=== PATIENT | female | born 1955 | race Caucasian/White ===

== ENCOUNTER 2017-08-13 13:37 | Emergency (ER) | payer OTHER, SELFPAY | END 2017-08-13 15:44 | disposition home or self-care (01) | PROVIDERS: Emergency Provider Nurse Practitioner Family; Family Provider Emergency Medicine; Visit Provider Nurse Practitioner Family | DX: J06.9 Acute upper respiratory infection, unspecified (principal); I10 Essential (primary) hypertension; E03.9 Hypothyroidism, unspecified; F41.9 Anxiety disorder, unspecified; Z88.0 Allergy status to penicillin; Z88.1 Allergy status to other antibiotic agents; Z88.2 Allergy status to sulfonamides | CPT/HCPCS: 87804; 99201 ==

== ENCOUNTER → 2018-02-10 10:05 | Outpatient (CLI) | payer OTHER, SELFPAY ==
--- NOTE | 2018-02-10 11:00 | XR_ITS ---
XR foot RT 2V HISTORY: ITS.REASON: foot pain ORDERING PHYSICIAN: Ariadna Edward PATIENT AGE: 62 years COMPARISON: None FINDINGS: No fracture or dislocation. No lytic or blastic change. There is normal mineralization.. There is a small calcaneal spur and there is an enthesophyte of the calcaneus at the Achilles insertion. 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 Please correlate with clinical findings. IMPRESSION: 1. Degenerative changes with calcaneal spur, calcaneal enthesophyte, along with a Reyna deformity . 2. No acute finding
[2018-02-10 11:07] LABS: Basophils # 0.1 K/mm3 (0-0.2); Basophils % 0.9 % (0.1-2.0); Eosinophils # 0.4 K/mm3 (0.0-0.4); Eosinophils % 5.2 % (0.1-12.0); Hematocrit 44.9 % (37.0-47.0); Hemoglobin 14.2 g/dL (12.2-16.2); Lymphocytes # 1.3 K/mm3 (0.7-4.5); Mean Corpuscular HGB Conc 31.6 g/dL (31.8-35.4); Mean Corpuscular Hemoglobin 27.1 pg (27.0-31.2); Mean Corpuscular Volume 85.9 fl (81-99); Mean Platelet Volume 8.3 fl (7.4-10.4); Monocytes # 0.4 K/mm3 (0.1-1.0); Monocytes % 4.4 % (1.7-9.3); Neutrophils # 6.3 K/mm3 (1.8-7.8); Neutrophils % 74.5 % (37.0-80.0); Platelet Count 202 K/mm3 (142-424); Red Blood Count 5.22 M/mm3 (4.20-5.40); Red Cell Distribution Width 13.6 % (11.5-17.5); White Blood Count 8.4 K/mm3 (4.8-10.8)
[2018-02-10 11:36] LABS: Alanine Aminotransferase 28 U/L (12-78); Albumin Level 3.8 gm/dL (3.4-5.0); Albumin/Globulin Ratio 1.1 (1.1-1.8); Alkaline Phosphatase 63 U/L (46-116); Anion Gap 11.8 mEq/L (5-15); Aspartate Amino Transferase 21 U/L (15-37); Bilirubin,Total 0.6 mg/dL (0.2-1.0); Blood Urea Nitrogen 11 mg/dL (7-18); Calcium 8.6 mg/dL (8.5-10.1); Carbon Dioxide 29 mmol/L (21.0-32.0); Chloride 105 mmol/L (98-107); Cholesterol 203 mg/dL (140-200); Creatinine,Serum 0.83 mg/dL (0.55-1.02); Estimated Glomerular Filt Rate 70 ml/min (>60); GFR (African American) 84 ML/MIN (>60); Globulin 3.6 gm/dl (1.3-3.2); Glucose 111 mg/dL (74-106); HDL Cholesterol 51 mg/dL (29-89); LDL Cholesterol 128 mg/dL (0-130); Potassium 3.8 mmoL/L (3.5-5.1); Sodium 142 mmol/L (136-145); T4 (Thyroxine) 8.1 ug/dl (4.7-13.3); Thyroid Stimulating Hormone 5.66 uIU/ml (0.358-3.740); Total Protein,Serum 7.4 gm/dL (6.4-8.2); Triglycerides 121 mg/dL (30-200); VLDL Cholesterol 24 mg/dL (0-40)
[2018-02-12 08:07] LABS: Vitamin D 25 Hydroxy 27.9 ng/mL (30.0-100.0)
[2018-02-13 15:37] LABS: H. pylori Breath Test Negative (Negative)
== END ==
PROVIDERS: Visit Provider Nurse Practitioner Family
DX: E03.9 Hypothyroidism, unspecified (principal); E78.5 Hyperlipidemia, unspecified; I10 Essential (primary) hypertension; R10.9 Unspecified abdominal pain; M79.601 Pain in right arm
CPT/HCPCS: 36415; 73620; 80053; 80061; 82652; 83013; 84436; 84443; 85025

== ENCOUNTER → 2018-05-22 10:14 | Outpatient (CLI) | payer OTHER, SELFPAY ==
--- NOTE | 2018-05-22 10:15 | MM_ITS ---
MM Dig screening mamm BI w/CAD ORDERING PHYSICIAN : Ariadna Edward PATIENT AGE: 62 years GENDER: Female COMPARISON: February INDICATION: ITS.REASON: screening. No hormones. No new complaints. Noncontributory family history TECHNIQUE: Standard CC and MLO images were obtained. R2 CAD reviewed. Additional axillary cc view both breast included FINDINGS: Lower density breast bilaterally with no dominant mass nor suspicious calcifications either breast. No suspicious new findings. Bilateral follow-up in one year adequate . IMPRESSION: ========= Stable bilateral mammogram . No significant new findings either breast Follow-up in one year BI-RADS Category: 1 Negative RECOMMENDED FOLLOW-UP: 1YR 1 YEAR FOLLOW-UP (A letter has been sent to the patient regarding results of the study.)
== END ==
PROVIDERS: Family Provider Emergency Medicine; PCP Nurse Practitioner Family; Visit Provider Nurse Practitioner Family
DX: Z12.31 Encounter for screening mammogram for malignant neoplasm of breast (principal)
CPT/HCPCS: 77067

== ENCOUNTER → 2019-01-29 11:26 | Outpatient (CLI) | payer OTHER, SELFPAY ==
--- NOTE | 2019-01-29 11:30 | XR_ITS ---
XR foot LT min 3V HISTORY: ITS.REASON: pain ORDERING PHYSICIAN: Rosio Titus APRN PATIENT AGE: 63 years COMPARISON: None FINDINGS: No fracture or dislocation. No lytic or blastic change or significant osteoarthritis. Small calcaneal spur is noted in there is an easily identified and his feelings insertion nonspecific. IMPRESSION: No acute finding
== END ==
PROVIDERS: PCP Emergency Medicine; Visit Provider Nurse Practitioner Family
DX: M25.473 Effusion, unspecified ankle (principal); M79.672 Pain in left foot
CPT/HCPCS: 73630

== ENCOUNTER → 2019-02-17 14:59 | Outpatient (CLI) | payer OTHER, SELFPAY | PROVIDERS: Visit Provider Nurse Practitioner Family | DX: R31.9 Hematuria, unspecified (principal) | CPT/HCPCS: 87086 ==

== ENCOUNTER → 2020-05-25 17:35 | Outpatient (CLI) | payer OTHER, SELFPAY | PROVIDERS: Visit Provider Nurse Practitioner Family | DX: R35.0 Frequency of micturition (principal) | CPT/HCPCS: 87086 ==

== ENCOUNTER → 2020-08-25 11:08 | Outpatient (CLI) | payer OTHER, SELFPAY ==
[2020-08-25 12:13] LABS: Basophils # 0.1 K/mm3 (0-0.2); Basophils % 0.9 % (0.1-2.0); Eosinophils # 0.3 K/mm3 (0.0-0.4); Eosinophils % 3.2 % (0.1-12.0); Hematocrit 47.5 % (37.0-47.0); Hemoglobin 15.7 g/dL (12.2-16.2); Lymphocytes # 1.8 K/mm3 (0.7-4.5); Lymphocytes % 18.3 % (10-50); Mean Corpuscular HGB Conc 33.1 g/dL (31.8-35.4); Mean Corpuscular Hemoglobin 27.8 pg (27.0-31.2); Mean Corpuscular Volume 84.2 fl (81-99); Mean Platelet Volume 8.4 fl (7.4-10.4); Monocytes # 0.5 K/mm3 (0.1-1.0); Monocytes % 4.9 % (1.7-9.3); Neutrophils # 7.1 K/mm3 (1.8-7.8); Neutrophils % 72.8 % (37.0-80.0); Platelet Count 258 K/mm3 (142-424); Red Blood Count 5.64 M/mm3 (4.20-5.40); Red Cell Distribution Width 14.4 % (11.5-17.5); White Blood Count 9.8 K/mm3 (4.8-10.8)
[2020-08-25 12:28] LABS: Alanine Aminotransferase 17 U/L (12-78); Albumin Level 4.6 g/dl (3.5-5.0); Albumin/Globulin Ratio 1.2 (1.1-1.8); Alkaline Phosphatase 82 U/L (38-126); Anion Gap 13.4 mEq/L (5-15); Aspartate Amino Transferase 26 U/L (14-36); Bilirubin,Total 1.2 mg/dl (0.2-1.3); Blood Urea Nitrogen 14 mg/dl (7-17); Calcium 10.2 mg/dl (8.4-10.2); Carbon Dioxide 28 mmol/L (22.0-30.0); Chloride 103 mmol/L (98-107); Chol/HDL Ratio 4.3 (1-3.5); Cholesterol 248 mg/dl (140-200); Estimated Glomerular Filt Rate 72 ml/min (>60); GFR (African American) 87 ML/MIN (>60); Globulin 3.7 g/dL (1.3-3.2); Glucose 117 mg/dl (74-100); HDL Cholesterol 58 mg/dl (40-60); Potassium 4.4 mmoL/L (3.5-5.1); Sodium 140 mmol/L (136-145); Total Protein,Serum 8.3 g/dl (6.3-8.2); Triglycerides 131 mg/dl (30-150); VLDL Cholesterol 26 mg/dL (0-40)
[2020-08-25 12:39] LABS: Direct LDL Cholesterol 153.28 mg/dL (100-129)
[2020-08-25 12:46] LABS: 25-OH Vitamin D, Total 24.8 ng/mL (30-100)
[2020-08-25 12:59] LABS: Thyroid Stimulating Hormone 3.95 uIU/mL (0.465-4.68)
== END ==
PROVIDERS: Visit Provider Physician Assistant
DX: E03.9 Hypothyroidism, unspecified (principal); E78.5 Hyperlipidemia, unspecified; E55.9 Vitamin D deficiency, unspecified; I10 Essential (primary) hypertension
CPT/HCPCS: 36415; 80053; 80061; 82306; 84439; 84443; 85025

== ENCOUNTER 2020-11-30 18:20 | Emergency (ER) | payer MEDICARE, OTHER, SELFPAY ==
[2020-11-30] VITALS (7 sets, daily range): BP systolic 157–189; BP diastolic 60–97; PULSE 62–81; RESP 14–20; TEMP 36.6; O2SAT 96–99; BMI 33.6
--- NOTE | 2020-11-30 18:43 | ECG_ITS ---
APPROVED REPORT Exam: Resting ECG HR:81 bpm ECG Measurements Heart Rate 81 AXES VA 158 P 59 QRSd 82 QRS 38 QT 410 T 59 QTc 476 Conclusion Sinus rhythm with premature atrial complexes Otherwise normal ECG Electronically signed by : Refugio Rosas, 12/03/2020 07:32:47
--- NOTE | 2020-11-30 18:51 | XR_ITS ---
PROCEDURE: XR CHEST PORTABLE CLINICAL HISTORY: soa Shortness of air COMPARISON: CR CXR CHEST(2 VIEWS-NOT PORTABLE) from 03/04/2017 FINDINGS: The cardiomediastinal silhouette and pulmonary vascularity are within normal limits. The lungs are clear without infiltrates, suspicious nodules, or pleural effusions. No acute bony abnormalities. IMPRESSION: No acute findings. Dictated by: Joey Hardy MD 11/30/2020 21:31 Joey Hardy MD in [place] 11/30/2020 21:31
--- NOTE | 2020-11-30 19:06 | HMH.EDGENADL ---
ED Disposition Clinical Impression: Palpitations Disposition: Still a Patient Condition on Discharge: Good Referrals: Tomasz Potts MD [Primary Care Provider] - - Critical Care Critical Care Time: No Attestation: On 11/30/20, the high probability of a clinically significant, sudden or life threatening deterioration of the following system(s) required my full and direct attention, intervention and personal management. The time I documented below is in addition to time spent performing reported procedures but includes the following listed in this critical care notation. Medical Decision Making - Medical Records Medical records reviewed: Yes: I reviewed the patient's medical records. - Patrick Inquiry Pt receiving controlled substance: No Vital Signs: 11/30/20 18:21 Temperature 98 F Temperature Source Oral Pulse Rate [Radial] 81 Respiratory Rate 16 Blood Pressure [Left Arm] 170/97 H Blood Pressure [Right Arm] 189/77 H Blood Pressure Mean [Left Arm] 121 Blood Pressure Mean [Right Arm] 114 Blood Pressure Position [Left Arm] Sitting Blood Pressure Position [Right Arm] Sitting 02 Sat by Pulse Oximetry 98 Oxygen Delivery Method Room Air Orders (Tests/Meds): ORDERS Category Date Time Status XR chest portable Stat Exams 11/30/20 18:51 Taken Basic Metabolic Panel Stat Lab 11/30/20 18:51 Ordered Complete Blood Count Auto Diff Stat Lab 11/30/20 18:51 Ordered Thyroid Stimulating Hormone Stat Lab 11/30/20 18:51 Ordered Troponin I Q3H Lab 11/30/20 22:00 Ordered Troponin I Q3H Lab 12/01/20 01:00 Ordered Troponin I Stat Lab 11/30/20 18:51 Ordered Medical Decision Narrative: 65-year-old female presents with palpitations and anxiety. She is very concerned about her blood pressure. Her blood pressure is elevated however no evidence of hypertensive emergency on exam. Laboratory evaluation has been initiated. Atypical for myocardial infarction and EKG showed no ischemic changes. TSH and electrolytes have been ordered as well. Plan for Dr. Queen to follow-up on laboratory and radiological evaluation and determine final disposition General Adult HPI - General Chief complaint: Recheck/Abnormal Lab/Rx Stated complaint: just don't feel goog, BP up Time Seen by Provider: 11/30/20 18:25 Mode of Arrival: Ambulatory Limitations: No Limitations Description of Symptoms (Recalled from ER Triage Doc. by RN): TO ED PER [facility] CAR WITH C/O HIGH BLOOD PRESSURE TODAY. ALSO C/O NECK AND IRENE SHOULDER PAIN. PT C/O ANXIETY - History of Present Illness HPI narrative: 65-year-old female with history of hypertension presents with anxiety and palpitations and hypertension. She says that she was speaking to her dentist today and felt an episode of anxiety come on and she felt her heart racing. She then checked her blood pressure and it was elevated. She is on lisinopril and amlodipine for high blood pressure. She has no chest pain at this time or shortness of air headache nausea vomiting numbness weakness or tingling in arms or legs. She feels like her heart is beating harder than normal however she does not think the speed is faster. Onset (ago): hour(s) (4) Radiation: non-radiation Severity: mild Consistency: intermittent - Related Data Home Medications Medication Instructions Recorded Confirmed diclofenac sodium 1 % topical gel TOPICAL 08/07/19 08/24/20 Previous Rx's Medication Instructions Recorded aspirin 81 mg tablet,delayed 81 mg PO DAILY #90 tab 02/17/19 release fluticasone propionate 50 See Rx Instructions .ROUTE 07/31/20 mcg/actuation nasal .COMPLEX #10 milliliter spray,suspension nebivolol 10 mg tablet 10 mg PO DAILY #90 tab 08/24/20 atorvastatin 10 mg tablet 10 mg PO HS #30 tab 08/28/20 ergocalciferol (vitamin D2) 1,250 1,250 mcg PO WEEKLY #5 cap 08/28/20 mcg (50,000 unit) capsule cetirizine 10 mg tablet See Rx Instructions .ROUTE 10/31/20 .COMPLEX #90 tab lisinopril 20 mg t
[2020-11-30 19:58] LABS: Basophils # 0.1 K/mm3 (0-0.2); Basophils % 0.7 % (0.1-2.0); Eosinophils # 0.4 K/mm3 (0.0-0.4); Eosinophils % 3.2 % (0.1-12.0); Hematocrit 42.9 % (37.0-47.0); Hemoglobin 14.1 g/dL (12.2-16.2); Lymphocytes # 1.4 K/mm3 (0.7-4.5); Lymphocytes % 12.1 % (10-50); Mean Corpuscular HGB Conc 32.8 g/dL (31.8-35.4); Mean Corpuscular Hemoglobin 27.6 pg (27.0-31.2); Mean Platelet Volume 7.9 fl (7.4-10.4); Monocytes # 0.4 K/mm3 (0.1-1.0); Monocytes % 3.3 % (1.7-9.3); Neutrophils # 9.5 K/mm3 (1.8-7.8); Neutrophils % 80.7 % (37.0-80.0); Platelet Count 233 K/mm3 (142-424); Red Cell Distribution Width 14.3 % (11.5-17.5); White Blood Count 11.8 K/mm3 (4.8-10.8)
[2020-11-30 19:58] LABS: Appearance,Urine CLEAR (Clear); Bilirubin,Urine Negative (Negative); Blood, Urine TRACE-I (Negative); Color,Urine YELLOW (Yellow); Glucose,Urine (UA) Negative (Negative); Ketones,Urine Negative (Negative); Leukocyte Esterase,Urine Negative (Negative); Microscopic, Urine URINE MICROSCOPIC (MICROSCOPIC); Nitrate,Urine Negative (Negative); Protein,Urine Negative (Negative); Specific Gravity, Urine <= 1.005 (1.005-1.030); Urobilinogen,Urine 0.2 EU/dl (0.2)
[2020-11-30 20:07] LABS: Chloride 102 mmol/L (98-107); Sodium 140 mmol/L (136-145)
[2020-11-30 20:08] LABS: Potassium 3.7 mmoL/L (3.5-5.1)
[2020-11-30 20:11] LABS: Anion Gap 11.7 mEq/L (5-15); Blood Urea Nitrogen 10 mg/dl (7-17); Calcium 9.2 mg/dl (8.4-10.2); Carbon Dioxide 30 mmol/L (22.0-30.0); Creatinine Clearance Estimated 71 mL/min (50-200); Estimated Glomerular Filt Rate 84 ml/min (>60); GFR (African American) 102 ML/MIN (>60); Glucose 125 mg/dl (74-100)
[2020-11-30 20:17] LABS: D-Dimer 0.65 ug/mL (0.0-0.5)
[2020-11-30 20:29] LABS: Troponin I < 0.01 ng/ml (0.00-0.034)
[2020-11-30 20:42] LABS: Thyroid Stimulating Hormone 2.59 uIU/mL (0.465-4.68)
[2020-11-30 22:02] LABS: Troponin I < 0.01 ng/ml (0.00-0.034)
== END 2020-11-30 22:25 | disposition home or self-care (01) ==
PROVIDERS: Emergency Provider Emergency Medicine; PCP Emergency Medicine
DX: R00.2 Palpitations (principal); I10 Essential (primary) hypertension; E78.5 Hyperlipidemia, unspecified; E03.9 Hypothyroidism, unspecified; F41.9 Anxiety disorder, unspecified; K21.9 Gastro-esophageal reflux disease without esophagitis; Z88.0 Allergy status to penicillin; Z88.1 Allergy status to other antibiotic agents; Z88.2 Allergy status to sulfonamides; Z79.899 Other long term (current) drug therapy
CPT/HCPCS: 71045; 80048; 81001; 84443; 84484; 85025; 85378; 93005; 99283

== ENCOUNTER 2020-12-03 10:17 | Emergency (ER) | payer MEDICARE, OTHER, SELFPAY ==
[2020-12-03 10:18] VITALS: BP 194/83; PULSE 87; RESP 20; TEMP 37.1; O2SAT 97; BMI 34.0
--- NOTE | 2020-12-03 10:28 | HMH.EDGENADL ---
ED Disposition Clinical Impression: Postmenopausal atrophic vaginitis Disposition: Home, Self-Care Condition on Discharge: Good Instructions: DI for Atrophic Vaginitis Additional Instructions: You have been evaluated for hematuria and vaginal dryness. Diagnosed with atrophic vaginitis. Please use topical lubricants like K-Y jelly. You may use estrogen cream if [id number] medications do not help. One option is Premarin. Follow-up with a SENIOR PROGRAM ANALYST as soon as available for complete examination, Pap smear, etc. return to the emergency department for any new or worsening symptoms Prescriptions: Estrogens, Conjugated [Premarin Cream 0.625mg/g 30g Applicator] 30 gm VG DAILYP PRN 5 Days #30 g PRN Reason: Vaginal Irritation Transmission Status: Pending to [id number] Referrals: Tomasz Potts MD [Primary Care Provider] - Time of Disposition: 11:20 - Critical Care Critical Care Time: No Attestation: On 12/03/20, the high probability of a clinically significant, sudden or life threatening deterioration of the following system(s) required my full and direct attention, intervention and personal management. The time I documented below is in addition to time spent performing reported procedures but includes the following listed in this critical care notation. Medical Decision Making - Medical Records Medical records reviewed: Yes: I reviewed the patient's medical records. - Patrick Inquiry Pt receiving controlled substance: No Vital Signs: 12/03/20 10:18 Temperature 98.7 F Temperature Source Oral Pulse Rate [Left Radial] 87 Respiratory Rate 20 Blood Pressure [Right Arm] 194/83 H Blood Pressure Mean [Right Arm] 120 Blood Pressure Source [Right Arm] Automatic Cuff Blood Pressure Position [Right Arm] Sitting 02 Sat by Pulse Oximetry 97 Oxygen Delivery Method Room Air - Lab Data Lab Results 12/03/20 10:42: Urine Color Yellow, Urine Appearance Clear, Urine pH 6.0, Ur Specific [place] 1.025, Urine Protein Negative, Urine Glucose (UA) Negative, Urine Ketones Negative, Urine Blood 3+, Urine Nitrate Negative, Urine Bilirubin Negative, Urine Urobilinogen 1.0, Ur Leukocyte Esterase Negative, Urine RBC 10-20, Urine WBC None, Ur Squamous Epith Cells 10-20, Urine Bacteria None 12/03/20 10:51: WBC 10.1, RBC 5.13, Hgb 14.3, Hct 41.8, MCV 81.4, MCH 27.9, MCHC 34.2, RDW 14.3, Plt Count 242, MPV 8.3, Neut % (Auto) 71.5, Lymph % (Auto) 16.3, [place] % (Auto) 4.2, Eos % (Auto) 7.1, Baso % (Auto) 0.9, Neut # (Auto) 7.2, Lymph # (Auto) 1.7, [place] # (Auto) 0.4, Eos # (Auto) 0.7 H, Baso # (Auto) 0.1 12/03/20 10:51: Sodium 140, Potassium 3.7, Chloride 104, Carbon Dioxide 27, Anion Gap 12.7, BUN 12, Creatinine 0.80, Estimated Creat Clear 72, Estimated GFR 72, Est GFR ( Amer) 87, Glucose 128 H, Calcium 9.8, Total Bilirubin 0.9, AST 23, ALT 18, Alkaline Phosphatase 76, Total Protein 8.4 H, Albumin 4.8, Globulin 3.6 H, Albumin/Globulin Ratio 1.3 Result diagrams: 12/03/20 10:51 12/03/20 10:51 Medical Decision Narrative: In summary this is a 65-year-old female presenting to the emergency department with vaginal itching, dysuria, bleeding. Patient clinically stable on arrival. Vital signs within normal limits with the exception of hypertension. Differential diagnoses include urinary tract infection, cystitis, vaginal atrophy, hypoestrogenism, nephrolithiasis. Will obtain CBC, CMP, urinalysis. Urinalysis shows 10-20 red blood cells. No signs of infection. No protein in the urine. Physical exam is most consistent with postmenopausal vaginal atrophy. Erythema is within the labia minora, not in other parts. No satellite lesions. No ulcers. No rash. Patient counseled to use a vaginal lubricant. If this does not work, may try estrogen cream like Premarin. Given prescription. Instructed to follow-up with her SENIOR PROGRAM ANALYST for more complete examination and symptom monitoring. She is agreeable with plan for discharge. General Adult HPI
[2020-12-03 10:51] VITALS: BP 176/66; PULSE 87; O2SAT 97
[2020-12-03 10:51] LABS: Appearance,Urine CLEAR (Clear); Bilirubin,Urine Negative (Negative); Blood, Urine 3+ (Negative); Color,Urine YELLOW (Yellow); Glucose,Urine (UA) Negative (Negative); Ketones,Urine Negative (Negative); Leukocyte Esterase,Urine Negative (Negative); Microscopic, Urine URINE MICROSCOPIC (MICROSCOPIC); Nitrate,Urine Negative (Negative); Protein,Urine Negative (Negative); Specific Gravity, Urine 1.025 (1.005-1.030)
[2020-12-03 10:59] LABS: Basophils # 0.1 K/mm3 (0-0.2); Basophils % 0.9 % (0.1-2.0); Eosinophils # 0.7 K/mm3 (0.0-0.4); Eosinophils % 7.1 % (0.1-12.0); Hematocrit 41.8 % (37.0-47.0); Hemoglobin 14.3 g/dL (12.2-16.2); Lymphocytes # 1.7 K/mm3 (0.7-4.5); Lymphocytes % 16.3 % (10-50); Mean Corpuscular HGB Conc 34.2 g/dL (31.8-35.4); Mean Corpuscular Hemoglobin 27.9 pg (27.0-31.2); Mean Corpuscular Volume 81.4 fl (81-99); Mean Platelet Volume 8.3 fl (7.4-10.4); Monocytes # 0.4 K/mm3 (0.1-1.0); Monocytes % 4.2 % (1.7-9.3); Neutrophils # 7.2 K/mm3 (1.8-7.8); Neutrophils % 71.5 % (37.0-80.0); Platelet Count 242 K/mm3 (142-424); Red Blood Count 5.13 M/mm3 (4.20-5.40); Red Cell Distribution Width 14.3 % (11.5-17.5); White Blood Count 10.1 K/mm3 (4.8-10.8)
[2020-12-03 11:01] VITALS: BP 167/67; PULSE 80; O2SAT 97
[2020-12-03 11:06] LABS: Alanine Aminotransferase 18 U/L (12-78); Albumin Level 4.8 g/dl (3.5-5.0); Albumin/Globulin Ratio 1.3 (1.1-1.8); Alkaline Phosphatase 76 U/L (38-126); Anion Gap 12.7 mEq/L (5-15); Aspartate Amino Transferase 23 U/L (14-36); Bilirubin,Total 0.9 mg/dl (0.2-1.3); Blood Urea Nitrogen 12 mg/dl (7-17); Calcium 9.8 mg/dl (8.4-10.2); Carbon Dioxide 27 mmol/L (22.0-30.0); Chloride 104 mmol/L (98-107); Creatinine Clearance Estimated 72 mL/min (50-200); Estimated Glomerular Filt Rate 72 ml/min (>60); GFR (African American) 87 ML/MIN (>60); Globulin 3.6 g/dL (1.3-3.2); Glucose 128 mg/dl (74-100); Potassium 3.7 mmoL/L (3.5-5.1); Sodium 140 mmol/L (136-145); Total Protein,Serum 8.4 g/dl (6.3-8.2)
[2020-12-03 11:40] VITALS: BP 167/67; PULSE 80; RESP 18; TEMP 37.1; O2SAT 97
== END 2020-12-03 11:45 | disposition home or self-care (01) ==
PROVIDERS: Emergency Provider Emergency Medicine; PCP Emergency Medicine
DX: N95.2 Postmenopausal atrophic vaginitis (principal); E03.9 Hypothyroidism, unspecified; I10 Essential (primary) hypertension; K21.9 Gastro-esophageal reflux disease without esophagitis; E78.5 Hyperlipidemia, unspecified; Z79.899 Other long term (current) drug therapy; Z88.2 Allergy status to sulfonamides; Z88.8 Allergy status to other drugs, medicaments and biological substances
CPT/HCPCS: 80053; 81001; 85025; 99282

== ENCOUNTER 2021-03-07 12:01 | Emergency (ER) | payer MEDICARE, OTHER, SELFPAY ==
[2021-03-07 12:10] VITALS: BP 181/74; PULSE 90; RESP 18; TEMP 36.8; O2SAT 96; BMI 35.5
--- NOTE | 2021-03-07 12:35 | HMH.EDUTC ---
[facility] [place] Disposition Clinical Impression: Carpal tunnel syndrome Qualifiers: Laterality: bilateral Qualified Code(s): G56.03 - Carpal tunnel syndrome, bilateral upper limbs Contact dermatitis Qualifiers: Contact dermatitis type: unspecified Contact dermatitis trigger: unspecified trigger Qualified Code(s): L25.9 - Unspecified contact dermatitis, unspecified cause Disposition: Home, Self-Care Condition on Discharge: Good Instructions: DI for Carpal Tunnel Syndrome Additional Instructions: Keep the affected area clean and dry. Follow up with your regular doctor. Don't start the oral steroids (prednisone) until tomorrow since you had the shot here today. Take the oral medications as directed and apply the topical medication as directed. Apply warm wet compresses to the affected area three or four times per day. GO TO THE ER FOR ANY WORSENING SYMPTOMS Prescriptions: predniSONE [Deltasone 10mg tablet] 10 mg PO DAILY 9 Days #21 tab Transmission Status: Received by [id number] Triamcinolone Acetonide 1 applicatio TP TIDP PRN 7 Days #1 tube PRN Reason: Itching Transmission Status: Received by [id number] Referrals: Tomasz Potts MD [Primary Care Provider] - Time of Disposition: 12:53 Medical Decision Making - Medical Records Medical records reviewed: No: I reviewed the patient's medical records. - Patrick Inquiry Pt receiving controlled substance: No Vital Signs: 03/07/21 12:10 03/07/21 13:20 Temperature 98.2 F 98 F Temperature Source Oral Pulse Rate 82 Pulse Rate [Left] 90 Respiratory Rate 18 16 Blood Pressure 174/76 H Blood Pressure [Right Arm] 181/74 H Blood Pressure Mean [Right Arm] 109 02 Sat by Pulse Oximetry 96 - Lab Data Lab Results 03/07/21 12:52: Urine Color Yellow, Urine Appearance Clear, Urine pH 6.5, Ur Specific [place] 1.025, Urine Protein Negative, Urine Glucose (UA) Negative, Urine Ketones Negative, Urine Blood Trace, Urine Nitrate Negative, Urine Bilirubin Negative, Urine Urobilinogen 0.2, Ur Leukocyte Esterase Negative 03/07/21 13:11: POC Glucose 116 H Orders (Tests/Meds): ED MEDICATIONS Discontinued Medications Generic Name Dose Route Start Last Admin Trade Name Freq PRN Reason Stop Dose Admin Methylprednisolone Sodium Succinate 125 mg 03/07/21 12:54 03/07/21 12:58 Methylprednisolone Sod Succ 125mg Vial IM 03/07/21 12:55 125 mg ONCE ONE Administration Medical Decision Narrative: Her skin symptoms of her upper back sound like shingles, but there are no vesicles and only a small area of erythema at the site. [facility] [place] HPI - General Stated complaint: back pain, hands tingling Time Seen by Provider: 03/07/21 12:35 Mode of Arrival: Ambulatory Source of Information: Patient Limitations: No Limitations Description of Symptoms (Recalled from Triage Doc. by RN): pt c/o upper R sided back and neck pain that stings and maldonado. she states her hands are also tingling. HEENT Symptoms (Recalled from RN notes): No Resp Symptoms (Recalled from RN notes): No Skin Symptoms (Recalled from RN notes): No MS Symptoms (Recalled from RN notes): Yes (R sided upper back and neck pain. tingling hands.) Functional Status (Recalled from RN notes): na - History of Present Illness Provider Complaint: She states that for the past 2 days she has had an area of tenderness, burning and itching on her upper middle back. She denies any fever/chills or other symptoms related to this. She also has been having burning with urination. She states that this started about a week ago. She also has been waking up at night for the past several weeks with bilateral hand numbness and tingling. She states that her symptoms get better pretty quickly once she starts moving her hands, but it bothers her when this happens. She states that she was told she had carpal tunnel syndrome in her right hand many years ago. - Related Data Home Medications Medicatio
[2021-03-07 12:52] LABS: Apearance,Urine Clear (Clear); Color,Urine Yellow (Yellow); PH,Urine 6.5 (5.0-8.5); Protein,Urine Negative (Negative); Specific Gravity, Urine 1.025 (1.005-1.030)
[2021-03-07 12:54] LABS: Bilirubin,Urine Negative (Negative); Blood, Urine Trace (Negative); Glucose,Urine (UA) Negative (Negative); Ketones,Urine Negative (Negative); UTC Leukocyte Esterase,Urine Negative (Negative); UTC Nitrate,Urine Negative (Negative); Urobilinogen,Urine 0.2 EU/dl (0.2)
[2021-03-07 13:20] VITALS: BP 174/76; PULSE 82; RESP 16; TEMP 36.6
[2021-03-07 13:20] LABS: POC Glucose,Bedside 116 (70-110)
== END 2021-03-07 13:22 | disposition home or self-care (01) ==
PROVIDERS: Emergency Provider Nurse Practitioner Family; PCP Emergency Medicine
DX: G56.03 Carpal tunnel syndrome, bilateral upper limbs (principal); L25.9 Unspecified contact dermatitis, unspecified cause; K21.9 Gastro-esophageal reflux disease without esophagitis; E78.5 Hyperlipidemia, unspecified; I10 Essential (primary) hypertension; E03.9 Hypothyroidism, unspecified; Z79.899 Other long term (current) drug therapy
CPT/HCPCS: G0463; 81003; 82962; 96372; 99202

== ENCOUNTER → 2021-10-19 08:58 | Outpatient (CLI) | payer MEDICARE, OTHER, SELFPAY ==
[2021-10-19 09:39] LABS: Basophils # 0.1 K/mm3 (0-0.2); Basophils % 1.1 % (0.1-2.0); Eosinophils # 0.6 K/mm3 (0.0-0.4); Eosinophils % 6.1 % (0.1-12.0); Hematocrit 38.9 % (37.0-47.0); Hemoglobin 12.6 g/dL (12.2-16.2); Lymphocytes # 1.8 K/mm3 (0.7-4.5); Lymphocytes % 17.8 % (10-50); Mean Corpuscular HGB Conc 32.3 g/dL (31.8-35.4); Mean Corpuscular Volume 86.5 fl (81-99); Mean Platelet Volume 8.6 fl (7.4-10.4); Monocytes # 0.4 K/mm3 (0.1-1.0); Monocytes % 4.2 % (1.7-9.3); Neutrophils # 7.3 K/mm3 (1.8-7.8); Neutrophils % 70.8 % (37.0-80.0); Platelet Count 282 K/mm3 (142-424); Red Cell Distribution Width 14.5 % (11.5-17.5); White Blood Count 10.3 K/mm3 (4.8-10.8)
[2021-10-19 09:59] LABS: Chloride 99 mmol/L (98-107)
[2021-10-19 10:02] LABS: Alanine Aminotransferase 20 U/L (12-78); Alkaline Phosphatase 73 U/L (38-126); Aspartate Amino Transferase 20 U/L (14-36); Bilirubin,Total 0.7 mg/dl (0.2-1.3); Blood Urea Nitrogen 13 mg/dl (7-17); Carbon Dioxide 30 mmol/L (22.0-30.0); Cholesterol 165 mg/dl (140-200); Estimated Glomerular Filt Rate 72 ml/min (>60); GFR (African American) 87 ML/MIN (>60); Triglycerides 100 mg/dl (30-150); VLDL Cholesterol 20 mg/dL (0-40)
[2021-10-19 10:14] LABS: Direct LDL Cholesterol 94.99 mg/dL (100-129)
[2021-10-19 10:34] LABS: Thyroid Stimulating Hormone 4.08 uIU/mL (0.465-4.68)
[2021-10-19 10:56] LABS: Albumin Level 3.7 g/dl (3.5-5.0); Albumin/Globulin Ratio 1.3 (1.1-1.8); Anion Gap 15.3 mEq/L (5-15); Calcium 8.7 mg/dl (8.4-10.2); Chol/HDL Ratio 3.8 (1-3.5); Globulin 2.8 g/dL (1.3-3.2); Glucose 108 mg/dl (74-100); HDL Cholesterol 43 mg/dl (40-60); Potassium 4.3 mmoL/L (3.5-5.1); Sodium 140 mmol/L (136-145); Total Protein,Serum 6.5 g/dl (6.3-8.2)
== END ==
PROVIDERS: Visit Provider Nurse Practitioner Family
DX: B96.89 Other specified bacterial agents as the cause of diseases classified elsewhere (principal); N76.0 Acute vaginitis; I10 Essential (primary) hypertension; R00.2 Palpitations
CPT/HCPCS: 36415; 80053; 80061; 84436; 84443; 85025

== ENCOUNTER 2021-11-18 22:10 | Emergency (ER) | payer MEDICARE, OTHER, SELFPAY ==
[2021-11-18 22:11] VITALS: BP 160/102; PULSE 118; RESP 16; TEMP 37.8; O2SAT 96; BMI 34.9
--- NOTE | 2021-11-18 22:52 | CT_ITS ---
PROCEDURE INFORMATION: Exam: CT Abdomen And Pelvis With Contrast Exam date and time: 11/19/2021 12:26 AM Age: 66 years old Clinical indication: Abdominal pain; Generalized; Prior surgery; Surgery date: 6+ months; Surgery type: Gb TECHNIQUE: Imaging protocol: Computed tomography of the abdomen and pelvis with contrast. Radiation optimization: All CT scans at this facility use at least one of these dose optimization techniques: automated exposure control; mA and/or kV adjustment per patient size (includes targeted exams where dose is matched to clinical indication); or iterative reconstruction. Contrast material: ISOVUE; Contrast volume: 75 ml; Contrast route: IV; COMPARISON: CR ABDACU ABD ACUTE(MUL VIEWS) 06/12/2017 2:40 PM FINDINGS: Tubes, catheters and devices: None noted. Lungs: Lung bases appear clear. Heart: No significant coronary calcifications. No cardiomegaly. No significant pericardial effusion. Liver: Normal. No mass. Gallbladder and bile ducts: Cholecystectomy. No ductal dilation. Pancreas: Normal. No ductal dilation. Spleen: Normal. No splenomegaly. Adrenal glands: Normal. No mass. Kidneys and ureters: Simple left renal cyst. No hydronephrosis. Stomach and bowel: Unremarkable. No obstruction. No mucosal thickening. Appendix: No evidence of appendicitis. Intraperitoneal space: Unremarkable. No free air. No significant fluid collection. Retroperitoneal space: No significant retroperitoneal inflammatory changes are noted. Vasculature: Unremarkable. No abdominal aortic aneurysm. Lymph nodes: Unremarkable. No enlarged lymph nodes. Urinary bladder: Unremarkable as visualized. Reproductive: Unremarkable as visualized. Bones/joints: Unremarkable. No acute fracture. Soft tissues: Unremarkable. IMPRESSION: No acute findings. COMMENTS: Consistent with the [employer]'s Incidental Findings Committee white paper ([address] [employer]iol 2018): Any incidental renal lesion less than 1 cm or classified as too small to characterize, or any incidental cystic renal lesion characterized as simple-appearing, is likely benign. No follow-up imaging is recommended for these lesions per consensus recommendations based on imaging criteria.
--- NOTE | 2021-11-18 23:33 | HMH.EDNVD ---
ED Disposition Clinical Impression: Abdominal pain Qualifiers: Abdominal location: epigastric Qualified Code(s): R10.13 - Epigastric pain Disposition: Home, Self-Care Condition on Discharge: Good Instructions: DI for Acute Abdominal Pain Additional Instructions: see pcp for follow up Referrals: Tomasz Potts MD [Primary Care Provider] - - Critical Care Critical Care Time: No Attestation: On 11/18/21, the high probability of a clinically significant, sudden or life threatening deterioration of the following system(s) required my full and direct attention, intervention and personal management. The time I documented below is in addition to time spent performing reported procedures but includes the following listed in this critical care notation. Medical Decision Making - Medical Records Medical records reviewed: Yes: I reviewed the patient's medical records. - Patrick Inquiry Pt receiving controlled substance: No Vital Signs: 11/18/21 22:11 Temperature 100.0 F H Temperature Source Oral Pulse Rate [Right Radial] 118 H Respiratory Rate 16 Blood Pressure [Right Arm] 160/102 H Blood Pressure Mean [Right Arm] 121 Blood Pressure Source [Right Arm] Automatic Cuff Blood Pressure Position [Right Arm] Sitting 02 Sat by Pulse Oximetry 96 Oxygen Delivery Method Room Air - Lab Data Lab results reviewed: Yes: I reviewed the patient's lab results. Lab Results 11/18/21 23:30: WBC 13.0 H, RBC 5.02, Hgb 14.2, Hct 43.1, MCV 85.8, MCH 28.2, MCHC 32.9, RDW 14.8, Plt Count 251, MPV 9.1, Neut % (Auto) 94.0 H, Lymph % (Auto) 3.1 L, [place] % (Auto) 1.4 L, Eos % (Auto) 1.0, Baso % (Auto) 0.5, Neut # (Auto) 12.2 H, Lymph # (Auto) 0.4 L, [place] # (Auto) 0.2, Eos # (Auto) 0.1, Baso # (Auto) 0.1, Total Counted 100, Neutrophils % (Manual) 88 H, Band Neutrophils % 5.0, Lymphocytes % (Manual) 7 L, Platelet Estimate Normal, RBC Morphology Normal, ESR 28 11/18/21 23:30: Sodium 137, Potassium 3.9, Chloride 104, Carbon Dioxide 27, Anion Gap 9.9, BUN 18 H, Creatinine 0.70, Estimated Creat Clear 73, Estimated GFR 84, Est GFR ( Amer) 101, Glucose 163 H, Calcium 8.5, Total Bilirubin 1.1, AST 31, ALT 29, Alkaline Phosphatase 67, C-Reactive Protein 31.6 H, Total Protein 7.6, Albumin 4.2, Globulin 3.4 H, Albumin/Globulin Ratio 1.2, Procalcitonin 0.105, TSH 1.14, Thyroxine (T4) 8.6 11/18/21 23:30: Troponin I < 0.01, Amylase 50, Lipase 60 11/19/21 00:30: Urine Color Yellow, Urine Appearance Clear, Urine pH 5.0, Ur Specific [place] >= 1.030, Urine Protein Negative, Urine Glucose (UA) Negative, Urine Ketones Negative, Urine Blood Negative, Urine Nitrate Negative, Urine Bilirubin Negative, Urine Urobilinogen 0.2, Ur Leukocyte Esterase Negative, Urine WBC Occasional, Ur Squamous Epith Cells 10-20 Result diagrams: 11/18/21 23:30 11/18/21 23:30 Orders (Tests/Meds): ED MEDICATIONS Generic Name Dose Route Start Last Admin Trade Name Freq PRN Reason Stop Dose Admin Sodium Chloride 8 ml 11/18/21 22:52 Sodium Chloride 0.9% 10ml Vial IV 12/18/21 22:51 NEEDED PRN dilute pepcid Discontinued Medications Generic Name Dose Route Start Last Admin Trade Name Freq PRN Reason Stop Dose Admin Famotidine 20 mg 11/18/21 22:52 11/18/21 23:35 Famotidine 20mg/2ml Vial IV 11/18/21 22:53 20 mg ONCE ONE Administration Sodium Chloride 1,000 mls @ 999 mls/hr 11/18/21 23:00 11/18/21 23:36 Sod Chlor 0.9% 1000ml Bag IV 11/19/21 00:00 999 mls/hr .Q1H1M FOZIA Administration Iopamidol 75 ml 11/19/21 00:38 11/19/21 00:39 Iopamidol-370 (76%);100ml Bottle IV 11/19/21 00:39 75 ml ONCE ONE Administration Metoclopramide HCl 10 mg 11/18/21 22:52 11/18/21 23:36 Metoclopramide Hcl 10mg/2ml Vial IVP 11/18/21 22:53 10 mg ONCE ONE Administration Ondansetron HCl 4 mg 11/18/21 22:52 11/18/21 23:36 Ondansetron 4mg/2ml Vial IV 11/18/21 22:53 4 mg ONCE ONE Administration Sodium Chloride 10 ml 11/19/21 00:38
--- NOTE | 2021-11-18 23:35 | ECG_ITS ---
APPROVED REPORT Exam: Resting ECG HR:87 bpm ECG Measurements Heart Rate 87 AXES IN 154 P 48 QRSd 79 QRS 5 QT 356 T 38 QTc 401 Conclusion SINUS RHYTHM LOW QRS VOLTAGE IN PRECORDIAL LEADS [QRS DEFLECTION < 1.0 mV IN CHEST LEADS] MODERATE ST DEPRESSION [0.05+ mV ST DEPRESSION] ABNORMAL ECG UNCONFIRMED REPORT Electronically signed by : Refugio Rosas MD 11/19/2021 08:13:30
[2021-11-18 23:45] LABS: Basophils # 0.1 K/mm3 (0-0.2); Basophils % 0.5 % (0.1-2.0); Eosinophils # 0.1 K/mm3 (0.0-0.4); Hematocrit 43.1 % (37.0-47.0); Hemoglobin 14.2 g/dL (12.2-16.2); Lymphocytes # 0.4 K/mm3 (0.7-4.5); Lymphocytes % 3.1 % (10-50); Mean Corpuscular HGB Conc 32.9 g/dL (31.8-35.4); Mean Corpuscular Hemoglobin 28.2 pg (27.0-31.2); Mean Corpuscular Volume 85.8 fl (81-99); Mean Platelet Volume 9.1 fl (7.4-10.4); Monocytes # 0.2 K/mm3 (0.1-1.0); Monocytes % 1.4 % (1.7-9.3); Neutrophils # 12.2 K/mm3 (1.8-7.8); Platelet Count 251 K/mm3 (142-424); Red Blood Count 5.02 M/mm3 (4.20-5.40); Red Cell Distribution Width 14.8 % (11.5-17.5)
[2021-11-18 23:46] LABS: MANUAL DIFFERENTIAL MANUAL DIFFERENTIAL (MANUAL DIFF)
[2021-11-18 23:53] LABS: Lymphocytes % 7 % (10-50); Neutrophils % 88 % (42-76); Platelet Estimate Normal; RBC Morphology Normal; Total Cells Counted 100
[2021-11-18 23:54] LABS: Amylase 50 U/L (30-110); Lipase 60 U/L (23-300)
[2021-11-18 23:55] LABS: Alanine Aminotransferase 29 U/L (12-78); Albumin Level 4.2 g/dl (3.5-5.0); Albumin/Globulin Ratio 1.2 (1.1-1.8); Alkaline Phosphatase 67 U/L (38-126); Anion Gap 9.9 mEq/L (5-15); Aspartate Amino Transferase 31 U/L (14-36); Bilirubin,Total 1.1 mg/dl (0.2-1.3); Blood Urea Nitrogen 18 mg/dl (7-17); Calcium 8.5 mg/dl (8.4-10.2); Carbon Dioxide 27 mmol/L (22.0-30.0); Chloride 104 mmol/L (98-107); Creatinine Clearance Estimated 73 mL/min (50-200); Estimated Glomerular Filt Rate 84 ml/min (>60); GFR (African American) 101 ML/MIN (>60); Globulin 3.4 g/dL (1.3-3.2); Glucose 163 mg/dl (74-100); Potassium 3.9 mmoL/L (3.5-5.1); Sodium 137 mmol/L (136-145); Total Protein,Serum 7.6 g/dl (6.3-8.2)
[2021-11-19] VITALS: BP 149/77; PULSE 84; O2SAT 96
[2021-11-19] LABS: C-Reactive Protein 31.6 mg/L (0-4)
[2021-11-19 00:12] LABS: Troponin I < 0.01 ng/ml (0.00-0.034)
[2021-11-19 00:14] LABS: Erythrocyte Sedimentation Rate 28 mm/hr (0-30)
[2021-11-19 00:15] LABS: Procalcitonin 0.105 ng/mL (0.0-2.0); T4 (Thyroxine) 8.6 ug/dl (5.53-11.0)
--- NOTE | 2021-11-19 00:26 | PC.NURSE ---
pt to ct
[2021-11-19 00:28] LABS: Thyroid Stimulating Hormone 1.14 uIU/mL (0.465-4.68)
[2021-11-19 00:52] LABS: Microscopic, Urine URINE MICROSCOPIC (MICROSCOPIC)
[2021-11-19 00:57] LABS: Appearance,Urine CLEAR (Clear); Bilirubin,Urine Negative (Negative); Blood, Urine Negative (Negative); Color,Urine YELLOW (Yellow); Glucose,Urine (UA) Negative (Negative); Ketones,Urine Negative (Negative); Leukocyte Esterase,Urine Negative (Negative); Nitrate,Urine Negative (Negative); Protein,Urine Negative (Negative); Specific Gravity, Urine >= 1.030 (1.005-1.030); Urobilinogen,Urine 0.2 EU/dl (0.2)
[2021-11-19 01:00] VITALS: BP 153/69; PULSE 88; O2SAT 96
[2021-11-19 01:03] LABS: WBC,Urine Occasional #/hpf (0-3)
[2021-11-19 01:50] VITALS: BP 139/70; PULSE 85; RESP 18; TEMP 36.7; O2SAT 95
== END 2021-11-19 02:00 | disposition home or self-care (01) ==
PROVIDERS: Emergency Provider Emergency Medicine; PCP Emergency Medicine
DX: R10.13 Epigastric pain (principal); R11.0 Nausea; I10 Essential (primary) hypertension; E78.5 Hyperlipidemia, unspecified; K21.9 Gastro-esophageal reflux disease without esophagitis; E03.9 Hypothyroidism, unspecified; Z79.1 Long term (current) use of non-steroidal anti-inflammatories (NSAID); Z79.51 Long term (current) use of inhaled steroids; Z79.82 Long term (current) use of aspirin; Z79.899 Other long term (current) drug therapy; Z88.0 Allergy status to penicillin; Z88.1 Allergy status to other antibiotic agents; Z88.2 Allergy status to sulfonamides; Z88.3 Allergy status to other anti-infective agents; Z88.8 Allergy status to other drugs, medicaments and biological substances
CPT/HCPCS: 74177; 80053; 81001; 82150; 83690; 84145; 84436; 84443; 84484; 85007; 85025; 85651; 86140; 93005; 96361; 96365; 96374; 99285; J2405; Q9967

== ENCOUNTER 2022-02-27 12:36 | Emergency (ER) | payer MEDICARE, OTHER, SELFPAY ==
[2022-02-27 12:40] VITALS: BP 126/99; PULSE 86; RESP 18; TEMP 37; O2SAT 96; BMI 35.3
--- NOTE | 2022-02-27 13:01 | HMH.EDUTC ---
[facility] – [place] Disposition Clinical Impression: Blood pressure check Disposition: Home, Self-Care Condition on Discharge: Good Instructions: Treatments for High Blood Pressure: More Than Just Taking a Pill, High Blood Pressure (Hypertension) (Alternative Therapy), DI for Anxiety -- Adult Additional Instructions: Do not stop any of your medication without discussing it with your Family Doctor first Make sure to be drinking plenty of fluids to help with your dry mouth If you need to take something over the counter for your sinuses Coricdin HBP may help if you can take it and should not affect your blood pressure however discuss with pharmacy before taking any medications to avoid interactions Follow up with your Family Doctor if you continue to get elevated readings on you blood pressure at home and change the batteries in your machine and make sure to have it recalibrated or purchase new one Straight to ER if any life threatening symptoms Referrals: Tomasz Potts MD [Primary Care Provider] - As needed Time of Disposition: 16:48 Medical Decision Making - Patrick Inquiry Pt receiving controlled substance: No Patrick was queried for this patient: No Vital Signs: 02/27/22 12:40 02/27/22 13:21 Temperature 98.6 F 98.6 F Temperature Source Oral Pulse Rate 86 Pulse Rate [Right Brachial] 86 Respiratory Rate 18 18 Blood Pressure 126/99 H Blood Pressure [Right Arm] 126/99 H Blood Pressure Mean [Right Arm] 108 Blood Pressure Source [Right Arm] Automatic Cuff Blood Pressure Position [Right Arm] Sitting 02 Sat by Pulse Oximetry 96 Oxygen Delivery Method Room Air Medical Decision Narrative: Discussed with patient and recommended transfer to the ED if she was having symptoms associated with HTN patient states that she just wanted to get her blood pressure checked and see if it was still high here and get a COVID test due to her having sinus congestion States that she will take her HCTZ and call her PCP tomorrow for appointment or return to the ED if any life threatening symptoms [facility] [place] HPI - General Stated complaint: elevated bp Time Seen by Provider: 02/27/22 13:01 Mode of Arrival: Ambulatory Source of Information: Patient Limitations: No Limitations Description of Symptoms (Recalled from Triage Doc. by RN): PATIENT STATES SHE TOOK HER BLOOD PRESSURE AT HOME AND WAS CONCERNED BECAUSE IT WAS ELEVATED. SHE REPORTS INTERMITTEN TINGLING IN HER FINGERS SINCE LAST WEEK, WHICH SHE THINKS MAY BE A FLARE UP OF HER CARPAL TUNNEL. C/O A SMALL HEADACHE TODAY. DENIES CHEST PAIN. REPORTS A HISTORY OF HYPERTENSION AND ANXIETY. SHE ALSO STATES THAT SHE HAS BEEN HAVING SOME SINUS CONGESTION AND REPORTS RECENT STRESS HEENT Symptoms (Recalled from RN notes): Yes Resp Symptoms (Recalled from RN notes): No Skin Symptoms (Recalled from RN notes): No MS Symptoms (Recalled from RN notes): No Functional Status (Recalled from RN notes): WNL - History of Present Illness Provider Complaint: Patient states that she was worried and wanted to get her blood pressure checked here someone told her it could make your heartbeat irregular States that it has been up and down lately States that she is suppose to take HCTZ but her mouth has been dry and she was worried about taking it so she didnt take it for several days States she is also having sinus problems and just recently was on medication for sinuses and having body aches and little headache this morning State that also she has hx of carpal tunnel and pulled some weeds in her yard last week and had some tingling on and off but not having it today States that she is not sure if she may have been around someone with COVID or not but worried since she finished medication and still having sinus issues and wanted to have her blood pressure checked here to see if her machine was right Denies chest pain denies any pain at this time Reports anxiety and feeling nervous when she gets like this - Related Data Home Medications
[2022-02-27 13:21] VITALS: BP 126/99; PULSE 86; RESP 18; TEMP 37; O2SAT 96
== END 2022-02-27 13:24 | disposition home or self-care (01) ==
PROVIDERS: Emergency Provider Nurse Practitioner; PCP Emergency Medicine
DX: R03.0 Elevated blood-pressure reading, without diagnosis of hypertension (principal); Z20.822 Contact with and (suspected) exposure to COVID-19
CPT/HCPCS: 99212; C9803; G0463; U0003; U0005

== ENCOUNTER 2022-03-19 10:58 | Emergency (ER) | payer MEDICARE, OTHER, SELFPAY ==
[2022-03-19] VITALS (13 sets, daily range): BP systolic 142–189; BP diastolic 49–101; PULSE 30–89; RESP 16–20; TEMP 36.6–36.9; O2SAT 95–99; BMI 32.5
--- NOTE | 2022-03-19 07:32 | ECG_ITS ---
APPROVED REPORT Exam: Resting ECG HR:75 bpm ECG Measurements Heart Rate 75 AXES MN 160 P 63 QRSd 85 QRS 23 QT 397 T 57 QTc 426 Conclusion SINUS RHYTHM WITH OCCASIONAL VENTRICULAR PREMATURE COMPLEXES BORDERLINE ECG UNCONFIRMED REPORT Electronically signed by : Refugio Rosas MD 03/20/2022 21:04:10
--- NOTE | 2022-03-19 11:05 | PC.NURSE ---
1105 IV STARTED AND LABS COLLECTED, SENT TO LAB. PT TOLERATED WELL
--- NOTE | 2022-03-19 11:11 | XR_ITS ---
FINAL REPORT CLINICAL HISTORY: htn COMPARISON: 11/30/2020 FINDINGS: The heart size is normal. The mediastinum is normal. There is no focal infiltrate or edema. There are no pleural effusions. There is no pneumothorax. There is no osseous abnormality. IMPRESSION: No acute cardiopulmonary process Reviewed, Interpreted and Dictated by Adrian Duncan III, MD Transcribed by Chase Harvey Authenticated and [facility]
--- NOTE | 2022-03-19 11:12 | HMH.EDGENADL ---
ED Disposition Clinical Impression: Essential hypertension, Premature ventricular contractions Disposition: Home, Self-Care Condition on Discharge: Good Instructions: DI for High Blood Pressure, Premature Ventricular Beats Additional Instructions: Increased dose of lisinopril to 40 mg daily. Start taking bisoprolol 5 mg a day. Continue other medications. Follow-up with cardiology service, Dr. Sharpe, in the office, call for appointment. Prescriptions: Bisoprolol Fumarate [Bisoprolol 5mg Tablet] 5 mg PO DAILY #30 tab Transmission Status: Pending to [id number] lisinopriL [Lisinopril] 40 mg PO DAILY #30 tab Transmission Status: Pending to [id number] Referrals: Tomasz Potts MD [Primary Care Provider] - - Critical Care Critical Care Time: No Attestation: On 03/19/22, the high probability of a clinically significant, sudden or life threatening deterioration of the following system(s) required my full and direct attention, intervention and personal management. The time I documented below is in addition to time spent performing reported procedures but includes the following listed in this critical care notation. Medical Decision Making - Patrick Inquiry Pt receiving controlled substance: No Vital Signs: 03/19/22 10:59 03/19/22 11:14 03/19/22 11:34 Temperature 98.4 F Temperature Source Oral Pulse Rate 74 74 Pulse Rate [Radial] 89 Respiratory Rate 16 18 Blood Pressure 189/91 H 162/64 H Blood Pressure [Right Radial Artery] 188/90 H Blood Pressure Mean 111 96 Blood Pressure Mean [Right Radial Artery] 122 Blood Pressure Position [Right Radial Artery] Sitting 02 Sat by Pulse Oximetry 98 99 98 Oxygen Delivery Method Room Air 03/19/22 12:05 03/19/22 12:14 03/19/22 12:15 Temperature Temperature Source Pulse Rate 36 L 80 77 Pulse Rate [Radial] Respiratory Rate 18 18 16 Blood Pressure 174/65 H 185/76 H 185/76 H Blood Pressure [Right Radial Artery] Blood Pressure Mean 101 112 Blood Pressure Mean [Right Radial Artery] Blood Pressure Position [Right Radial Artery] 02 Sat by Pulse Oximetry 98 98 98 Oxygen Delivery Method Room Air 03/19/22 12:40 03/19/22 13:36 03/19/22 14:04 Temperature Temperature Source Pulse Rate 78 72 79 Pulse Rate [Radial] Respiratory Rate 16 16 17 Blood Pressure 164/101 H 172/68 H 153/62 H Blood Pressure [Right Radial Artery] Blood Pressure Mean 122 121 92 Blood Pressure Mean [Right Radial Artery] Blood Pressure Position [Right Radial Artery] 02 Sat by Pulse Oximetry 99 96 98 Oxygen Delivery Method 03/19/22 14:34 03/19/22 15:05 Temperature Temperature Source Pulse Rate 32 L 31 L Pulse Rate [Radial] Respiratory Rate 19 17 Blood Pressure 170/54 H 142/49 H Blood Pressure [Right Radial Artery] Blood Pressure Mean 92 80 Blood Pressure Mean [Right Radial Artery] Blood Pressure Position [Right Radial Artery] 02 Sat by Pulse Oximetry 95 95 Oxygen Delivery Method - Lab Data Lab Results 03/19/22 11:05: WBC 9.8, RBC 4.88, Hgb 13.6, Hct 42.0, MCV 86.0, MCH 27.8, MCHC 32.3, RDW 15.1, Plt Count 278, MPV 8.6, Neut % (Auto) 64.6, Lymph % (Auto) 21.2, [place] % (Auto) 5.0, Eos % (Auto) 6.9, Baso % (Auto) 2.3 H, Neut # (Auto) 6.3, Lymph # (Auto) 2.1, [place] # (Auto) 0.5, Eos # (Auto) 0.7 H, Baso # (Auto) 0.2 03/19/22 11:05: Sodium 139, Potassium 3.9, Chloride 103, Carbon Dioxide 31 H, Anion Gap 8.9, BUN 16, Creatinine 0.90, Estimated Creat Clear 75, Estimated GFR 63, Est GFR ( Amer) 76, Glucose 140 H, Calcium 9.4, Total Bilirubin 0.6, AST 27, ALT 21, Alkaline Phosphatase 86, Troponin I < 0.01, Total Protein 7.9, Albumin 4.2, Globulin 3.7 H, Albumin/Globulin Ratio 1.1 03/19/22 11:05: Free T4 1.05 03/19/22 11:05: TSH 2.94 03/19/22 11:05: Magnesium 1.8 03/19/22 14:20: Troponin I < 0.01 Result diagrams: 03/19/22 11:05 03/19/22 11:05 Orders (Tests/Meds): ED MEDICATIONS Generi
--- NOTE | 2022-03-19 11:14 | PC.NURSE ---
ED MD AT BEDSIDE FOR EVALUATION
[2022-03-19 11:20] LABS: Basophils # 0.2 K/mm3 (0-0.2); Basophils % 2.3 % (0.1-2.0); Eosinophils # 0.7 K/mm3 (0.0-0.4); Eosinophils % 6.9 % (0.1-12.0); Hemoglobin 13.6 g/dL (12.2-16.2); Lymphocytes # 2.1 K/mm3 (0.7-4.5); Lymphocytes % 21.2 % (10-50); Mean Corpuscular HGB Conc 32.3 g/dL (31.8-35.4); Mean Corpuscular Hemoglobin 27.8 pg (27.0-31.2); Mean Platelet Volume 8.6 fl (7.4-10.4); Monocytes # 0.5 K/mm3 (0.1-1.0); Neutrophils # 6.3 K/mm3 (1.8-7.8); Neutrophils % 64.6 % (37.0-80.0); Platelet Count 278 K/mm3 (142-424); Red Blood Count 4.88 M/mm3 (4.20-5.40); Red Cell Distribution Width 15.1 % (11.5-17.5); White Blood Count 9.8 K/mm3 (4.8-10.8)
[2022-03-19 11:22] LABS: Chloride 103 mmol/L (98-107); Potassium 3.9 mmoL/L (3.5-5.1); Sodium 139 mmol/L (136-145)
[2022-03-19 11:25] LABS: Alanine Aminotransferase 21 U/L (12-78); Albumin Level 4.2 g/dl (3.5-5.0); Albumin/Globulin Ratio 1.1 (1.1-1.8); Alkaline Phosphatase 86 U/L (38-126); Anion Gap 8.9 mEq/L (5-15); Aspartate Amino Transferase 27 U/L (14-36); Bilirubin,Total 0.6 mg/dl (0.2-1.3); Blood Urea Nitrogen 16 mg/dl (7-17); Calcium 9.4 mg/dl (8.4-10.2); Carbon Dioxide 31 mmol/L (22.0-30.0); Creatinine Clearance Estimated 75 mL/min (50-200); Estimated Glomerular Filt Rate 63 ml/min (>60); GFR (African American) 76 ML/MIN (>60); Globulin 3.7 g/dL (1.3-3.2); Glucose 140 mg/dl (74-100); Total Protein,Serum 7.9 g/dl (6.3-8.2)
--- NOTE | 2022-03-19 11:25 | PC.NURSE ---
RADIOLOGY AT BEDSIDE FOR CXR
[2022-03-19 11:38] LABS: Troponin I < 0.01 ng/ml (0.00-0.034)
--- NOTE | 2022-03-19 12:10 | PC.NURSE ---
DR SANTIAGO IN WITH PT
--- NOTE | 2022-03-19 12:18 | ECG_ITS ---
APPROVED REPORT Exam: Resting ECG HR:79 bpm ECG Measurements Heart Rate 79 AXES NE 145 P 48 QRSd 85 QRS 30 QT 415 T 60 QTc 449 Conclusion SINUS RHYTHM WITH FREQUENT VENTRICULAR PREMATURE COMPLEXES IN A BIGEMINAL PATTERN ABNORMAL RHYTHM ECG UNCONFIRMED REPORT Electronically signed by : Refugio Rosas MD 03/20/2022 21:03:56
--- NOTE | 2022-03-19 12:30 | PC.NURSE ---
family at bedside updated on plan of care
--- NOTE | 2022-03-19 12:37 | PC.NURSE ---
attempted to call cardiology x 3 no answer. left message to please return call
--- NOTE | 2022-03-19 12:46 | PC.NURSE ---
attempted to call cardiology, no answer
[2022-03-19 13:04] LABS: Free T4 (Free Thyroxine) 1.05 ng/dl (0.78-2.19)
--- NOTE | 2022-03-19 13:11 | PC.NURSE ---
dr sanchez speaking with cardiology
[2022-03-19 13:24] LABS: Magnesium 1.8 mg/dl (1.6-2.3)
--- NOTE | 2022-03-19 13:30 | PC.NURSE ---
kenny zuleta cardiology at bedside performing assessment
[2022-03-19 13:33] LABS: Thyroid Stimulating Hormone 2.94 uIU/mL (0.465-4.68)
--- NOTE | 2022-03-19 14:07 | PC.NURSE ---
pt unhooked from leads and pt ambulated to the bathroom
--- NOTE | 2022-03-19 14:14 | CA_ITS ---
APPROVED REPORT EXAM: Comprehensive 2D, Doppler, and color-flow Echocardiogram Electric Installer: Mary Gale RVT Ht: 5 ft 4 in Wt: 190lbs BSA: 1.91 BP: 185/76 mmHg Indications: HTN,CP,HLD,GERD 2D Dimensions LVOT 1.74 cm (M/F) 1.5-2.5 LA Volume 40.30 mL LA Volume Index 21.09 mL/m2 (M/F) 16-34 M-Mode Dimensions RVDd 1.53 cm (0.9-2.6) LA Diam 3.81 cm (1.9-4.0) LVDd 3.22 cm (3.5-5.7) Ao Diam 2.59 cm (2.0-3.7) LVDs 2.01 cm (3.5-5.7) IVSd 1.61 cm (0.6-1.1) PWd 0.84 cm (0.6-1.1) EF (Teich) 69.00% FS 37.60% EDV (Teich) 41.60 mL TAPSE 2.83 (<1.7) ESV (Teich) 12.90 mL LV Diastology E Decel Time 230.00 (160-240 msec) E/A Ratio 3.8 MED E' 12.00 (< 7 cm/sec) E'/MED E' Ratio 8.92 (>14) LAT E' 14.60 (<10 cm/sec) E/LAT E' Ratio 7.33 (>14) Aortic Valve AO Peak GR. 14.30 mmHg Mitral Valve MV E Max Chris. 107.00 (40-130 cm/s) MV A Velocity 28.00 (40-130 cm/s) E/A Ratio 3.81 MV Decel. Time 230.00 (160-240 ms) MV PHT 67.00 ms Pulmonary Valve PV Peak Velocity 97.00 (50-150 cm/s) Tricuspid Valve TR P. Velocity 329.00 cm/s RAP Estimate 10.00 mmHg RVSP 53.30 mmHg Left Ventricle Left atrium is mildly enlarged, left ventricle is normal size mild concentric left ventricular hypertrophy, estimated ejection fraction 55% with no regional wall motion abnormality, diastolic parameters are inconclusive. Right Ventricle Right atrium and right ventricle are normal size and contractility. Aortic Valve Aortic valve is minimally thickened and fibrosed there is no aortic stenosis or aortic insufficiency. Mitral Valve Mitral valve grossly normal, there is trace mitral regurgitation. Tricuspid Valve Tricuspid valve grossly normal, there is trace tricuspid regurgitation, tricuspid regurgitation jet velocity is inadequate for calculation of the right ventricular systolic pressure. Pulmonic Valve Pulmonic valve is poorly visualized. Great Vessels Aortic root is normal size. Inferior vena cava normal size normal inspiratory collapse. Pericardium No significant pericardial effusion noted. Conclusion 1. Mildly enlarged left atrium, normal left ventricular size mild concentric left ventricular hypertrophy, estimated ejection fraction 55% with no regional wall motion abnormality, diastolic parameters are inconclusive. 2. Trace mitral and tricuspid regurgitation. 3. No significant pericardial effusion. 4. Inferior vena cava normal size normal inspiratory collapse. Electronically signed by : Omkar Holman MD 03/19/2022 19:33:31
--- NOTE | 2022-03-19 14:14 | CA_ITS ---
FINAL REPORT TECHNIQUE: Color Doppler, duplex Doppler and alfredo scale sonography of the bilateral neck arterial vasculature was performed. Velocities were measured in the carotid arteries. Stenosis evaluation based on the validated velocity criteria. CLINICAL HISTORY: HTN,NUMBNESS IRENE HANDS,CP FINDINGS: The peak systolic velocity of the right common carotid artery is 87 cm/s. The peak systolic velocity of the right internal carotid artery is 114 cm/s and end diastolic velocity 37 cm/s. The ICA/CCA ratio is 1.65. A mild amount of plaque is present. The right external carotid artery is patent. The right vertebral artery is patent with antegrade flow. The peak systolic velocity of the left common carotid artery is 90 cm/s. The peak systolic velocity of the left internal carotid artery is 128 cm/s and end diastolic velocity 55 cm/s. The ICA/CCA ratio is 1.67. A mild amount of plaque is present. The left external carotid artery is patent.The left vertebral artery is patent with antegrade flow. IMPRESSION: Less than 50% bilateral carotid stenosis. Bilateral patent vertebral arteries with antegrade flow. Reviewed, Interpreted and Dictated by Adrian Duncan III, MD Transcribed by Ladonna Young Authenticated and [facility]
--- NOTE | 2022-03-19 14:15 | PC.NURSE ---
pt hooked back up to monitor
--- NOTE | 2022-03-19 14:20 | PC.NURSE ---
LAB HERE FOR 2ND TROP
--- NOTE | 2022-03-19 14:27 | HMH.CNCARD ---
History of Present Illness Consult date: 03/19/22 Requesting physician: Johnny Queen Chief complaint: high BP History of present illness: This is a 66-year-old white female who presented to the emergency department this morning for an elevated blood pressure at home. She states this morning before taking her blood pressure medications her blood pressure was 153/115. She then called her sister and told her about her blood pressure and she told her she needed to come to the emergency department. The patient took her blood pressure medicines which consist of lisinopril and hydrochlorothiazide and she came on to the emergency department. The patient states that she felt fine at that time and had no symptoms. While driving over to the emergency department she began to experience a headache and tension in her back. She states that she thinks she just got nervous and when she got to the emergency department though symptoms resolved. She denies any chest pain or pressure. She states that sometimes she feels a quivering sensation in the xiphoid area of her chest but this has been going on for several years. She attributed to GERD and she currently takes omeprazole for this which she states does not really help, she had better relief when she was taking Pepcid. She denies any shortness of breath or edema. She denies any fever, chills, nausea, vomiting, diarrhea, PND or orthopnea. The patient does report that her brother approximately a year ago from a heart attack. She states that she has a lot of anxiety and would like to speak to someone about this. The patient also complains of bilateral arm numbness that has been going on for quite some time. She is concerned that she has carotid disease. [facility] History I have reviewed the patient's past medical history: Yes Medical History: Reports:: Anxiety, Gastroesophageal Reflux Disease(GERD), Hyperlipidemia, Hypertension *Have you ever received a pneumonia vaccine?: No *Have you received a flu vaccine this season?: Yes Other Medical History: Reports: Hypothyroidism Other Surgeries: Yes: Cholecystectomy, Other Amputation: No Fractures: No - *Social History Smoking Status: Never smoker Alcohol Intake: never Alcohol Intake Frequency:: other Substance Use Type: denies use *Occupational Status:: other *Travel in the last 8 weeks: None Family Hx:: Non-contributory Meds Home Medications Medication Instructions Recorded Confirmed Type Aspirin [Low Dose Aspirin EC] 81 mg PO DAILY 03/19/22 03/19/22 History Atorvastatin Calcium [Lipitor 10mg 10 mg PO HS 03/19/22 03/19/22 History Tab] Ergocalciferol (Vitamin D2) 1,250 mcg PO WEEKLY 03/19/22 03/19/22 History [Drisdol] Levothyroxine Sodium [Synthroid 50 mcg PO DAILY 03/19/22 03/19/22 History 50mcg (0.05mg) tab] hydroCHLOROthiazide 12.5 mg PO DAILY 03/19/22 03/19/22 History [Hydrochlorothiazide 12.5mg Tab] lisinopriL [Lisinopril] 20 mg PO DAILY 03/19/22 03/19/22 History Allergies Allergy/AdvReac Type Severity Reaction Status Date / Time atropine [From URISED] Allergy Unknown Verified 10/05/21 14:13 ciprofloxacin [From Cipro] Allergy Unknown Verified 10/05/21 14:13 gentamicin [Gentamicin] Allergy Unknown Verified 10/05/21 14:13 methenamine [From URISED] Allergy Unknown Verified 10/05/21 14:13 neomycin Allergy Unknown Verified 10/05/21 14:13 nitrofurantoin Allergy Unknown Verified 10/05/21 14:13 [From Macrobid] Penicillins Allergy Unknown Verified 10/05/21 14:13 polymyxin B Allergy Unknown Verified 10/05/21 14:13 salicylates [From Urised] Allergy Unknown Verified 10/05/21 14:13 sulfamethoxazole Allergy Unknown Verified 10/05/21 14:13 [From Septra] trimethoprim [From Septra] Allergy Unknown Verified 10/05/21 14:13 Exam Vital signs and Labs for Last 24 Hours: Temp Pulse Resp BP Pulse Ox 98.4 F 79 17 153/62 H 98 03/19/22 10:59 03/19/22 14:04 03/19/22 14:04 03/19/22 14:04 03/19/22 14:04
--- NOTE | 2022-03-19 14:31 | PC.NURSE ---
ECHO LAB HERE FOR ECHO
[2022-03-19 15:00] LABS: Troponin I < 0.01 ng/ml (0.00-0.034)
--- NOTE | 2022-03-19 15:17 | PC.NURSE ---
spoke with cardiology to set appt. pt to follow up 03/28/22 at 9am
--- NOTE | 2022-03-19 15:24 | PC.NURSE ---
pt unhooked and up to the bathroom
--- NOTE | 2022-03-19 15:34 | PC.NURSE ---
pt hooked back up to monitor, at bs
== END 2022-03-19 17:05 | disposition home or self-care (01) ==
PROVIDERS: Emergency Provider Emergency Medicine; PCP Emergency Medicine
DX: I10 Essential (primary) hypertension (principal); I47.0 Re-entry ventricular arrhythmia; I49.3 Ventricular premature depolarization; K21.9 Gastro-esophageal reflux disease without esophagitis; E78.5 Hyperlipidemia, unspecified; E03.9 Hypothyroidism, unspecified; H53.8 Other visual disturbances; G44.209 Tension-type headache, unspecified, not intractable; Z79.82 Long term (current) use of aspirin; Z79.899 Other long term (current) drug therapy; Z88.0 Allergy status to penicillin; Z88.1 Allergy status to other antibiotic agents; Z88.8 Allergy status to other drugs, medicaments and biological substances
CPT/HCPCS: 71045; 80053; 83735; 84439; 84443; 84484; 85025; 93005; 93306; 93880; 96374; 96375; 99285

== ENCOUNTER → 2022-03-26 06:35 | Outpatient (CLI) | payer MEDICARE, OTHER, SELFPAY ==
--- NOTE | 2022-03-26 06:36 | CA_ITS ---
APPROVED REPORT Exam: Pharmacologic Technologist: Genoveva Singh, Ht: 5 ft 1 in Wt: 193 lbs BSA: 1.86 m2 HR: 72 bpm BP: 180/69 mmHg Rhythm: NSR, PVCs Medical History Medical History: HTN, Hyperlipidemia Medications: Lisinopril,,,,, Levothyroxine,,,,, Aspirin,,,,, HCTZ,,,,, Vit D3,,,,, AtorvaASTATIN,,,,, Bisprolol Fumarate,,,,, Cardiac Risk Factors: HTN, Hyperlipidemia Stress Test Details Test: LEXISCAN HR Resting HR: 81 bpm Max Heart Rate (APMHR): 154.096149 bpm Max HR Achieved: 109 bpm Target HR (85% APMHR): 130.126312 bpm % of APMHR: 70.78 Recovery HR: 86 bpm BP Resting BP: 180/69 mmHg Max BP: 180/69 mmHg Recovery BP: 168.0/63.0 mmHg ECG Resting ECG: NSR, PVCs Clinical Exercise duration: 04:00 min Highest Stage Achieved: Stress ECG Conclusion During lexiscan pt experinced mild SOA, mild stomach discomfort, head discomfort. No CP noted. Frequent isolated, unifocal PVCs, occasional vent couplet. No signficant ST changes. Unremarkable lexiscan stress. Myoview images reported separately. Electronically signed by : Omkar Holman MD 03/27/2022 06:26:16
--- NOTE | 2022-03-26 06:36 | NM_ITS ---
APPROVED REPORT Exam: Nuclear Stress Test Indication: Abnormal EKG, HTN, High cholesterol, Family history Patient Location: Outpatient Stress Tech: Genoveva ROMO Tech:Urmila Buck, ARRT, RT (R)(N) Ht: 5 ft 1 in Wt: 193 lbs Bra Size: 38B HR: 81 bpm BP: 180/69 mmHg BSA: 1.86 m2 TID: 1.34 BMI: 36.4 History: Abnormal EKG, HTN, High cholesterol, Family history Procedure: Patient received a 0.4 mg of intravenous Lexiscan, resting heart rate 81 bpm, resting blood pressure 180/69 mmHg, with Lexiscan maximum heart rate achived was 109 bpm which is Less than 85 % of the maximum predicted heart rate and blood pressure was 180/69 mmHg. With Lexiscan, patient denied any complaint of chest pain. Electrocardiogram Resting electrocardiogram shows sinus rhythm, with Lexiscan less than 1.[address] segment depression noted from the baseline EKG. The EKG portion of the Lexiscan is nondiagnostic. Cardiac Stress and Resting SPECT Images: Cardiac Stress and Resting SPECT images were obtained using technetium 99m Myoview 31.2 mCi stress and 10.08 mCi at rest. Gated SPECT for analysis of segmental wall motion and calculation of the ejection fraction also done. Prone images were also obtained. Cardiac stress and resting SPECT images show uniform myocardial activity without segmental perfusion abnormality, computer derived ejection fraction is over 65% with no regional wall motion abnormality. Right ventricle is normal size and contractility. However there is transient ischemic dilatation of the left ventricle seen, raising the concerns for presence of balanced ischemia. Other causes for transient ischemic dilatation include elevated left ventricular end-diastolic pressure, diabetes and microvascular disease. Conclusion: 1. The EKG portion of the Lexiscan is nondiagnostic. 2. No scintigraphic evidence of reversible ischemia seen, computer derived ejection fraction is over 65% with no regional wall motion abnormality, right ventricle is normal size and contractility, there is transient ischemic dilatation of the left ventricle seen, raising the concern for presence of balanced ischemia, other causes for transient ischemic dilatation include elevated left ventricular end-diastolic pressure, diabetes and microvascular disease. Clinical correlation is recommended. 3. Abnormal Lexiscan Myoview study. Electronically signed by : Omkar Holman MD 03/27/2022 06:29:54
--- NOTE | 2022-03-26 09:01 | HMH.ITSHM ---
Current Home Medications as stated by this patient Malgorzata Anderson or rental representative. []LISINOPRIL HCTZ VITAMIN D3 LEVOTHYROXINE ATORVASTATIN ASA
== END ==
PROVIDERS: PCP Emergency Medicine; Visit Provider Nurse Practitioner
DX: R00.2 Palpitations; R00.1 Bradycardia, unspecified; I10 Essential (primary) hypertension; E78.2 Mixed hyperlipidemia; R94.31 Abnormal electrocardiogram [ECG] [EKG]
CPT/HCPCS: 78452; 93017; A9502; J2785

== ENCOUNTER → 2022-04-06 08:46 | Outpatient (CLI) | payer MEDICARE, OTHER, SELFPAY ==
[2022-04-06 09:29] LABS: Basophils # 0.1 K/mm3 (0-0.2); Basophils % 1.1 % (0.1-2.0); Eosinophils # 0.7 K/mm3 (0.0-0.4); Eosinophils % 8.3 % (0.1-12.0); Hematocrit 40.6 % (37.0-47.0); Hemoglobin 12.9 g/dL (12.2-16.2); Lymphocytes # 1.7 K/mm3 (0.7-4.5); Lymphocytes % 19.9 % (10-50); Mean Corpuscular HGB Conc 31.7 g/dL (31.8-35.4); Mean Corpuscular Hemoglobin 28.3 pg (27.0-31.2); Mean Corpuscular Volume 89.3 fl (81-99); Monocytes # 0.4 K/mm3 (0.1-1.0); Neutrophils # 5.5 K/mm3 (1.8-7.8); Neutrophils % 65.7 % (37.0-80.0); Platelet Count 253 K/mm3 (142-424); Red Blood Count 4.54 M/mm3 (4.20-5.40); White Blood Count 8.4 K/mm3 (4.8-10.8)
[2022-04-06 09:41] LABS: Chloride 105 mmol/L (98-107)
[2022-04-06 09:42] LABS: Potassium 4.2 mmoL/L (3.5-5.1); Sodium 141 mmol/L (136-145)
[2022-04-06 09:45] LABS: Anion Gap 9.2 mEq/L (5-15); Blood Urea Nitrogen 19 mg/dl (7-17); Calcium 8.4 mg/dl (8.4-10.2); Carbon Dioxide 31 mmol/L (22.0-30.0); Estimated Glomerular Filt Rate 63 ml/min (>60); GFR (African American) 76 ML/MIN (>60); Glucose 104 mg/dl (74-100)
[2022-04-06 10:02] LABS: Triiodothryronine (T3) Uptake 30 % (23.5-40.5)
[2022-04-06 10:03] LABS: Free Thyroxine Index 2.3 ug/dL (5.93-13.13); T4 (Thyroxine) 7.7 ug/dl (5.53-11.0)
[2022-04-06 10:17] LABS: Thyroid Stimulating Hormone 4.25 uIU/mL (0.465-4.68)
== END ==
PROVIDERS: PCP Emergency Medicine; Visit Provider Nurse Practitioner
DX: I10 Essential (primary) hypertension (principal); I20.8 Other forms of angina pectoris; R00.2 Palpitations; R94.30 Abnormal result of cardiovascular function study, unspecified; Z01.812 Encounter for preprocedural laboratory examination; Z20.822 Contact with and (suspected) exposure to COVID-19
CPT/HCPCS: 36415; 80048; 84436; 84443; 84479; 85025; C9803; U0003; U0005

== ENCOUNTER 2022-04-08 07:49 | Day surgery (SDC) | payer MEDICARE, OTHER, SELFPAY ==
[2022-04-08] VITALS (11 sets, daily range): BP systolic 82–164; BP diastolic 46–91; PULSE 50–79; RESP 16–18; O2SAT 90–98; BMI 36.4
--- NOTE | 2022-04-08 | IR_ITS ---
APPROVED REPORT Patient Location: Outpatient PROCEDURES Left heart catheterization Left ventriculogram Selective coronary angiogram INDICATION High risk abnormal Myoview, Angina pectoris Informed consent was obtained prior to the procedure. COMPLICATIONS NONE Estimated Blood Loss: LESS THAN 10 ML TECHNIQUE One percent lidocaine used to anesthetize the right anterior aspect of the wrist. The right radial artery was accessed via the Seldinger technique. A 6 Estonian sheath was placed in the right radial artery. 2.5 mg of verapamil, 800 mcg of nitroglycerin, 1mg Lidocaine and 5000 U Heparin were given through the arterial sheath. The papa catheter was also used to perform left heart catheterization, left ventriculogram and selective coronary angiogram. At the end of the procedure the sheath was removed good hemostasis was achieved using Traclet band, patient was transferred to the postop holding area in stable condition. ANGIOGRAPHIC RESULTS The left main artery Normal The left anterior descending artery Normal The circumflex artery Normal The right coronary artery Dominant normal The NELSON ventriculogram reveals Normal 65% The left ventricular end-diastolic pressure 25 to 30 mmHg IMPRESSION Normal coronary arteries Normal ejection fraction Moderate to severely elevated LVEDP consistent with diastolic dysfunction PLAN 1. Treatment of diastolic dysfunction. 2. Will discontinue hydrochlorothiazide and start on loop diuretic with spironolactone 3. Sleep study Electronically signed by : Rod Sharpe MD 04/08/2022 10:48:34
== END 2022-04-08 13:06 | disposition home or self-care (01) ==
LOC: CATHLAB 07:50
PROVIDERS: PCP Emergency Medicine; Visit Provider Internal Medicine
DX: I49.8 Other specified cardiac arrhythmias (principal); I49.3 Ventricular premature depolarization; E78.5 Hyperlipidemia, unspecified; I10 Essential (primary) hypertension; R94.31 Abnormal electrocardiogram [ECG] [EKG]; E03.9 Hypothyroidism, unspecified; R06.02 Shortness of breath; I25.118 Atherosclerotic heart disease of native coronary artery with other forms of angina pectoris
CPT/HCPCS: 93458; 99152; C1725; C1769; J1644; Q9967

== ENCOUNTER → 2022-04-23 09:37 | Outpatient (CLI) | payer MEDICARE, OTHER, SELFPAY ==
[2022-04-23 10:32] LABS: Hemoglobin A1C 5.8 % (4.0-6.0)
[2022-04-23 10:57] LABS: Anion Gap 13.1 mEq/L (5-15); Blood Urea Nitrogen 27 mg/dl (7-17); Calcium 9.5 mg/dl (8.4-10.2); Carbon Dioxide 31 mmol/L (22.0-30.0); Chloride 101 mmol/L (98-107); Estimated Glomerular Filt Rate 50 ml/min (>60); GFR (African American) 60 ML/MIN (>60); Glucose 120 mg/dl (74-100); Potassium 5.1 mmoL/L (3.5-5.1); Sodium 140 mmol/L (136-145)
== END ==
PROVIDERS: Nurse Practitioner Family; PCP Emergency Medicine; Visit Provider Nurse Practitioner Family
DX: I10 Essential (primary) hypertension (principal); R07.9 Chest pain, unspecified; R73.9 Hyperglycemia, unspecified
CPT/HCPCS: 36415; 80048; 83036

== ENCOUNTER → 2022-05-03 09:43 | Outpatient (CLI) | payer MEDICARE, OTHER, SELFPAY ==
--- NOTE | 2022-05-03 09:44 | MM_ITS ---
PROCEDURE INFORMATION: Exam: MG Bilateral Screening 3D Mammography Exam date and time: 05/03/2022 10:02 AM Age: 66 years old Clinical indication: Screening examination. No family history of breast cancer. TECHNIQUE: Imaging protocol: Bilateral Screening tomosynthesis and 2D mammography including computer-aided detection (CAD) when performed.Limited positioning related to mobility impairment. COMPARISON: 1. MG SCBI MM Dig screening mamm BI w/CAD 05/22/2018 10:27 AM 2. MG DMSB DIG MAMM-SCREEN IRENE 03/17/2015 4:08 PM 3. MG DMSB DIG MAMM-SCREEN IRENE 04/23/2013 8:39 AM 4. MG DMSB DIGITAL MAMM-SCREEN BILATERAL 04/21/2012 8:48 AM FINDINGS: MAMMOGRAPHY: Breast composition: There are scattered areas of fibroglandular density. Mass: Oval 0.3 cm mass in the right inner lower breast, anterior 3rd, about 5 o'clock 2-3 cm from the nipple, otherwise similar scattered nodules. Architectural distortion: None. Calcifications: No suspicious calcifications. Asymmetric density: None. Skin thickening: None. Axillary adenopathy: None. IMPRESSION: Patient to be recalled for right diagnostic mammogram with spot compression in the CC and MLO and right breast ultrasound for further evaluation of right breast mass. ASSESSMENT: BI-RADS Category 0: Incomplete- Need Additional Imaging Evaluation and/or Prior Mammograms for Comparison
== END ==
PROVIDERS: PCP Emergency Medicine; Visit Provider Physician Assistant
DX: Z12.31 Encounter for screening mammogram for malignant neoplasm of breast (principal)
CPT/HCPCS: 77063; 77067

== ENCOUNTER → 2022-05-13 13:25 | Outpatient (CLI) | payer MEDICARE, OTHER, SELFPAY ==
--- NOTE | 2022-05-13 13:25 | US_ITS ---
PROCEDURE INFORMATION: Exam: US Right Breast, Complete MG Right Diagnostic Breast Tomosynthesis Exam date and time: 05/13/2022 2:17 PM Age: 66 years old Clinical indication: Recall on the basis of screening mammogram 05/03/2022 for further evaluation of 0.3 cm mass in the right inner lower breast. TECHNIQUE: Imaging protocol: Complete ultrasound of all four quadrants of the Right breast and the retroareolar regions, including ultrasound of the axilla when performed. Right Diagnostic tomosynthesis and 2D mammography including computer-aided detection (CAD) when performed. Unilateral or bilateral exam. COMPARISON: MG MM DIG MAMM DX UNILAT RT CAD 05/13/2022 1:55 PM FINDINGS: MAMMOGRAPHY: Spot compression views demonstrate persistent 0.3 cm oval mass in the right inner breast anterior 3rd. ULTRASOUND: Right sonography, all 4 quadrants, retroareolar and axilla demonstrate, at 5 o'clock 1 cm from the nipple, 0.3 cm simple cyst, which appears to correspond to the mammographic finding. No other findings demonstrated. Sonographically unremarkable right axillary lymph node. IMPRESSION: Screening detected mass in the right breast represents a benign cyst. Annual screening mammography is recommended unless otherwise clinically indicated. ASSESSMENT: BI-RADS Category 2: Benign
== END ==
PROVIDERS: PCP Emergency Medicine; Visit Provider Physician Assistant
DX: R92.8 Other abnormal and inconclusive findings on diagnostic imaging of breast (principal); G47.33 Obstructive sleep apnea (adult) (pediatric); R06.83 Snoring; R40.0 Somnolence; I10 Essential (primary) hypertension
CPT/HCPCS: 76641; 77061; 77065; G0279; G0399

== ENCOUNTER → 2022-05-28 10:23 | Outpatient (CLI) | payer MEDICARE, OTHER, SELFPAY ==
[2022-05-28 11:01] LABS: Anion Gap 12.2 mEq/L (5-15); Blood Urea Nitrogen 17 mg/dl (7-17); Calcium 8.7 mg/dl (8.4-10.2); Carbon Dioxide 30 mmol/L (22.0-30.0); Chloride 103 mmol/L (98-107); Estimated Glomerular Filt Rate 63 ml/min (>60); GFR (African American) 76 ML/MIN (>60); Glucose 115 mg/dl (74-100); Potassium 4.2 mmoL/L (3.5-5.1); Sodium 141 mmol/L (136-145)
== END ==
PROVIDERS: PCP Emergency Medicine; Visit Provider Physician Assistant
DX: E78.2 Mixed hyperlipidemia (principal); I10 Essential (primary) hypertension
CPT/HCPCS: 36415; 80048

== ENCOUNTER → 2022-06-13 07:41 | Outpatient (CLI) | payer MEDICARE, OTHER, SELFPAY ==
--- NOTE | 2022-06-13 07:43 | CA_ITS ---
FINAL REPORT TECHNIQUE: Grayscale, color Doppler and duplex Doppler ultrasound of the kidneys, aorta and renal arteries was performed. Multiple velocities were measured. CLINICAL HISTORY: HTN/family hx of renal cell cancer FINDINGS: Aorta velocity: 155 cm/sec Right kidney: 10 cm cm. No evidence of hydronephrosis or mass. Right intrarenal RI: 0.70 Right renal artery velocity: 228 cm/sec. Right RAR (Renal artery-Aortic Ratio): 1.5 Left Kidney: 10.7 cm. No evidence of hydronephrosis or mass. Left intrarenal RI: 0.77 Left renal artery velocity: 154 cm/sec. Left RAR (Renal Artery-Aortic Ratio): 0.99 IMPRESSION: No evidence of significant left renal artery stenosis. Less than 60% right renal artery stenosis. CT angiogram or postcontrast MR angiogram would be more sensitive for evaluation of possible renal artery stenosis. Reviewed, Interpreted and Dictated by Adrian Duncan III, MD Transcribed by Ladonna Young Authenticated and [facility]
--- NOTE | 2022-06-13 08:38 | US_ITS ---
FINAL REPORT TECHNIQUE: Ultrasound images of the kidneys were obtained. CLINICAL HISTORY: I51.89 - Other ill-defined heart diseases FINDINGS: US RETROPERITONEAL The right kidney measures 9.3 cm in length. It is normal in echogenicity. There is no hydronephrosis. The left kidney measures 9.7 cm in length. It is normal in echogenicity. There is no hydronephrosis. There is a 1.7 cm cyst. The spleen is unremarkable and measures 9.3 cm in length. IMPRESSION: 1.7 cm left renal cyst. Otherwise unremarkable exam. Reviewed, Interpreted and Dictated by Adrian Duncan III, MD Transcribed by Ladonna Young Authenticated and [facility]
== END ==
PROVIDERS: PCP Emergency Medicine; Visit Provider Physician Assistant
DX: E78.2 Mixed hyperlipidemia (principal); I10 Essential (primary) hypertension; I51.89 Other ill-defined heart diseases
CPT/HCPCS: 76770; 93976

== ENCOUNTER 2022-07-22 16:51 | Emergency (ER) | payer MEDICARE, OTHER, SELFPAY ==
[2022-07-22 17:50] VITALS: BP 146/89; PULSE 82; RESP 18; TEMP 36.9; O2SAT 98; BMI 32.9
--- NOTE | 2022-07-22 18:24 | EXP.UTC ---
Discharge Plan Disposition Patient Disposition: Home, Self-Care Condition: Good Prescriptions Prescriptions: No Action loratadine [Allergy Relief (loratadine)] 10 mg tablet 10 mg PO DAILY mecobalamin (vitamin B12) 1,000 mcg tablet,chewable 1,000 mcg PO DAILY cholecalciferol (vitamin D3) 10 mcg (400 unit) capsule 10 mcg PO DAILY fluticasone propionate [Allergy Relief (fluticasone)] 50 mcg/actuation spray,suspension 2 spray intranasal DAILY Qty: 16 3RF Rx Instructions: administer into each nostril atorvastatin 10 mg tablet 10 mg PO HS Qty: 90 1RF Rx Instructions: TAKE 1 TABLET BY MOUTH ONCE DAILY AT BEDTIME furosemide [Lasix] 20 mg tablet 20 mg PO DAILY Qty: 30 3RF spironolactone [Aldactone] 25 mg tablet 25 mg PO DAILY Qty: 30 3RF levothyroxine 50 mcg tablet See Rx Instructions .ROUTE .COMPLEX Qty: 30 0RF Dose Instruction: TAKE 1 TABLET BY MOUTH ONCE DAILY FOR THYROID Rx Instructions: TAKE 1 TABLET BY MOUTH ONCE DAILY FOR THYROID lisinopril 40 mg tablet See Rx Instructions .ROUTE .COMPLEX Qty: 90 0RF Dose Instruction: Take 1 tablet by mouth once daily Rx Instructions: Take 1 tablet by mouth once daily aspirin 81 MG tablet,delayed release (DR/EC) 81 mg PO DAILY pantoprazole 40 MG tablet,delayed release (DR/EC) 40 mg PO DAILY Referrals Follow up/Referrals: Tomasz Potts MD [Primary Care Provider] - See instructions Activity Restrictions/Add. Instructions Additional Instructions/Restrictions: You can use over the counter eye lubricating drops for dry eyes *Monitor Temp, Over the counter Motrin or Tylenol as directed/as needed Tylenol every 4 hours and Motrin every 6 hours (as long as your family doctor has told you that you can take it) for fever or pain. and straight to ER if unable to lower temp less than 101.0 after medication given *Warm salt water gargles may help to soothe the throat *Throat Lozenges? *Warm fluids like tea with honey may help to soothe the throat? *Sleep elevated *Humidifier/Vaporizer Follow up IMMEDIATELY for new or worsening symptoms or no Noticeable improvement over the next 48-72 hours. 911 for difficulty breathing or swallowing Clinical Impressions Clinical Impression: Sinusitis Instructions Patient Instructions: DI for Sinusitis, Sinusitis Discharge ED Provider: Penelope Salmeron [facility] General Stated complaint: dry eyes, sinus pressure Mode of Arrival: Ambulatory Source of Information: Patient Limitations: No Limitations Time Seen by Provider: 07/22/22 18:24 Description of Symptoms (Recalled from Triage Doc. by RN): PATIENT C/O DRY EYES, NASAL CONGESTION AND SINUS PRESSURE X 4 DAYS HEENT Symptoms (Recalled from RN notes): Yes Resp Symptoms (Recalled from RN notes): No Skin Symptoms (Recalled from RN notes): No MS Symptoms (Recalled from RN notes): No Functional Status (Recalled from RN notes): WNL History of Present Illness Provider Complaint: Patient states that she has been having sinus pain and pressure, states that she has pressure behind her eyes, drainage in the back of her throat States that feels like it does when she has a sinus infection Related Data Home Medications Medication Instructions Recorded Confirmed aspirin 81 mg tablet,delayed 81 mg PO DAILY Heart disease 03/19/22 05/28/22 release pantoprazole 40 mg tablet,delayed 40 mg PO DAILY . 04/08/22 05/28/22 release cholecalciferol (vitamin D3) 10 10 mcg PO DAILY 04/23/22 05/28/22 mcg (400 unit) capsule loratadine 10 mg tablet (Allergy 10 mg PO DAILY 04/23/22 05/28/22 Relief (loratadine)) mecobalamin (vitamin B12) 1,000 1,000 mcg PO DAILY 04/23/22 05/28/22 mcg chewable tablet Previous Rx's Medication Instructions Recorded furosemide 20 mg tablet (Lasix) 20 mg PO DAILY #30 tabs 04/16/22 spironolactone 25 mg tablet 25 mg PO DAILY #30 tabs 04/16/22 (Aldactone)
[2022-07-22 19:13] VITALS: BP 146/89; PULSE 82; RESP 18; TEMP 36.9; O2SAT 98
== END 2022-07-22 19:14 | disposition home or self-care (01) ==
PROVIDERS: Emergency Provider Nurse Practitioner; PCP Emergency Medicine
DX: J32.9 Chronic sinusitis, unspecified (principal)
CPT/HCPCS: 99212; G0463

== ENCOUNTER 2022-07-26 18:28 | Emergency (ER) | payer MEDICARE, OTHER, SELFPAY ==
[2022-07-26 18:29] VITALS: BP 183/92; PULSE 82; RESP 18; TEMP 36.7; O2SAT 98; BMI 34.7
--- NOTE | 2022-07-26 18:39 | PC.NURSE ---
SUGAR BARTLETT at for patient eval
--- NOTE | 2022-07-26 18:44 | HMH.EDGENADL ---
Discharge Plan Disposition Patient Disposition: Home, Self-Care Condition: Good Prescriptions Prescriptions: No Action loratadine [Allergy Relief (loratadine)] 10 mg tablet 10 mg PO DAILY mecobalamin (vitamin B12) 1,000 mcg tablet,chewable 1,000 mcg PO DAILY cholecalciferol (vitamin D3) 10 mcg (400 unit) capsule 10 mcg PO DAILY fluticasone propionate [Allergy Relief (fluticasone)] 50 mcg/actuation spray,suspension 2 spray intranasal DAILY Qty: 16 3RF Rx Instructions: administer into each nostril atorvastatin 10 mg tablet 10 mg PO HS Qty: 90 1RF Rx Instructions: TAKE 1 TABLET BY MOUTH ONCE DAILY AT BEDTIME furosemide [Lasix] 20 mg tablet 20 mg PO DAILY Qty: 30 3RF spironolactone [Aldactone] 25 mg tablet 25 mg PO DAILY Qty: 30 3RF levothyroxine 50 mcg tablet See Rx Instructions .ROUTE .COMPLEX Qty: 30 0RF Dose Instruction: TAKE 1 TABLET BY MOUTH ONCE DAILY FOR THYROID Rx Instructions: TAKE 1 TABLET BY MOUTH ONCE DAILY FOR THYROID lisinopril 40 mg tablet See Rx Instructions .ROUTE .COMPLEX Qty: 90 0RF Dose Instruction: Take 1 tablet by mouth once daily Rx Instructions: Take 1 tablet by mouth once daily aspirin 81 MG tablet,delayed release (DR/EC) 81 mg PO DAILY pantoprazole 40 MG tablet,delayed release (DR/EC) 40 mg PO DAILY azithromycin [Zithromax Z-Damien] 250 mg tablet See Rx Instructions .ROUTE .COMPLEX 5 Days Qty: 6 0RF Rx Instructions: For 250 mg dose pack: take 500 mg today (day 1), then 250 mg for 4 days (days 2-5) Referrals Follow up/Referrals: Tomasz Potts MD [Primary Care Provider] - See instructions Activity Restrictions/Add. Instructions Additional Instructions/Restrictions: At this time it was felt you are safe to be discharged home from the emergency department. Please schedule an appointment with your family doctor next week for evaluation of medication adjustment of your hypertension. If new or worsening symptoms please not hesitate to return for continued evaluation. Clinical Impressions Clinical Impression: HTN (hypertension) Discharge ED Provider: Mamadou Renteria General Adult HPI General Stated complaint: HIGH Bp Time Seen by Provider: 07/26/22 18:44 History of Present Illness HPI narrative: Patient is a 66-year-old female with past medical history of hypertension, GERD, cardiac abnormality on Lasix, spironolactone, lisinopril who presents emergency department for evaluation of high blood pressure. Patient took it at [facility] where it was reportedly systolic of 200. She then presents here for continued evaluation. Patient has no other acute associated symptomatology. Patient recently was diagnosed with upper sinus infection and was given a Z-Damien earlier this week. No other acute complaints at this time. Related Data Home Medications Medication Instructions Recorded Confirmed aspirin 81 mg tablet,delayed 81 mg PO DAILY Heart disease 03/19/22 05/28/22 release pantoprazole 40 mg tablet,delayed 40 mg PO DAILY . 04/08/22 05/28/22 release cholecalciferol (vitamin D3) 10 10 mcg PO DAILY 04/23/22 05/28/22 mcg (400 unit) capsule loratadine 10 mg tablet (Allergy 10 mg PO DAILY 04/23/22 05/28/22 Relief (loratadine)) mecobalamin (vitamin B12) 1,000 1,000 mcg PO DAILY 04/23/22 05/28/22 mcg chewable tablet Previous Rx's Medication Instructions Recorded furosemide 20 mg tablet (Lasix) 20 mg PO DAILY #30 tabs 04/16/22 spironolactone 25 mg tablet 25 mg PO DAILY #30 tabs 04/16/22 (Aldactone) atorvastatin 10 mg tablet 10 mg PO HS Cholesterol #90 tabs 04/23/22 fluticasone propionate 50 2 spray intranasal DAILY #16 grams 04/23/22 mcg/actuation nasal spray,suspension (Allergy Relief (fluticasone)) levothyroxine 50 mcg tablet See Rx Instructions .Route 07/04/22 .COMPLEX #30 tabs lisinopril 40 mg tablet See Rx Instructions .Route 07/04/22 .COMPLEX #90
[2022-07-26 19:18] VITALS: BP 164/97; PULSE 80; RESP 18; TEMP 36.7; O2SAT 98
== END 2022-07-26 19:19 | disposition home or self-care (01) ==
LOC: ER 18:54
PROVIDERS: Emergency Provider Emergency Medicine; PCP Emergency Medicine
DX: I10 Essential (primary) hypertension (principal); Z79.82 Long term (current) use of aspirin; Z79.899 Other long term (current) drug therapy; K21.9 Gastro-esophageal reflux disease without esophagitis; I51.89 Other ill-defined heart diseases; E78.5 Hyperlipidemia, unspecified; E03.9 Hypothyroidism, unspecified; I49.3 Ventricular premature depolarization; Z88.0 Allergy status to penicillin; Z88.2 Allergy status to sulfonamides; Z88.8 Allergy status to other drugs, medicaments and biological substances; Z80.51 Family history of malignant neoplasm of kidney
CPT/HCPCS: 99282

== ENCOUNTER 2022-09-24 17:28 | Emergency (ER) | payer MEDICARE, OTHER, SELFPAY ==
--- NOTE | 2022-09-24 17:26 | ECG_ITS ---
APPROVED REPORT Exam: Resting ECG HR:97 bpm ECG Measurements Heart Rate 97 AXES DE 187 P 59 QRSd 89 QRS 37 QT 342 T 61 QTc 396 Conclusion SINUS RHYTHM WITH FREQUENT VENTRICULAR PREMATURE COMPLEXES ABNORMAL RHYTHM ECG UNCONFIRMED REPORT Electronically signed by : Refugio Rosas MD 09/25/2022 21:28:46
[2022-09-24 17:28] VITALS: BP 178/93; PULSE 93; RESP 16; TEMP 36.8; O2SAT 99; BMI 34.7
--- NOTE | 2022-09-24 17:42 | XR_ITS ---
PROCEDURE INFORMATION: Exam: XR Chest Exam date and time: 09/24/2022 6:18 PM Age: 66 years old Clinical indication: Sternal or substernal pain; Additional info: Chest pain TECHNIQUE: Imaging protocol: Radiologic exam of the chest. Views: 1 view. COMPARISON: CR XR CHEST PORTABLE 03/19/2022 11:36 AM FINDINGS: Lungs: Calcified granulomas left perihilar region. Regions of parenchymal scarring right lung base. Pleural spaces: Unremarkable. No pleural effusion. No pneumothorax. Heart/Mediastinum: Unremarkable. No cardiomegaly. Bones/joints: Unremarkable. IMPRESSION: No evidence of acute cardiopulmonary disease.
[2022-09-24 18:01] VITALS: BP 171/75; PULSE 78; RESP 16; O2SAT 100
[2022-09-24 18:09] LABS: Chloride 103 mmol/L (98-107); Potassium 4.2 mmoL/L (3.5-5.1); Sodium 140 mmol/L (136-145)
[2022-09-24 18:12] LABS: Anion Gap 15.2 mEq/L (5-15); Blood Urea Nitrogen 29 mg/dl (7-17); Calcium 9.1 mg/dl (8.4-10.2); Carbon Dioxide 26 mmol/L (22.0-30.0); Creatinine Clearance Estimated 75 mL/min (50-200); Estimated Glomerular Filt Rate 55 ml/min (>60); GFR (African American) 67 ML/MIN (>60); Glucose 157 mg/dl (74-100)
[2022-09-24 18:21] LABS: Basophils # 0.2 K/mm3 (0-0.2); Basophils % 0.9 % (0.1-2.0); Eosinophils # 0.1 K/mm3 (0.0-0.4); Eosinophils % 0.6 % (0.1-12.0); Lymphocytes # 2.1 K/mm3 (0.7-4.5); Lymphocytes % 12.4 % (10-50); Mean Corpuscular HGB Conc 33.2 g/dL (31.8-35.4); Mean Corpuscular Hemoglobin 27.3 pg (27.0-31.2); Mean Corpuscular Volume 82.3 fl (81-99); Mean Platelet Volume 8.5 fl (7.4-10.4); Monocytes # 0.4 K/mm3 (0.1-1.0); Neutrophils # 14.4 K/mm3 (1.8-7.8); Neutrophils % 84.1 % (37.0-80.0); Platelet Count 320 K/mm3 (142-424); Red Blood Count 5.47 M/mm3 (4.20-5.40); Red Cell Distribution Width 15.1 % (11.5-17.5); White Blood Count 17.1 K/mm3 (4.8-10.8)
[2022-09-24 18:23] LABS: MANUAL DIFFERENTIAL MANUAL DIFFERENTIAL (MANUAL DIFF)
[2022-09-24 18:31] VITALS: BP 165/75; PULSE 68; RESP 18; O2SAT 100
[2022-09-24 18:51] LABS: Troponin I < 0.01 ng/ml (0.00-0.034)
[2022-09-24 18:58] LABS: Lymphocytes % 16 % (10-50); Monocytes % 4 % (2-9); Neutrophils % 80 % (42-76); Total Cells Counted 100
[2022-09-24 18:59] LABS: Ovalocytes 1+; Platelet Estimate Normal
[2022-09-24 20:01] VITALS: BP 181/65; PULSE 75; RESP 15; O2SAT 98
--- NOTE | 2022-09-24 20:25 | CT_ITS ---
PROCEDURE INFORMATION: Exam: CT Abdomen And Pelvis With Contrast Exam date and time: 09/24/2022 8:44 PM Age: 66 years old Clinical indication: Nausea; Abdominal pain; Additional info: Abd pain TECHNIQUE: Imaging protocol: Computed tomography of the abdomen and pelvis with contrast. Radiation optimization: All CT scans at this facility use at least one of these dose optimization techniques: automated exposure control; mA and/or kV adjustment per patient size (includes targeted exams where dose is matched to clinical indication); or iterative reconstruction. Contrast material: ISOVUE; Contrast volume: 75 ml; Contrast route: IV; Other protocol: This patient has received [address] and 0 known cardiac nuclear medicine studies in the 12 months prior to the current study. COMPARISON: CT ABDOMEN PELVIS W CON 11/19/2021 12:26 AM FINDINGS: Pleural spaces: Incomplete visualization of pleural based nodule measuring approximately 2 cm at the right lung base. Findings are new. A mass cannot be entirely excluded. Liver: Hepatic steatosis. Low lying right lobe of the liver. Findings most compatible Raz's lobe. Findings unchanged. Gallbladder and bile ducts: Cholecystectomy. Pancreas: Normal. No ductal dilation. Spleen: Evidence of prior splenic granulomatous disease. Adrenal glands: Normal. No mass. Kidneys and ureters: 12 mm cyst lower pole left kidney again demonstrated. Stomach and bowel: Apparent wall thickening in the descending colon may be secondary to incomplete filling versus mild colitis. Clinically correlate. Appendix: No evidence of appendicitis. Intraperitoneal space: Unremarkable. No free air. No significant fluid collection. Vasculature: Unremarkable. No abdominal aortic aneurysm. Lymph nodes: Unremarkable. No enlarged lymph nodes. Urinary bladder: Unremarkable as visualized. Reproductive: Unremarkable as visualized. Bones/joints: Unremarkable. No acute fracture. Soft tissues: Unremarkable. IMPRESSION: 1. Apparent wall thickening in the descending colon may be secondary to incomplete filling versus mild colitis. Clinically correlate. 2. Incomplete visualization of 2 cm pleural based nodule right lung base. Recommend follow-up with computerized tomography of the thorax with contrast to exclude malignancy.
[2022-09-24 20:42] LABS: Amylase 84 U/L (30-110)
--- NOTE | 2022-09-24 20:42 | HMH.EDCP ---
Discharge Plan Disposition Patient Disposition: Home, Self-Care Prescriptions Prescriptions: No Action loratadine [Allergy Relief (loratadine)] 10 mg tablet 10 mg PO DAILY mecobalamin (vitamin B12) 1,000 mcg tablet,chewable 1,000 mcg PO DAILY cholecalciferol (vitamin D3) 10 mcg (400 unit) capsule 10 mcg PO DAILY fluticasone propionate [Allergy Relief (fluticasone)] 50 mcg/actuation spray,suspension 2 spray intranasal DAILY Qty: 16 3RF Rx Instructions: administer into each nostril atorvastatin 10 mg tablet 10 mg PO HS Qty: 90 1RF Rx Instructions: TAKE 1 TABLET BY MOUTH ONCE DAILY AT BEDTIME furosemide [Lasix] 20 mg tablet 20 mg PO DAILY Qty: 30 3RF spironolactone [Aldactone] 25 mg tablet 25 mg PO DAILY Qty: 30 3RF lisinopril 40 mg tablet See Rx Instructions .ROUTE .COMPLEX Qty: 90 0RF Dose Instruction: Take 1 tablet by mouth once daily Rx Instructions: Take 1 tablet by mouth once daily levothyroxine 50 mcg tablet See Rx Instructions .ROUTE .COMPLEX Qty: 30 0RF Dose Instruction: TAKE 1 TABLET BY MOUTH ONCE DAILY FOR THYROID Rx Instructions: TAKE 1 TABLET BY MOUTH ONCE DAILY FOR THYROID aspirin 81 MG tablet,delayed release (DR/EC) 81 mg PO DAILY pantoprazole 40 MG tablet,delayed release (DR/EC) 40 mg PO DAILY azithromycin [Zithromax Z-Damien] 250 mg tablet See Rx Instructions .ROUTE .COMPLEX 5 Days Qty: 6 0RF Rx Instructions: For 250 mg dose pack: take 500 mg today (day 1), then 250 mg for 4 days (days 2-5) Referrals Follow up/Referrals: Tomasz Potts MD [Primary Care Provider] - See instructions Clinical Impressions Clinical Impression: Atypical chest pain, Pleural mass, Dysfunction of sphincter of Oddi Instructions Patient Instructions: DI for Atypical Chest Pain Discharge ED Provider: Delroy (ED)Tomasz Chest Pain HPI General Chief Complaint: Chest Pain Stated Complaint: chest pain Time Seen by Provider: 09/24/22 20:00 Mode of Arrival: Ambulatory Source of Information: Patient, Relative and Medical Record Limitations: No Limitations Description of Symptoms (Recalled from ER Triage Doc. by RN): c/o epigastric area pain ongoing for 2 days. pt states that earlier today she got lightheaded associated with the epigastric pain. History of Present Illness HPI narrative: upper abd pain - lower chest pain progressive over the last 2 days - MD complaint: chest pain Onset (ago): day(s) Duration: intermittent Severity: moderate Quality: sharp Risk Factors for CAD: Family Hx of CAD Treatments prior to or on arrival for Cardiac Chest Pain: none GILSON Score for Non-Stemi Age of Patient: 60-69 years old Heart Rate: 70-89 bpm Systolic Blood Pressure: 140-159 mmHg Serum Creatinine: 0.80-1.19 mg/dl CHF [place] Class: I-No CHF Other Risk Factors: None Non-Stemi Risk Score: 98 Risk Stratification: 1-108 = Low Risk Related Data Home Medications Medication Instructions Recorded Confirmed aspirin 81 mg tablet,delayed 81 mg PO DAILY Heart disease 03/19/22 05/28/22 release pantoprazole 40 mg tablet,delayed 40 mg PO DAILY . 04/08/22 05/28/22 release cholecalciferol (vitamin D3) 10 10 mcg PO DAILY 04/23/22 05/28/22 mcg (400 unit) capsule loratadine 10 mg tablet (Allergy 10 mg PO DAILY 04/23/22 05/28/22 Relief (loratadine)) mecobalamin (vitamin B12) 1,000 1,000 mcg PO DAILY 04/23/22 05/28/22 mcg chewable tablet Previous Rx's Medication Instructions Recorded furosemide 20 mg tablet (Lasix) 20 mg PO DAILY #30 tabs 04/16/22 spironolactone 25 mg tablet 25 mg PO DAILY #30 tabs 04/16/22 (Aldactone) atorvastatin 10 mg tablet 10 mg PO HS Cholesterol #90 tabs 04/23/22 fluticasone propionate 50 2 spray intranasal DAILY #16 grams 04/23/22 mcg/actuation nasal spray,suspension (Allergy Relief (fluticasone)) lisinopril 40 mg tablet See Rx Instructions .Route 07/04/22 .COMPLEX #90 tabs
[2022-09-24 20:59] LABS: Troponin I < 0.01 ng/ml (0.00-0.034)
[2022-09-24 21:00] LABS: Microscopic, Urine URINE MICROSCOPIC (MICROSCOPIC)
[2022-09-24 21:01] VITALS: BP 143/62; PULSE 77; RESP 18; O2SAT 97
[2022-09-24 21:02] LABS: Acetone, Serum (Rapid) None Detected (None Detect)
[2022-09-24 21:03] LABS: Lactic Acid 1.1 mmol/L (0.7-2.1)
[2022-09-24 21:03] LABS: Appearance,Urine CLEAR (Clear); Bilirubin,Urine Negative (Negative); Blood, Urine TRACE-I (Negative); Color,Urine YELLOW (Yellow); Glucose,Urine (UA) Negative (Negative); Ketones,Urine Negative (Negative); Leukocyte Esterase,Urine Negative (Negative); Nitrate,Urine Negative (Negative); Protein,Urine Negative (Negative); Specific Gravity, Urine <= 1.005 (1.005-1.030); Urobilinogen,Urine 0.2 EU/dl (0.2)
[2022-09-24 21:08] LABS: Alanine Aminotransferase 19 U/L (12-78); Albumin Level 4.3 g/dl (3.5-5.0); Alkaline Phosphatase 74 U/L (38-126); Aspartate Amino Transferase 25 U/L (14-36); Bilirubin,Direct 0.2 mg/dl (0.0-0.4); Bilirubin,Indirect 0.5 mg/dL (0.0-0.9); Bilirubin,Total 0.7 mg/dl (0.2-1.3); Bilirubin,Unconjugated 0.5 mg/dL (0.0-1.1); Total Protein,Serum 7.6 g/dl (6.3-8.2)
[2022-09-24 21:12] LABS: Lipase 203 U/L (23-300)
[2022-09-24 21:39] LABS: Bacteria,Urine 1+ /lpf
--- NOTE | 2022-09-24 21:42 | CT_ITS ---
PROCEDURE INFORMATION: Exam: CT Chest With Contrast; Diagnostic Exam date and time: 09/24/2022 10:29 PM Age: 66 years old Clinical indication: Abnormal findings; Other: Abnormal cxr per er staff; Additional info: Abd cxr TECHNIQUE: Imaging protocol: Diagnostic computed tomography of the chest with contrast. Radiation optimization: All CT scans at this facility use at least one of these dose optimization techniques: automated exposure control; mA and/or kV adjustment per patient size (includes targeted exams where dose is matched to clinical indication); or iterative reconstruction. Contrast material: ISOVUE; Contrast volume: 75 ml; Contrast route: IV; Other protocol: This patient has received 2 known [address]s and 0 known cardiac nuclear medicine studies in the 12 months prior to the current study. COMPARISON: 1. CR XR CHEST PORTABLE 09/24/2022 6:[address] ABDOMEN AND PELVIS WITH CONTRAST 11/19/2021 FINDINGS: Lungs: Bilobed pleural-based right lower lobe nodule measuring 16 x 30 mm on image 51 series 3. This is increased significantly in size since the CT exam from November 19, 2021. Calcified left lower lobe granuloma image 37. Pleural spaces: Unremarkable. No pneumothorax. No pleural effusion. Heart: Unremarkable. No cardiomegaly. No pericardial effusion. Lymph nodes: Calcified left hilar and mediastinal lymph nodes are noted. There are no pathologically enlarged nodes. Vasculature: Unremarkable. No aortic aneurysm. Bones/joints: Unremarkable. No acute fracture. Soft tissues: Unremarkable. IMPRESSION: 1. 16 x 30 mm pleural-based nodule right lower lobe increased in size since November 19, 2021. Further evaluation with PET-CT and/or biopsy is recommended. 2. Other findings consistent with prior granulomatous exposure.
[2022-09-24 22:00] VITALS: BP 159/62; PULSE 63; O2SAT 98
--- NOTE | 2022-09-24 22:26 | PC.NURSE ---
pt out of room to CT @ this time.
--- NOTE | 2022-09-24 22:36 | PC.NURSE ---
patient back to room at this time
[2022-09-25 00:05] VITALS: BP 160/65; PULSE 64; RESP 18; TEMP 36.6; O2SAT 99
[2022-09-25 00:14] LABS: Troponin I < 0.01 ng/ml (0.00-0.034)
== END 2022-09-25 00:09 | disposition home or self-care (01) ==
PROVIDERS: Emergency Medicine; Emergency Provider Emergency Medicine; PCP Emergency Medicine
DX: R07.89 Other chest pain (principal); J94.9 Pleural condition, unspecified; K83.8 Other specified diseases of biliary tract; Z85.3 Personal history of malignant neoplasm of breast; I50.9 Heart failure, unspecified; E78.5 Hyperlipidemia, unspecified; I11.0 Hypertensive heart disease with heart failure; E03.9 Hypothyroidism, unspecified; I49.3 Ventricular premature depolarization; Z82.49 Family history of ischemic heart disease and other diseases of the circulatory system; Z90.49 Acquired absence of other specified parts of digestive tract; Z80.9 Family history of malignant neoplasm, unspecified; Z86.79 Personal history of other diseases of the circulatory system
CPT/HCPCS: 71045; 71260; 74177; 80048; 80076; 81001; 82009; 82150; 83605; 83690; 84484; 85007; 85025; 93005; 96361; 96374; 96375; 99285; Q9967

== ENCOUNTER → 2022-11-15 10:12 | Outpatient (CLI) | payer MEDICARE, OTHER, SELFPAY ==
--- NOTE | 2022-11-15 10:16 | XR_ITS ---
FINAL REPORT CLINICAL HISTORY: Pt had Rt lung bx Friday, c/o wheezing w weakness x 1 day. Nonsmoker COMPARISON: 09/24/2022 FINDINGS: PA and lateral views of the chest were obtained. The cardiac and mediastinal silhouettes are within normal limits. There is granulomatous disease. The lungs are otherwise clear. There is no pleural effusion or pneumothorax. No acute osseous abnormality is identified. IMPRESSION: No radiographic evidence of acute cardiac or pulmonary disease. Reviewed, Interpreted and Dictated by Naida Lynn MD Transcribed by Meliza Meyer Authenticated and [facility]
== END ==
PROVIDERS: PCP Emergency Medicine; Visit Provider Internal Medicine Pulmonary Disease
DX: R06.00 Dyspnea, unspecified (principal)
CPT/HCPCS: 71046

== ENCOUNTER → 2022-11-15 11:00 | Outpatient (CLI) | payer MEDICARE, OTHER, SELFPAY ==
[2022-11-15 13:33] LABS: MANUAL DIFFERENTIAL MANUAL DIFFERENTIAL (MANUAL DIFF); Microscopic, Urine URINE MICROSCOPIC (MICROSCOPIC)
[2022-11-15 15:30] LABS: Basophils # 0.1 K/mm3 (0-0.2); Basophils % 0.4 % (0.1-2.0); Eosinophils % 0.2 % (0.1-12.0); Hematocrit 41.8 % (37.0-47.0); Lymphocytes # 1.6 K/mm3 (0.7-4.5); Lymphocytes % 10.6 % (10-50); Mean Corpuscular Hemoglobin 26.9 pg (27.0-31.2); Mean Corpuscular Volume 86.8 fl (81-99); Mean Platelet Volume 8.7 fl (7.4-10.4); Monocytes # 0.5 K/mm3 (0.1-1.0); Monocytes % 3.5 % (1.7-9.3); Neutrophils # 12.7 K/mm3 (1.8-7.8); Neutrophils % 85.3 % (37.0-80.0); Platelet Count 258 K/mm3 (142-424); Red Blood Count 4.81 M/mm3 (4.20-5.40); Red Cell Distribution Width 15.2 % (11.5-17.5); White Blood Count 14.9 K/mm3 (4.8-10.8)
[2022-11-15 15:46] LABS: Appearance,Urine CLEAR (Clear); Bilirubin,Urine Negative (Negative); Blood, Urine TRACE-L (Negative); Color,Urine YELLOW (Yellow); Glucose,Urine (UA) Negative (Negative); Ketones,Urine Negative (Negative); Leukocyte Esterase,Urine Negative (Negative); Nitrate,Urine Negative (Negative); PH,Urine 6.5 (5.0-8.5); Protein,Urine Negative (Negative); Specific Gravity, Urine 1.015 (1.005-1.030)
[2022-11-15 16:02] LABS: Alanine Aminotransferase 15 U/L (12-78); Albumin Level 4.1 g/dl (3.5-5.0); Albumin/Globulin Ratio 1.4 (1.1-1.8); Alkaline Phosphatase 64 U/L (38-126); Anion Gap 9.8 mEq/L (5-15); Aspartate Amino Transferase 20 U/L (14-36); Bilirubin,Total 0.6 mg/dl (0.2-1.3); Blood Urea Nitrogen 26 mg/dl (7-17); Calcium 8.9 mg/dl (8.4-10.2); Carbon Dioxide 33 mmol/L (22.0-30.0); Chloride 102 mmol/L (98-107); Creatine Kinase 76 U/L (30-135); Estimated Glomerular Filt Rate 62 ml/min (>60); GFR (African American) 76 ML/MIN (>60); Globulin 2.9 g/dL (1.3-3.2); Glucose 75 mg/dl (74-100); Potassium 4.8 mmoL/L (3.5-5.1); Sodium 140 mmol/L (136-145)
[2022-11-15 16:08] LABS: RBC,Urine Occasional #/hpf (0-3)
[2022-11-15 17:18] LABS: Lymphocytes % 11 % (10-50); Monocytes % 3 % (2-9); Neutrophils % 86 % (42-76); Platelet Estimate Normal; RBC Morphology Normal; Total Cells Counted 100
== END ==
PROVIDERS: PCP Family Medicine; Visit Provider Family Medicine
DX: R33.9 Retention of urine, unspecified (principal); R06.2 Wheezing; M79.606 Pain in leg, unspecified
CPT/HCPCS: 36415; 80053; 81001; 82550; 85007; 85014; 85018; 85048; 85049; 87086

== ENCOUNTER 2022-11-15 12:10 | Emergency (ER) | payer MEDICARE, OTHER, SELFPAY ==
--- NOTE | 2022-11-15 12:21 | HMH.EDGENADL ---
Discharge Plan Prescriptions Prescriptions: No Action loratadine [Allergy Relief (loratadine)] 10 mg tablet 10 mg PO DAILY mecobalamin (vitamin B12) 1,000 mcg tablet,chewable 1,000 mcg PO DAILY cholecalciferol (vitamin D3) 10 mcg (400 unit) capsule 10 mcg PO DAILY fluticasone propionate [Allergy Relief (fluticasone)] 50 mcg/actuation spray,suspension 2 spray intranasal DAILY Qty: 16 3RF Rx Instructions: administer into each nostril atorvastatin 10 mg tablet 10 mg PO HS Qty: 90 1RF Rx Instructions: TAKE 1 TABLET BY MOUTH ONCE DAILY AT BEDTIME furosemide [Lasix] 20 mg tablet 20 mg PO Q OTHER DAY spironolactone [Aldactone] 25 mg tablet 25 mg PO Q OTHER DAY dicyclomine 10 mg capsule 10 mg PO Q8H Qty: 20 0RF levothyroxine 50 mcg tablet See Rx Instructions .ROUTE .COMPLEX Qty: 30 0RF Dose Instruction: TAKE 1 TABLET BY MOUTH ONCE DAILY FOR THYROID Rx Instructions: TAKE 1 TABLET BY MOUTH ONCE DAILY FOR THYROID lisinopril 40 mg tablet See Rx Instructions .ROUTE .COMPLEX Qty: 90 0RF Dose Instruction: Take 1 tablet by mouth once daily Rx Instructions: Take 1 tablet by mouth once daily aspirin 81 MG tablet,delayed release (DR/EC) 81 mg PO DAILY pantoprazole 40 MG tablet,delayed release (DR/EC) 40 mg PO DAILY Referrals Follow up/Referrals: Tomasz Potts MD [Primary Care Provider] - See instructions Discharge ED Provider: Tami Anderson General Adult HPI General Stated complaint: leg pain, lung pain Time Seen by Provider: 11/15/22 12:21 Related Data Home Medications Medication Instructions Recorded Confirmed aspirin 81 mg tablet,delayed 81 mg PO DAILY Heart disease 03/19/22 11/05/22 release pantoprazole 40 mg tablet,delayed 40 mg PO DAILY . 04/08/22 11/05/22 release cholecalciferol (vitamin D3) 10 10 mcg PO DAILY 04/23/22 11/05/22 mcg (400 unit) capsule loratadine 10 mg tablet (Allergy 10 mg PO DAILY 04/23/22 11/05/22 Relief (loratadine)) mecobalamin (vitamin B12) 1,000 1,000 mcg PO DAILY 04/23/22 11/05/22 mcg chewable tablet furosemide 20 mg tablet (Lasix) 20 mg PO Q OTHER DAY 11/05/22 11/05/22 spironolactone 25 mg tablet 25 mg PO Q OTHER DAY 11/05/22 11/05/22 (Aldactone) Previous Rx's Medication Instructions Recorded atorvastatin 10 mg tablet 10 mg PO HS Cholesterol #90 tabs 04/23/22 fluticasone propionate 50 2 spray intranasal DAILY #16 grams 04/23/22 mcg/actuation nasal spray,suspension (Allergy Relief (fluticasone)) dicyclomine 10 mg capsule 10 mg PO Q8H #20 caps 09/27/22 levothyroxine 50 mcg tablet See Rx Instructions .Route 10/02/22 .COMPLEX #30 tabs lisinopril 40 mg tablet See Rx Instructions .Route 10/15/22 .COMPLEX #90 tabs Allergies Allergy/AdvReac Type Severity Reaction Status Date / Time atropine [From URISED] Allergy Unknown Verified 11/05/22 13:50 ciprofloxacin [From Cipro] Allergy Unknown Verified 11/05/22 13:50 gentamicin [Gentamicin] Allergy Unknown Verified 11/05/22 13:50 methenamine [From URISED] Allergy Unknown Verified 11/05/22 13:50 neomycin Allergy Unknown Verified 11/05/22 13:50 nitrofurantoin Allergy Unknown Verified 11/05/22 13:50 [From Macrobid] Penicillins Allergy Unknown Verified 11/05/22 13:50 polymyxin B Allergy Unknown Verified 11/05/22 13:50 salicylates [From Urised] Allergy Unknown Verified 11/05/22 13:50 sulfamethoxazole Allergy Unknown Verified 11/05/22 13:50 [From Septra] trimethoprim [From Septra] Allergy Unknown Verified 11/05/22 13:50 latex AdvReac Rash Verified 11/05/22 13:50 PFSH PFSH Disclaimer: The information contained in this section may have been updated after the patient was seen, as this information can be updated by other users. Medical History (Updated 11/15/22 @ 09:28 by Fannie Garcia MD) Acute dyspnea Allergic rhinitis Breast cancer screening by mammogram Diastolic dysfunction H
--- NOTE | 2022-11-15 12:27 | PC.NURSE ---
pt was contacted by dr. hernández's office staff while in being registered in to the ER. Pt was given chest xray results that she had done as an outpt this morning. States she does not want to be seen as an ER pt. pt LWBS by ER
[2022-11-15 12:30] VITALS: BP 0/0; PULSE 0; RESP 0; TEMP -17.7; TEMP 0; O2SAT 0
== END 2022-11-15 12:30 | disposition left against medical advice (07) ==
LOC: ER 12:15
PROVIDERS: Emergency Provider Student in an Organized Health Care Education/Training Program; PCP Emergency Medicine
DX: R07.81 Pleurodynia (principal)
CPT/HCPCS: 36415; 71046; 80053; 81001; 82550; 85007; 85014; 85018; 85048; 85049; 87086; 99284

== ENCOUNTER → 2022-12-05 10:55 | Outpatient (CLI) | payer MEDICARE, OTHER, SELFPAY ==
--- NOTE | 2022-12-05 11:01 | CA_ITS ---
FINAL REPORT TECHNIQUE: Color Doppler, duplex Doppler and compression sonography of the left lower extremity deep venous systems was performed. CLINICAL HISTORY: left leg pain. Patient states she was working in her garden 1 week ago and noticed her left leg hurt afterwards. It got worse 12/02/22. She states she recently had a lung biopsy with results being benign. HTN, hyperlipidemia. 81 mg ASA. FINDINGS: There is no evidence of deep venous thrombosis from the level of the groin to the calf. The veins are patent and compressible. IMPRESSION: No evidence of deep venous thrombosis left lower extremity. Reviewed, Interpreted and Dictated by Adrian Duncan III, MD Transcribed by Ladonna Young Authenticated and [facility]
--- NOTE | 2022-12-05 11:30 | XR_ITS ---
FINAL REPORT CLINICAL HISTORY: left knee/leg pain FINDINGS: Three views of the left knee reveal no evidence of fracture or dislocation. The bony alignment is normal. The joint spaces are preserved. There is no evidence of joint effusion. No localized soft tissue abnormality is seen. IMPRESSION: No acute abnormality identified. Reviewed, Interpreted and Dictated by Adrian Duncan III, MD Transcribed by Ladonna Young Authenticated and [facility]
== END ==
PROVIDERS: PCP Family Medicine; Visit Provider Family Medicine
DX: M79.605 Pain in left leg (principal)
CPT/HCPCS: 73562; 93971

== ENCOUNTER → 2023-01-06 14:02 | Outpatient (CLI) | payer MEDICARE, OTHER, SELFPAY | DX: R00.0 Tachycardia, unspecified (principal) ==

== ENCOUNTER 2023-01-06 15:41 | Emergency (ER) | payer MEDICARE, OTHER, SELFPAY ==
[2023-01-06 15:42] VITALS: BP 210/93; PULSE 60; RESP 19; TEMP 36.7; O2SAT 98; BMI 35.6
--- NOTE | 2023-01-06 15:47 | ECG_ITS ---
APPROVED REPORT Exam: Resting ECG HR:58 bpm ECG Measurements Heart Rate 58 AXES WV 165 P 54 QRSd 88 QRS 18 QT 411 T 73 QTc 407 Conclusion SINUS BRADYCARDIA WITH FREQUENT VENTRICULAR PREMATURE COMPLEXES IN A BIGEMINAL PATTERN ABNORMAL RHYTHM ECG UNCONFIRMED REPORT Electronically signed by : Refugio Rosas MD 01/07/2023 21:21:57
--- NOTE | 2023-01-06 15:59 | XR_ITS ---
FINAL REPORT CLINICAL HISTORY: soa COMPARISON: 11/15/2022 FINDINGS: The heart size is normal. The mediastinum is within normal limits. There is no acute cardiopulmonary process. There is no pleural effusion. There is no pneumothorax. The bony thorax is intact. IMPRESSION: No acute cardiopulmonary process. Reviewed, Interpreted and Dictated by Adrian Duncan III, MD Transcribed by Chase Harvey Authenticated and [facility]
[2023-01-06 16:01] VITALS: BP 201/69; O2SAT 97
[2023-01-06 16:08] LABS: Basophils # 0.1 K/mm3 (0-0.2); Basophils % 0.6 % (0.1-2.0); Eosinophils # 0.4 K/mm3 (0.0-0.4); Eosinophils % 2.8 % (0.1-12.0); Hematocrit 41.6 % (37.0-47.0); Hemoglobin 13.8 g/dL (12.2-16.2); Lymphocytes # 1.7 K/mm3 (0.7-4.5); Mean Corpuscular HGB Conc 33.1 g/dL (31.8-35.4); Mean Corpuscular Hemoglobin 28.6 pg (27.0-31.2); Mean Corpuscular Volume 86.4 fl (81-99); Mean Platelet Volume 8.2 fl (7.4-10.4); Monocytes # 0.5 K/mm3 (0.1-1.0); Monocytes % 3.9 % (1.7-9.3); Neutrophils # 11.2 K/mm3 (1.8-7.8); Neutrophils % 80.8 % (37.0-80.0); Platelet Count 231 K/mm3 (142-424); Red Blood Count 4.82 M/mm3 (4.20-5.40); White Blood Count 13.9 K/mm3 (4.8-10.8)
[2023-01-06 16:15] LABS: Alanine Aminotransferase 24 U/L (12-78); Albumin Level 4.3 g/dl (3.5-5.0); Albumin/Globulin Ratio 1.2 (1.1-1.8); Alkaline Phosphatase 72 U/L (38-126); Anion Gap 18.6 mEq/L (5-15); Aspartate Amino Transferase 28 U/L (14-36); Blood Urea Nitrogen 31 mg/dl (7-17); Calcium 9.1 mg/dl (8.4-10.2); Carbon Dioxide 30 mmol/L (22.0-30.0); Chloride 95 mmol/L (98-107); Estimated Glomerular Filt Rate 50 ml/min (>60); GFR (African American) 60 ML/MIN (>60); Globulin 3.5 g/dL (1.3-3.2); Glucose 118 mg/dl (74-100); Potassium 4.6 mmoL/L (3.5-5.1); Sodium 139 mmol/L (136-145); Total Protein,Serum 7.8 g/dl (6.3-8.2)
--- NOTE | 2023-01-06 16:16 | HMH.EDGENADL ---
Discharge Plan Disposition Patient Disposition: Home, Self-Care Chief Complaint: Recheck/Abnormal Lab/Rx Prescriptions Prescriptions: No Action mecobalamin (vitamin B12) 1,000 mcg tablet,chewable 1,000 mcg PO DAILY cholecalciferol (vitamin D3) 10 mcg (400 unit) capsule 10 mcg PO DAILY fluticasone propionate [Allergy Relief (fluticasone)] 50 mcg/actuation spray,suspension 2 spray intranasal DAILY Qty: 16 3RF Rx Instructions: administer into each nostril atorvastatin 10 mg tablet 10 mg PO HS Qty: 90 1RF Rx Instructions: TAKE 1 TABLET BY MOUTH ONCE DAILY AT BEDTIME carvedilol [Coreg] 6.25 mg tablet 6.25 mg PO BID Qty: 60 3RF Rx Instructions: must administer with a meal/food multivitamin [Daily Multi-Vitamin] Tablet 1 tab PO DAILY furosemide [Lasix] 20 mg tablet 20 mg PO DAILY spironolactone [Aldactone] 25 mg tablet 25 mg PO DAILY lisinopril 40 mg tablet See Rx Instructions .ROUTE .COMPLEX Qty: 90 0RF Dose Instruction: Take 1 tablet by mouth once daily Rx Instructions: Take 1 tablet by mouth once daily pantoprazole 40 mg tablet,delayed release (DR/EC) 40 mg PO DAILY Qty: 90 3RF tizanidine 4 mg tablet 4 mg PO Q6H PRN (Reason: muscle spasticity) Qty: 45 0RF levothyroxine 50 mcg tablet See Rx Instructions .ROUTE .COMPLEX Qty: 30 0RF Dose Instruction: TAKE 1 TABLET BY MOUTH ONCE DAILY FOR THYROID Rx Instructions: TAKE 1 TABLET BY MOUTH ONCE DAILY FOR THYROID aspirin 81 MG tablet,delayed release (DR/EC) 81 mg PO DAILY Referrals Follow up/Referrals: Bethany Leon APRN [Primary Care Provider] - See instructions Activity Restrictions/Add. Instructions Additional Instructions/Restrictions: Follow-up with Dr. Sharpe tomorrow at 11 AM. Return to the emergency department for any worsening chest pain shortness of air or difficulty breathing or any other concerns Clinical Impressions Clinical Impression: Bradycardia Discharge ED Provider: Abundio Schumacher General Adult HPI General Chief complaint: Recheck/Abnormal Lab/Rx Stated complaint: elevated hr Time Seen by Provider: 01/06/23 15:45 History of Present Illness HPI narrative: 67-year-old female with history of diastolic heart failure presents with bradycardia. She was at Dr Dacosta's this morning and had a bradycardia there as well and was sent in. She has been having no weakness or lightheadedness no chest pain or shortness of air. Her heart rate did drop to 37 in the emergency department. No fever chills dysuria hematuria. No abdominal pain or nausea or vomiting Related Data Home Medications Medication Instructions Recorded Confirmed aspirin 81 mg tablet,delayed 81 mg PO DAILY Heart disease 03/19/22 01/06/23 release cholecalciferol (vitamin D3) 10 10 mcg PO DAILY 04/23/22 01/06/23 mcg (400 unit) capsule mecobalamin (vitamin B12) 1,000 1,000 mcg PO DAILY 04/23/22 01/06/23 mcg chewable tablet furosemide 20 mg tablet (Lasix) 20 mg PO DAILY 12/02/22 01/06/23 spironolactone 25 mg tablet 25 mg PO DAILY 12/02/22 01/06/23 (Aldactone) multivitamin (Daily Multi-Vitamin 1 tab PO DAILY 12/05/22 01/06/23 tablet) Previous Rx's Medication Instructions Recorded atorvastatin 10 mg tablet 10 mg PO HS Cholesterol #90 tabs 04/23/22 fluticasone propionate 50 2 spray intranasal DAILY #16 grams 04/23/22 mcg/actuation nasal spray,suspension (Allergy Relief (fluticasone)) lisinopril 40 mg tablet See Rx Instructions .Route 10/15/22 .COMPLEX #90 tabs pantoprazole 40 mg tablet,delayed 40 mg PO DAILY . #90 tabs 11/22/22 release carvedilol 6.25 mg tablet (Coreg) 6.25 mg PO BID #60 tabs 12/02/22 tizanidine 4 mg tablet 4 mg PO Q6H PRN muscle spasticity 12/06/22 #45 tabs levothyroxine 50 mcg tablet See Rx Instructions .Route 01/02/23 .COMPLEX #30 tabs Allergies Allergy/AdvReac Type Severity Reaction Status Date / Time atropine [
[2023-01-06 16:17] VITALS: BP 210/93; RESP 19
[2023-01-06 16:28] LABS: Troponin I < 0.01 ng/ml (0.00-0.034)
--- NOTE | 2023-01-06 16:34 | PC.NURSE ---
pt ambulated to bathroom, no complaints at this time, boyfriend at bedside
--- NOTE | 2023-01-06 16:38 | PC.NURSE ---
paging dr donis to speak with haroldo stewart about pt
[2023-01-06 16:43] VITALS: BP 183/69; PULSE 55; RESP 17; O2SAT 99
[2023-01-06 16:46] LABS: Thyroid Stimulating Hormone 1.68 uIU/mL (0.465-4.68)
--- NOTE | 2023-01-06 17:13 | PC.NURSE ---
rounded on pt, no needs at this time
[2023-01-06 17:15] LABS: Free T4 (Free Thyroxine) 1.44 ng/dl (0.78-2.19)
[2023-01-06 17:29] LABS: Thyroid Stimulating Hormone 1.76 uIU/mL (0.465-4.68)
[2023-01-06 17:45] VITALS: BP 193/74; PULSE 61; RESP 18; TEMP 36.7; O2SAT 98
== END 2023-01-06 17:46 | disposition home or self-care (01) ==
PROVIDERS: Emergency Provider Emergency Medicine; PCP Nurse Practitioner Family
DX: R00.1 Bradycardia, unspecified (principal); I49.3 Ventricular premature depolarization; I11.0 Hypertensive heart disease with heart failure; I50.30 Unspecified diastolic (congestive) heart failure
CPT/HCPCS: 71045; 80053; 83735; 84439; 84443; 84484; 85025; 93005; 96374; 99285; J1610

== ENCOUNTER → 2023-01-16 09:37 | Outpatient (CLI) | payer MEDICARE, OTHER, SELFPAY ==
[2023-01-16 11:16] LABS: Anion Gap 15.4 mEq/L (5-15); Blood Urea Nitrogen 21 mg/dl (7-17); Calcium 9.2 mg/dl (8.4-10.2); Carbon Dioxide 29 mmol/L (22.0-30.0); Chloride 100 mmol/L (98-107); Estimated Glomerular Filt Rate 62 ml/min (>60); GFR (African American) 76 ML/MIN (>60); Glucose 101 mg/dl (74-100); Potassium 4.4 mmoL/L (3.5-5.1); Sodium 140 mmol/L (136-145)
== END ==
PROVIDERS: PCP Nurse Practitioner Family; Visit Provider Physician Assistant
DX: I10 Essential (primary) hypertension (principal); Z51.81 Encounter for therapeutic drug level monitoring; Z79.899 Other long term (current) drug therapy
CPT/HCPCS: 36415; 80048; 83735

== ENCOUNTER → 2023-02-01 09:30 | Outpatient (CLI) | payer MEDICARE, OTHER, SELFPAY | PROVIDERS: PCP Nurse Practitioner Family; Visit Provider Nurse Practitioner Family | DX: R35.0 Frequency of micturition (principal); B96.5 Pseudomonas (aeruginosa) (mallei) (pseudomallei) as the cause of diseases classified elsewhere; B96.89 Other specified bacterial agents as the cause of diseases classified elsewhere; B96.1 Klebsiella pneumoniae [K. pneumoniae] as the cause of diseases classified elsewhere | CPT/HCPCS: 87086; 87088; 87186 ==

== ENCOUNTER → 2023-03-21 10:49 | Outpatient (CLI) | payer MEDICARE, OTHER, SELFPAY ==
--- NOTE | 2023-03-21 10:49 | CT_ITS ---
FINAL REPORT TECHNIQUE: Axial images were obtained from the lung apex to the mid abdomen by computed tomography. Coronal reformatted images were obtained. This study was performed with techniques to keep radiation doses as low as reasonably achievable, (ALARA). Individualized dose reduction techniques using automated exposure control or adjustment of mA and/or kV according to the patient''s size were employed. CLINICAL HISTORY: 3-month follow-up LUNG NODULE COMPARISON: 09/25/2022 FINDINGS: Mass adjacent to the left major fissure. There is a small nodule in the right major fissure that may represent an intrafissural node. There has been partial interval improvement of the right nodular mass located along the right hemidiaphragm. It previously measured 32 x 16 mm in size and on today's exam measures 30 x 8 mm in size. This is favored to represent scarring. No new abnormalities are otherwise noted. There is no axillary adenopathy. There is no hilar or mediastinal adenopathy. Heart size is normal. There is no pericardial or pleural effusion. Limited images of the upper abdomen are unremarkable. The patient is status post cholecystectomy. No suspicious infiltrate or nodule is identified. IMPRESSION: Partial interval improvement of the right nodular mass along the right hemidiaphragm, now measures 30 x 8 mm in size. This is favored to represent scarring. Small nodular density in the region of the right major fissure may represent an intrafissural node. Reviewed, Interpreted and Dictated by Adrian Duncan III, MD Transcribed by Maribeth Fischer Authenticated and [facility]
== END ==
PROVIDERS: PCP Nurse Practitioner Family; Visit Provider Internal Medicine Pulmonary Disease
DX: R91.8 Other nonspecific abnormal finding of lung field (principal)
CPT/HCPCS: 71250

== ENCOUNTER → 2023-03-26 10:05 | Outpatient (CLI) | payer MEDICARE, OTHER, SELFPAY ==
[2023-03-26 13:03] LABS: Alanine Aminotransferase 18 U/L (12-78); Albumin Level 4.1 g/dl (3.5-5.0); Alkaline Phosphatase 63 U/L (38-126); Anion Gap 10.9 mEq/L (5-15); Aspartate Amino Transferase 23 U/L (14-36); Bilirubin,Indirect 0.9 mg/dL (0.0-0.9); Bilirubin,Total 0.9 mg/dl (0.2-1.3); Blood Urea Nitrogen 21 mg/dl (7-17); Calcium 9.2 mg/dl (8.4-10.2); Carbon Dioxide 30 mmol/L (22.0-30.0); Chloride 103 mmol/L (98-107); Chol/HDL Ratio 4.6 (1-3.5); Cholesterol 210 mg/dl (140-200); Estimated Glomerular Filt Rate 55 ml/min (>60); GFR (African American) 67 ML/MIN (>60); Glucose 97 mg/dl (74-100); HDL Cholesterol 46 mg/dl (40-60); Potassium 4.9 mmoL/L (3.5-5.1); Sodium 139 mmol/L (136-145); Total Protein,Serum 7.1 g/dl (6.3-8.2); Triglycerides 141 mg/dl (30-150); VLDL Cholesterol 28 mg/dL (0-40)
[2023-03-26 13:19] LABS: Direct LDL Cholesterol 119.89 mg/dL (100-129)
== END ==
PROVIDERS: PCP Nurse Practitioner Family; Visit Provider Internal Medicine
DX: E78.5 Hyperlipidemia, unspecified (principal); R60.9 Edema, unspecified; I11.9 Hypertensive heart disease without heart failure; E11.9 Type 2 diabetes mellitus without complications
CPT/HCPCS: 36415; 80048; 80061; 80076

== ENCOUNTER → 2023-04-17 12:00 | Outpatient (CLI) | payer MEDICARE, OTHER, SELFPAY | PROVIDERS: PCP Nurse Practitioner Family; Visit Provider Nurse Practitioner Family | DX: R33.9 Retention of urine, unspecified (principal); B95.2 Enterococcus as the cause of diseases classified elsewhere; B96.1 Klebsiella pneumoniae [K. pneumoniae] as the cause of diseases classified elsewhere | CPT/HCPCS: 87086; 87088; 87186 ==

== ENCOUNTER → 2023-05-26 14:36 | Outpatient (CLI) | payer MEDICARE, OTHER, SELFPAY ==
--- NOTE | 2023-05-26 14:40 | XR_ITS ---
FINAL REPORT CLINICAL HISTORY: pain, upper extremity numbness/tingling FINDINGS: CERVICAL SPINE SERIES Three views demonstrate no acute fracture. There are mild and moderate degenerative changes. A disc osteophyte complex is seen at C5-6. The vertebral body demonstrates normal height.. There is no malalignment. IMPRESSION: No acute process. Reviewed, Interpreted and Dictated by Adrian Duncan III, MD Transcribed by Madeleine Martini Authenticated and [facility]
[2023-05-26 16:06] LABS: Basophils % 0.4 % (0.1-2.0); Eosinophils # 0.2 K/mm3 (0.0-0.4); Eosinophils % 2.9 % (0.1-12.0); Hematocrit 40.7 % (37.0-47.0); Hemoglobin 12.9 g/dL (12.2-16.2); Lymphocytes # 1.2 K/mm3 (0.7-4.5); Lymphocytes % 13.9 % (10-50); Mean Corpuscular HGB Conc 31.6 g/dL (31.8-35.4); Mean Corpuscular Hemoglobin 26.8 pg (27.0-31.2); Mean Corpuscular Volume 84.9 fl (81-99); Monocytes # 0.3 K/mm3 (0.1-1.0); Neutrophils # 6.6 K/mm3 (1.8-7.8); Neutrophils % 78.9 % (37.0-80.0); Platelet Count 233 K/mm3 (142-424); Red Cell Distribution Width 14.3 % (11.5-17.5); White Blood Count 8.3 K/mm3 (4.8-10.8)
[2023-05-26 16:36] LABS: Alanine Aminotransferase 23 U/L (12-78); Albumin/Globulin Ratio 1.3 (1.1-1.8); Alkaline Phosphatase 56 U/L (38-126); Anion Gap 11.2 mEq/L (5-15); Aspartate Amino Transferase 28 U/L (14-36); Bilirubin,Total 0.8 mg/dl (0.2-1.3); Blood Urea Nitrogen 13 mg/dl (7-17); Calcium 9.3 mg/dl (8.4-10.2); Carbon Dioxide 30 mmol/L (22.0-30.0); Chloride 105 mmol/L (98-107); Estimated Glomerular Filt Rate 83 ml/min (>60); GFR (African American) 101 ML/MIN (>60); Globulin 3.2 g/dL (1.3-3.2); Glucose 127 mg/dl (74-100); Potassium 4.2 mmoL/L (3.5-5.1); Sodium 142 mmol/L (136-145); Total Protein,Serum 7.2 g/dl (6.3-8.2)
[2023-05-26 17:09] LABS: Thyroid Stimulating Hormone 2.09 uIU/mL (0.465-4.68)
[2023-05-26 17:34] LABS: Vitamin B12 > 1000 pg/mL (239-931)
[2023-05-26 18:52] LABS: Ferritin 41.2 ng/ml (11.1-264)
[2023-05-28 13:20] LABS: Triiodothyronine (T3) Free 3.1 pg/mL (2.0-4.4)
== END ==
PROVIDERS: PCP Nurse Practitioner Family; Visit Provider Nurse Practitioner Family
DX: M54.2 Cervicalgia (principal); R20.0 Anesthesia of skin; R20.2 Paresthesia of skin; I10 Essential (primary) hypertension; L29.9 Pruritus, unspecified; E03.9 Hypothyroidism, unspecified; R00.1 Bradycardia, unspecified
CPT/HCPCS: 72040; 80053; 82607; 82728; 84443; 84481; 85025

== ENCOUNTER → 2023-06-02 16:49 | Outpatient (CLI) | payer MEDICARE, OTHER, SELFPAY ==
[2023-06-02 16:50] LABS: Hemoglobin A1C 5.8 % (4.0-6.0)
[2023-06-02 17:53] LABS: Ferritin 48.9 ng/ml (11.1-264)
== END ==
PROVIDERS: PCP Nurse Practitioner Family; Visit Provider Nurse Practitioner Family
DX: R00.1 Bradycardia, unspecified (principal); R73.9 Hyperglycemia, unspecified
CPT/HCPCS: 82728; 83036

== ENCOUNTER → 2023-07-22 11:03 | Outpatient (CLI) | payer MEDICARE, OTHER, SELFPAY ==
[2023-07-22 12:07] LABS: Anion Gap 10.8 mEq/L (5-15); Basophils % 0.4 % (0.1-2.0); Blood Urea Nitrogen 14 mg/dl (7-17); Calcium 8.7 mg/dl (8.4-10.2); Carbon Dioxide 27 mmol/L (22.0-30.0); Chloride 104 mmol/L (98-107); Eosinophils # 0.2 K/mm3 (0.0-0.4); Eosinophils % 2.5 % (0.1-12.0); Estimated Glomerular Filt Rate 62 ml/min (>60); GFR (African American) 76 ML/MIN (>60); Glucose 118 mg/dl (74-100); Hematocrit 40.5 % (37.0-47.0); Hemoglobin 13.5 g/dL (12.2-16.2); Lymphocytes # 1.2 K/mm3 (0.7-4.5); Lymphocytes % 14.1 % (10-50); Mean Corpuscular HGB Conc 33.4 g/dL (31.8-35.4); Mean Corpuscular Hemoglobin 27.9 pg (27.0-31.2); Mean Corpuscular Volume 83.6 fl (81-99); Mean Platelet Volume 8.8 fl (7.4-10.4); Monocytes # 0.4 K/mm3 (0.1-1.0); Monocytes % 4.5 % (1.7-9.3); Neutrophils # 6.7 K/mm3 (1.8-7.8); Neutrophils % 78.6 % (37.0-80.0); Platelet Count 217 K/mm3 (142-424); Potassium 3.8 mmoL/L (3.5-5.1); Red Blood Count 4.85 M/mm3 (4.20-5.40); Red Cell Distribution Width 15.3 % (11.5-17.5); Sodium 138 mmol/L (136-145); White Blood Count 8.6 K/mm3 (4.8-10.8)
[2023-07-22 12:24] LABS: Free T4 (Free Thyroxine) 1.46 ng/dl (0.78-2.19)
[2023-07-22 12:39] LABS: Thyroid Stimulating Hormone 3.19 uIU/mL (0.465-4.68)
== END ==
PROVIDERS: PCP Nurse Practitioner Family; Visit Provider Internal Medicine
DX: R06.00 Dyspnea, unspecified (principal); I10 Essential (primary) hypertension; K21.9 Gastro-esophageal reflux disease without esophagitis; E78.5 Hyperlipidemia, unspecified; E03.9 Hypothyroidism, unspecified
CPT/HCPCS: 36415; 80048; 84439; 84443; 85025

== ENCOUNTER 2023-08-22 08:26 | Outpatient (CLI) | payer MEDICARE, MEDICAID, SELFPAY ==
[2023-08-22 18:29] LABS: Adenovirus,PCR Not Detected (NotDetected); Coronavirus 19, PCR Not Detected (NotDetected); Coronavirus 229E Not Detected (NotDetected); Coronavirus NL63 Not Detected (NotDetected); Coronavirus OC43 Not Detected (NotDetected); Coronovirus HKU1,PCR Not Detected (NotDetected); Human Metapneumovirus Not Detected (NotDetected); Influenza A, PCR Not Detected (NotDetected); Influenza AH1, 2009 Not Detected (NotDetected); Influenza AH1, PCR Not Detected (NotDetected); Influenza AH3,PCR Not Detected (NotDetected); Influenza B, PCR Not Detected (NotDetected); Parainfluenza 1, PCR Not Detected (NotDetected); Parainfluenza 2, PCR Not Detected (NotDetected); Parainfluenza 3, PCR Not Detected (NotDetected); Parainfluenza 4, PCR Not Detected (NotDetected); Respiratory Syncytial Virus Not Detected (NotDetected); Rhinovirus/Enterovirus Not Detected (NotDetected)
== END 2023-08-22 23:59 ==
LOC: LAB.DROPOF 08-23 08:28
PROVIDERS: PCP Nurse Practitioner Family; Visit Provider Student in an Organized Health Care Education/Training Program
DX: R05.9 Cough, unspecified (principal); R09.89 Other specified symptoms and signs involving the circulatory and respiratory systems; H92.03 Otalgia, bilateral
CPT/HCPCS: 87632; 87635

== ENCOUNTER 2023-08-25 14:15 | Outpatient (CLI) | payer MEDICARE, MEDICAID, SELFPAY ==
--- NOTE | 2023-08-25 14:15 | MM_ITS ---
PROCEDURE INFORMATION: Exam: MG Bilateral Screening 3D Mammography Exam date and time: 08/25/2023 2:06 PM Age: 67 years old Clinical indication: Screening. No family history of breast cancer. TECHNIQUE: Imaging protocol: Bilateral Screening tomosynthesis and 2D mammography including computer-aided detection (CAD) when performed. COMPARISON: 1. MG MM DIG MAMM DX UNILAT RT CAD 05/13/2022 1:55 PM 2. MG MM DIG SCREENING MAMM BI W/CAD 05/03/2022 10:02 AM 3. MG SCBI MM Dig screening mamm BI w/CAD 05/22/2018 10:27 AM 4. MG DMSB DIG MAMM-SCREEN IRENE 03/17/2015 4:08 PM FINDINGS: MAMMOGRAPHY: Breast composition: There are scattered areas of fibroglandular density. Mass: No suspicious mass. Architectural distortion: None. Calcifications: No suspicious calcifications. Asymmetric density: None. Skin thickening: None. Axillary adenopathy: None. IMPRESSION: No mammographic evidence of malignancy. Annual screening is recommended unless otherwise clinically indicated. ASSESSMENT: BI-RADS Category 1: Negative
== END 2023-08-25 23:59 ==
LOC: RAD 14:15
PROVIDERS: PCP Nurse Practitioner Family; Visit Provider Nurse Practitioner Family
DX: Z12.31 Encounter for screening mammogram for malignant neoplasm of breast (principal)
CPT/HCPCS: 77063; 77067

== ENCOUNTER 2023-10-27 17:04 | Outpatient (CLI) | payer MEDICARE, MEDICAID, SELFPAY | END 2023-10-27 23:59 | LOC: LAB.DROPOF 17:05 | PROVIDERS: PCP Nurse Practitioner Family; Visit Provider Nurse Practitioner Family | DX: R30.0 Dysuria (principal); B96.89 Other specified bacterial agents as the cause of diseases classified elsewhere | CPT/HCPCS: 87086 ==

== ENCOUNTER 2023-10-29 08:58 | Day surgery (SDC) | payer MEDICARE, MEDICAID, SELFPAY ==
[2023-10-28 13:38] VITALS: BMI 37.8
[2023-10-29 09:25] VITALS: BP 149/65; PULSE 79; RESP 18; TEMP 36.8; O2SAT 97
--- NOTE | 2023-10-29 10:45 | P.PNANES_ITS ---
[facility] Disclaimer: The information contained in this section may have been updated after the patient was seen, as this information can be updated by other users. Medical History History of seizure Epigastric pain Nausea Blood glucose elevated Edema UTI (urinary tract infection) Viral illness Encounter for monitoring diuretic therapy Sore throat Sinusitis Elevated blood pressure reading in office with diagnosis of hypertension Wheezing Patient left before triage assessment Acute dyspnea Allergic rhinitis Lung nodule seen on imaging study Sinusitis Breast cancer screening by mammogram Diastolic dysfunction Sinus bradycardia PVCs (premature ventricular contractions) Ventricular bigeminy Essential hypertension Hyperlipemia Hypothyroid Surgical History S/P lymph node biopsy Hx of cholecystectomy Family History Unknown Cancer Other Diabetes Heart attack Hypertension Social History Smoking Status: Never smoker second hand exposure: No alcohol intake: never substance use type: denies use current occupational status: retired and other Travel in the last 8 weeks: None adopted: No caregiver/support person: No foster care: No household members: none housing: house lives independently: Yes marital status: number of children: 2 number of grandchildren: 5 education level: high school service: No current occupation: she is retired; 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 current occupational exposures/hazards: No Hx Recent Travel: No sexually active: No caffeine: Yes physical activity: none working smoke detector in home: Yes fire extinguisher in home: Yes carbon monox detector in home: No firearms in home: No do you feel safe at home: Yes victim of physical abuse: No victim of emotional abuse: No victim of sexual abuse: No would you like helpful sources: No [facility] Anesthesia Checklist Patient Identification Patient Identification: Arm Band and Verbal (Name & ) Structural Data Admitted From: Home Planned Operative Procedure/s: Colonoscopy Consent for Planned Operative Procedure(s) Verified: Yes NPO Status Verified Time NPO: 00:00 Additional verifications Anesthesia Reactions: No Airway Assessment Mallampati Score:: Class IV C-Spine Mobility Assessed: No TMJ Mobility Assessed: No Dentition: Good Dentition Neurological Assessment Level of Consciousness: Awake Hx Seizures: No Numbness or tingling in extremities: No Anesthesia Plan Anesthesia Risk discussed: Yes Anesthesia Plan: Verified ASA Class: III Anesthesia Type: MAC
[2023-10-29 11:04] VITALS: O2SAT 98
--- NOTE | 2023-10-29 11:26 | HMH.SCOPE ---
Procedure: Date: 10/29/23 Patient Date of :: 1955 Procedure Performed:: Colonoscopy Indications:: The patient is a 68-year-old who presents for first-time screening colonoscopy for colorectal cancer. Performing Provider:: Kade Carlos MD Referring Provider:: ANNE Parsons APRN (gastroenterology) Sedation:: See RN records Procedure:: After placing the patient in the left lateral decubitus position, the colonoscopy was gently inserted into the rectum and under direct visualization advanced to the cecum which was identified by transillumination in the right lower quadrant, identification of the ileocecal valve, appendiceal orifice, and cecal strap. Color, texture, mucosa, and anatomy of the colon were carefully examined with the scope. Findings:: The quality of the bowel preparation was good. There was a small sessile polyp (4 to 6 mm) of the descending colon. The polyp was removed by cold snare polypectomy. The polyp was retrieved. There was a diminutive polyp in the splenic flexure. The polyp was removed by cold forceps. The remaining colon appeared normal. On retroflexion view internal hemorrhoids were seen in the rectum. Impression: Polyp of splenic flexure and descending colon Recommendations:: Await pathology result Repeat colonoscopy in 5 years Complications:: None Estimated blood obtained (mL): 0 Colonoscopy Component Colonoscopy Component Was a colonoscopy performed during today's procedure?: Yes Recommended follow up colonoscopy of at least 10 years?: Yes
[2023-10-29 11:27] VITALS: BP 129/58; PULSE 58; RESP 16; TEMP 36.4; O2SAT 97
[2023-10-29 11:37] VITALS: BP 126/63; PULSE 60; RESP 16; O2SAT 100
[2023-10-29 11:47] VITALS: BP 124/68; PULSE 58; RESP 16; O2SAT 98
== END 2023-10-29 11:55 | disposition home or self-care (01) ==
PROVIDERS: PCP Nurse Practitioner Family; Visit Provider Internal Medicine
PROC: 0DJD8ZZ Inspection of Lower Intestinal Tract, Via Natural or Artificial Opening Endoscopic (ICD-10-PCS; CPT 45378; principal; 2023-10-29 10:00)
DX: Z12.11 Encounter for screening for malignant neoplasm of colon (principal); K64.8 Other hemorrhoids; D12.5 Benign neoplasm of sigmoid colon; D12.3 Benign neoplasm of transverse colon
CPT/HCPCS: 45380; 45385; 88305

== ENCOUNTER 2023-12-15 18:00 | Outpatient (CLI) | payer MEDICARE, MEDICAID, SELFPAY | END 2023-12-15 23:59 | disposition home or self-care (01) | LOC: LAB.DROPOF 12-16 07:44 | PROVIDERS: PCP Nurse Practitioner Family; Visit Provider Nurse Practitioner Family | DX: R30.0 Dysuria (principal); B96.89 Other specified bacterial agents as the cause of diseases classified elsewhere | CPT/HCPCS: 87086 ==

== ENCOUNTER 2023-12-22 14:55 | Outpatient (CLI) | payer MEDICARE, MEDICAID, SELFPAY ==
--- NOTE | 2023-12-22 14:55 | CT_ITS ---
FINAL REPORT TECHNIQUE: Axial CT images were performed from the lung apices through the upper abdomen. Coronal and sagittal reformats were submitted. This study was performed with techniques to keep radiation doses as low as reasonably achievable (ALARA). Individualized dose reduction techniques using automated exposure control or adjustment of mA and/or kV according to the patient's size were employed. CLINICAL HISTORY: 9-month follow-up December 2023/RLL nodule COMPARISON: 03/21/2023 FINDINGS: Mild vascular calcifications are present as well as a small hiatal hernia. There is no axillary adenopathy. There is no hilar or mediastinal mass or adenopathy. Heart size is normal. There is no pericardial or pleural effusion. The gallbladder has been surgically resected. Again noted is a linear soft tissue opacity along the right hemidiaphragm, which is visually stable, favor scar. This measures approximately 27 mm in greatest diameter. There is also a small nodule adjacent to the major fissure, that may represent an intrafissural node. IMPRESSION: Linear soft tissue opacity along the right hemidiaphragm is stable since the prior CT of March 2023. Reviewed, Interpreted and Dictated by Adrian Duncan III, MD Transcribed by Maribeth Fischer Authenticated and . [facility]
== END 2023-12-22 23:59 | disposition home or self-care (01) ==
LOC: RAD 14:55
PROVIDERS: PCP Nurse Practitioner Family; Visit Provider Internal Medicine Pulmonary Disease
DX: R91.8 Other nonspecific abnormal finding of lung field (principal)
CPT/HCPCS: 71250

== ENCOUNTER 2023-12-31 10:41 | Outpatient (CLI) | payer MEDICARE, MEDICAID, SELFPAY ==
--- NOTE | 2023-12-31 10:41 | FL_ITS ---
FINAL REPORT CLINICAL HISTORY: 211.69 dap 2.32 fluoro time trouble swallowing FINDINGS: MODIFIED BARIUM SWALLOW HISTORY: Dysphagia. FINDINGS: Fluoroscopy was provided for the speech pathologist to evaluate the swallowing mechanism. The patient was given several different consistencies of barium while the swallow was visualized fluoroscopically. The report of the speech pathologist should be consulted prior to making dietary decisions. IMPRESSION: Modified barium swallow under fluoroscopic guidance. Please see speech pathologist's report for further details and dietary recommendations. Fluoroscopy time was 2 minutes, 32 seconds Radiation exposure in Total DAP: 211.69 uGym2 A total of 14 cine runs were saved. Reviewed, Interpreted and Dictated by Bashir Cosme MD Transcribed by Serena Candelaria PA-C Authenticated and [facility]
[2023-12-31] MEDS: BARIUM SULFATE(LIQUID E-Z-PAQUE);355ML BOTTLE 355 ML PO (11:15)
--- NOTE | 2023-12-31 11:31 | HMH.SLMBS2 ---
Speech & Language Evaluation Speech/Language Mod Barium Swallow Start: 12/31/23 11:20 Freq: once Status: Complete Protocol: Document 12/31/23 11:20 [facility] (Rec: 12/31/23 11:31 [facility] Desktop) General Information General Current Food Consistancy Regular,Thin Liquids Dentition Good Dentition Oxygen Status Room Air Patient Orientation Person,Place,Time,Situation Ability to Follow Directions Excellent Communication Ability No Impairment MBS Recommendations Diet Dietary Recommendations Regular,Thin Liquids Treatment/Strategies Treatment Recommendation Compens. Strategy Educat. Strategy/Precaution Recommend Sitting Upright (90 deg), Double Swallow,Small Bites and Sips,Alternate Liquids/Solids Referrals/Other Recommended Referrals GI Consult Other Recommendations GI consult, pt reports oral regurgitation following meals, minimal retrograde flow of bolus observed during MBSS. Mod Barium Swallow Impressions Summary and Impressions Oral Phase Impression Minimal Impairment Oral Phase Summary Minimal to no impairment of the oral preparatory and oral transit phases of the swallow. Mastication and manipulation of the bolus appear to be WFL. Difficulty with pills observed, however, once provided with applesauce puree , she was able to clear barium tablet. Pharyngeal Phase Impression Mild Impairment Pharyngeal Phase Summary Minimal to mild impairment of the pharyngeal phase of the swallow. Premature spillage and A/P spills of thin liquid bolus observed during straw sips resulting in trace residuals in the vallecular space. Trace residuals of solid bolus on BOT that was cleared with a prompted double , effortful swallow. Trace residuals noted at pyriform sinus following retrograde flow of bolus trial of solids. Pt has c/o back pain when swallowing and inconsistent oral regurgitation following meals. PALLET REPAIRER provided education of reflux precautions, aspiration precautions, and compensatory strategies that can be completed. GI consult referred. At this time, no aspiration/penetration was observed and swallowing appears to be WFL. Regular/ thin diet recommended. Speech/Language MBS Assessment/Goals/Plan Assessment Date of Evaluation: 12/31/23 Evaluation Type Initial Certification Assessment/Problems dysphagia per MD order Does Patient Qualify for Service No Qualify/Failure Comment Based on results of MBSS, mastication/manipulation of bolus and swallowing appear to be WFL. No further skilled speech therapy services are warranted at this time. It is recommended that pt pursue GI consult referral. Recommendations PHYSICIAN CERTIFICATION: The specified therapy services are required, authorized, and reviewed every 30 days. Diet Recommendations Normal Liquid Type Recommendations Normal/Thin SL Swallow Guidelines Alt bite w/sip thru meal, Standard Aspiration Prec.,Eat at slow rate,Reflux precautions Dysphagia Swallow Precautions/Strategies Sitting Upright (90 deg), Double Swallow,Small Bites and Sips,Alternate Liquids/Solids Plan Pt/Guardian verbally ack understanding Yes of dx/prognosis/goals G -code Required No Education Instructions provided Discussed MBSS results, diet recommendations, aspiration/ reflux precautions, compensatory strategies, and GI consult referral with pt who expressed understanding. Pt/Caregiver able to recall information Able to recall/restate Reinforcement needed No Mod Barium Swallow Setup Exam Setup Radiologist Adrian Duncan Level of Consciousness Awake,Alert,Appropriate, Follows Commands Mod Barium Swallow-Lat View Textures Lateral View Food Presentation Thin Liquid via Cup,Thin Liquid via Straw,Pureed Food- Thin,Mech. Soft Food- Regular, Barium Tablet,Regular Food, Pudding Oral Phase Labial Closure No Impairment (WFL) Bolus Formation Pooling L/R No Impairment (WFL) Bolus Formation under Tongue No Impairment (WFL) Bolus Formation Scattered Loss No Impairment (WFL) Mastication Rotary Chew No Impairment (WFL) Mastication Munching No Impairment (WFL) Mastication Lateralization Minimal Impairment Lingual Movement Minimal Impairment Residue Clearing Minimal Impairment Pharyngeal Phase A/P Lingual Propulsion Spills Mild Impairment Swallow Response Delay No Impairment (WFL) Base of Tongue Mild Impairment Epiglottic Coverage Minimal Impairment Laryngeal Elevation Minimal Impairment Vallecular Retention Clearing Mild Impairment Pharyn. Wall Residue Clearing Minimal Impairment Piriform Sinus Retention Mild Impairment Aspiration? No Silent aspiration? No Mod Barium Swallow-AP View Performed Mod Barium Swallow A/P View Test Not Applicable/Performed PHYSICIAN CERTIFICATION: I certify the specified therapy services for Malgorzata Anderson are required, authorized, and reviewed every 30 days.
== END 2023-12-31 23:59 | disposition home or self-care (01) ==
LOC: RAD 10:41
PROVIDERS: PCP Nurse Practitioner Family; Visit Provider Nurse Practitioner Family
DX: R13.10 Dysphagia, unspecified (principal); R10.13 Epigastric pain
CPT/HCPCS: 70371; 92611

== ENCOUNTER 2024-01-13 09:50 | Day surgery (SDC) | payer MEDICARE, MEDICAID, SELFPAY ==
[2024-01-08 13:26] VITALS: BMI 37.8
[2024-01-13] VITALS (7 sets, daily range): BP systolic 111–170; BP diastolic 53–79; PULSE 60–78; RESP 18; TEMP 36.6; O2SAT 97–99
[2024-01-13] MEDS: TETRACAINE 0.5% OPTH SOL 15ML OP ×3 (12:20→12:30)
[2024-01-13] MEDS: PHENYLEPHRINE 2.5% OPHTH SOLN 2ML OP ×3 (12:20→12:30)
[2024-01-13] MEDS: CYCLOPENTOLATE 2% OPHTH SOLN 2ML BOTTLE OP ×3 (12:20→12:30)
[2024-01-13] MEDS: SODIUM CHLORIDE 0.9% 10ML FLUSH SYRINGE 10 ML IV ×2 (12:39→13:47)
[2024-01-13] MEDS: MIDAZOLAM 2MG/2ML VIAL 1 MG IV (13:31)
[2024-01-13] MEDS: LIDOCAINE 1% PF 2ML AMPULE 2 ML IJ (13:41)
[2024-01-13] MEDS: ERYTHROMYCIN BASE 3.5 GM OINT...G. OP (13:43)
[2024-01-13] MEDS: TIMOLOL 0.5% OPTH SOLN 5ML OP (13:47)
--- NOTE | 2024-01-27 13:26 | P.PCN_ITS ---
[facility] Procedure Note Date: 01/13/24 Time: 13:26 Procedure Note:: Preoperative Diagnosis: Cataract combined NS Cortical Complex [Left] Eye Postop diagnosis: same Operation: Microscopic phacoemulsification with intraocular lens implant [Left] Eye Specimen: None Blood Loss: None The patient was examined in the office with a complaint of poor vision in the [left] eye. The patient reports that this interferes with ADLs such as reading, watching TV and/or driving or the vision is like looking through a foggy haze and is very troubling. The patient was examined and found to have a visually significant cataract with best corrected vision of [20/400] by refraction and/or glare testing. Treatment options, risks and benefits were explained and the patient elected to have cataract surgery in an attempt to improve their vision. The patient had the eye anesthetized with topical tetracaine, the eye ways prepped and draped in the usual fashion for cataract surgery. A paracentesis and a temporal keratotomy were made. 0.2cc of 1% lidocaine PF was placed into the anterior chamber. And aqueous/viscoelastic exchange was done and a 360 degree capsulorexis was performed. Through hydrodissection and delineation with BSS on a cannula was done. The lens nucleus was phecoemulsified with CDE of [8.08 ]. Residual cortical material was removed using automated I&A The capsular bag was deepened with viscoelastica and a PCIOL was placed in the capsular bag with good centration and stability. Residual viscoelastic was removed using automated I&A. The keratotomy incision was hydrated with BSS on a cannula. The wound were checked and found to be water tight. IOP was checked digitally and adjusted as needed so as not to be too high. 1 drop of timolol 0.5%, ofloxacin, prednisolone acetate and ketorolac was instilled and eye shield taped over the eye. The patient was taken to recovery in good condition and will be seen postoperatively.
== END 2024-01-13 14:03 | disposition home or self-care (01) ==
PROVIDERS: PCP Nurse Practitioner Family; Visit Provider Ophthalmology
PROC: (CPT 66984; principal; 2024-01-13 14:00)
DX: H25.12 Age-related nuclear cataract, left eye (principal); H53.8 Other visual disturbances
CPT/HCPCS: 66984; V2632

== ENCOUNTER 2024-01-21 10:55 | Outpatient (CLI) | payer MEDICARE, MEDICAID, SELFPAY ==
[2024-01-21 11:32] LABS: Basophils # 0.1 K/mm3 (0-0.2); Basophils % 0.9 % (0.1-2.0); Eosinophils # 0.4 K/mm3 (0.0-0.4); Eosinophils % 3.9 % (0.1-12.0); Hematocrit 40.3 % (37.0-47.0); Hemoglobin 13.1 g/dL (12.2-16.2); Lymphocytes # 1.4 K/mm3 (0.7-4.5); Lymphocytes % 13.9 % (10-50); Mean Corpuscular HGB Conc 32.6 g/dL (31.8-35.4); Mean Corpuscular Hemoglobin 28.9 pg (27.0-31.2); Mean Corpuscular Volume 88.6 fl (81-99); Mean Platelet Volume 8.3 fl (7.4-10.4); Monocytes # 0.6 K/mm3 (0.1-1.0); Monocytes % 5.6 % (1.7-9.3); Neutrophils # 7.6 K/mm3 (1.8-7.8); Neutrophils % 75.8 % (37.0-80.0); Platelet Count 203 K/mm3 (142-424); Red Blood Count 4.55 M/mm3 (4.20-5.40); Red Cell Distribution Width 14.9 % (11.5-17.5)
[2024-01-21 12:15] LABS: Chloride 105 mmol/L (98-107); Potassium 4.3 mmoL/L (3.5-5.1); Sodium 140 mmol/L (136-145)
[2024-01-21 12:18] LABS: Alanine Aminotransferase 18 U/L (12-78); Alkaline Phosphatase 61 U/L (38-126); Anion Gap 12.3 mEq/L (5-15); Aspartate Amino Transferase 25 U/L (14-36); Bilirubin,Direct 0.1 mg/dl (0.0-0.4); Bilirubin,Indirect 0.8 mg/dL (0.0-0.9); Bilirubin,Total 0.9 mg/dl (0.2-1.3); Bilirubin,Unconjugated 0.8 mg/dL (0.0-1.1); Blood Urea Nitrogen 17 mg/dl (7-17); Calcium 9.3 mg/dl (8.4-10.2); Carbon Dioxide 27 mmol/L (22.0-30.0); Cholesterol 160 mg/dl (140-200); Estimated Glomerular Filt Rate 62 ml/min (>60); GFR (African American) 75 ML/MIN (>60); Glucose 103 mg/dl (74-100); Total Protein,Serum 7.1 g/dl (6.3-8.2); Triglycerides 115 mg/dl (30-150); VLDL Cholesterol 23 mg/dL (0-40)
[2024-01-21 12:19] LABS: Chol/HDL Ratio 2.8 (1-3.5); HDL Cholesterol 57 mg/dl (40-60)
[2024-01-21 12:32] LABS: Direct LDL Cholesterol 87.71 mg/dL (100-129)
[2024-01-21 12:36] LABS: Free T4 (Free Thyroxine) 1.37 ng/dl (0.78-2.19)
[2024-01-21 12:53] LABS: Thyroid Stimulating Hormone 2.19 uIU/mL (0.465-4.68)
== END 2024-01-21 23:59 | disposition home or self-care (01) ==
LOC: LAB 10:55
PROVIDERS: PCP Nurse Practitioner Family; Visit Provider Nurse Practitioner Family
DX: E03.9 Hypothyroidism, unspecified (principal); I10 Essential (primary) hypertension; E78.2 Mixed hyperlipidemia
CPT/HCPCS: 36415; 80048; 80061; 80076; 84439; 84443; 85025

== ENCOUNTER 2024-01-27 08:07 | Day surgery (SDC) | payer MEDICARE, MEDICAID, SELFPAY ==
[2024-01-23 13:52] VITALS: BMI 37.8
[2024-01-27] VITALS (7 sets, daily range): BP systolic 141–188; BP diastolic 67–86; PULSE 60–72; RESP 16–18; TEMP 36.4–36.6; O2SAT 92–99
[2024-01-27] MEDS: PHENYLEPHRINE 2.5% OPHTH SOLN 2ML OP ×3 (08:57→08:59)
[2024-01-27] MEDS: CYCLOPENTOLATE 2% OPHTH SOLN 2ML BOTTLE OP ×3 (08:57→08:59)
[2024-01-27] MEDS: TETRACAINE 0.5% OPTH SOL 15ML OP ×3 (08:58→08:59)
[2024-01-27] MEDS: SODIUM CHLORIDE 0.9% 10ML FLUSH SYRINGE 10 ML IV (10:04)
[2024-01-27] MEDS: MIDAZOLAM 2MG/2ML VIAL 1 MG IV (10:04)
[2024-01-27] MEDS: LIDOCAINE 1% PF 2ML AMPULE 2 ML IJ (10:14)
[2024-01-27] MEDS: TIMOLOL 0.5% OPTH SOLN 5ML OP (10:14)
[2024-01-27] MEDS: ERYTHROMYCIN BASE 3.5 GM OINT...G. OP (10:15)
--- NOTE | 2024-01-27 13:04 | P.PCN_ITS ---
[facility] Procedure Note Date: 01/27/24 Time: 13:04 Procedure Note:: Preoperative Diagnosis: Cataract combined NS Cortical Complex [Right] Eye Postop diagnosis: same Operation: Microscopic phacoemulsification with intraocular lens implant [Right Eye Specimen: None Blood Loss: None The patient was examined in the office with a complaint of poor vision in the [right] eye. The patient reports that this interferes with ADLs such as reading, watching TV and/or driving or the vision is like looking through a foggy haze and is very troubling. The patient was examined and found to have a visually significant cataract with best corrected vision of [20/400] by refraction and/or glare testing. Treatment options, risks and benefits were explained and the patient elected to have cataract surgery in an attempt to improve their vision. The patient had the eye anesthetized with topical tetracaine, the eye ways prepped and draped in the usual fashion for cataract surgery. A paracentesis and a temporal keratotomy were made. 0.2cc of 1% lidocaine PF was placed into the anterior chamber. And aqueous/viscoelastic exchange was done and a 360 degree capsulorexis was performed. Through hydrodissection and delineation with BSS on a cannula was done. The lens nucleus was phecoemulsified with CDE of [6.58]. Residual cortical material was removed using automated I&A The capsular bag was deepened with viscoelastica and a PCIOL was placed in the capsular bag with good centration and stability. Residual viscoelastic was removed using automated I&A. The keratotomy incision was hydrated with BSS on a cannula. The wound were checked and found to be water tight. IOP was checked digitally and adjusted as needed so as not to be too high. 1 drop of timolol 0.5%, ofloxacin, prednisolone acetate and ketorolac was instilled and eye shield taped over the eye. The patient was taken to recovery in good condition and will be seen postoperatively.
== END 2024-01-27 10:37 | disposition home or self-care (01) ==
PROVIDERS: PCP Nurse Practitioner Family; Visit Provider Ophthalmology
PROC: (CPT 66984; principal; 2024-01-27 10:00)
DX: H25.11 Age-related nuclear cataract, right eye (principal); H53.8 Other visual disturbances
CPT/HCPCS: 66984; J2250; V2632

== ENCOUNTER 2024-03-20 11:35 | Emergency (ER) | payer MEDICARE, MEDICAID, SELFPAY ==
[2024-03-20 12:40] VITALS: BP 210/93; PULSE 90; RESP 20; TEMP 36.1; O2SAT 99; BMI 37.5
--- NOTE | 2024-03-20 13:16 | EXP.UTC ---
Discharge Plan Disposition Patient Disposition: Home, Self-Care Condition: Good Prescriptions Prescriptions: New cefdinir 300 mg capsule 300 mg PO BID 7 Days Qty: 14 0RF No Action pravastatin 40 mg tablet 40 mg PO DAILY lisinopril 20 mg tablet 20 mg PO DAILY Patient Comments: TAKE 1 TABLET BY MOUTH ONCE DAILY spironolactone 25 mg tablet 25 mg PO DAILY Patient Comments: TAKE 1 TABLET BY MOUTH ONCE DAILY famotidine 20 mg tablet 20 mg PO DAILY clobetasol 0.05 % ointment 1 applic TOPICAL HS Patient Comments: APPLY OINTMENT TOPICALLY ONCE DAILY AT BEDTIME NIGHTLY Referrals Follow up/Referrals: Bethany Leon APRN [Primary Care Provider] - See instructions Activity Restrictions/Add. Instructions Additional Instructions/Restrictions: *Increase fluids. Water not Soda or Tea *Start antibiotic immediately and be sure to take as ordered for the FULL length of time although you should start to see improvement over the next 48 hours *Be SURE to follow up anytime for new or worsening symptoms with your family doctor. AND in 48 hours for urine culture results with your family doctor, if you do not have a doctor then you may call back to the [facility] for urine culture results and further treatment. We do recommend that you choose and establish care with a Primary Care Physician. ?AND follow up with them ?in 10-14 days to repeat UA to ensure infection is resolved and blood no longer present *Be sure to let your PCP know that we sent urine cultures from the [facility] so they can follow up to ensure that you area the on the correct antibiotic Call your doctor office and make appointment for 48 hours (2 days from today) ?to follow up and get the results of your urine culture and further treatment Clinical Impressions Clinical Impression: UTI symptoms Instructions Patient Instructions: Cefdinir Print Language Print Language: Finnish Discharge ED Provider: Penelope Salmeron [facility] HPI General Stated complaint: possible uti Mode of Arrival: Ambulatory Source of Information: Patient Limitations: No Limitations Time Seen by Provider: 03/20/24 13:16 Description of Symptoms (Recalled from Triage Doc. by RN): PATIENT C/O BURNING, FREQUENCY AND URGENCY WITH URINATION X 3 DAYS HEENT Symptoms (Recalled from RN notes): No Resp Symptoms (Recalled from RN notes): No Skin Symptoms (Recalled from RN notes): No MS Symptoms (Recalled from RN notes): No Functional Status (Recalled from RN notes): WNL History of Present Illness Provider Complaint: Patient states that for the last 3 days she has been having achy like feeling in her lower back, feeling or urgency and frequency and thinks she may have a UTI States today she wasnt feeling any better so she came in to get checked worried that it may get worse Related Data Home Medications ?Medication ?Instructions ?Recorded ?Confirmed clobetasol 0.05 % topical ointment 1 applic topical HS 03/20/24 03/20/24 famotidine 20 mg tablet 20 mg PO DAILY 03/20/24 03/20/24 lisinopril 20 mg tablet 20 mg PO DAILY 03/20/24 03/20/24 pravastatin 40 mg tablet 40 mg PO DAILY 03/20/24 03/20/24 spironolactone 25 mg tablet 25 mg PO DAILY 03/20/24 03/20/24 Previous Rx's ?Medication ?Instructions ?Recorded cefdinir 300 mg capsule 300 mg PO BID 7 days #14 caps 03/20/24 Allergies Allergy/AdvReac Type Severity Reaction Status Date / Time sacubitril [From Entresto] Allergy Intermediate Verified 03/03/24 09:25 amlodipine Allergy Mild Other Verified 03/03/24 09:25 carvedilol Allergy Mild Other Verified 03/03/24 09:25 atropine [From URISED] Allergy Unknown Verified 03/03/24 09:25 ciprofloxacin [From Cipro] Allergy Unknown Verified 03/03/24 09:25 gentamicin [Gentamicin] Allergy Unknown Verified 03/03/24 09:25 methenamine [From URISED] Allergy Unknown Verified 03/03/24 09:25 neomycin Allergy Unknown Verified 03/03/24 09:25 nitrofurantoin Allergy Unknown Verified 03/03/24 09:25 [From Macrobid] Penicillins Allergy Unknown Verified 03/03/24 09:25 polymyxin B Allergy Unknown Verified 03/03/24 09:25 salicylates [From Urised] Allergy Unknown Verified 03/03/24 09:25 sulfamethoxazole Allergy Unknown Verified 03/03/24 09:25 [From Septra] trimethoprim [From Septra] Allergy Unknown Verified 03/03/24 09:25 valsartan AdvReac Intermediate Verified 03/03/24 09:25 latex AdvReac Rash Verified 03/03/24 09:25 Worker's Comp Is this a Worker's Comp case?: No [facility] Disclaimer: The information contained in this section may have been updated after the patient was seen, as this information can be updated by other users. 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 Vulvar itching ASCUS with positive high risk HPV cervical Cataract Atrophic vaginitis Urinary tract infection Sleep apnea History of gastroesophageal reflux (GERD) History of cataract Heart murmur History of anemia History of seizure Urinary tract infection symptoms Facial neuropathy Epigastric pain Nausea Blood glucose elevated Yeast dermatitis Edema UTI (urinary tract infection) Vaginal yeast infection Viral illness Encounter for monitoring diuretic therapy Sore throat Sinusitis Elevated blood pressure reading in office with diagnosis of hypertension Wheezing Patient left before triage assessment Acute dyspnea Allergic rhinitis Lung nodule seen on imaging study Sinusitis Breast cancer screening by mammogram Diastolic dysfunction Sinus bradycardia PVCs (premature ventricular contractions) Ventricular bigeminy Essential hypertension Hyperlipemia Hypothyroid Surgical History History of colonoscopy S/P lymph node biopsy Hx of cholecystectomy Family History Unknown Cancer Other Diabetes Heart attack Hypertension Social History Smoking Status: Never smoker second hand exposure: No alcohol intake: never substance use type: denies use current occupational status: retired Travel in the last 8 weeks: None adopted: No caregiver/support person: No foster care: No household members: none housing: house lives independently: Yes marital status: number of children: 2 number of grandchildren: 5 education level: high school service: No current occupation: she is retired; 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 current occupational exposures/hazards: No Hx Recent Travel: No sexually active: No caffeine: Yes physical activity: none working smoke detector in home: Yes fire extinguisher in home: Yes carbon monox detector in home: No firearms in home: No do you feel safe at home: Yes victim of physical abuse: No victim of emotional abuse: No victim of sexual abuse: No would you like helpful sources: No ROS Obtained: Yes All systems reviewed & no additional complaints except as documented and Yes Systems reviewed as appropriate & no additional complaints except as documented Constitutional Constitutional: Reports system reviewed and no additional complaints, except as documented, Reports as per HPI, Denies body ache, Denies fever(s) and Denies headache(s) ENT Ears, Nose, Mouth, and Throat: Reports system reviewed and no additional complaints, except as documented, Reports as per HPI and Denies headache(s) Cardiovascular Cardiovascular: Reports system reviewed and no additional complaints, except as documented and Reports as per HPI Respiratory Respiratory: Reports system reviewed and no additional complaints, except as documented and Reports as per HPI Gastrointestinal Gastrointestingal: Reports system reviewed and no additional complaints, except as documented and as per HPI Genitourinary Female Genitourinary: Reports system reviewed and no additional complaints, except as documented, Reports as per HPI, Reports dysuria, Reports flank pain, Reports urinary frequency and Reports urinary urgency Musculoskeletal Musculoskeletal: Reports system reviewed and no additional complaints, except as documented and Reports as per HPI Integumentary/Breasts Skin/Breast: Reports system reviewed and no additional complaints, except as documented and Reports as per HPI Neurologic Neurologic: Denies headache(s) Physical Exam General General appearance: alert and in no apparent distress ENT ENT exam: Present mucous membranes moist Respiratory Respiratory exam: Present normal lung sounds bilaterally; Absent respiratory distress or wheezes Cardiovascular Cardiovascular exam: Present regular rate, normal rhythm and normal heart sounds Neurological Exam Neurological exam: Present alert, oriented X3 and normal gait Medical Decision Making Patrick Inquiry Pt receiving controlled substance: No Patrick was queried for this patient: No Vital Signs: 03/20/24 12:40 Temperature 97.0 F L Temperature Source Oral Pulse Rate [Left Brachial] 90 Respiratory Rate 20 Blood Pressure [Left Arm] 210/93 H Blood Pressure Mean [Left Arm] 132 Blood Pressure Source [Left Arm] Automatic Cuff Blood Pressure Position [Left Arm] Sitting 02 Sat by Pulse Oximetry 99 Oxygen Delivery Method Room Air Lab Data Lab results reviewed: Yes I reviewed the patient's lab results. Medical Decision Narrative: Patient states shira delaney is allergic to PCN but has taken Cephalexin/cephlosporins in the past without complications or reactions medications discussed with pharmacy, urine showed small leukocytes however patient reports discomfort, pressure and frequent urination will start on Cefdnir and perform urine culture Patient blood pressure elevated states that she didnt take her BP medications and she will take them when she gets home Discussed transfer to the ED and she declined and declined treatment of blood pressure
[2024-03-20 13:36] LABS: Apearance,Urine Clear (Clear); Bilirubin,Urine Negative (Negative); Blood, Urine Trace (Negative); Color,Urine Yellow (Yellow); Glucose,Urine (UA) Negative (Negative); Ketones,Urine Negative (Negative); PH,Urine 6.5 (5.0-8.5); Protein,Urine Negative (Negative); Specific Gravity, Urine 1.015 (1.005-1.030)
[2024-03-20 13:37] LABS: UTC Leukocyte Esterase,Urine Trace (Negative); UTC Nitrate,Urine Negative (Negative); Urobilinogen,Urine 1 EU/dl (0.2)
[2024-03-20 13:56] VITALS: BP 189/98; PULSE 90; RESP 20; TEMP 36.1; O2SAT 99
== END 2024-03-20 13:59 | disposition home or self-care (01) ==
PROVIDERS: Emergency Provider Nurse Practitioner; PCP Nurse Practitioner Family
DX: N39.0 Urinary tract infection, site not specified (principal); B96.89 Other specified bacterial agents as the cause of diseases classified elsewhere; M54.59 Other low back pain; R30.0 Dysuria; R35.0 Frequency of micturition
CPT/HCPCS: 81003; 87086; 99212; 99214; G0463

== ENCOUNTER 2024-03-24 08:15 | Outpatient (CLI) | payer MEDICARE, MEDICAID, SELFPAY ==
[2024-03-24 14:27] LABS: Microscopic, Urine URINE MICROSCOPIC (MICROSCOPIC)
[2024-03-24 14:44] LABS: Basophils # 0.1 K/mm3 (0-0.2); Basophils % 1.1 % (0.1-2.0); Eosinophils # 0.2 K/mm3 (0.0-0.4); Eosinophils % 2.4 % (0.1-12.0); Hematocrit 44.6 % (37.0-47.0); Hemoglobin 14.6 g/dL (12.2-16.2); Lymphocytes # 1.3 K/mm3 (0.7-4.5); Lymphocytes % 13.6 % (10-50); Mean Corpuscular HGB Conc 32.8 g/dL (31.8-35.4); Mean Corpuscular Volume 88.2 fl (81-99); Mean Platelet Volume 8.6 fl (7.4-10.4); Monocytes # 0.4 K/mm3 (0.1-1.0); Neutrophils # 7.6 K/mm3 (1.8-7.8); Neutrophils % 78.9 % (37.0-80.0); Platelet Count 240 K/mm3 (142-424); Red Blood Count 5.06 M/mm3 (4.20-5.40); Red Cell Distribution Width 14.5 % (11.5-17.5); White Blood Count 9.6 K/mm3 (4.8-10.8)
[2024-03-24 14:59] LABS: Appearance,Urine CLEAR (Clear); Bilirubin,Urine Negative (Negative); Blood, Urine TRACE-I (Negative); Color,Urine YELLOW (Yellow); Glucose,Urine (UA) Negative (Negative); Ketones,Urine Negative (Negative); Leukocyte Esterase,Urine Negative (Negative); Nitrate,Urine Negative (Negative); Protein,Urine Negative (Negative)
[2024-03-24 15:11] LABS: Bacteria,Urine Trace /lpf; RBC,Urine Occasional #/hpf (0-3); Squamous Epithelial Cell,Urine Occasional #/hpf (0-5)
[2024-03-24 15:24] LABS: Alanine Aminotransferase 18 U/L (12-78); Albumin Level 4.5 g/dl (3.5-5.0); Albumin/Globulin Ratio 1.3 (1.1-1.8); Alkaline Phosphatase 69 U/L (38-126); Aspartate Amino Transferase 30 U/L (14-36); Bilirubin,Total 0.9 mg/dl (0.2-1.3); Blood Urea Nitrogen 23 mg/dl (7-17); Carbon Dioxide 27 mmol/L (22.0-30.0); Chloride 104 mmol/L (98-107); Estimated Glomerular Filt Rate 62 ml/min (>60); GFR (African American) 75 ML/MIN (>60); Globulin 3.5 g/dL (1.3-3.2); Glucose 119 mg/dl (74-100); Magnesium 1.8 mg/dl (1.6-2.3); Sodium 139 mmol/L (136-145)
[2024-03-24 15:41] LABS: Troponin I < 0.01 ng/ml (0.00-0.034)
[2024-03-24 16:32] LABS: Thyroid Stimulating Hormone 2.57 uIU/mL (0.465-4.68)
[2024-03-24 16:36] LABS: Ferritin 102 ng/ml (11.1-264)
== END 2024-03-24 23:59 | disposition home or self-care (01) ==
LOC: LAB.DROPOF 03-26 08:16
PROVIDERS: PCP Nurse Practitioner Family; Visit Provider Nurse Practitioner Family
DX: E03.9 Hypothyroidism, unspecified (principal); R39.9 Unspecified symptoms and signs involving the genitourinary system; I10 Essential (primary) hypertension; D64.9 Anemia, unspecified
CPT/HCPCS: 80050; 80053; 81001; 82728; 83735; 84443; 84484; 85025

== ENCOUNTER 2024-03-29 16:01 | Outpatient (CLI) | payer MEDICARE, MEDICAID, SELFPAY | END 2024-03-29 23:59 | disposition home or self-care (01) | LOC: LAB.DROPOF 16:01 | PROVIDERS: PCP Nurse Practitioner Family; Visit Provider Nurse Practitioner Family | DX: R35.0 Frequency of micturition (principal); R39.9 Unspecified symptoms and signs involving the genitourinary system; B96.89 Other specified bacterial agents as the cause of diseases classified elsewhere | CPT/HCPCS: 87086; 87088; 87186 ==

== ENCOUNTER 2024-05-05 09:22 | Emergency (ER) | payer MEDICARE, MEDICAID, SELFPAY ==
[2024-05-05 09:23] VITALS: BP 188/86; PULSE 92; RESP 20; TEMP 36.7; O2SAT 98; BMI 36.9
[2024-05-05 09:30] VITALS: BP 189/86; PULSE 100; O2SAT 98
--- NOTE | 2024-05-05 09:31 | PC.NURSE ---
DR CANDELARIA AT BEDSIDE
--- NOTE | 2024-05-05 09:35 | XR_ITS ---
FINAL REPORT CLINICAL HISTORY: epigastric pain COMPARISON: 01/06/2023 FINDINGS: The heart size is normal. The mediastinum is normal. There is no focal infiltrate or edema. There are no pleural effusions. There is no pneumothorax. There is no osseous abnormality. IMPRESSION: No acute cardiopulmonary process Reviewed, Interpreted and Dictated by Bashir Cosme MD Transcribed by Kina Romero Authenticated and [facility]
--- NOTE | 2024-05-05 09:40 | ECG_ITS ---
APPROVED REPORT Exam: Resting ECG HR:77 bpm ECG Measurements Heart Rate 77 AXES WA 162 P 75 QRSd 83 QRS 45 QT 387 T 66 QTc 418 Conclusion SINUS RHYTHM LOW QRS VOLTAGE IN PRECORDIAL LEADS [QRS DEFLECTION < 1.0 mV IN CHEST LEADS] BORDERLINE ECG UNCONFIRMED REPORT Electronically signed by : JAMIN TORRE, 05/07/2024 06:40:01
[2024-05-05 09:42] VITALS: O2SAT 98
[2024-05-05 10:12] LABS: Basophils # 0.1 K/mm3 (0-0.2); Basophils % 0.7 % (0.1-2.0); Eosinophils # 0.5 K/mm3 (0.0-0.4); Eosinophils % 5.1 % (0.1-12.0); Hematocrit 43.9 % (37.0-47.0); Hemoglobin 13.9 g/dL (12.2-16.2); Lymphocytes # 1.6 K/mm3 (0.7-4.5); Lymphocytes % 17.3 % (10-50); Mean Corpuscular HGB Conc 31.6 g/dL (31.8-35.4); Mean Corpuscular Hemoglobin 28.6 pg (27.0-31.2); Mean Corpuscular Volume 90.4 fl (81-99); Mean Platelet Volume 8.5 fl (7.4-10.4); Monocytes # 0.4 K/mm3 (0.1-1.0); Monocytes % 4.8 % (1.7-9.3); Neutrophils # 6.5 K/mm3 (1.8-7.8); Platelet Count 231 K/mm3 (142-424); Red Blood Count 4.85 M/mm3 (4.20-5.40); Red Cell Distribution Width 14.5 % (11.5-17.5)
[2024-05-05 10:16] LABS: Albumin Level 4.2 g/dl (3.5-5.0); Chloride 105 mmol/L (98-107); Potassium 3.6 mmoL/L (3.5-5.1); Sodium 138 mmol/L (136-145)
--- NOTE | 2024-05-05 10:16 | HMH.EDGENADL ---
Discharge Plan Disposition Patient Disposition: Home, Self-Care Prescriptions Prescriptions: New esomeprazole magnesium 20 mg capsule,delayed release(DR/EC) 20 mg PO DAILY 56 Days Qty: 56 1RF No Action clonidine HCl 0.1 mg tablet 0.1 mg PO DAILY PRN (Reason: hypertensive emergency) Qty: 30 2RF furosemide 20 mg tablet 20 mg PO .COMPLEX Rx Instructions: 20 mg orally 3x weekly; cetirizine 10 mg tablet 10 mg PO DAILY aspirin [Adult Low Dose Aspirin] 81 mg tablet,delayed release (DR/EC) 81 mg PO DAILY fluticasone propionate 50 mcg/actuation spray,suspension 2 spray intranasal DAILY Rx Instructions: administer into each nostril lisinopril 40 mg tablet 40 mg PO DAILY Qty: 90 2RF pravastatin 40 mg tablet 40 mg PO DAILY spironolactone 25 mg tablet 25 mg PO DAILY Patient Comments: TAKE 1 TABLET BY MOUTH ONCE DAILY famotidine 20 mg tablet 20 mg PO DAILY Referrals Follow up/Referrals: Lianna Johnson APRN [Primary Care Provider] - See instructions Activity Restrictions/Add. Instructions Additional Instructions/Restrictions: Acid medication each night for 6 weeks. Follow-up with your family doctor and GI for further definitive management. Call your family doctor to establish care for this visit to the emergency department and schedule follow-up within 48 hours to ensure improvement. If you have any worsening of your condition or any other concerning signs or symptoms, return to the emergency department or your primary care doctor for further evaluation. Clinical Impressions Clinical Impression: Epigastric pain Print Language Print Language: Armenian Discharge ED Provider: Osbaldo Crow General Adult HPI General Chief complaint: Recheck/Abnormal Lab/Rx Stated complaint: nausea, high bp Time Seen by Provider: 05/05/24 09:35 Mode of Arrival: Family Vehicle Source of Information: Patient and Medical Record Limitations: No Limitations Description of Symptoms (Recalled from ER Triage Doc. by RN): Pt c/o increasing elevated SBP, nausea, and anxiety. States she had her Lisinopril increased last week to 40mg and also takes Spirolactone however it continues to increase. She is also worried about a continued UTI from 1 mn ago. She had a negative heart cath within [address] Sharpe's group. History of Present Illness HPI narrative: Please note that above description of symptoms, in this electronic medical record under categorization of recalled from ER triage doctor by RN are reflective of an initial nursing assessment, however, is not reflective of my full history and physical exam that was personally taken and clarified. Consequentially, this preceding description of symptoms, which may include the patient's categorized chief complaint in the EMR, do not reflect my personal clinical impression, and the ultimate description of history of present illness and patient stated complaints should be deferred to this section of the note. Unless stated otherwise or congruent with this section of the note, additional signs, symptoms, or incongruence should be interpreted as inaccurate with my clinical impression. Related Data Home Medications ?Medication ?Instructions ?Recorded ?Confirmed famotidine 20 mg tablet 20 mg PO DAILY 03/20/24 04/30/24 pravastatin 40 mg tablet 40 mg PO DAILY 03/20/24 04/30/24 spironolactone 25 mg tablet 25 mg PO DAILY 03/20/24 04/30/24 aspirin 81 mg tablet,delayed 81 mg PO DAILY 03/29/24 04/30/24 release (Adult Low Dose Aspirin) cetirizine 10 mg tablet 10 mg PO DAILY 03/29/24 04/30/24 fluticasone propionate 50 2 spray intranasal DAILY 03/29/24 04/30/24 mcg/actuation nasal spray,suspension furosemide 20 mg tablet 20 mg PO .COMPLEX 03/29/24 04/30/24 Previous Rx's ?Medication ?Instructions ?Recorded clonidine HCl 0.1 mg tablet 0.1 mg PO DAILY PRN hypertensive 03/24/24 emergency #30 tabs lisinopril 40 mg tablet 40 mg PO DAILY #90 tabs 04/30/24 esomeprazole magnesium 20 mg 20 mg PO DAILY 8 weeks #56 caps 05/05/24 capsule,delayed release Allergies Allergy/AdvReac Type Severity Reaction Status Date / Time sacubitril [From Entresto] Allergy Intermediate Verified 04/30/24 08:29 amlodipine Allergy Mild Other Verified 04/30/24 08:29 carvedilol Allergy Mild Other Verified 04/30/24 08:29 atropine [From URISED] Allergy Unknown Verified 04/30/24 08:29 ciprofloxacin [From Cipro] Allergy Unknown Verified 04/30/24 08:29 gentamicin [Gentamicin] Allergy Unknown Verified 04/30/24 08:29 methenamine [From URISED] Allergy Unknown Verified 04/30/24 08:29 neomycin Allergy Unknown Verified 04/30/24 08:29 nitrofurantoin Allergy Unknown Verified 04/30/24 08:29 [From Macrobid] Penicillins Allergy Unknown Verified 04/30/24 08:29 polymyxin B Allergy Unknown Verified 04/30/24 08:29 salicylates [From Urised] Allergy Unknown Verified 04/30/24 08:29 sulfamethoxazole Allergy Unknown Verified 04/30/24 08:29 [From Septra] trimethoprim [From Septra] Allergy Unknown Verified 04/30/24 08:29 valsartan AdvReac Intermediate Verified 04/30/24 08:29 latex AdvReac Rash Verified 04/30/24 08:29 PFSH PFS Disclaimer: The information contained in this section may have been updated after the patient was seen, as this information can be updated by other users. 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 Vulvar itching ASCUS with positive high risk HPV cervical Cataract Atrophic vaginitis Urinary tract infection Sleep apnea History of gastroesophageal reflux (GERD) History of cataract Heart murmur History of anemia History of seizure Urinary tract infection symptoms Facial neuropathy Left sided after dental work 10/2023 Epigastric pain Nausea Blood glucose elevated Yeast dermatitis Edema UTI (urinary tract infection) Vaginal yeast infection Viral illness Encounter for monitoring diuretic therapy Sore throat Sinusitis Elevated blood pressure reading in office with diagnosis of hypertension Wheezing Patient left before triage assessment Acute dyspnea Allergic rhinitis Lung nodule seen on imaging study Sinusitis Breast cancer screening by mammogram Diastolic dysfunction Established with Dr. Sharpe Sinus bradycardia PVCs (premature ventricular contractions) Ventricular bigeminy Essential hypertension Hyperlipemia Hypothyroid Surgical History History of colonoscopy 10/2023, polypectomy, repeat in 5 years S/P lymph node biopsy Hx of cholecystectomy Family History Unknown Cancer Other Diabetes Heart attack Hypertension Social History Smoking Status: Never smoker second hand exposure: No alcohol intake: never substance use type: denies use current occupational status: retired Travel in the last 8 weeks: None adopted: No caregiver/support person: No foster care: No household members: none housing: house lives independently: Yes marital status: number of children: 2 number of grandchildren: 5 education level: high school service: No current occupation: she is retired; 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 current occupational exposures/hazards: No Hx Recent Travel: No sexually active: No caffeine: Yes physical activity: none working smoke detector in home: Yes fire extinguisher in home: Yes carbon monox detector in home: No firearms in home: No do you feel safe at home: Yes victim of physical abuse: No victim of emotional abuse: No victim of sexual abuse: No would you like helpful sources: No ROS Obtained: Yes All systems reviewed & no additional complaints except as documented Physical Exam General General appearance: alert, anxious and other (Frequently blinking eyes and repetitive facial movements, likely tic disorder) Head Head exam: atraumatic and normocephalic Eye Eye exam: Present normal appearance, PERRL and EOMI Neck Neck exam: Present normal inspection, full ROM and trachea midline Respiratory Respiratory exam: Present normal lung sounds bilaterally; Absent respiratory distress, wheezes, stridor, accessory muscle use or prolonged expiratory phase Cardiovascular Cardiovascular exam: Present regular rate, normal rhythm and other (Pulses equal symmetric in upper and lower extremities) Abdominal Exam Abdominal exam: Present soft; Absent distention, tenderness or pulsatile mass Extremities Exam Extremities exam: Absent edema Neurological Exam Neurological exam: Present alert, oriented X3 and CN II-XII intact; Absent motor sensory deficit Skin Skin exam: Present warm and dry; Absent diaphoresis or erythema Medical Decision Making Medical Records Medical records reviewed: Yes I reviewed the patient's medical records. Screening: Per USPSTF and CDC recommendations, given the prevalence of disease in our region, it is our hospital?s policy to screen for HIV and viral Hepatitis for all patients aged 18 and over and those with ongoing risk factors. Patrick Inquiry Pt receiving controlled substance: No Patrick was queried for this patient: No Vital Signs: 05/05/24 09:23 05/05/24 09:30 05/05/24 09:42 Temperature 98.0 F Temperature Source Oral Pulse Rate 100 H Pulse Rate [Right] 92 H Respiratory Rate 20 Blood Pressure 189/86 H Blood Pressure [Right Arm] 188/86 H Blood Pressure Mean [Right Arm] 120 Blood Pressure Source [Right Arm] Automatic Cuff 02 Sat by Pulse Oximetry 98 98 98 Oxygen Delivery Method Room Air Room Air Lab Data Lab Results 05/05/24 09:56: WBC 9.0, RBC 4.85, Hgb 13.9, Hct 43.9, MCV 90.4, MCH 28.6, MCHC 31.6 L, RDW 14.5, Plt Count 231, MPV 8.5, Neut % (Auto) 72.0, Lymph % (Auto) 17.3, [place] % (Auto) 4.8, Eos % (Auto) 5.1, Baso % (Auto) 0.7, Neut # (Auto) 6.5, Lymph # (Auto) 1.6, [place] # (Auto) 0.4, Eos # (Auto) 0.5 H, Baso # (Auto) 0.1, Sodium 138, Potassium 3.6, Chloride 105, Carbon Dioxide 28, Anion Gap 8.6, BUN 13, Creatinine 0.90, Estimated Creat Clear 78, Estimated GFR 62, Est GFR ( Amer) 75, Glucose 130 H, Calcium 9.1, Total Bilirubin 1.1, AST 30, ALT 22, Alkaline Phosphatase 52, Troponin I < 0.01, Total Protein 7.6, Albumin 4.2, Globulin 3.4 H, Albumin/Globulin Ratio 1.2 05/05/24 09:56 05/05/24 09:56 Orders (Tests/Meds): ORDERS Category Date Time Status CXR --portable [XR chest portable] Stat Exams 05/05/24 09:35 Taken CBC w/Auto Diff [Complete Blood Count Auto Diff] Stat Lab 05/05/24 09:56 Completed CMP [Comprehensive Metabolic Panel] Stat Lab 05/05/24 09:56 Completed HIV (1&2) Antibody Rapid Stat Lab 05/05/24 09:48 Ordered Hep C Ab with Reflex to RNA Stat Lab 05/05/24 09:48 Ordered Trop I [Troponin I] Stat Lab 05/05/24 09:56 Completed Troponin I Q3H Lab 05/05/24 12:45 Ordered Troponin I Q3H Lab 05/05/24 15:45 Ordered UA [Urinalysis and Microscopic] Stat Lab 05/05/24 10:29 Ordered Medical Decision Narrative: 68-year-old female history of gastritis/GERD, cholecystectomy, hypertension, hyperlipidemia, hypothyroidism, anxiety presenting with epigastric pain. Patient states this has been going on for months. She states that she has been working with her family doctor in order to regulate blood pressure with lisinopril and spironolactone, has not been able to in the past couple of weeks. States that her blood pressure was in the 150s systolic this morning, continued having epigastric pain, unsure if they are related, so came to the emergency department. No other symptoms on full review of systems. History was obtained via conversation with patient. On arrival, patient hemodynamically stable, alert, oriented x4, appropriate, GCS 15, moving all extremities spontaneously, pupils equal and reactive to light. Full physical exam performed and significant for anxious. Woman who is in no acute distress. Right upper sternal border systolic ejection murmur. Pulses equal and symmetric in upper and lower extremities. No lower extremity edema. Neurologically intact grossly. Hypertensive, nontachycardic. Abdomen soft, nontender, nondistended. Differential includes anxiety, gastritis, ACS, PA, PUD, among others. Patient placed on continuous cardiac monitoring and continuous pulse ox with initial blood pressure 188/86, heart rate 92, saturation 98% on room air. Independent interpretation of EKG shows sinus rhythm 77 beats a minute no ST or T wave changes concerning for acute ischemia. MA 162, QRS 83, QTc 418. [place] normal.. Workup independently interpreted and significant for nonactionable CBC or chemistry. Troponin negative. On independent interpretation of imaging, no acute cardiopulmonary space disease on chest x-ray, no pneumothorax. See radiology read for full review of final results. Heart score 3. On reevaluation, patient still resting at baseline with intermittent epigastric burning. I feel this is most consistent with gastritis versus PUD. She already has follow-up with GI for further evaluation. I feel this is appropriate given low risk heart score. Because patient at baseline without signs or symptoms of clinical decompensation, deemed appropriate for discharge. Results were relayed to patient who voiced understanding and were agreeable to outpatient management and follow up. I discussed my clinical impression with patient and answered all questions. At this time, the evidence for any other entities in the differential is insufficient to warrant any further testing or ED observation. This was explained as well. Advisory was given that persistent or worsening symptoms require further evaluation. I confirmed the understanding of this discussion. Commodity Lead disclaimer Much of this encounter note is an electronic forest landscape ecology professor spoken language to printed text. Electronic forest landscape ecology professor of the spoken language may permit errors. Although I have reviewed the note, some errors may still exist. Critical Care Critical Care Time Critical Care Time: No
[2024-05-05 10:19] LABS: Alanine Aminotransferase 22 U/L (12-78); Albumin/Globulin Ratio 1.2 (1.1-1.8); Alkaline Phosphatase 52 U/L (38-126); Anion Gap 8.6 mEq/L (5-15); Aspartate Amino Transferase 30 U/L (14-36); Bilirubin,Total 1.1 mg/dl (0.2-1.3); Blood Urea Nitrogen 13 mg/dl (7-17); Calcium 9.1 mg/dl (8.4-10.2); Carbon Dioxide 28 mmol/L (22.0-30.0); Creatinine Clearance Estimated 78 mL/min (50-200); Estimated Glomerular Filt Rate 62 ml/min (>60); GFR (African American) 75 ML/MIN (>60); Globulin 3.4 g/dL (1.3-3.2); Glucose 130 mg/dl (74-100); Total Protein,Serum 7.6 g/dl (6.3-8.2)
[2024-05-05 10:32] LABS: Troponin I < 0.01 ng/ml (0.00-0.034)
[2024-05-05 10:45] LABS: Microscopic, Urine URINE MICROSCOPIC (MICROSCOPIC)
[2024-05-05 10:50] VITALS: BP 171/75; PULSE 65; RESP 18; TEMP 36.7; O2SAT 98
[2024-05-05 10:55] LABS: Appearance,Urine CLEAR (Clear); Blood, Urine TRACE-I (Negative); Color,Urine YELLOW (Yellow); Glucose,Urine (UA) Negative (Negative); Ketones,Urine Negative (Negative); Leukocyte Esterase,Urine Negative (Negative); Nitrate,Urine Negative (Negative); Protein,Urine Negative (Negative); Urobilinogen,Urine 0.2 EU/dl (0.2)
[2024-05-05 10:59] LABS: Bilirubin,Urine 1+ (Negative)
[2024-05-05 11:26] LABS: RBC,Urine Occasional #/hpf (0-3); Squamous Epithelial Cell,Urine Occasional #/hpf (0-5)
== END 2024-05-05 10:55 | disposition home or self-care (01) ==
PROVIDERS: Emergency Provider Emergency Medicine; PCP Nurse Practitioner Family
DX: R10.13 Epigastric pain (principal); R11.0 Nausea
CPT/HCPCS: 71045; 80053; 81001; 84484; 85025; 93005; 99284

== ENCOUNTER 2024-05-28 08:45 | Outpatient (CLI) | payer MEDICARE, MEDICAID, SELFPAY ==
[2024-05-28 16:51] LABS: Microscopic, Urine URINE MICROSCOPIC (MICROSCOPIC)
[2024-05-28 23:31] LABS: Appearance,Urine CLEAR (Clear); Bilirubin,Urine Negative (Negative); Blood, Urine Negative (Negative); Color,Urine YELLOW (Yellow); Glucose,Urine (UA) Negative (Negative); Ketones,Urine Negative (Negative); Leukocyte Esterase,Urine Negative (Negative); Nitrate,Urine Negative (Negative); Protein,Urine Negative (Negative); Specific Gravity, Urine 1.015 (1.005-1.030); Urobilinogen,Urine 0.2 EU/dl (0.2)
[2024-05-28 23:57] LABS: Bacteria,Urine Trace /lpf; Squamous Epithelial Cell,Urine Occasional #/hpf (0-5); WBC,Urine Occasional #/hpf (0-3)
== END 2024-05-28 23:59 | disposition home or self-care (01) ==
LOC: LAB.DROPOF 05-29 10:19
PROVIDERS: PCP Nurse Practitioner Family; Visit Provider Nurse Practitioner Family
DX: R30.0 Dysuria (principal); R14.0 Abdominal distension (gaseous); I10 Essential (primary) hypertension; R39.9 Unspecified symptoms and signs involving the genitourinary system
CPT/HCPCS: 81001; 87086; 87088; 87186

== ENCOUNTER 2024-05-31 09:53 | Outpatient (CLI) | payer MEDICARE, MEDICAID, SELFPAY ==
--- NOTE | 2024-05-31 09:56 | CT_ITS ---
FINAL REPORT TECHNIQUE: Postcontrast images of the abdomen were performed by computed tomography. Extensive 3-D reconstruction images were performed. A CTA was performed. This study was performed with techniques to keep radiation doses as low as reasonably achievable (ALARA). Individualized dose reduction techniques using automated exposure control or adjustment of mA and/or kV according to the patient' size were employed. CLINICAL HISTORY: renal artery stenosis COMPARISON: None FINDINGS: ABDOMEN: The lung bases are clear. Precontrast images demonstrate no evidence of nephrolithiasis. There is a benign-appearing 1.5 cm cyst in the lower pole of the left kidney. No adrenal masses are identified. There is moderate fatty infiltration of the liver. The gallbladder has been surgically excised. The spleen and pancreas are unremarkable. CTA: The abdominal aorta is proper caliber. The SMA and ЕЛЕНА are patent. There is mild vascular calcification of the origin of the celiac axis, which produces less than 50% luminal diameter stenosis. There is a single left renal artery which is widely patent. There are dual right renal arteries, also widely patent. IMPRESSION: Single left renal artery, with dual right renal arteries, widely patent without evidence of significant stenosis. Mild vascular calcification of the origin of the celiac axis, producing less than 50% luminal diameter stenosis. The SMA and ЕЛЕНА are patent. Moderate fatty infiltration of the liver. Reviewed, Interpreted and Dictated by Bashir Cosme MD Transcribed by Maribeth Fischer Authenticated and [facility]
[2024-05-31 10:39] LABS: Blood Urea Nitrogen 17 mg/dl (7-17); Estimated Glomerular Filt Rate 71 ml/min (>60); GFR (African American) 86 ML/MIN (>60)
[2024-05-31] MEDS: 0.9 % SODIUM CHLORIDE 50 ML VIAL IV (11:13)
[2024-05-31] MEDS: IOPAMIDOL-370 (76%);100ML BOTTLE 100 ML IV (11:13)
[2024-05-31] MEDS: SODIUM CHLORIDE 0.9% 10ML SYR (RAD ONLY) 10 ML IV (11:13)
== END 2024-05-31 23:59 | disposition home or self-care (01) ==
LOC: RAD 09:56
PROVIDERS: PCP Nurse Practitioner Family; Visit Provider Physician Assistant
DX: I70.1 Atherosclerosis of renal artery (principal); I10 Essential (primary) hypertension
CPT/HCPCS: 36415; 74175; 82565; 84520; Q9967

== ENCOUNTER 2024-06-18 16:42 | Outpatient (CLI) | payer MEDICARE, MEDICAID, SELFPAY ==
[2024-06-18 16:32] LABS: Microscopic, Urine URINE MICROSCOPIC (MICROSCOPIC)
[2024-06-18 16:56] LABS: Appearance,Urine CLEAR (Clear); Bilirubin,Urine Negative (Negative); Blood, Urine TRACE-I (Negative); Color,Urine YELLOW (Yellow); Glucose,Urine (UA) Negative (Negative); Ketones,Urine Negative (Negative); Leukocyte Esterase,Urine Negative (Negative); Nitrate,Urine Negative (Negative); Protein,Urine Negative (Negative); Specific Gravity, Urine 1.025 (1.005-1.030); Urobilinogen,Urine 0.2 EU/dl (0.2)
[2024-06-18 17:42] LABS: Mucus,Urine 2+ /lpf; RBC,Urine Occasional #/hpf (0-3)
== END 2024-06-18 23:59 | disposition home or self-care (01) ==
LOC: LAB.DROPOF 16:43
PROVIDERS: PCP Nurse Practitioner Family; Visit Provider Nurse Practitioner Family
DX: N39.0 Urinary tract infection, site not specified (principal); R30.0 Dysuria
CPT/HCPCS: 81001; 87086

== ENCOUNTER 2024-08-09 00:54 | Emergency (ER) | payer MEDICARE, MEDICAID, SELFPAY ==
[2024-08-09 00:55] VITALS: BP 204/80; PULSE 70; RESP 20; TEMP 36.6; O2SAT 97; BMI 37.8
--- NOTE | 2024-08-09 01:07 | CT_ITS ---
PROCEDURE INFORMATION: Exam: CT Abdomen And Pelvis With Contrast Exam date and time: 08/09/2024 1:56 AM Age: 68 years old Clinical indication: Abdominal pain; Additional info: Rlq, left low back pain TECHNIQUE: Imaging protocol: Computed tomography of the abdomen and pelvis with contrast. Radiation optimization: All CT scans at this facility use at least one of these dose optimization techniques: automated exposure control; mA and/or kV adjustment per patient size (includes targeted exams where dose is matched to clinical indication); or iterative reconstruction. Contrast material: ISOVUE; Contrast volume: 75 ml; Contrast route: IV; COMPARISON: CT ANGIO ABDOMEN 05/31/2024 11:01 AM FINDINGS: Liver: Normal. No mass. Gallbladder and biliary ducts: The gallbladder is absent. Pancreas: Normal. No ductal dilation. Spleen: Normal. No splenomegaly. Adrenal glands: Normal. No mass. Kidneys and ureters: There is a 2.3 cm simple appearing cortical cysts in the lower pole of the left kidney. Stomach and bowel: Unremarkable. No obstruction. No mucosal thickening. Appendix: The appendix is not visualized. Intraperitoneal space: There is trace free fluid in the pelvic cul-de-sac. Vasculature: Unremarkable. No abdominal aortic aneurysm. Lymph nodes: Unremarkable. No enlarged lymph nodes. Urinary bladder: Unremarkable as visualized. Reproductive: The uterus and ovaries are normal. Bones/joints: Unremarkable. No acute fracture. Soft tissues: Unremarkable. IMPRESSION: No acute intra-abdominal abnormality. COMMENTS: Consistent with the [employer]'s Incidental Findings Committee white paper ([address] [employer]iol 2018): Any incidental renal lesion less than 1 cm or classified as too small to characterize, or any incidental cystic renal lesion characterized as simple-appearing, is likely benign. No follow-up imaging is recommended for these lesions per consensus recommendations based on imaging criteria.
--- NOTE | 2024-08-09 01:07 | ED_ITS ---
Discharge Plan Disposition Patient Disposition: Home, Self-Care Condition: Good Prescriptions Prescriptions: New ondansetron HCl 4 mg tablet 4 mg PO Q8H PRN (Reason: nausea and vomiting) 5 Days Qty: 30 0RF No Action bisoprolol fumarate 5 mg tablet 5 mg PO DAILY Qty: 30 2RF cetirizine 10 mg tablet 10 mg PO DAILY aspirin [Adult Low Dose Aspirin] 81 mg tablet,delayed release (DR/EC) 81 mg PO DAILY fluticasone propionate 50 mcg/actuation spray,suspension 2 spray intranasal DAILY Rx Instructions: administer into each nostril furosemide 20 mg tablet 20 mg PO .3QW spironolactone 25 mg tablet 25 mg PO HS losartan 50 mg tablet 50 mg PO BID Qty: 60 2RF pravastatin 40 mg tablet 40 mg PO DAILY famotidine 20 mg tablet 20 mg PO DAILY magnesium 200 mg Tablet 400 mg PO HS Referrals Follow up/Referrals: Lianna Johnson APRN [Primary Care Provider] - See instructions Activity Restrictions/Add. Instructions Additional Instructions/Restrictions: Please follow-up with your primary care provider. Please return to the emergency department if you develop any new or worsening symptoms or become concerned for your health. Please take Zofran as needed for nausea and vomiting. Clinical Impressions Clinical Impression: Abdominal pain, Enlarged uterus Print Language Print Language: [place]arag[place] Discharge ED Provider: Klaus Burdick Adult HPI General Chief complaint: PAIN Stated complaint: back pain, nausea Time Seen by Provider: 08/09/24 00:56 History of Present Illness HPI narrative: 68-year-old female with history of bigeminy, obesity, presents with abdominal pain. Patient reports that she has been having cough and congestion for the last few days and feels like her stools are darker than normal. Denies any history of GI bleeding. She reports that she is having some lower back pain and lower abdominal pain been going on for the last couple of days. Denies any urinary burning, urgency, frequency. Denies any history of kidney stones. Denies any trauma. Denies any lower extremity pain or weakness. Related Data Home Medications ?Medication ?Instructions ?Recorded ?Confirmed famotidine 20 mg tablet 20 mg PO DAILY 03/20/24 08/09/24 pravastatin 40 mg tablet 40 mg PO DAILY 03/20/24 08/09/24 aspirin 81 mg tablet,delayed 81 mg PO DAILY 03/29/24 08/09/24 release (Adult Low Dose Aspirin) cetirizine 10 mg tablet 10 mg PO DAILY 03/29/24 08/09/24 fluticasone propionate 50 2 spray intranasal DAILY 03/29/24 08/09/24 mcg/actuation nasal spray,suspension furosemide 20 mg tablet 20 mg PO .3QW 05/12/24 08/09/24 spironolactone 25 mg tablet 25 mg PO HS 05/12/24 08/09/24 magnesium 200 mg tablet 400 mg PO HS 08/09/24 08/09/24 Previous Rx's ?Medication ?Instructions ?Recorded losartan 50 mg tablet 50 mg PO BID #60 tabs 05/12/24 bisoprolol fumarate 5 mg tablet 5 mg PO DAILY #30 tabs 07/22/24 ondansetron HCl 4 mg tablet 4 mg PO Q8H PRN nausea and 08/09/24 vomiting 5 days #30 tabs Allergies Allergy/AdvReac Type Severity Reaction Status Date / Time sacubitril (From Entresto) Allergy Intermediate Unknown Verified 08/09/24 15:33 allergy reaction amlodipine Allergy Mild Other Verified 08/09/24 15:33 carvedilol Allergy Mild Other Verified 08/09/24 15:33 atropine (From URISED) Allergy Unknown Unknown Verified 08/09/24 15:33 allergy reaction ciprofloxacin (From Cipro) Allergy Unknown Unknown Verified 08/09/24 15:33 allergy reaction gentamicin (Gentamicin) Allergy Unknown Unknown Verified 08/09/24 15:33 allergy reaction methenamine (From URISED) Allergy Unknown Unknown Verified 08/09/24 15:33 allergy reaction neomycin Allergy Unknown Unknown Verified 08/09/24 15:33 allergy reaction nitrofurantoin (From Allergy Unknown Unknown Verified 08/09/24 15:33 Macrobid) allergy reaction Penicillins Allergy Unknown Unknown Verified 08/09/24 15:33 allergy reaction polymyxin B Allergy Unknown Unknown Verified 08/09/24 15:33 allergy reaction salicylates (From Urised) Allergy Unknown Unknown Verified 08/09/24 15:33 allergy reaction sulfamethoxazole (From Allergy Unknown Unknown Verified 08/09/24 15:33 Septra) allergy reaction trimethoprim (From Septra) Allergy Unknown Unknown Verified 08/09/24 15:33 allergy reaction valsartan AdvReac Intermediate Unknown Verified 08/09/24 15:33 allergy reaction latex AdvReac Rash Verified 08/09/24 15:33 [facility] Disclaimer: The information contained in this section may have been updated after the patient was seen, as this information can be updated by other users. 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 Vulvar itching ASCUS with positive high risk HPV cervical Cataract Atrophic vaginitis Urinary tract infection Sleep apnea History of gastroesophageal reflux (GERD) History of cataract Heart murmur History of anemia History of seizure Urinary tract infection symptoms Facial neuropathy Epigastric pain Nausea Blood glucose elevated Yeast dermatitis Edema UTI (urinary tract infection) Vaginal yeast infection Viral illness Encounter for monitoring diuretic therapy Sore throat Sinusitis Elevated blood pressure reading in office with diagnosis of hypertension Wheezing Patient left before triage assessment Acute dyspnea Allergic rhinitis Lung nodule seen on imaging study Sinusitis Breast cancer screening by mammogram Diastolic dysfunction Sinus bradycardia PVCs (premature ventricular contractions) Ventricular bigeminy Essential hypertension Hyperlipemia Hypothyroid Surgical History History of colonoscopy S/P lymph node biopsy Hx of cholecystectomy Family History Unknown Cancer Other Diabetes Heart attack Hypertension Social History (Updated 08/09/24 @ 21:33 by Aubrie Patel RN) Smoking Status: Never smoker second hand exposure: No alcohol intake: never substance use type: denies use current occupational status: retired Travel in the last 8 weeks: None adopted: No caregiver/support person: No foster care: No household members: none housing: house lives independently: Yes marital status: number of children: 2 number of grandchildren: 5 education level: high school service: No current occupation: she is retired; 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 current occupational exposures/hazards: No Hx Recent Travel: No sexually active: No caffeine: Yes physical activity: none working smoke detector in home: Yes fire extinguisher in home: Yes carbon monox detector in home: No firearms in home: No do you feel safe at home: Yes victim of physical abuse: No victim of emotional abuse: No victim of sexual abuse: No would you like helpful sources: No Have you lived/traveled outside [place] in past 30 days?: No Contact w/someone who lives/traveled outside [place] past 30 days?: No Exposure to someone with infectious disease in past 14 days?: No Do you have a fever (greater than 100.4 F or 38 C)?: No Have you tested positive for COVID-19: No Exposed to someone with COVID-19 in past 14 days?: No Do you have a sore throat?: No Do you have a cough?: No Do you have any weakness?: No Are you experiencing any nausea/vomitting?: No Do you have any diarrhea?: No Are you experiencing any unusual bleeding?: No Do you have any muscle aches/pain?: No Do you have any abdominal pain?: No Are you experiencing loss of taste or smell?: No Other Medical History Have you received the Flu Vaccine for this season: No Have you received the Pneumonia Vaccine: Yes ROS Obtained: Yes All systems reviewed & no additional complaints except as documented Physical Exam General General appearance: alert and in no apparent distress Head Head exam: atraumatic and normocephalic Eye Eye exam: Present normal appearance, PERRL and EOMI ENT ENT exam: Present normal oropharynx and normal external ear exam Neck Neck exam: Present normal inspection and full ROM Chest Chest inspection: Present normal inspection and symmetric chest wall rise; Absent tenderness Respiratory Respiratory exam: Present normal lung sounds bilaterally; Absent respiratory distress Cardiovascular Cardiovascular exam: Present regular rate and normal rhythm Abdominal Exam Abdominal exam: Present soft; Absent distention, tenderness or guarding Extremities Exam Extremities exam: Present normal inspection; Absent edema or joint swelling Back Exam Back exam: Present normal inspection; Absent tenderness Neurological Exam Neurological exam: Present alert and oriented X3; Absent motor sensory deficit Psychiatric Psychiatric exam: Present normal affect and normal mood Skin Skin exam: Present warm, dry and normal color Lymphatic Lymphatic Findings: no adenopathy Medical Decision Making Medical Records Medical records reviewed: Yes I reviewed the patient's medical records. Screening: Per USPSTF and CDC recommendations, given the prevalence of disease in our region, it is our hospital?s policy to screen for HIV and viral Hepatitis for all patients aged 18 and over and those with ongoing risk factors. Patrick Inquiry Pt receiving controlled substance: No Patrick was queried for this patient: No Vital Signs: 08/09/24 00:55 08/09/24 01:10 08/09/24 01:31 Temperature 97.8 F Temperature Source Oral Pulse Rate 65 57 L Pulse Rate [Right Brachial] 70 Respiratory Rate 20 13 18 Blood Pressure 226/91 H 199/76 H Blood Pressure [Right Arm] 204/80 H Blood Pressure Mean [Right Arm] 121 Blood Pressure Source Blood Pressure Source [Right Arm] Automatic Cuff Blood Pressure Position Blood Pressure Position [Right Arm] Supine 02 Sat by Pulse Oximetry 97 98 99 Oxygen Delivery Method Room Air 08/09/24 02:33 08/09/24 03:01 08/09/24 05:28 Temperature 97.9 F Temperature Source Oral Pulse Rate 60 69 74 Pulse Rate [Right Brachial] Respiratory Rate 18 14 14 Blood Pressure 177/66 H 184/108 H 128/72 Blood Pressure [Right Arm] Blood Pressure Mean [Right Arm] Blood Pressure Source Automatic Cuff Blood Pressure Source [Right Arm] Blood Pressure Position Supine Blood Pressure Position [Right Arm] 02 Sat by Pulse Oximetry 96 94 L Oxygen Delivery Method Room Air Lab Data Lab results reviewed: Yes I reviewed the patient's lab results. Lab Results 08/09/24 01:01: WBC 11.5 H, RBC 4.12 L, Hgb 11.6 L, Hct 36.4 L, MCV 88.3, MCH 28.2, MCHC 31.9, RDW 14.6, Plt Count 168, MPV 12.2 H, Neut % (Auto) 67.5, Lymph % (Auto) 22.1, [place] % (Auto) 7.7, Eos % (Auto) 1.7, Baso % (Auto) 0.6, Neut # (Auto) 7.8, Lymph # (Auto) 2.5, [place] # (Auto) 0.9, Eos # (Auto) 0.2, Baso # (Auto) 0.1, Sodium 139, Potassium 4.2, Chloride 109 H, Carbon Dioxide 25, Anion Gap 9.2, BUN 19 H, Creatinine 1.10 H, Estimated Creat Clear 70, Estimated GFR 49 L, Est GFR ( Amer) 60, Glucose 134 H, Calcium 8.9, Total Bilirubin 0.7, A ST 141 H, ALT 158 H, Alkaline Phosphatase 72, Total Protein 6.8, Albumin 3.8, Globulin 3.0, Albumin/Globulin Ratio 1.3, Lipase 117 08/09/24 01:09: HIV Ag/Ab Combo Qual Negative 08/09/24 01:53: Urine Color Dark yellow, Urine Appearance Cloudy, Urine pH 5.0, Ur Specific [place] 1.025, Urine Protein 3+ A, Urine Glucose (UA) 1+, Urine Ketones Trace, Urine Blood Trace-i, Urine Nitrate Positive A, Urine Bilirubin 1+ A, Urine Urobilinogen >=8.0, Ur Leukocyte Esterase Trace, Urine RBC Occasional, Urine WBC 3-5, Ur Squamous Epith Cells 5-10, Urine Bacteria 1+, Urine Mucus Trace 08/09/24 01:01 08/09/24 01:01 Orders (Tests/Meds): ED MEDICATIONS Discontinued Medications Generic Name Dose Route Start Last Admin Trade Name Freq PRN Reason Stop Dose Admin Acetaminophen 1,000 mg 08/09/24 01:07 08/09/24 01:15 Acetaminophen 500mg Tab PO 08/09/24 01:08 1,000 mg ONCE ONE Administration Iopamidol 75 ml 08/09/24 02:02 08/09/24 02:03 Iopamidol-370 (76%);100ml Bottle IV 08/09/24 02:03 75 ml ONCE ONE Administration Ondansetron HCl 4 mg 08/09/24 01:07 08/09/24 01:15 Ondansetron 4mg/2ml Vial IV 08/09/24 01:08 4 mg ONCE ONE Administration Sodium Chloride 10 ml 08/09/24 02:02 08/09/24 02:03 Sodium Chloride 0.9% 10ml Syr (Rad Only) IV 09/08/24 02:01 10 ml NEEDED PRN Administration Maintain IV Site ORDERS Category Date Time Status CT abdomen pelvis w con Stat Cat Scan 08/09/24 01:07 Completed CBC w/Auto Diff [Complete Blood Count Auto Diff] Stat Lab 08/09/24 01:01 Completed CMP [Comprehensive Metabolic Panel] Stat Lab 08/09/24 01:01 Completed HIV Combo Stat Lab 08/09/24 01:09 Completed Lipase Stat Lab 08/09/24 01:01 Completed UA [Urinalysis and Microscopic] Stat Lab 08/09/24 01:53 Completed Urine Culture Stat Micro 08/09/24 01:53 Received ECG Data Tracing #1: I reviewed this ECG and interpreted as documented below: Sinus bradycardia with bigeminy no obvious ischemic changes. EKG appears consistent with prior EKGs ECG initial impression date: 08/09/24 ECG initial impression time: 01:21 Medical Decision Narrative: 68-year-old female with history as documented above presents with a few days of viral symptoms as well as low back pain and abdominal pain which did her presentation tonight.. History was obtained via interactive discussion with patient, chart review. On arrival, patient is [afebrile, hemodynamically stable, satting appropriately, alert, oriented x4, GCS 15], moving all extremities spontaneously. Full physical exam performed and significant for benign abdominal exam, no CVA tenderness, mild bilateral paraspinal low back tenderness. No midline tenderness. Normal neurologic exam. Differential includes but is not limited to musculoskeletal pain, disc herniation, constipation, appendicitis, diverticulitis, renal lithiasis UTI pyelonephritis. Patient was given Tylenol and Zofran for symptomatic management and correction of underlying abnormalities. Workup initiated including CBC CMP lipase urinalysis CT abdomen pelvis IV contrast. On re-evaluation, patient [remains afebrile, HD stable.] Patient reports significant symptomatic improvement. Laboratory workup independently interpreted by me and significant for creatinine mildly elevated from prior, no significant electrolyte derangement, minimal leukocytosis. No Imaging independently interpreted by me and significant for no evidence of diverticulitis, obstruction, ureteral stone etc. The patient's uterus does look mildly enlarged to me and there is a suggestion of pelvic free fluid, though read negative by radiology. See radiology read for full review of final results. The underlying etiology of patient's presentation remains unclear, though patient reports that she feels back to normal. No evidence of spinal pathology, no evidence of intra-abdominal pathology. Patient was discharged in stable condition with prescription for Zofran. Return precautions given. I called the rads to have a repeat assessment of the CT scan, specifically focusing on the uterus which to me looks abnormal. They did eventually over read it and they agree that the uterus is thickened with some fluid in it. This may be consistent with more severe underlying pathology such as endometrial cancer, fibromas, etc. This information was communicated to patient and she was encouraged to follow-up for an ultrasound. Procedures Risk/Benefits of Procedure(s) Were Explained: Yes Critical Care Critical Care Time Critical Care Time: No
[2024-08-09 01:10] VITALS: BP 226/91; PULSE 65; RESP 13; O2SAT 98
[2024-08-09 01:15] LABS: Hematocrit 36.4 % (37.0-47.0); Hemoglobin 11.6 g/dL (12.2-16.2); Red Blood Count 4.12 M/mm3 (4.20-5.40); White Blood Count 11.5 K/mm3 (4.8-10.8)
[2024-08-09] MEDS: ACETAMINOPHEN 500MG TAB 1000 MG PO (01:15)
[2024-08-09] MEDS: ONDANSETRON 4MG/2ML VIAL 4 MG IV (01:15)
[2024-08-09 01:16] LABS: Basophils % 0.6 % (0.1-2.0); Eosinophils % 1.7 % (0.1-12.0); Lymphocytes # 2.5 K/mm3 (0.7-4.5); Lymphocytes % 22.1 % (10-50); Mean Corpuscular HGB Conc 31.9 g/dL (31.8-35.4); Mean Corpuscular Hemoglobin 28.2 pg (27.0-31.2); Mean Corpuscular Volume 88.3 fl (81-99); Mean Platelet Volume 12.2 fl (7.4-10.4); Monocytes % 7.7 % (1.7-9.3); Neutrophils # 7.8 K/mm3 (1.8-7.8); Neutrophils % 67.5 % (37.0-80.0); Platelet Count 168 K/mm3 (142-424); Red Cell Distribution Width 14.6 % (11.5-17.5)
[2024-08-09 01:17] LABS: Basophils # 0.1 K/mm3 (0-0.2); Eosinophils # 0.2 K/mm3 (0.0-0.4); Monocytes # 0.9 K/mm3 (0.1-1.0)
--- NOTE | 2024-08-09 01:21 | ECG_ITS ---
APPROVED REPORT Exam: Resting ECG HR:61 bpm ECG Measurements Heart Rate 61 AXES LA 168 P 70 QRSd 87 QRS 60 QT 452 T 82 QTc 456 Conclusion SINUS RHYTHM WITH FREQUENT VENTRICULAR PREMATURE COMPLEXES IN A BIGEMINAL PATTERN ABNORMAL RHYTHM ECG UNCONFIRMED REPORT Electronically signed by : JAMIN TORRE, 08/10/2024 07:06:51
[2024-08-09 01:31] VITALS: BP 199/76; PULSE 57; RESP 18; O2SAT 99
[2024-08-09 01:38] LABS: Alanine Aminotransferase 158 U/L (12-78); Albumin Level 3.8 g/dl (3.5-5.0); Albumin/Globulin Ratio 1.3 (1.1-1.8); Alkaline Phosphatase 72 U/L (38-126); Aspartate Amino Transferase 141 U/L (14-36); Bilirubin,Total 0.7 mg/dl (0.2-1.3); Blood Urea Nitrogen 19 mg/dl (7-17); Calcium 8.9 mg/dl (8.4-10.2); Carbon Dioxide 25 mmol/L (22.0-30.0); Chloride 109 mmol/L (98-107); Creatinine Clearance Estimated 70 mL/min (50-200); Estimated Glomerular Filt Rate 49 ml/min (>60); GFR (African American) 60 ML/MIN (>60); Glucose 134 mg/dl (74-100); Sodium 139 mmol/L (136-145); Total Protein,Serum 6.8 g/dl (6.3-8.2)
[2024-08-09 01:39] LABS: Lipase 117 U/L (23-300)
[2024-08-09 01:50] LABS: Anion Gap 9.2 mEq/L (5-15); Potassium 4.2 mmoL/L (3.5-5.1)
[2024-08-09 01:57] LABS: Microscopic, Urine URINE MICROSCOPIC (MICROSCOPIC)
[2024-08-09 01:58] LABS: Blood, Urine TRACE-I (Negative); Glucose,Urine (UA) 1+ (Negative); Ketones,Urine TRACE (Negative); Leukocyte Esterase,Urine TRACE (Negative); Nitrate,Urine POSITIVE (Negative); Protein,Urine 3+ (Negative); Specific Gravity, Urine 1.025 (1.005-1.030); Urobilinogen,Urine >=8.0 EU/dl (0.2)
[2024-08-09 02:02] LABS: Appearance,Urine Cloudy (Clear); Bilirubin,Urine 1+ (Negative); Color,Urine Dark Yellow (Yellow)
[2024-08-09] MEDS: IOPAMIDOL-370 (76%);100ML BOTTLE 75 ML IV (02:03)
[2024-08-09] MEDS: SODIUM CHLORIDE 0.9% 10ML SYR (RAD ONLY) 10 ML IV (02:03)
[2024-08-09 02:24] LABS: Bacteria,Urine 1+ /lpf; Mucus,Urine Trace /lpf; RBC,Urine Occasional #/hpf (0-3)
[2024-08-09 02:33] VITALS: BP 177/66; PULSE 60; RESP 18; O2SAT 96
[2024-08-09 03:01] VITALS: BP 184/108; PULSE 69; RESP 14; O2SAT 94
[2024-08-09 05:28] VITALS: BP 128/72; PULSE 74; RESP 14; TEMP 36.6; O2SAT 98
--- NOTE | 2024-08-09 05:30 | PC.NURSE ---
IV removed. IV catheter intact. Bleeding controlled.
[2024-08-09 12:36] LABS: HIV Combo NEGATIVE (Negative)
== END 2024-08-09 05:30 | disposition home or self-care (01) ==
PROVIDERS: Emergency Provider Emergency Medicine; PCP Nurse Practitioner Family
DX: N85.2 Hypertrophy of uterus (principal); R10.30 Lower abdominal pain, unspecified; R05.9 Cough, unspecified; R09.81 Nasal congestion; M54.50 Low back pain, unspecified; R11.0 Nausea
CPT/HCPCS: 74177; 80053; 81001; 83690; 85025; 87086; 87389; 93005; 96374; 99285; J2405; Q9967

== ENCOUNTER 2024-08-09 15:18 | Observation (INO) | payer MEDICARE, MEDICAID, SELFPAY ==
[2024-08-09] VITALS (8 sets, daily range): BP systolic 149–191; BP diastolic 63–110; PULSE 30–58; RESP 15–22; TEMP 36.6–36.7; O2SAT 96–100; BMI 37.8; BMI 39.2
--- NOTE | 2024-08-09 15:33 | ECG_ITS ---
APPROVED REPORT Exam: Resting ECG HR:62 bpm ECG Measurements Heart Rate 62 AXES QRSd 94 QRS 52 QT 449 T 77 QTc 453 Conclusion Junctional bradycardia with very frequent PVCs in bigeminal pattern. Difficult to discern P waves to determine underlying rhythm. No significant changes noted from last night EKG aside from the absence of discernible P waves. No acute STEMI. Electronically signed by : MAYTE JUSTICE, 08/10/2024 00:39:42
--- NOTE | 2024-08-09 15:50 | XR_ITS ---
PROCEDURE INFORMATION: Exam: XR Chest Exam date and time: 08/09/2024 4:07 PM Age: 68 years old Clinical indication: Dyspnea; Additional info: SOA TECHNIQUE: Imaging protocol: Radiologic exam of the chest. Views: 2 views. COMPARISON: CR XR CHEST PORTABLE 05/05/2024 9:49 AM FINDINGS: Lungs: No focal consolidation. Calcified granuloma peripheral left mid lung. Mild interstitial and vascular prominence. Pleural spaces: No pneumothorax . Small right pleural effusion. Heart/Mediastinum: Heart is enlarged. Mediastinal contours unremarkable.. Bones/joints: No acute osseous or soft tissue abnormality. Other findings: Mild leftward rotation IMPRESSION: 1. Mild interstitial pulmonary edema. Possible CHF. 2. Cardiomegaly. 3. Small right pleural effusion.
--- NOTE | 2024-08-09 15:56 | ED_ITS ---
Discharge Plan Disposition Patient Disposition: Admitted Condition: Good Chief Complaint: Weakness Clinical Impressions Clinical Impression: Junctional bradycardia, Shortness of breath, Elevated brain natriuretic peptide (BNP) level, Transaminitis, Pulmonary edema, Pleural effusion, Calcific supraspinatus tendinitis, Fluid in endometrial cavity Discharge ED Provider: Brittany Don General Adult HPI General Chief complaint: Weakness Stated complaint: ct scan showed fluid Time Seen by Provider: 08/09/24 15:33 Mode of Arrival: Ambulatory Source of Information: Patient Limitations: No Limitations Description of Symptoms (Recalled from ER Triage Doc. by RN): Pt. presents to ED with complaints of weakness, lower abdominal pain, tingling in her extremities, and shortness of breath x3 days. She was seen in the ED last night and was d/c'd but is still feeling unwell. She was recently prescribed a beta pro but her heart rate has been low, in the 30-40's, so she was told to stop taking the medication. Her last dose was 08/07, around 1999. History of Present Illness HPI narrative: This patient is a 68-year-old female with a history of hypertension, hyperlipidemia, hypothyroidism, PRO on BiPAP, and history of frequent PVCs for which she was on bisoprolol presenting to the emergency department for evaluation with concern for shortness of breath. Patient was evaluated here last night for abdominal pain and had reassuring workup, for which she was discharged home. Radiologist did addend the read and note that she had endometrial fluid for which they recommended follow-up with pelvic ultrasound. Patient states that since going home, she no longer has abdominal pain. She does, however, feel short of breath. She notes that she just feels bad overall with shortness of breath and general weakness. She also notes some cough. She states that her abdominal pain she was having yesterday is gone. It is mostly in her lower abdomen. She denies any chest pain. Last night, she was advised to stop taking her bisoprolol for dysrhythmia and bradycardia noted on EKG. She last took it 08/07/2024 at night. No other concerns noted at this time. Related Data Home Medications ?Medication ?Instructions ?Recorded ?Confirmed famotidine 20 mg tablet 20 mg PO DAILY 03/20/24 07/22/24 pravastatin 40 mg tablet 40 mg PO DAILY 03/20/24 07/22/24 aspirin 81 mg tablet,delayed 81 mg PO DAILY 03/29/24 07/22/24 release (Adult Low Dose Aspirin) cetirizine 10 mg tablet 10 mg PO DAILY 03/29/24 07/22/24 fluticasone propionate 50 2 spray intranasal DAILY 03/29/24 07/22/24 mcg/actuation nasal spray,suspension furosemide 20 mg tablet 20 mg PO .3QW 05/12/24 07/22/24 spironolactone 25 mg tablet 25 mg PO HS 05/12/24 07/22/24 Previous Rx's ?Medication ?Instructions ?Recorded clonidine HCl 0.1 mg tablet 0.1 mg PO DAILY PRN hypertensive 03/24/24 emergency #30 tabs losartan 50 mg tablet 50 mg PO BID #60 tabs 05/12/24 bisoprolol fumarate 5 mg tablet 5 mg PO DAILY #30 tabs 07/22/24 ondansetron HCl 4 mg tablet 4 mg PO Q8H PRN nausea and 08/09/24 vomiting 5 days #30 tabs Allergies Allergy/AdvReac Type Severity Reaction Status Date / Time sacubitril (From Entresto) Allergy Intermediate Unknown Verified 08/09/24 15:33 allergy reaction amlodipine Allergy Mild Other Verified 08/09/24 15:33 carvedilol Allergy Mild Other Verified 08/09/24 15:33 atropine (From URISED) Allergy Unknown Unknown Verified 08/09/24 15:33 allergy reaction ciprofloxacin (From Cipro) Allergy Unknown Unknown Verified 08/09/24 15:33 allergy reaction gentamicin (Gentamicin) Allergy Unknown Unknown Verified 08/09/24 15:33 allergy reaction methenamine (From URISED) Allergy Unknown Unknown Verified 08/09/24 15:33 allergy reaction neomycin Allergy Unknown Unknown Verified 08/09/24 15:33 allergy reaction nitrofurantoin (From Allergy Unknown Unknown Verified 08/09/24 15:33 Macrobid) allergy reaction Penicillins Allergy Unknown Unknown Verified 08/09/24 15:33 allergy reaction polymyxin B Allergy Unknown Unknown Verified 08/09/24 15:33 allergy reaction salicylates (From Urised) Allergy Unknown Unknown Verified 08/09/24 15:33 allergy reaction sulfamethoxazole (From Allergy Unknown Unknown Verified 08/09/24 15:33 Septra) allergy reaction trimethoprim (From Septra) Allergy Unknown Unknown Verified 08/09/24 15:33 allergy reaction valsartan AdvReac Intermediate Unknown Verified 08/09/24 15:33 allergy reaction latex AdvReac Rash Verified 08/09/24 15:33 PFSH PFS Disclaimer: The information contained in this section may have been updated after the patient was seen, as this information can be updated by other users. 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 Vulvar itching ASCUS with positive high risk HPV cervical Cataract Atrophic vaginitis Urinary tract infection Sleep apnea History of gastroesophageal reflux (GERD) History of cataract Heart murmur History of anemia History of seizure Urinary tract infection symptoms Facial neuropathy Epigastric pain Nausea Blood glucose elevated Yeast dermatitis Edema UTI (urinary tract infection) Vaginal yeast infection Viral illness Encounter for monitoring diuretic therapy Sore throat Sinusitis Elevated blood pressure reading in office with diagnosis of hypertension Wheezing Patient left before triage assessment Acute dyspnea Allergic rhinitis Lung nodule seen on imaging study Sinusitis Breast cancer screening by mammogram Diastolic dysfunction Sinus bradycardia PVCs (premature ventricular contractions) Ventricular bigeminy Essential hypertension Hyperlipemia Hypothyroid Surgical History History of colonoscopy S/P lymph node biopsy Hx of cholecystectomy Family History Unknown Cancer Other Diabetes Heart attack Hypertension Social History Smoking Status: Never smoker second hand exposure: No alcohol intake: never substance use type: denies use current occupational status: retired Travel in the last 8 weeks: None adopted: No caregiver/support person: No foster care: No household members: none housing: house lives independently: Yes marital status: number of children: 2 number of grandchildren: 5 education level: high school service: No current occupation: she is retired; 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 [employer] ([place] when it was open current occupational exposures/hazards: No Hx Recent Travel: No sexually active: No caffeine: Yes physical activity: none working smoke detector in home: Yes fire extinguisher in home: Yes carbon monox detector in home: No firearms in home: No do you feel safe at home: Yes victim of physical abuse: No victim of emotional abuse: No victim of sexual abuse: No would you like helpful sources: No Have you lived/traveled outside [place] in past 30 days?: No Contact w/someone who lives/traveled outside [place] past 30 days?: No Exposure to someone with infectious disease in past 14 days?: No Do you have a fever (greater than 100.4 F or 38 C)?: No Have you tested positive for COVID-19: No Exposed to someone with COVID-19 in past 14 days?: No Do you have a sore throat?: No Do you have a cough?: No Do you have any weakness?: No Do you have any diarrhea?: No Are you experiencing any unusual bleeding?: No Do you have any muscle aches/pain?: No Do you have any abdominal pain?: No Are you experiencing loss of taste or smell?: No Other Medical History Have you received the Flu Vaccine for this season: No Have you received the Pneumonia Vaccine: Yes ROS Obtained: Yes All systems reviewed & no additional complaints except as documented Physical Exam General General appearance: alert and in no apparent distress Head Head exam: atraumatic and normocephalic Eye Eye exam: Present normal appearance, PERRL and EOMI ENT ENT exam: Present normal exam, normal oropharynx, mucous membranes moist and normal external ear exam Neck Neck exam: Present normal inspection, full ROM and trachea midline; Absent tenderness Chest Chest inspection: Present normal inspection and symmetric chest wall rise; Absent tenderness Respiratory Respiratory exam: Present normal lung sounds bilaterally; Absent respiratory distress, wheezes, stridor or accessory muscle use Cardiovascular Cardiovascular exam: Present bradycardia and irregular rhythm Abdominal Exam Abdominal exam: Present soft; Absent distention, tenderness or guarding Extremities Exam Extremities exam: Present normal inspection, full ROM and normal capillary refill; Absent tenderness or edema Back Exam Back exam: Present normal inspection and full ROM; Absent tenderness Neurological Exam Neurological exam: Present alert, oriented X3, CN II-XII intact and normal gait; Absent motor sensory deficit Psychiatric Psychiatric exam: Present normal affect and normal mood Skin Skin exam: Present warm and dry Medical Decision Making Medical Records Medical records reviewed: Yes I reviewed the patient's medical records. Screening: Per USPSTF and CDC recommendations, given the prevalence of disease in our region, it is our hospital?s policy to screen for HIV and viral Hepatitis for all patients aged 18 and over and those with ongoing risk factors. Patrick Inquiry Pt receiving controlled substance: No Vital Signs: 08/09/24 15:34 08/09/24 16:05 08/09/24 17:19 Temperature 98.0 F Temperature Source Oral Pulse Rate 48 L 45 L Pulse Rate [Right Brachial] 58 L Respiratory Rate 16 18 16 Blood Pressure 149/65 H 179/73 H Blood Pressure Mean 78 85 Blood Pressure Source [Right Arm] Automatic Cuff Blood Pressure Position [Right Arm] Sitting 02 Sat by Pulse Oximetry 99 96 99 Oxygen Delivery Method Room Air 08/09/24 17:31 08/09/24 18:01 08/09/24 18:31 Temperature Temperature Source Pulse Rate 57 L 56 L Pulse Rate [Right Brachial] Respiratory Rate 18 22 20 Blood Pressure 156/67 H 149/63 H 164/100 H Blood Pressure Mean 105 Blood Pressure Source [Right Arm] Blood Pressure Position [Right Arm] 02 Sat by Pulse Oximetry 100 Oxygen Delivery Method Room Air Lab Data Lab results reviewed: Yes I reviewed the patient's lab results. Lab Results 08/09/24 16:00: WBC 10.4, RBC 4.07 L, Hgb 11.3 L, Hct 36.3 L, MCV 89.2, MCH 27.8, MCHC 31.1 L, RDW 14.5, Plt Count 180, MPV 11.5 H, Neut % (Auto) 75.3, Lymph % (Auto) 14.8, Allen % (Auto) 7.2, Eos % (Auto) 1.5, Baso % (Auto) 0.7, N eut # (Auto) 7.9 H, Lymph # (Auto) 1.5, Allen # (Auto) 0.8, Eos # (Auto) 0.2, Baso # (Auto) 0.1, D-Dimer 1.34 H, Sodium 140, Potassium 4.2, Chloride 110 H, Carbon Dioxide 26, Anion Gap 8.2, BUN 20 H, Creatinine 1.10 H, Estimated Creat Clear 70, Estimated GFR 49 L, Est GFR ( Amer) 60, Glucose 157 H, Calcium 8.9, Phosphorus 3.6, Magnesium 2.2, Total Bilirubin 0.7, AST 146 H, ALT 172 H, Alkaline Phosphatase 75, Troponin I < 0.01, NT-Pro-B Natriuret Pep 7980 H, Total Protein 6.8, Albumin 3.8, Globulin 3.0, Albumin/Globulin Ratio 1.3, TSH 3.69, Thyroxine (T4) 10.7 08/09/24 16:18: Urine Color Yellow, Urine Appearance Clear, Urine pH 6.0, Ur Specific [place] 1.025, Urine Protein 1+ A, Urine Glucose (UA) Negative, Urine Ketones Negative, Urine Blood Trace-i, Urine Nitrate Positive A, Urine Bilirubin Negative, Urine Urobilinogen 1.0, Ur Leukocyte Esterase Negative, Urine RBC 10- 20, Urine WBC 3-5, Ur Squamous Epith Cells 10-20, Urine Bacteria 1+, Urine Mucus 1+ 08/09/24 16:19: SARS-CoV-2 (PCR) Not detected, Influenza A Untype (PCR) Not detected, Influenza Type B (PCR) Not detected 08/09/24 16:00 08/09/24 16:00 Orders (Tests/Meds): ED MEDICATIONS Generic Name Dose Route Start Last Admin Trade Name Freq PRN Reason Stop Dose Admin Sodium Chloride 10 ml 08/09/24 17:01 08/09/24 17:05 Sodium Chloride 0.9% 10ml Syr (Rad Only) IV 09/08/24 17:00 10 ml NEEDED PRN Administration Maintain IV Site Discontinued Medications Generic Name Dose Route Start Last Admin Trade Name Freq PRN Reason Stop Dose Admin Iopamidol 70 ml 08/09/24 17:01 08/09/24 17:05 Iopamidol-370 (76%);100ml Bottle IV 08/09/24 17:02 70 ml ONCE ONE Administration Sodium Chloride 50 ml 08/09/24 17:01 08/09/24 17:04 0.9 % Sodium Chloride 50 Ml Vial IV 08/09/24 17:02 50 ml ONCE ONE Administration ORDERS Category Date Time Status CT angio chest PE protocol Stat Cat Scan 08/09/24 16:46 Completed Consult to Physician [CONS] Routine Cons 08/09/24 18:00 Ordered CXR 2 view (NOT portable) [XR chest 2V] Stat Exams 08/09/24 15:50 Completed BNP [NT Pro Brain Natriuretic Pep.] Stat Lab 08/09/24 16:00 Completed CBC w/Auto Diff [Complete Blood Count Auto Diff] Stat Lab 08/09/24 16:00 Completed CMP [Comprehensive Metabolic Panel] Stat Lab 08/09/24 16:00 Completed D-Dimer Stat Lab 08/09/24 16:00 Completed MAG [Magnesium] Stat Lab 08/09/24 16:00 Completed PHOS [Phosphorous] Stat Lab 08/09/24 16:00 Completed Rapid PCR Covid and Flu A/B Stat Lab 08/09/24 16:19 Completed T4 (Thyroxine) Stat Lab 08/09/24 16:00 Completed TSH [Thyroid Stimulating Hormone] Stat Lab 08/09/24 16:00 Completed Trop I [Troponin I] Stat Lab 08/09/24 16:00 Completed Troponin I Q3H Lab 08/09/24 19:00 Ordered Troponin I Q3H Lab 08/09/24 22:00 Ordered UA [Urinalysis and Microscopic] Stat Lab 08/09/24 16:18 Completed ECG Data Tracing #1: I reviewed this ECG and interpreted as documented below: Junctional bradycardia with frequent PVCs. No acute STEMI. ECG initial impression date: 08/09/24 ECG initial impression time: 15:34 Medical Decision Narrative: In summary, this patient is a 68-year-old female presenting to the Emergency Department for evaluation of shortness of breath. Differential diagnoses considered include but are not limited to ACS, dysrhythmia, PE, pneumonia, viral syndrome, hypothyroidism, pleural effusion. Ruling out the most morbid conditions drove assessment. It should be noted patient's history includes hypertension, hyperlipidemia, PRO, hypothyroidism which or may not be at goal therapy. This complicates all aspects of care by increasing patient's risk for morbidity. I reviewed patient's past medical records and noted recent cardiology evaluation, at which point patient was started on bisoprolol for hypertension and frequent PVCs. I also noted evaluation here last night with reassuring workup with the exception of an CT scan addendum that showed endometrial fluid and recommend follow-up pelvic ultrasound. I did notify the patient of this and recommended that she follow-up with gynecology since this is not normal in postmenopausal patients.. On exam, the patient is lying comfortably in bed. She has bradycardia with a regular rhythm noted on cardiac telemetry, but she is normotensive and not hypoxic. She is in no respiratory distress. Workup included CBC, CMP, troponin, D-dimer, TSH, T4, magnesium, viral swab, chest x-ray, EKG. EKG was obtained and is concerning for a junctional bradycardia with frequent PVCs. No acute STEMI. I noted that this is similar to her EKG from last night, however last night the P waves were discernible and it looks more like sinus rhythm with bigeminy. Today, difficult to discern where the patient's P waves are on EKG. I did call and have an interactive discussion with cardiology regarding this who recommended admission for monitoring and cardiac evaluation.. Labs demonstrate elevated D-dimer, so CT PE protocol was ordered. Patient does have transaminitis, which was present on last night evaluation as well. I independently reviewed CT scan from last night and noted that the patient had normal-appearing liver on CT scan. She is status post cholecystectomy. 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 Urinalysis last night and today concerning for positive nitrates, though grossly contaminated with squamous cells, today worse than yesterday. I did send a urine culture, patient does not have UTI symptoms at this time. I independently interpreted chest x-ray prior to the radiologist read and noted cardiomegaly with concerns for pulmonary edema. Please see their read for final interpretation. Patient did have elevated D-dimer, so I added on a CT PE protocol. She has no PE but she does have some pulmonary edema and bilateral pleural effusions. She has calcifications of her supraspinatus incidentally found. Ultimately at this time, I feel patient is stable for admission for further cardiac evaluation in the setting of CHF and junctional bradycardia. I had an interactive discussion with the hospitalist who admitted the patient. Patient was admitted in stable condition. Critical Care Critical Care Time Critical Care Time: No
[2024-08-09 16:12] LABS: White Blood Count 10.4 K/mm3 (4.8-10.8)
[2024-08-09 16:13] LABS: Basophils # 0.1 K/mm3 (0-0.2); Basophils % 0.7 % (0.1-2.0); Eosinophils # 0.2 K/mm3 (0.0-0.4); Eosinophils % 1.5 % (0.1-12.0); Hematocrit 36.3 % (37.0-47.0); Hemoglobin 11.3 g/dL (12.2-16.2); Lymphocytes # 1.5 K/mm3 (0.7-4.5); Lymphocytes % 14.8 % (10-50); Mean Corpuscular HGB Conc 31.1 g/dL (31.8-35.4); Mean Corpuscular Hemoglobin 27.8 pg (27.0-31.2); Mean Corpuscular Volume 89.2 fl (81-99); Mean Platelet Volume 11.5 fl (7.4-10.4); Monocytes # 0.8 K/mm3 (0.1-1.0); Monocytes % 7.2 % (1.7-9.3); Neutrophils # 7.9 K/mm3 (1.8-7.8); Neutrophils % 75.3 % (37.0-80.0); Platelet Count 180 K/mm3 (142-424); Red Blood Count 4.07 M/mm3 (4.20-5.40); Red Cell Distribution Width 14.5 % (11.5-17.5)
[2024-08-09 16:21] LABS: Alanine Aminotransferase 172 U/L (12-78); Albumin Level 3.8 g/dl (3.5-5.0); Albumin/Globulin Ratio 1.3 (1.1-1.8); Alkaline Phosphatase 75 U/L (38-126); Aspartate Amino Transferase 146 U/L (14-36); Bilirubin,Total 0.7 mg/dl (0.2-1.3); Blood Urea Nitrogen 20 mg/dl (7-17); Calcium 8.9 mg/dl (8.4-10.2); Carbon Dioxide 26 mmol/L (22.0-30.0); Chloride 110 mmol/L (98-107); Creatinine Clearance Estimated 70 mL/min (50-200); Estimated Glomerular Filt Rate 49 ml/min (>60); GFR (African American) 60 ML/MIN (>60); Glucose 157 mg/dl (74-100); Magnesium 2.2 mg/dl (1.6-2.3); Phosphorous 3.6 mg/dl (2.5-4.5); Sodium 140 mmol/L (136-145); Total Protein,Serum 6.8 g/dl (6.3-8.2)
[2024-08-09 16:22] LABS: Anion Gap 8.2 mEq/L (5-15); Potassium 4.2 mmoL/L (3.5-5.1)
[2024-08-09 16:25] LABS: D-Dimer 1.34 ug/mL (0.0-0.5)
[2024-08-09 16:28] LABS: Microscopic, Urine URINE MICROSCOPIC (MICROSCOPIC)
[2024-08-09 16:28] LABS: Coronavirus 19, PCR Not Detected (NotDetected); Influenza A, PCR Not Detected (NotDetected); Influenza B, PCR Not Detected (NotDetected)
[2024-08-09 16:31] LABS: NT Pro Brain Natriuretic Pep. 7980 pg/mL (0-125)
[2024-08-09 16:32] LABS: Appearance,Urine CLEAR (Clear); Blood, Urine TRACE-I (Negative); Color,Urine YELLOW (Yellow); Glucose,Urine (UA) Negative (Negative); Ketones,Urine Negative (Negative); Leukocyte Esterase,Urine Negative (Negative); Nitrate,Urine POSITIVE (Negative); Protein,Urine 1+ (Negative); Specific Gravity, Urine 1.025 (1.005-1.030)
[2024-08-09 16:38] LABS: T4 (Thyroxine) 10.7 ug/dl (5.53-11.0)
[2024-08-09 16:41] LABS: Bilirubin,Urine Negative (Negative)
[2024-08-09 16:43] LABS: Bacteria,Urine 1+ /lpf
[2024-08-09 16:44] LABS: Mucus,Urine 1+ /lpf
[2024-08-09 16:46] LABS: Troponin I < 0.01 ng/ml (0.00-0.034)
--- NOTE | 2024-08-09 16:46 | CT_ITS ---
PROCEDURE INFORMATION: Exam: CTA Chest With Contrast Exam date and time: 08/09/2024 5:01 PM Age: 68 years old Clinical indication: Dyspnea and other: Elevated d-dimer; Additional info: SOA, elevated dimer TECHNIQUE: Imaging protocol: Computed tomographic angiography of the chest with contrast. Exam focused on the arteries. 3D rendering (Not supervised by radiologist): MIP and/or 3D reconstructed images were created by the technologist. Radiation optimization: All CT scans at this facility use at least one of these dose optimization techniques: automated exposure control; mA and/or kV adjustment per patient size (includes targeted exams where dose is matched to clinical indication); or iterative reconstruction. Contrast material: ISOVUE; Contrast volume: 70 ml; Contrast route: INTRAVENOUS (IV); COMPARISON: CT CHEST WO CON 12/22/2023 3:05 PM FINDINGS: Pulmonary arteries: No PE. No evidence of cardiac strain. Aorta: Unremarkable. No aortic aneurysm. No aortic dissection. Lungs: Calcified granuloma left mid lung. No distinct lung nodules or infiltrates. Minimal diffuse interlobular septal thickening. Pleural spaces: No pneumothorax. Trace bilateral pleural effusions. Heart: Heart size upper limits of normal. No pericardial fluid. Lymph nodes: Small calcified subcarinal lymph node from prior granulomatous infection. No mediastinal or hilar adenopathy. Intraperitoneal space: Upper abdomen unremarkable. Prior cholecystectomy. Bones/joints: Unremarkable. No acute fracture. Soft tissues: Partially seen prominent calcification measuring approximately 11 x 20 mm at the left supraspinatus footplate attachment. IMPRESSION: 1. No PE. No evidence of cardiac strain. 2. Suspect mild pulmonary edema. 3. Trace bilateral pleural effusions. 4. Partially seen prominent calcification measuring approximately 11 x 20 mm at the left supraspinatus footplate attachment. Can be seen with calcific tendinopathy. Nonemergent further evaluation can be performed according to clinical discretion.
[2024-08-09 16:52] LABS: Thyroid Stimulating Hormone 3.69 uIU/mL (0.465-4.68)
[2024-08-09] MEDS: 0.9 % SODIUM CHLORIDE 50 ML VIAL IV (17:04)
[2024-08-09] MEDS: SODIUM CHLORIDE 0.9% 10ML SYR (RAD ONLY) 10 ML IV (17:05)
[2024-08-09] MEDS: IOPAMIDOL-370 (76%);100ML BOTTLE 70 ML IV (17:05)
--- NOTE | 2024-08-09 20:11 | EXP.HP ---
History of Present Illness *Admission Date: 08/09/24 *Reason for visit:: Weakness, lower abdominal pain, cough *History of present illness: Ms. Anderson is a 68-year-old female with a past medical history of Hypertension, Hypothyroidism, Hyperlipidemia, HFpEF (Diastolic) who presents to [facility] due to complaints of shortness of air, abdominal pain, tingling in extremities that has been ongoing for the last 3 days. She was previously in the ER on 08/[address] of the abdomen and pelvis that showed no acute findings. She was diagnosed with viral syndrome to home. She reports that she went home and her symptoms continued especially weakness and shortness of air and she presented back to the ER today, 08/09/24. In the ER today, the patient underwent an EKG that showed junctinal rhythm with bradycardia and frequent pvc's. Troponin was <0.01. BNP was elevated at 7980. TSH and Free T4 were within normal limits. CBC was unremarkable. CMP showed a Transaminitis with AST and ALT 146 and 172. In the ER, the patient received: Lasix 40 mg iv. The patient is admitted with initial impression: Symptomatic Bradycardia. [facility] Disclaimer: The information contained in this section may have been updated after the patient was seen, as this information can be updated by other users. 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 Vulvar itching ASCUS with positive high risk HPV cervical Cataract Atrophic vaginitis Urinary tract infection Sleep apnea History of gastroesophageal reflux (GERD) History of cataract Heart murmur History of anemia History of seizure Urinary tract infection symptoms Facial neuropathy Epigastric pain Nausea Blood glucose elevated Yeast dermatitis Edema UTI (urinary tract infection) Vaginal yeast infection Viral illness Encounter for monitoring diuretic therapy Sore throat Sinusitis Elevated blood pressure reading in office with diagnosis of hypertension Wheezing Patient left before triage assessment Acute dyspnea Allergic rhinitis Lung nodule seen on imaging study Sinusitis Breast cancer screening by mammogram Diastolic dysfunction Sinus bradycardia PVCs (premature ventricular contractions) Ventricular bigeminy Essential hypertension Hyperlipemia Hypothyroid Surgical History History of colonoscopy S/P lymph node biopsy Hx of cholecystectomy Family History Unknown Cancer Other Diabetes Heart attack Hypertension Social History (Updated 08/09/24 @ 21:33 by Aubrie Patel RN) Smoking Status: Never smoker second hand exposure: No alcohol intake: never substance use type: denies use current occupational status: retired Travel in the last 8 weeks: None adopted: No caregiver/support person: No foster care: No household members: none housing: house lives independently: Yes marital status: number of children: 2 number of grandchildren: 5 education level: high school service: No current occupation: she is retired; 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 current occupational exposures/hazards: No Hx Recent Travel: No sexually active: No caffeine: Yes physical activity: none working smoke detector in home: Yes fire extinguisher in home: Yes carbon monox detector in home: No firearms in home: No do you feel safe at home: Yes victim of physical abuse: No victim of emotional abuse: No victim of sexual abuse: No would you like helpful sources: No Have you lived/traveled outside [place] in past 30 days?: No Contact w/someone who lives/traveled outside [place] past 30 days?: No Exposure to someone with infectious disease in past 14 days?: No Do you have a fever (greater than 100.4 F or 38 C)?: No Have you tested positive for COVID-19: No Exposed to someone with COVID-19 in past 14 days?: No Do you have a sore throat?: No Do you have a cough?: No Do you have any weakness?: No Are you experiencing any nausea/vomitting?: No Do you have any diarrhea?: No Are you experiencing any unusual bleeding?: No Do you have any muscle aches/pain?: No Do you have any abdominal pain?: No Are you experiencing loss of taste or smell?: No Other Medical History Have you received the Flu Vaccine for this season: No Have you received the Pneumonia Vaccine: Yes Review of Systems Review of Systems Review of systems:: pertinent systems reviewed and negative unless documented below Constitutional Constitutional: Reports body ache(s), Reports fatigue, Reports poor appetite and Reports lethargy Eyes Eyes: Reports system reviewed and no additional complaints, except as documented ENT Ears, Nose, Mouth, and Throat: Reports system reviewed and no additional complaints, except as documented *Cardiovascular Cardiovascular: Reports dyspnea and Reports lightheadedness *Respiratory Respiratory: Reports cough and Reports dyspnea *Gastrointestinal Gastrointestinal: Reports abdominal pain *Genitourinary Genitourinary: Reports system reviewed and no additional complaints, except as documented *Musculoskeletal Musculoskeletal: Reports system reviewed and no additional complaints, except as documented Integumentary/Breasts Skin/Breast: Reports system reviewed and no additional complaints, except as documented *Neurologic Neurologic: Reports system reviewed and no additional complaints, except as documented Psychiatric Psychiatric: Reports system reviewed and no additional complaints, except as documented Endocrine Endocrine: Reports system reviewed and no additional complaints, except as documented and Reports fatigue Hematologic/Lymphatic Hematologic/Lymphatic: Reports system reviewed and no additional complaints, except as documented Allergic/Immunologic Allergic/Immunologic: Reports system reviewed and no additional complaints, except as documented Meds Home Medications and Allergies Home Medications ?Medication ?Instructions ?Recorded ?Confirmed ?Type famotidine 20 mg tablet 20 mg PO BID 03/20/24 08/10/24 History pravastatin 40 mg tablet 40 mg PO HS 03/20/24 08/10/24 History aspirin 81 mg tablet,delayed 81 mg PO DAILY 03/29/24 08/09/24 History release (Adult Low Dose Aspirin) cetirizine 10 mg tablet 10 mg PO DAILY 03/29/24 08/09/24 History fluticasone propionate 50 2 spray intranasal DAILY 03/29/24 08/09/24 History mcg/actuation nasal spray,suspension losartan 50 mg tablet 50 mg PO BID #60 tabs 05/12/24 08/09/24 Rx spironolactone 25 mg tablet 25 mg PO HS 05/12/24 08/09/24 History magnesium 200 mg tablet 400 mg PO HS 08/09/24 08/09/24 History ondansetron HCl 4 mg tablet 4 mg PO Q8H PRN nausea and 08/09/24 08/09/24 Rx vomiting 5 days #30 tabs esomeprazole magnesium 20 mg 20 mg PO DAILY 08/10/24 08/10/24 History capsule,delayed release furosemide 20 mg tablet 40 mg (2 x 20 mg) PO DAILY 30 days 08/10/24 Rx #60 tabs levothyroxine 50 mcg tablet 50 mcg PO DAILY 08/10/24 08/10/24 History lisinopril 40 mg tablet 40 mg PO DAILY 08/10/24 08/10/24 History New Prescriptions to Start Prescriptions: furosemide Hernandez,Arnulfo Allergies Allergy/AdvReac Type Severity Reaction Status Date / Time sacubitril (From Entresto) Allergy Intermediate Unknown Verified 08/09/24 15:33 allergy reaction amlodipine Allergy Mild Other Verified 08/09/24 15:33 carvedilol Allergy Mild Other Verified 08/09/24 15:33 atropine (From URISED) Allergy Unknown Unknown Verified 08/09/24 15:33 allergy reaction ciprofloxacin (From Cipro) Allergy Unknown Unknown Verified 08/09/24 15:33 allergy reaction gentamicin (Gentamicin) Allergy Unknown Unknown Verified 08/09/24 15:33 allergy reaction methenamine (From URISED) Allergy Unknown Unknown Verified 08/09/24 15:33 allergy reaction neomycin Allergy Unknown Unknown Verified 08/09/24 15:33 allergy reaction nitrofurantoin (From Allergy Unknown Unknown Verified 08/09/24 15:33 Macrobid) allergy reaction Penicillins Allergy Unknown Unknown Verified 08/09/24 15:33 allergy reaction polymyxin B Allergy Unknown Unknown Verified 08/09/24 15:33 allergy reaction salicylates (From Urised) Allergy Unknown Unknown Verified 08/09/24 15:33 allergy reaction sulfamethoxazole (From Allergy Unknown Unknown Verified 08/09/24 15:33 Septra) allergy reaction trimethoprim (From Septra) Allergy Unknown Unknown Verified 08/09/24 15:33 allergy reaction valsartan AdvReac Intermediate Unknown Verified 08/09/24 15:33 allergy reaction latex AdvReac Rash Verified 08/09/24 15:33 Exam Data for Last 24 hours Vital signs and Labs for Last 24 Hours: Temp Pulse Resp BP Pulse Ox O2 Del Method 98.0 F 54 L 18 186/110 H 97 Room Air 08/09/24 15:34 08/09/24 20:02 08/09/24 20:02 08/09/24 20:02 08/09/24 20:02 08/09/24 20:02 Laboratory Results - last 24 hr 08/09/24 16:00: WBC 10.4, RBC 4.07 L, Hgb 11.3 L, Hct 36.3 L, MCV 89.2, MCH 27.8, MCHC 31.1 L, RDW 14.5, Plt Count 180, MPV 11.5 H, Neut % (Auto) 75.3, Lymph % (Auto) 14.8, Lincoln % (Auto) 7.2, Eos % (Auto) 1.5, Baso % (Auto) 0.7, Neut # (Auto) 7.9 H, Lymph # (Auto) 1.5, Lincoln # (Auto) 0.8, Eos # (Auto) 0.2, Baso # (Auto) 0.1, D-Dimer 1.34 H, Sodium 140, Potassium 4.2, Chloride 110 H, Carbon Dioxide 26, Anion Gap 8.2, BUN 20 H, Creatinine 1.10 H, Estimated Creat Clear 70, Estimated GFR 49 L, Est GFR ( Amer) 60, Glucose 157 H, Calcium 8.9, Phosphorus 3.6, Magnesium 2.2, Total Bilirubin 0.7, AST 146 H, ALT 172 H, Alkaline Phosphatase 75, Troponin I < 0.01, NT-Pro-B Natriuret Pep 7980 H, Total Protein 6.8, Albumin 3.8, Globulin 3.0, Albumin/Globulin Ratio 1.3, TSH 3.69, Thyroxine (T4) 10.7 08/09/24 16:18: Urine Color Yellow, Urine Appearance Clear, Urine pH 6.0, Ur Specific [place] 1.025, Urine Protein 1+ A, Urine Glucose (UA) Negative, Urine Ketones Negative, Urine Blood Trace-i, Urine Nitrate Positive A, Urine Bilirubin Negative, Urine Urobilinogen 1.0, Ur Leukocyte Esterase Negative, Urine RBC 10-20, Urine WBC 3-5, Ur Squamous Epith Cells 10-20, Urine Bacteria 1+, Urine Mucus 1+ 08/09/24 16:19: SARS-CoV-2 (PCR) Not detected, Influenza A Untype (PCR) Not detected, Influenza Type B (PCR) Not detected I & O for Last 24 hours: Intake & Output 08/06/24 08/07/24 08/08/24 08/09/24 23:59 23:59 23:59 23:59 Weight 94.347 kg Constitutional Constitutional: no acute distress *Routine HEENT Exam Head: Present normocephalic Eye: Present PERRL ENT: Present mucous membranes moist *Routine Neck Exam Neck: Present supple and full ROM *Routine Respiratory Exam Respiratory: Present crackles *Routine Cardiovascular Exam Cardiovascular: Present Normal S1, Normal S2 and bradycardia *Routine Abdominal Exam Abdominal: Present soft and normoactive bowel sounds *Routine Rectal Exam Rectal:: deferred *Routine Genitalia Exam Genitalia:: deferred Assessment and Plan *Assessment and plan (1) Symptomatic bradycardia: Status: Acute Category: Medical Code(s): R00.1 - Bradycardia, unspecified (2) Dyspnea: Status: Acute Category: Medical Code(s): R06.00 - Dyspnea, unspecified (3) Hypertension: Status: Acute Category: Medical Code(s): I10 - Essential (primary) hypertension (4) (HFpEF) heart failure with preserved ejection fraction: Status: Acute Category: Medical Code(s): I50.30 - Unspecified diastolic (congestive) heart failure (5) Transaminitis: Status: Acute Category: Medical Code(s): R74.01 - Elevation of levels of liver transaminase levels Plan 68-year-old female with a past medical history of Hypertension, Hypothyroidism, Hyperlipidemia, HFpEF (Diastolic) who presents to [facility] due to complaints of shortness of air, abdominal pain, tingling in extremities that has been ongoing for the last 3 days - Symptomatic Bradycardia Presents with generalized complaints for 3 days of lower abdominal pain, tingling in extremities and shortness of air, cough EKG showed a Junctional Rhythm, bradycardia with PVC's TSH, Free T4 in normal range ER Physician spoke with Campground Attendant who recommended continued monitoring Holding Beta Fariha Monitor on telemetry overnight - Dyspnea Presents with complaints of shortness of air worsening over the last 3 days Trending Troponin, monitoring on telemetry with Above Associated with Mild Pulmonary Edema on CTA, BNP elevated at 7980 Ordered Echo for evaluation of EF and any changes in left ventricular wall Cardiology consulted, appreciate consult - Hypertension Currently elevated Reports multiple allergies and cannot take Beta Fariha Gave Lasix with Elevated BNP and Pulmonary edema - HFpEF Presents with elevated BNP, mild pulmonary edema, dyspnea Check Echo Treat as indicated - Transaminitis Presents with complaints of abdominal pain CT of the abdomen and pelvis without acute findings Check Hepaitis Panel Check Echo, questional congestion DVT ppx: SCD's Rounded on patient after nurse practitioner. Personally examined and interviewed patient. Agree with exam findings and care plan as documented.
[2024-08-09 20:47] LABS: Troponin I 0.03 ng/ml (0.00-0.034)
[2024-08-09] MEDS: FUROSEMIDE 40MG/4ML VIAL 40 MG IV (21:38)
[2024-08-09 23:59] LABS: Troponin I 0.02 ng/ml (0.00-0.034)
[2024-08-10] VITALS: BP 126/77; PULSE 30; PULSE 97; RESP 17; TEMP 36.8; O2SAT 94
[2024-08-10 04:00] VITALS: BP 115/52; PULSE 84; RESP 18; TEMP 36.6; O2SAT 98; BMI 39.2
[2024-08-10 06:00] VITALS: PULSE 30
--- NOTE | 2024-08-10 06:10 | CA_ITS ---
APPROVED REPORT EXAM: Comprehensive 2D, Doppler, and color-flow Echocardiogram Felt Coverer: Destiny Ceballos RT(R) Ht: 5 ft 1 in Wt: 200lbs BSA: 1.89 BP: 162/88 mmHg Indications: CHF, bradycardia, dyspnea, HTN, hyperlipidemia, GERD, 55% EF 03/2022, DD 2D Dimensions LVEF (Arana's) 70.50 % F: 54 - 74 LV Volume 89.10 mL F: 46 - 106 LV Volume Index 47.1 mL/m2 F: 29 - 61 LA Volume 44.30 mL LA Volume Index 23.44 mL/m2 (M/F) 16-34 EF AP4 67.00 % EF AP2 70.2 % EF BP 70.5 % GL Strain -18.9 % M-Mode Dimensions RVDd 2.81 cm (0.9-2.6) LA Diam 3.62 cm (1.9-4.0) LVDd 4.45 cm (3.5-5.7) LVDs 3.12 cm (3.5-5.7) IVSd 0.91 cm (0.6-1.1) PWd 0.76 cm (0.6-1.1) EF (Teich) 57.30% FS 29.90% EDV (Teich) 90.10 mL ESV (Teich) 38.50 mL LV Diastology E Decel Time 163 (160-240 msec) E/A Ratio 2.2 Mitral Valve MV E Max Chris. 98.0 (40-130 cm/s) MV A Velocity 44.0 (40-130 cm/s) E/A Ratio 2.26 MV PHT 48.0 ms Tricuspid Valve TR P. Velocity 295.00 cm/s RAP Estimate 10.00 mmHg RVSP 44.80 mmHg Left Ventricle The left ventricle is normal size. The left ventricular systolic function is normal. The left ventricular ejection fraction is within the normal range. There is increased LV wall thickness. There is normal LV segmental wall motion. Transmitral Doppler flow pattern suggests impaired LV relaxation. LVEF is 55%. Right Ventricle Right ventricle is mildly dilated. The right ventricular systolic function is normal. Atria Left atrium is moderately dilated. Right atrium is moderately dilated. There is no Doppler evidence of interatrial shunt. Aortic Valve The aortic valve is mildly thickened. There is no aortic valvular stenosis. Trace aortic regurgitation. Mitral Valve The mitral valve is normal in structure. No evidence of mitral valve stenosis. Mild mitral regurgitation. Tricuspid Valve Tricuspid valve is grossly normal in structure and function. Moderate tricuspid regurgitation. RVSP is 30-35 mmHg. Pulmonic Valve The pulmonary valve is normal in structure. Trace pulmonic regurgitation. Great Vessels The aortic root is normal in size. IVC is normal in size and collapses >50% with inspiration. Pericardium There is no pericardial effusion. Other Information Study Quality: Fair Conclusion Normal biventricular systolic function. Mild RV dilation. Biatrial dilation. Moderate TR. Mild MR. RVSP is 30-35 mmHg. Electronically signed by : Claire Nevarez MD 08/11/2024 10:48:05
[2024-08-10 07:11] LABS: Albumin Level 3.5 g/dl (3.5-5.0); Chloride 107 mmol/L (98-107)
[2024-08-10 07:12] LABS: Potassium 4.1 mmoL/L (3.5-5.1); Sodium 138 mmol/L (136-145)
[2024-08-10 07:14] LABS: Alanine Aminotransferase 177 U/L (12-78); Albumin/Globulin Ratio 1.3 (1.1-1.8); Alkaline Phosphatase 74 U/L (38-126); Anion Gap 6.1 mEq/L (5-15); Aspartate Amino Transferase 128 U/L (14-36); Bilirubin,Total 0.7 mg/dl (0.2-1.3); Blood Urea Nitrogen 21 mg/dl (7-17); Carbon Dioxide 29 mmol/L (22.0-30.0); Creatinine Clearance Estimated 67 mL/min (50-200); Estimated Glomerular Filt Rate 45 ml/min (>60); GFR (African American) 54 ML/MIN (>60); Globulin 2.7 g/dL (1.3-3.2); Total Protein,Serum 6.2 g/dl (6.3-8.2)
[2024-08-10 07:15] LABS: Calcium 8.7 mg/dl (8.4-10.2); Glucose 107 mg/dl (74-100)
[2024-08-10 07:28] LABS: Troponin I 0.01 ng/ml (0.00-0.034)
[2024-08-10 07:45] LABS: Hemoglobin 10.6 g/dL (12.2-16.2); Lymphocytes % 14.5 % (10-50); Mean Corpuscular HGB Conc 32.1 g/dL (31.8-35.4); Mean Corpuscular Hemoglobin 28.3 pg (27.0-31.2); Mean Corpuscular Volume 88.2 fl (81-99); Mean Platelet Volume 10.8 fl (7.4-10.4); Monocytes % 7.7 % (1.7-9.3); Neutrophils % 75.1 % (37.0-80.0); Platelet Count 176 K/mm3 (142-424); Red Blood Count 3.74 M/mm3 (4.20-5.40); Red Cell Distribution Width 14.6 % (11.5-17.5); White Blood Count 10.8 K/mm3 (4.8-10.8)
[2024-08-10 07:46] LABS: Basophils # 0.1 K/mm3 (0-0.2); Basophils % 0.6 % (0.1-2.0); Eosinophils # 0.2 K/mm3 (0.0-0.4); Eosinophils % 1.7 % (0.1-12.0); Lymphocytes # 1.6 K/mm3 (0.7-4.5); Monocytes # 0.8 K/mm3 (0.1-1.0); Neutrophils # 8.1 K/mm3 (1.8-7.8)
[2024-08-10 08:00] VITALS: BP 141/52; PULSE 50; PULSE 89; RESP 19; TEMP 37.1; O2SAT 97
--- NOTE | 2024-08-10 08:58 | HMH.PHAINT1 ---
Pharmacy Intervention Comments: Home medication list verified using LIST FROM OUTPATIENT PHARMACY AND PT INTERVIEW
--- NOTE | 2024-08-10 08:59 | ECG_ITS ---
APPROVED REPORT Exam: Resting ECG HR:57 bpm ECG Measurements Heart Rate 57 AXES WY 168 P 69 QRSd 94 QRS 28 QT 472 T 74 QTc 465 Conclusion SINUS BRADYCARDIA WITH FREQUENT VENTRICULAR PREMATURE COMPLEXES IN A BIGEMINAL PATTERN ABNORMAL RHYTHM ECG UNCONFIRMED REPORT Electronically signed by : Refugio Rosas MD 08/11/2024 07:48:02
[2024-08-10] MEDS: FLUTICASONE PROP 50MCG NASAL SPRAY 16GM 2 SPRAY NS (09:13)
[2024-08-10] MEDS: FAMOTIDINE 20MG TABLET 20 MG PO (09:13)
[2024-08-10] MEDS: ASPIRIN EC 81MG TABLET 81 MG PO (09:13)
[2024-08-10] MEDS: BUMETANIDE 1MG/4ML VIAL 1 MG IV (09:13)
[2024-08-10 11:55] VITALS: BP 150/78; PULSE 84; RESP 20; TEMP 36.7; O2SAT 95
[2024-08-10 12:00] VITALS: PULSE 60
--- NOTE | 2024-08-10 13:36 | EXP.DC.SUM ---
General Admission date:: 08/09/24 Discharge date: 08/10/24 HPI HPI HPI: Ms. Anderson is a 68-year-old female with a past medical history of Hypertension, Hypothyroidism, Hyperlipidemia, HFpEF (Diastolic) who presents to [facility] due to complaints of shortness of air, abdominal pain, tingling in extremities that has been ongoing for the last 3 days. She was previously in the ER on 08/[address] of the abdomen and pelvis that showed no acute findings. She was diagnosed with viral syndrome to home. She reports that she went home and her symptoms continued especially weakness and shortness of air and she presented back to the ER today, 08/09/24. In the ER today, the patient underwent an EKG that showed junctinal rhythm with bradycardia and frequent pvc's. Troponin was <0.01. BNP was elevated at 7980. TSH and Free T4 were within normal limits. CBC was unremarkable. CMP showed a Transaminitis with AST and ALT 146 and 172. In the ER, the patient received: Lasix 40 mg iv. The patient is admitted with initial impression: Symptomatic Bradycardia. Hospital Course Hospital Course Hospital Course: 68-year-old female with a past medical history of Hypertension, Hypothyroidism, Hyperlipidemia, HFpEF (Diastolic) who presents to [facility] due to complaints of shortness of air, abdominal pain, tingling in extremities that has been ongoing for the last 3 days. Patient found to be bradycardic. Appears to be having PVCs with every beat causing what appears to be a junctional rhythm and bradycardia. Discussed case with cardiology, recommend evaluation by steam table worker. Patient remains clinically stable. Will hold beta-pro. Close follow-up with Dr. Bennett at [place]. Stable to discharge home. Problems addressed as follows - Symptomatic Bradycardia -PVCs Presents with generalized complaints for 3 days of lower abdominal pain, tingling in extremities and shortness of air, cough. Patient's bisoprolol was held on admission. EKG shows junctional rhythm with bradycardia and PVCs. Cardiology was consulted, evaluated the patient and EKGs. Recommend holding beta-pro at this time and referral to electrophysiology for further evaluation. May necessitate ablation. As patient is hemodynamically stable, recommend discharge home with close follow-up as an outpatient with both cardiology and electrophysiology. Thyroid studies in a normal range. Monitored on telemetry without significant event during admission. - Dyspnea -Hypertension Presents with complaints of shortness of air worsening over the last 3 days. Troponin negative. BNP elevated at 7900. Increased patient's diuretic regimen. Diuresing well during admission. Stable on room air. Follow-up with cardiology for further management. Echo obtained, formal read still pending at discharge. Preliminary read shows no decrease in EF. Continue home regimen for hypertension with the exception of bisoprolol which was held and increased dose of Lasix for elevated BNP. - HFpEF Presents with elevated BNP, mild pulmonary edema, dyspnea. Echo obtained. Diuresis x 1 during admission. Negative almost a liter during admission. Further management as an outpatient with cardiology. - Transaminitis Presents with complaints of abdominal pain, CT of the abdomen and pelvis without acute findings. Hepatitis panel obtained, pending at discharge. Improving Total time spent on discharge 36 minutes in counseling, documentation, chart review, and direct care with patient. Exam Data for Last 24 hours Vital signs and Labs for Last 24 Hours: Temp Pulse Resp BP Pulse Ox O2 Del Method O2 Flow Rate 98.1 F 84 20 150/78 H 95 Room Air 2 08/10/24 11:55 08/10/24 11:55 08/10/24 11:55 08/10/24 11:55 08/10/24 11:55 08/10/24 11:55 08/10/24 00:00 Laboratory Results - last 24 hr 08/09/24 16:00: WBC 10.4, RBC 4.07 L, Hgb 11.3 L, Hct 36.3 L, MCV 89.2, MCH 27.8, MCHC 31.1 L, RDW 14.5, Plt Count 180, MPV 11.5 H, Neut % (Auto) 75.3, Lymph % (Auto) 14.8, [place] % (Auto) 7.2, Eos % (Auto) 1.5, Baso % (Auto) 0.7, Neut # (Auto) 7.9 H, Lymph # (Auto) 1.5, [place] # (Auto) 0.8, Eos # (Auto) 0.2, Baso # (Auto) 0.1, D-Dimer 1.34 H, Sodium 140, Potassium 4.2, Chloride 110 H, Carbon Dioxide 26, Anion Gap 8.2, BUN 20 H, Creatinine 1.10 H, Estimated Creat Clear 70, Estimated GFR 49 L, Est GFR ( Amer) 60, Glucose 157 H, Calcium 8.9, Phosphorus 3.6, Magnesium 2.2, Total Bilirubin 0.7, AST 146 H, ALT 172 H, Alkaline Phosphatase 75, Troponin I < 0.01, NT-Pro-B Natriuret Pep 7980 H, Total Protein 6.8, Albumin 3.8, Globulin 3.0, Albumin/Globulin Ratio 1.3, TSH 3.69, Thyroxine (T4) 10.7 08/09/24 16:18: Urine Color Yellow, Urine Appearance Clear, Urine pH 6.0, Ur Specific [place] 1.025, Urine Protein 1+ A, Urine Glucose (UA) Negative, Urine Ketones Negative, Urine Blood Trace-i, Urine Nitrate Positive A, Urine Bilirubin Negative, Urine Urobilinogen 1.0, Ur Leukocyte Esterase Negative, Urine RBC 10-20, Urine WBC 3-5, Ur Squamous Epith Cells 10-20, Urine Bacteria 1+, Urine Mucus 1+ 08/09/24 16:19: SARS-CoV-2 (PCR) Not detected, Influenza A Untype (PCR) Not detected, Influenza Type B (PCR) Not detected 08/09/24 20:18: Troponin I 0.03 08/09/24 23:21: Troponin I 0.02 08/10/24 06:35: WBC 10.8, RBC 3.74 L, Hgb 10.6 L, Hct 33.0 L, MCV 88.2, MCH 28.3, MCHC 32.1, RDW 14.6, Plt Count 176, MPV 10.8 H, Neut % (Auto) 75.1, Lymph % (Auto) 14.5, [place] % (Auto) 7.7, Eos % (Auto) 1.7, Baso % (Auto) 0.6, Neut # (Auto) 8.1 H, Lymph # (Auto) 1.6, [place] # (Auto) 0.8, Eos # (Auto) 0.2, Baso # (Auto) 0.1, Sodium 138, Potassium 4.1, Chloride 107, Carbon Dioxide 29, Anion Gap 6.1, BUN 21 H, Creatinine 1.20 H, Estimated Creat Clear 67, Estimated GFR 45 L, Est GFR ( Amer) 54 L, Glucose 107 H D, Calcium 8.7, Total Bilirubin 0.7, AST 128 H, ALT 177 H, Alkaline Phosphatase 74, Total Protein 6.2 L, Albumin 3.5, Globulin 2.7, Albumin/Globulin Ratio 1.3 08/10/24 06:50: Troponin I 0.01 I & O for Last 24 hours: Intake & Output 08/07/24 08/08/24 08/09/24 08/10/24 23:59 23:59 23:59 23:59 Output Total 70 / 701 Balance - - / -70 Weight 94.347 kg 94.347 kg Constitutional Constitutional: no acute distress, obese, chronically ill appearing and cooperative *Routine HEENT Exam Head: Present normocephalic Eye: Present EOMI and PERRL ENT: Present mucous membranes moist *Routine Neck Exam Neck: Present supple; Absent lymphadenopathy *Routine Respiratory Exam Respiratory: Present CTA bilaterally; Absent rhonchi, wheezes or crackles *Routine Cardiovascular Exam Cardiovascular: Present bradycardia Comments: Regularly irregular rhythm *Routine Abdominal Exam Abdominal: Present soft and normoactive bowel sounds; Absent tenderness *Routine Rectal Exam Patient deferred: visual exam *Routine Exam Patient deferred: external exam *Routine Extremities Exam Extremities: Absent cyanosis, clubbing or edema *Routine Skin Exam Skin: Present warm; Absent rash *Routine Neurological Exam Neurological: Present alert, oriented X3 and moving all extremities; Absent altered mental status Results Data Completed and Pending Labs on day of discharge: Labs from last 24 hours 08/10/24 08/10/24 08/09/24 06:50 06:35 23:21 WBC 10.8 RBC 3.74 L Hgb 10.6 L Hct 33.0 L MCV 88.2 MCH 28.3 MCHC 32.1 RDW 14.6 Plt Count 176 MPV 10.8 H Neut % (Auto) 75.1 Lymph % (Auto) 14.5 [place] % (Auto) 7.7 Eos % (Auto) 1.7 Baso % (Auto) 0.6 Neut # (Auto) 8.1 H Lymph # (Auto) 1.6 [place] # (Auto) 0.8 Eos # (Auto) 0.2 Baso # (Auto) 0.1 D-Dimer Sodium 138 Potassium 4.1 Chloride 107 Carbon Dioxide 29 Anion Gap 6.1 BUN 21 H Creatinine 1.20 H Estimated Creat Clear 67 Estimated GFR 45 L Est GFR ( Amer) 54 L Glucose 107 H D Calcium 8.7 Phosphorus Magnesium Total Bilirubin 0.7 AST 128 H ALT 177 H Alkaline Phosphatase 74 Troponin I 0.01 0.02 NT-Pro-B Natriuret Pep Total Protein 6.2 L Albumin 3.5 Globulin 2.7 Albumin/Globulin Ratio 1.3 TSH Thyroxine (T4) Urine Color Urine Appearance Urine pH Ur Specific [place] Urine Protein Urine Glucose (UA) Urine Ketones Urine Blood Urine Nitrate Urine Bilirubin Urine Urobilinogen Ur Leukocyte Esterase Urine RBC Urine WBC Ur Squamous Epith Cells Urine Bacteria Urine Mucus SARS-CoV-2 (PCR) Influenza A Untype (PCR) Influenza Type B (PCR) 08/09/24 08/09/24 08/09/24 20:18 16:19 16:18 WBC RBC Hgb Hct MCV MCH MCHC RDW Plt Count MPV Neut % (Auto) Lymph % (Auto) [place] % (Auto) Eos % (Auto) Baso % (Auto) Neut # (Auto) Lymph # (Auto) [place] # (Auto) Eos # (Auto) Baso # (Auto) D-Dimer Sodium Potassium Chloride Carbon Dioxide Anion Gap BUN Creatinine Estimated Creat Clear Estimated GFR Est GFR ( Amer) Glucose Calcium Phosphorus Magnesium Total Bilirubin AST ALT Alkaline Phosphatase Troponin I 0.03 NT-Pro-B Natriuret Pep Total Protein Albumin Globulin Albumin/Globulin Ratio TSH Thyroxine (T4) Urine Color Yellow Urine Appearance Clear Urine pH 6.0 Ur Specific [place] 1.025 Urine Protein 1+ A Urine Glucose (UA) Negative Urine Ketones Negative Urine Blood Trace-i Urine Nitrate Positive A Urine Bilirubin Negative Urine Urobilinogen 1.0 Ur Leukocyte Esterase Negative Urine RBC 10-20 Urine WBC 3-5 Ur Squamous Epith Cells 10-20 Urine Bacteria 1+ Urine Mucus 1+ SARS-CoV-2 (PCR) Not detected Influenza A Untype (PCR) Not detected Influenza Type B (PCR) Not detected 08/09/24 16:00 WBC 10.4 RBC 4.07 L Hgb 11.3 L Hct 36.3 L MCV 89.2 MCH 27.8 MCHC 31.1 L RDW 14.5 Plt Count 180 MPV 11.5 H Neut % (Auto) 75.3 Lymph % (Auto) 14.8 [place] % (Auto) 7.2 Eos % (Auto) 1.5 Baso % (Auto) 0.7 Neut # (Auto) 7.9 H Lymph # (Auto) 1.5 [place] # (Auto) 0.8 Eos # (Auto) 0.2 Baso # (Auto) 0.1 D-Dimer 1.34 H Sodium 140 Potassium 4.2 Chloride 110 H Carbon Dioxide 26 Anion Gap 8.2 BUN 20 H Creatinine 1.10 H Estimated Creat Clear 70 Estimated GFR 49 L Est GFR ( Amer) 60 Glucose 157 H Calcium 8.9 Phosphorus 3.6 Magnesium 2.2 Total Bilirubin 0.7 AST 146 H ALT 172 H Alkaline Phosphatase 75 Troponin I < 0.01 NT-Pro-B Natriuret Pep 7980 H Total Protein 6.8 Albumin 3.8 Globulin 3.0 Albumin/Globulin Ratio 1.3 TSH 3.69 Thyroxine (T4) 10.7 Urine Color Urine Appearance Urine pH Ur Specific [place] Urine Protein Urine Glucose (UA) Urine Ketones Urine Blood Urine Nitrate Urine Bilirubin Urine Urobilinogen Ur Leukocyte Esterase Urine RBC Urine WBC Ur Squamous Epith Cells Urine Bacteria Urine Mucus SARS-CoV-2 (PCR) Influenza A Untype (PCR) Influenza Type B (PCR) DS: Diagnosis Discharge Diagnosis (1) Symptomatic bradycardia: Status: Acute Code(s): R00.1 - Bradycardia, unspecified (2) Dyspnea: Status: Acute Code(s): R06.00 - Dyspnea, unspecified (3) Hypertension: Status: Acute Code(s): I10 - Essential (primary) hypertension (4) (HFpEF) heart failure with preserved ejection fraction: Status: Acute Code(s): I50.30 - Unspecified diastolic (congestive) heart failure (5) Transaminitis: Status: Acute Code(s): R74.01 - Elevation of levels of liver transaminase levels Meds Home Medications and Allergies Home Medications ?Medication ?Instructions ?Recorded ?Confirmed ?Type famotidine 20 mg tablet 20 mg PO BID 03/20/24 08/10/24 History pravastatin 40 mg tablet 40 mg PO HS 03/20/24 08/10/24 History aspirin 81 mg tablet,delayed 81 mg PO DAILY 03/29/24 08/09/24 History release (Adult Low Dose Aspirin) cetirizine 10 mg tablet 10 mg PO DAILY 03/29/24 08/09/24 History fluticasone propionate 50 2 spray intranasal DAILY 03/29/24 08/09/24 History mcg/actuation nasal spray,suspension losartan 50 mg tablet 50 mg PO BID #60 tabs 05/12/24 08/09/24 Rx spironolactone 25 mg tablet 25 mg PO HS 05/12/24 08/09/24 History magnesium 200 mg tablet 400 mg PO HS 08/09/24 08/09/24 History ondansetron HCl 4 mg tablet 4 mg PO Q8H PRN nausea and 08/09/24 08/09/24 Rx vomiting 5 days #30 tabs esomeprazole magnesium 20 mg 20 mg PO DAILY 08/10/24 08/10/24 History capsule,delayed release furosemide 20 mg tablet 40 mg (2 x 20 mg) PO DAILY 30 days 08/10/24 Rx #60 tabs levothyroxine 50 mcg tablet 50 mcg PO DAILY 08/10/24 08/10/24 History lisinopril 40 mg tablet 40 mg PO DAILY 08/10/24 08/10/24 History New Prescriptions to Start Prescriptions: Arnulfo Lim Allergies Allergy/AdvReac Type Severity Reaction Status Date / Time sacubitril (From Entresto) Allergy Intermediate Unknown Verified 08/09/24 15:33 allergy reaction amlodipine Allergy Mild Other Verified 08/09/24 15:33 carvedilol Allergy Mild Other Verified 08/09/24 15:33 atropine (From URISED) Allergy Unknown Unknown Verified 08/09/24 15:33 allergy reaction ciprofloxacin (From Cipro) Allergy Unknown Unknown Verified 08/09/24 15:33 allergy reaction gentamicin (Gentamicin) Allergy Unknown Unknown Verified 08/09/24 15:33 allergy reaction methenamine (From URISED) Allergy Unknown Unknown Verified 08/09/24 15:33 allergy reaction neomycin Allergy Unknown Unknown Verified 08/09/24 15:33 allergy reaction nitrofurantoin (From Allergy Unknown Unknown Verified 08/09/24 15:33 Macrobid) allergy reaction Penicillins Allergy Unknown Unknown Verified 08/09/24 15:33 allergy reaction polymyxin B Allergy Unknown Unknown Verified 08/09/24 15:33 allergy reaction salicylates (From Urised) Allergy Unknown Unknown Verified 08/09/24 15:33 allergy reaction sulfamethoxazole (From Allergy Unknown Unknown Verified 08/09/24 15:33 Septra) allergy reaction trimethoprim (From Septra) Allergy Unknown Unknown Verified 08/09/24 15:33 allergy reaction valsartan AdvReac Intermediate Unknown Verified 08/09/24 15:33 allergy reaction latex AdvReac Rash Verified 08/09/24 15:33 Discharge Plan Disposition Patient Disposition: Home, Self-Care Condition: Good Follow up Plan Follow up with: Rod Sharpe MD [Staff Physician] - Enter time for follow up Cameron Bennett MD [Referring] - Enter time for follow up (PVCs, needs EP study due to symptomatic bradycardia) Prescriptions/Medication Reconciliation: Continued cetirizine 10 mg tablet 10 mg PO DAILY aspirin [Adult Low Dose Aspirin] 81 mg tablet,delayed release (DR/EC) 81 mg PO DAILY fluticasone propionate 50 mcg/actuation spray,suspension 2 spray intranasal DAILY Rx Instructions: administer into each nostril spironolactone 25 mg tablet 25 mg PO HS losartan 50 mg tablet 50 mg PO BID Qty: 60 2RF pravastatin 40 mg tablet 40 mg PO HS famotidine 20 mg tablet 20 mg PO BID ondansetron HCl 4 mg tablet 4 mg PO Q8H PRN (Reason: nausea and vomiting) 5 Days Qty: 30 0RF magnesium 200 mg Tablet 400 mg PO HS levothyroxine 50 mcg tablet 50 mcg PO DAILY lisinopril 40 mg tablet 40 mg PO DAILY Patient Comments: TAKE 1 TABLET BY MOUTH ONCE DAILY esomeprazole magnesium 20 mg capsule,delayed release(DR/EC) 20 mg PO DAILY Changed furosemide 20 mg tablet 40 mg PO DAILY 30 Days Qty: 60 0RF Discontinued bisoprolol fumarate 5 mg tablet 5 mg PO DAILY Qty: 30 2RF Problem Reconciliation Problems Reviewed?: Yes Patient Discharge Instructions ACTIVITY: Continue current activity DIET: continue same diet Print Language: Barbadian Providers Primary Care Provider: Lianna Johnson Admit Provider: Daniel Barcenas Attending Provider: Daniel Barcenas
[2024-08-11 03:49] LABS: HBsAg Screen Negative (Negative); HCV Ab Non Reactive (Non Reactive); Hep A Ab, IGM Negative (Negative); Hep B Core Ab, IgM Negative (Negative)
--- NOTE | 2024-08-12 10:10 | SW/DCPLANNER ---
Spoke with patient on the phone. Patient stated that she is doing well. Patient stated that she will call Dr. Sharpe office on Friday. She is going to call her primary care provider to schedule a follow up with them. Patient stated that she has no concerns or questions at this time. Estelle Prater
== END 2024-08-10 14:51 | disposition home or self-care (01) ==
LOC: ER 17:45 → 2ND 19:44
PROVIDERS: Nurse Practitioner Family; Admitting Provider Student in an Organized Health Care Education/Training Program; Emergency Provider Emergency Medicine; PCP Nurse Practitioner Family; Visit Provider Student in an Organized Health Care Education/Training Program
DX: I11.0 Hypertensive heart disease with heart failure (principal); R00.1 Bradycardia, unspecified; R06.02 Shortness of breath; I50.30 Unspecified diastolic (congestive) heart failure; R74.01 Elevation of levels of liver transaminase levels; Z79.899 Other long term (current) drug therapy; E03.9 Hypothyroidism, unspecified
CPT/HCPCS: 36415; 71046; 71275; 80053; 80074; 81001; 83735; 83880; 84100; 84436; 84443; 84484; 85025; 85378; 87636; 93005; 93306; 99285; G0378; J1939; J1940; Q9967

== ENCOUNTER 2024-08-31 11:04 | Outpatient (CLI) | payer MEDICARE, SELFPAY | END 2024-08-31 23:59 | disposition home or self-care (01) | LOC: RT 11:05 | PROVIDERS: PCP Nurse Practitioner Family; Visit Provider Physician Assistant | DX: R00.1 Bradycardia, unspecified (principal); I10 Essential (primary) hypertension; R00.0 Tachycardia, unspecified; I49.3 Ventricular premature depolarization | CPT/HCPCS: 93270 ==

== ENCOUNTER 2024-09-01 11:07 | Outpatient (CLI) | payer MEDICARE, SELFPAY ==
[2024-09-01 11:39] LABS: Basophils # 0.1 K/mm3 (0-0.2); Eosinophils # 0.3 K/mm3 (0.0-0.4); Eosinophils % 3.1 % (0.1-12.0); Hematocrit 42.8 % (37.0-47.0); Hemoglobin 13.7 g/dL (12.2-16.2); Lymphocytes # 1.6 K/mm3 (0.7-4.5); Lymphocytes % 19.1 % (10-50); Mean Corpuscular Hemoglobin 27.8 pg (27.0-31.2); Mean Corpuscular Volume 86.8 fl (81-99); Mean Platelet Volume 10.2 fl (7.4-10.4); Monocytes # 0.6 K/mm3 (0.1-1.0); Monocytes % 7.5 % (1.7-9.3); Neutrophils # 5.6 K/mm3 (1.8-7.8); Neutrophils % 68.9 % (37.0-80.0); Platelet Count 222 K/mm3 (142-424); Red Blood Count 4.93 M/mm3 (4.20-5.40); Red Cell Distribution Width 13.6 % (11.5-17.5); White Blood Count 8.2 K/mm3 (4.8-10.8)
[2024-09-01 12:28] LABS: Albumin Level 4.1 g/dl (3.5-5.0); Chloride 99 mmol/L (98-107); Sodium 135 mmol/L (136-145)
[2024-09-01 12:30] LABS: Bilirubin,Unconjugated 0.9 mg/dL (0.0-1.1); Blood Urea Nitrogen 32 mg/dl (7-17); Carbon Dioxide 27 mmol/L (22.0-30.0); Estimated Glomerular Filt Rate 45 ml/min (>60); GFR (African American) 54 ML/MIN (>60)
[2024-09-01 12:31] LABS: Alanine Aminotransferase 23 U/L (12-78); Alkaline Phosphatase 65 U/L (38-126); Anion Gap 13.5 mEq/L (5-15); Aspartate Amino Transferase 28 U/L (14-36); Bilirubin,Direct 0.2 mg/dl (0.0-0.4); Bilirubin,Indirect 0.9 mg/dL (0.0-0.9); Bilirubin,Total 1.1 mg/dl (0.2-1.3); Calcium 9.5 mg/dl (8.4-10.2); Chol/HDL Ratio 4.2 (1-3.5); Cholesterol 173 mg/dl (140-200); Glucose 123 mg/dl (74-100); HDL Cholesterol 41 mg/dl (40-60); Magnesium 1.9 mg/dl (1.6-2.3); Potassium 4.5 mmoL/L (3.5-5.1); Total Protein,Serum 7.1 g/dl (6.3-8.2); Triglycerides 134 mg/dl (30-150); VLDL Cholesterol 27 mg/dL (0-40)
[2024-09-01 12:42] LABS: Direct LDL Cholesterol 108.02 mg/dL (100-129); NT Pro Brain Natriuretic Pep. 87.4 pg/mL (0-125)
[2024-09-01 12:50] LABS: Free T4 (Free Thyroxine) 1.09 ng/dl (0.78-2.19)
[2024-09-01 13:03] LABS: Thyroid Stimulating Hormone 4.11 uIU/mL (0.465-4.68)
== END 2024-09-01 23:59 | disposition home or self-care (01) ==
LOC: LAB 11:08
PROVIDERS: PCP Nurse Practitioner Family; Visit Provider Physician Assistant
DX: I49.3 Ventricular premature depolarization (principal); R00.0 Tachycardia, unspecified; R00.1 Bradycardia, unspecified; I50.30 Unspecified diastolic (congestive) heart failure; K21.9 Gastro-esophageal reflux disease without esophagitis; I10 Essential (primary) hypertension; E78.2 Mixed hyperlipidemia; I51.89 Other ill-defined heart diseases; R79.89 Other specified abnormal findings of blood chemistry
CPT/HCPCS: 36415; 80048; 80061; 80076; 83735; 83880; 84439; 84443; 85025

== ENCOUNTER 2024-09-17 12:39 | Outpatient (CLI) | payer MEDICARE, MEDICAID, SELFPAY ==
--- NOTE | 2024-09-17 12:40 | MR_ITS ---
FINAL REPORT CLINICAL HISTORY: Supraspinatus tendinopathy, left. intermittent shoulder pain. no injury or trauma COMPARISON: None FINDINGS: Multi planar MR imaging of the left shoulder was performed. The supraspinatus tendon appears intact. There is no significant fluid in the subacromial/subdeltoid bursa. There is a small defect extending through the anterior labrum consistent with tear. The posterior labrum is intact. The biceps tendon appears intact. There are mild hypertrophic changes of the acromioclavicular joint. The mid glenohumeral ligament is prominent. There is increased signal in the distal subscapularis tendon probably due to tendinosis. IMPRESSION: Subscapularis tendinosis. Anterior labral tear. Reviewed, Interpreted and Dictated by Bashir Cosme MD Transcribed by Meliza Meyer Authenticated and [facility]
== END 2024-09-17 23:59 | disposition home or self-care (01) ==
LOC: RAD 12:40
PROVIDERS: PCP Nurse Practitioner Family; Visit Provider Nurse Practitioner Family
DX: M75.82 Other shoulder lesions, left shoulder (principal); R93.89 Abnormal findings on diagnostic imaging of other specified body structures
CPT/HCPCS: 73221

== ENCOUNTER 2024-10-19 09:41 | Outpatient (CLI) | payer MEDICARE, MEDICAID, SELFPAY ==
[2024-10-19 18:29] LABS: Erythrocyte Sedimentation Rate 47 mm/hr (0-30)
[2024-10-19 19:37] LABS: Magnesium 1.9 mg/dl (1.6-2.3); Potassium 5.2 mmoL/L (3.5-5.1); Uric Acid 9.7 mg/dl (2.5-6.2)
[2024-10-21 12:12] LABS: RA Latex Turbid. <10.0 IU/mL (<14.0)
[2024-10-22 11:35] LABS: Antinuclear Antibodies, IFA Positive (.)
== END 2024-10-19 23:59 | disposition home or self-care (01) ==
LOC: LAB.DROPOF 10-20 09:41
PROVIDERS: PCP Nurse Practitioner Family; Visit Provider Nurse Practitioner Family
DX: M25.50 Pain in unspecified joint (principal); E87.5 Hyperkalemia; I10 Essential (primary) hypertension
CPT/HCPCS: 83735; 84132; 84550; 85651; 86038; 86431

== ENCOUNTER 2024-10-25 13:12 | Outpatient (CLI) | payer MEDICARE, MEDICAID, SELFPAY ==
[2024-10-25 13:57] LABS: Potassium 4.8 mmoL/L (3.5-5.1)
== END 2024-10-25 23:59 | disposition home or self-care (01) ==
LOC: LAB.DROPOF 13:12
PROVIDERS: PCP Nurse Practitioner Family; Visit Provider Nurse Practitioner Family
DX: E87.5 Hyperkalemia (principal)
CPT/HCPCS: 84132

== ENCOUNTER 2024-10-29 15:19 | Outpatient (CLI) | payer MEDICARE, MEDICAID, SELFPAY ==
[2024-10-29 16:26] LABS: Anion Gap 13.6 mEq/L (5-15); Blood Urea Nitrogen 23 mg/dl (7-17); Calcium 9.7 mg/dl (8.4-10.2); Carbon Dioxide 19 mmol/L (22.0-30.0); Chloride 110 mmol/L (98-107); Estimated Glomerular Filt Rate 49 ml/min (>60); GFR (African American) 60 ML/MIN (>60); Glucose 96 mg/dl (74-100); Potassium 4.6 mmoL/L (3.5-5.1); Sodium 138 mmol/L (136-145)
== END 2024-10-29 23:59 | disposition home or self-care (01) ==
LOC: LAB 15:19
PROVIDERS: PCP Nurse Practitioner Family; Visit Provider Nurse Practitioner Family
DX: E87.5 Hyperkalemia (principal); I10 Essential (primary) hypertension
CPT/HCPCS: 36415; 80048

== ENCOUNTER 2024-11-04 08:35 | Outpatient (CLI) | payer MEDICARE, MEDICAID, SELFPAY ==
--- NOTE | 2024-11-04 08:38 | XR_ITS ---
FINAL REPORT CLINICAL HISTORY: Left shoulder pain COMPARISON: None FINDINGS: Two views of the left shoulder show no evidence of acute displaced fracture or dislocation of the visualized bony architecture. There is mild degenerative change of the glenohumeral and acromioclavicular joints. IMPRESSION: Mild degenerative change. Reviewed, Interpreted and Dictated by Sulaiman Sanchez MD Transcribed by Meliza Meyer Authenticated and [facility]
== END 2024-11-04 23:59 | disposition home or self-care (01) ==
LOC: RAD 08:36
PROVIDERS: PCP Nurse Practitioner Family; Visit Provider Physician Assistant
DX: M25.512 Pain in left shoulder (principal)
CPT/HCPCS: 73030

== ENCOUNTER 2024-12-31 16:25 | Outpatient (CLI) | payer MEDICARE, MEDICAID, SELFPAY ==
--- NOTE | 2024-12-31 16:28 | XR_ITS ---
PROCEDURE INFORMATION: Exam: XR Lumbosacral Spine Exam date and time: 12/31/2024 4:34 PM Age: 69 years old Clinical indication: Low back pain TECHNIQUE: Imaging protocol: Radiologic exam of the lumbosacral spine. Views: 2 or 3 views. COMPARISON: CT ABDOMEN PELVIS W CON 08/09/2024 1:56 AM FINDINGS: Bones/joints: The bone density is normal for this patient's age. Small multilevel anterior osteophytes. Mild disc space narrowing at L1-L2. Mild disc space narrowing at L2-L3. Very subtle grade 1 retrolisthesis of L3 in relation to L4. Degenerative in etiology. Mild disc space narrowing at L4-L5. Mild disc space narrowing at L5-S1. Grade 1 anterolisthesis of L4 in relation to L5. Degenerative in etiology. Facet joints have moderate degenerative narrowing and sclerosis. The spinal canal is patent. There are mild degenerative changes of the sacroiliac joints. No acutely displaced fractures. No joint dislocation. No aggressive osseous lesions. Soft tissues: No acute soft tissue findings. Lungs: Partially seen left hilar and left lung calcified granulomas. No consolidations in the lung bases. Organs: Surgical clips are present in the right upper quadrant, consistent with previous cholecystectomy. IMPRESSION: 1. No acute findings. 2. Degenerative changes.
== END 2024-12-31 23:59 | disposition home or self-care (01) ==
LOC: RAD 16:26
PROVIDERS: PCP Nurse Practitioner Family; Visit Provider Student in an Organized Health Care Education/Training Program
DX: M54.50 Low back pain, unspecified (principal); R39.15 Urgency of urination; M47.816 Spondylosis without myelopathy or radiculopathy, lumbar region
CPT/HCPCS: 72100; 87086

== ENCOUNTER 2025-02-15 08:08 | Outpatient (CLI) | payer MEDICARE, MEDICAID, SELFPAY ==
--- OUTSIDE RECORDS SUMMARY | 2025-02-15 08:11 | XMS_ITS | Encounter Summary ---
Author Organization [facility] Address [address] [place] [address] Care Team Providers Care Business Support Manager Name Role Phone Tomasz Potts MD Primary Care Provider [phone] Encounter Details Date Type Department Care Team (Late st Contact Info) Description 09/24/2022 Orders Only External Location [address] [place] [address] Provider, External Social History Tobacco Use Types Packs/Day Years Used Date Smoking Tobacco: Never Assessed Comments Unknown Sex and Gender Information Value Date Recorded Sex Assigned at Not on file Legal Sex Female 8:50 PM EDT Gender Identity Not on file Sexual Orientation Not on file documented as of this encounter Plan of Treatment Upcoming Encounters Date Type Department Care Team (Late st Contact Info) Description 03/21/2025 12:00 PM EDT Appointment [facility] [address] [place] [phone] 03/21/2025 1:40 PM EDT Office Visit [facility] [place] [address] [facility] [place] [id number] Criselda Murphy MD [address] [place] [address] documented as of this encounter Procedures Procedure Name Priority Date/Time Associated Diagnosis Comments CT CHEST W IV CONTRAST 09/24/2022 10:29 PM EST documented in this encounter Results * CT Chest w IV Contrast (09/24/2022 10:29 PM EST) Anatomical Region Laterality Modality Chest Computed Tomogra phy 09/24/2022 10:2 9 PM EST us External Provider IMG CT PROCEDURES Final Result documented in this encounter Visit Diagnoses Not on filedocumented in this encounter Care Teams Business Support Manager Relationship Specialty Start Date End Date Tomasz Potts MD [address] [place] [address] PCP - General 10/21/22 documented as of this encounter
--- OUTSIDE RECORDS SUMMARY | 2025-02-15 08:11 | XMS_ITS | Encounter Summary ---
Author Organization [facility] Address [address] [place] [address] Care Team Providers Care Day Camp Unit Leader Name Role Phone Tomasz Potts MD Primary Care Provider [phone] Encounter Details Date Type Department Care Team (Late st Contact Info) Description 09/24/2022 Orders Only External Location [address] [place] [address] Provider, External Social History Tobacco [...] EDT Appointment [facility] [address] [place] [phone] 03/21/2025 1:40 PM EDT Office Visit [facility] [place] [address] [facility] [place] [phone] Criselda Murphy MD [address] [place] [address] documented as of this encounter Procedures Procedure Name Priority Date/Time Associated Diagnosis Comments CT ABDOMEN PELVIS W IV CONTRAST 09/24/2022 8:44 PM EST documented in this encounter Results * CT Abdomen Pelvis w IV Contrast (09/24/2022 8:44 PM EST) Anatomical Region Laterality Modality Abdomen, Pelvis Computed Tomogra phy 09/24/2022 8:44 PM EST us External Provider IMG CT PROCEDURES Final Result documented in this encounter Visit Diagnoses Not on filedocumented in this encounter Care Teams Day Camp Unit Leader Relationship Specialty Start Date End Date Tomasz Potts MD [address] [place] [address] PCP - General 10/21/22 documented as of this encounter
--- OUTSIDE RECORDS SUMMARY | 2025-02-15 08:11 | XMS_ITS | Encounter Summary ---
Author Organization [facility] Address [address] [place] [address] Care Team Providers Care Psychology Department Chair Name Role Phone Tomasz Potts MD Primary Care Provider [phone] Encounter Details Date Type Department Care Team (Late st Contact Info) Description 09/24/2022 Orders Only External Location [address] [place] [address] Johnny Queen MD [address] [address] Social History Tobacco Use Types Packs/Day Years [...] EDT Appointment [facility] [address] [place] [address] 03/21/2025 1:40 PM EDT Office Visit [facility] [place] [address] [facility] [place] [address] Criselda Murphy MD [address] [place] [address] documented as of this encounter Procedures Procedure Name Priority Date/Time Associated Diagnosis Comments XR CHEST 1 VIEW 09/24/2022 6:18 PM EST documented in this encounter Results * XR Chest 1 View (09/24/2022 6:18 PM EST) Anatomical Region Laterality Modality Chest Digital Radiogra phy 09/24/2022 6:18 PM EST Johnny Queen MD IMG XR PROCEDURES Final Resu lt documented in this encounter Visit Diagnoses Not on filedocumented in this encounter Care Teams Psychology Department Chair Relationship Specialty Start Date End Date Tomasz Potts MD [address] [place] [address] PCP - General 10/21/22 documented as of this encounter
--- OUTSIDE RECORDS SUMMARY | 2025-02-15 08:11 | XMS_ITS | Clinical Summary ---
Author Organization [facility] Address [address] [place] [address] Care Team Providers Care Hearing Screen Coordinator Name Role Phone Tomasz Potts MD Primary Care Provider [phone] Allergies Active Allergy Reactions Criticality Noted Date Comments Atropine Rash Low 05/12/2018 Ciprofloxacin Rash Low 05/12/2018 Gentamicin Other - please document in the comment field Low 05/12/2018 Seizure Latex Other - please document in the comment field Low 05/12/2018 blisters Methenamine Unknown - Patient states they do not know rxn details Low 05/12/2018 Patient does not know Neomycin Unknown - Patient states they do not know rxn details Low 05/12/2018 Patient unable to report Nitrofuran Derivatives Unknown - Patient states they do not know rxn details Low 05/12/2018 Patient unable to report Polymyxin B Unknown - Patient states they do not know rxn details Low 05/12/2018 Patient unable to report Salicylates Unknown - Patient states they do not know rxn details Low 05/12/2018 Patient unable to report Sulfamethoxazole Unknown - Patient states they do not know rxn details Low 05/12/2018 Patient unable to report Trimethoprim Unknown - Patient states they do not know rxn details Low 05/12/2018 Patient unable to report Medications levothyroxine (Synthroid, Levoxyl) 50 MCG tablet TAKE 1 TABLET BY MOUTH ONCE DAILY FOR THYROID 10/02/2022 Active furosemide (Lasix) 20 MG tablet Take 1 tablet (20 mg) by mouth daily. 07/04/2022 Active pantoprazole (Protonix) 40 MG EC tablet Take 1 tablet (40 mg) by mouth daily. 07/03/2022 Active Cholecalciferol 75 MCG (3000 UT) tablet Take by mouth 1 (one) time each day. Active Cyanocobalamin (VITAMIN B 12 PO) Take by mouth 1 (one) time each day. Active spironolactone (Aldactone) 25 MG tablet Take 1 tablet (25 mg) by mouth daily. 07/04/2022 Active fluticasone (Flonase) 50 MCG/ACT nasal spray USE 2 SPRAY(S) IN EACH NOSTRIL ONCE DAILY 08/27/2022 Active cetirizine (ZyrTEC) 10 MG tablet Take 1 tablet (10 mg) by mouth daily. Active aspirin 81 MG chewable tablet Chew 1 tablet (81 mg) daily. Active valsartan (Diovan) 320 MG tablet Take 1 tablet (320 mg) by mouth daily. 09/21/2024 Active pravastatin (Pravachol) 40 MG tablet Take 1 tablet (40 mg) by mouth nightly. Active hydrALAZINE (Apresoline) 25 MG tablet Take 1 tablet (25 mg) by mouth 3 (three) times a day. 09/21/2024 Active famotidine (Pepcid) 20 MG tablet 09/14/2024 Active flecainide (Tambocor) 50 MG tablet Take 1 tablet (50 mg) by mouth 2 (two) times a day. 60 tablet 11 10/18/2024 Active Active Problems Problem Noted Date Diagnosed Date Lung nodule 11/07/2022 Second hand smoke exposure 10/21/2022 Family History Medical History Relation Name Comments Hypertension Father Hypercholesterolemia Other Hypertension Other Anesthesia problems Neg Hx Malig Hyperthermia Neg Hx Relation Name Status Comments Father Other Social History Tobacco Use Types Packs/Day Years Used Date Smoking Tobacco: Never Smokeless Tobacco: Never Tobacco Cessation:Counseling Given: Not Answered Alcohol Use Standard Drinks/Week Comments Never 0 (1 standard drink = 0.6 oz pur e alcohol) PHQ-2 Answer Date Recorded Patient Health Questionnaire-2 Score 0 10/18/2024 PHQ-9 Answer Date Recorded Patient Health Questionnaire-9 Score 0 10/18/2024 PHQ-2A Answer Date Recorded Patient Health Questionnaire-2 Score 0 10/21/2022 Comments No Sex and Gender Information Value Date Recorded Sex Assigned at Not on file Legal Sex Female 8:50 PM EDT Gender Identity Not on file Sexual Orientation Not on file Last Filed Vital Signs Vital Sign Reading Time Taken Comments Blood Pressure 148/80 10/18/2024 9:56 AM EST Pulse 94 10/18/2024 9:56 AM EST Temperature 36.6 C (97.9 F) 11/13/2022 2:30 PM EDT Respiratory Rate 22 11/13/2022 2:45 PM EDT Oxygen Saturation 98% 10/18/2024 9:56 AM EST Inhaled Oxygen Concentration - - Weight 92 kg (202 lb 13.2 oz) 10/18/2024 9:56 AM EST Height 154.9 cm (5' 1 ) 10/18/2024 9:56 AM EST Body Mass Index 38.32 10/18/2024 9:56 AM EST Plan of Treatment Upcoming Encounters Date Type Department Care Team (Late st Contact Info) Description 03/21/2025 12:00 PM EDT Appointment [facility] [address] [place] [address] 03/21/2025 1:40 PM EDT Office Visit [facility] [place] [address] [facility]. [address] [place] [address] Criselda Murphy MD [address] [place] [address] Health Maintenance Due Date Last Done Comments UKY-Bone Density Scan 1955 UKY-Hepatitis C Screening 1955 UKY-Medicare Annual Wellness (AWV) 1955 UKY-Infant/Child/Adol SDOH Screenings 1955 UKY- SDOH Screenings 10/26/1973 UKY-Adult SDOH Screenings 10/26/1973 UKY-Pneumococcal Vaccine: 50 + Years (1 of 2 - PCV) 10/26/1974 CT Colonography 10/26/2000 Colonoscopy 10/26/2000 FIT-DNA 10/26/2000 FIT 10/26/2000 FOBT 10/26/2000 Sigmoidoscopy 10/26/2000 UKY-Colorectal Cancer Screening 10/26/2000 UKY-Breast Cancer Screening 10/26/2005 UKY-Zoster Vaccines (1 of 2) 10/26/2005 UKY-RSV Vaccine: 60+ Years o r (1 - Risk 60-74 years 1-dose series) 2015 [id number]-02 Vaccine (2 - Luis E risk series) 11/22/2020 10/25/2020 UKY-Influenza Vaccine (Seaso n Ended) 2025 UKY-Depression Screening 10/18/2025 025, 10/18/2024 UKY-DTaP,Tdap,and Td Vaccine s (3 - Td or Tdap) 02/22/2029 02/22/2019, 09/30/2012 UKY-Obesity Intervention Completed 025, 11/21/2022 HPV Vaccines Aged Out No longer eligi ble based on patient's age to complete this topic UKY-HIB Vaccines Aged Out No longer e ligible based on patient's age to complete this topic UKY-Hepatitis A Vaccines Aged Out No longer eligible based on patient's age to complete this topic UKY-IPV Vaccines Aged Out No longer e ligible based on patient's age to complete this topic UKY-Rotavirus Vaccines Aged Out No lo nger eligible based on patient's age to complete this topic Insurance [place] [id number] [employer] MEDICARE Care Teams Hearing Screen Coordinator Relationship Specialty Start Date End Date Tomasz Potts MD [address] [facility] [place] [address] PCP - General 10/21/22
--- OUTSIDE RECORDS SUMMARY | 2025-02-15 08:11 | XMS_ITS | Encounter Summary ---
Author Organization [facility] Address [address] [place] [address] Care Team Providers Care Motor Inspection Mechanic Name Role Phone Tomasz Potts MD Primary Care Provider [phone] Encounter Details Date Type Department Care Team (Late st Contact Info) Description 10/07/2022 Orders Only External Location [address] [place] [address] Provider, External Social History Tobacco [...] EDT Appointment [facility] [address] [place] [phone] 03/21/2025 1:40 PM EDT Office Visit [facility] [place] [address] [facility] [place] [address] Criselda Murphy MD [address] [place] [address] documented as of this encounter Procedures Procedure Name Priority Date/Time Associated Diagnosis Comments PET OUTSIDE IMAGES 10/07/2022 12:12 PM EST documented in this encounter Results * PET OUTSIDE IMAGES (10/07/2022 12:12 PM EST) Anatomical Region Laterality Modality Nuclear Medicine 10/07/2022 12:1 2 PM EST us External Provider IMG NM PROCEDURES Final Result documented in this encounter Visit Diagnoses Not on filedocumented in this encounter Care Teams Motor Inspection Mechanic Relationship Specialty Start Date End Date Tomasz Potts MD [address] [place] [address] PCP - General 10/21/22 documented as of this encounter
--- NOTE | 2025-02-15 08:30 | MM_ITS ---
PROCEDURE INFORMATION: Exam: MG Bilateral Screening 3D Mammography Exam date and time: 02/15/2025 8:16 AM Age: 69 years old Clinical indication: Screening exam TECHNIQUE: Imaging protocol: Bilateral Screening tomosynthesis and 2D mammography including computer-aided detection (CAD) when performed. COMPARISON: 1. MG MM DIG SCREENING MAMM BI W/CAD 08/25/2023 2:06 PM 2. MG MM DIG MAMM DX UNILAT RT CAD 05/13/2022 1:55 PM FINDINGS: MAMMOGRAPHY: Breast composition: There are scattered areas of fibroglandular density. Mass: No suspicious masses. Architectural distortion: None. Calcifications: No suspicious calcifications. Asymmetric density: None. Skin thickening: None. Axillary adenopathy: None. IMPRESSION: No mammographic evidence of malignancy. Annual screening is recommended unless otherwise clinically indicated. ASSESSMENT: BI-RADS Category 1: Negative.
== END 2025-02-15 23:59 | disposition home or self-care (01) ==
LOC: RAD 08:09
PROVIDERS: PCP Nurse Practitioner Family; Visit Provider Nurse Practitioner Family
DX: Z12.31 Encounter for screening mammogram for malignant neoplasm of breast (principal); R92.323 Mammographic fibroglandular density, bilateral breasts
CPT/HCPCS: 77063; 77067

== ENCOUNTER 2025-03-08 09:00 | Outpatient (RCR) | payer MEDICARE, MEDICAID, SELFPAY ==
--- NOTE | 2025-02-15 10:09 | HMH.PTOPEV ---
PT Outpatient Evaluation Rehab PT Outpatient Evaluation Start: 02/15/25 08:56 Freq: Status: Active Protocol: Document 02/15/25 08:56 NATHALIE (Rec: 02/15/25 10:09 NATHALIE [id number]) E-signed By Dread Clay, PT Outpatient Therapy Subjective History Subjective History Pt is a 69 yof who is referred to [facility] outpatient PT with complaints of neck, mid-back and low back pain. Pt reports that her pain began approximately 3-4 months ago. Reports that she was told that she has two small tears in her left rotator cuff but reports that she has no pain or difficulty using her L shoulder. Reports that her neck and mid-back pain is her biggest complaint. Reports that she often feels stiff. Pt reports that her low back only bothers her when she is standing for longer periods, such as when she is standing to do the dishes. Pt reports that her pain is improved with heat and Tylenol. Pt reports that overall her pain is improving. PMH: HTN, Thyroid disorder, Heart Murmur New diagnosis of No cancer in past 12 months? Chief Complaint Pain,Stiff Symptom Type Ache Symptoms Relieved By Heat,OTC Meds Symptoms Aggravated Standing,Bending/Stooping,Twisting,Walking,Lifting By Prior Functional None Limitations Current Functional Lifting,Standing,Sitting,Squatting,Walking,Stairs, Limitations Balance Symptom Description Intermittent,Activity Dependent Level of pain today 4 (0-10) Pain scale - at its 0 best (0-10) Pain scale - at its 8 worst (0-10) Cervical Eval Palpation Cervical Muscles R Cervical Paraspinal,L Cervical Paraspinal,R CT Junction,L CT Junction,R Upper Trapezius,L Upper Trapezius,R Thoracic Paraspinals,L Thoracic Paraspinals Posture Head/C-Spine Posture Flexed Sitting Position Head/C-Spine Posture Flexed Standing Position Flexibility Deficits Upper Trapezius (R) Moderate Tightness,(R) Severe Tightness,(L) Severe Muscle Length Tightness Pectoralis Major (R) Moderate Tightness,(L) Moderate Tightness Muscle Length Pectoralis Minor (R) Moderate Tightness,(L) Moderate Tightness Muscle Length Passive Joint Mobility Cervical PIVM Dec: R C6/7 L C6/7 R C7/T1 L C7/T1 AROM Cervical Spine 25% Extension Active Range of Motion ( degrees) Cervical Spine 75% Flexion Active Range of Motion (degrees) Cervical Spine Right 25% Lateral Flexion Active Range of Motion (degrees) Cervical Spine Left 25% Lateral Flexion Active Range of Motion (degrees) Cervical Spine Right 25% Rotation Active Range of Motion ( degrees) Cervical Spine Left 25% Rotation Active Range of Motion ( degrees) MMT Bilateral Deltoid (C5) 2+ Poor+ Biceps Brachii 4 Good Strength Grade Wrist Extension 5 Normal Strength Grade Triceps Brachii 4 Good Strength Grade Wrist Flexion 5 Normal Strength Grade Extensor Pollicis 5 Normal Longus Strength Grade Finger Abduction 5 Normal Strength Grade DTR Rt Biceps 2+ Lt Biceps 2+ Rt Brachioradialis 2+ Lt Brachioradialis 2+ Rt Triceps 2+ Lt Triceps 2+ Special Test C-spine Verterbral Central P/A [place],Right P/A [place],Left P/A [place] Accessory Movements that Elicit Symptoms Lumbopelvic Eval Posture Thoracic Spine Increased Kyphosis Posture Standing Position Lumbar Spine Posture Flattened Standing Position Range of Motion Lumbar Spine Active 75% Flexion Range of Motion (degrees) Lumbar Spine Active 25% Extension Range of Motion (degrees) Left Lumbar Spine 50% Lateral Flexion Active Range of Motion (degrees) Right Lumbar Spine 50% Lateral Flexion Active Range of Motion (degrees) Lumbar Spine ROM Soft Tissue Tightness,Muscle Tone Limitations Manual Muscle Test Bilateral Knee Extension 3+ Fair+ Strength Grade Knee Flexion 3+ Fair+ Strength Grade Hip Flexion Strength 3 Fair Grade Hip Abduction 4- Good- Strength Grade Hip Adduction 4- Good- Strength Grade Oswestry Index Section 1 Pain Intensity The pain comes and goes and is moderate Section 2 Personal Care ( change my way of washing or dressing in order to avoid Washing,Dresing) pain Section 3 Lifting I can only lift very light weights at most Section 4 Walking I have some pain when walking but it does not increase with distance Section 5 Sitting I can sit in any chair for as long as I like Section 6 Standing I have some pain on standing, but it does not increase with time Section 7 Sleeping I get pain in bed, but it does not prevent me from sleeping well Section 8 Social Life My social life is normal and gives me no extra pain Section 9 Traveling I get some pain when traveling, but none of my usual forms of travel m Section 10 Changing Degreee of My pain is getting better Pain Score and Risk Level Oswestry Sc 11 Oswestry Risk Level Mild Disability Neck Disability Index Neck Disability Index Section 1: Pain The pain is very mild at moment Intensity Section 2: Personal I can look after myself normally without causing extra Care (washing, pain dressing, etc.) Section 3: Lifting I can only lift very light weights Section 4: Reading I can read as much as I want to with slight pain in my neck Section 5: Headaches I have slight headaches, which come infrequently Section 6: I can concentrate fully when I want to with no Concentration difficulty Section 7: Work I can do as much work as I want to Section 8: Driving I can drive my car without any neck pain Section 9: Sleeping I have no trouble sleeping Section 10: I am able to engage in all my recreation activities Recreation with some pain in NDI Score 8 Outpatient Therapy Assessment Impairments Problems/ Palpation Tenderness,Impaired Range of Motion,Impaired Impairmments Strength,Impaired Walking,Impaired Standing,Impaired Household Care,Subjective C/O Pain Prognosis Rehab Potential Good Clinical Impression Consistent with Yes Diagnosis Additional details: Neck pain with mobility deficits (M54.2) Low back pain (M54.5) Short Term Goals Number of Weeks 4 Decreased Palpation Yes: 2/4 to TTP assessment above Tenderness Increase Range of Yes: 50-75% WNL CROM and Lumbar Extension Motion Increase Strength Yes: 3+/5 to B LEs Decrease Subjective Yes: 5/10 with above assessment C/O Pain Patient to be Ind w/ Yes HEP Window Trimmer Goals Number of Weeks 8 Decreased Palpation Yes: 0-1/4 to TTP assessment above Tenderness Increase Range of Yes: 75-100% WNL CROM and Lumbar Extension Motion Increase Strength Yes: 4-4+/5 to B LEs Improve Ability For Yes: Clean dishes without increasing symptoms Household Care Improve Oswestry Yes: <3 Score Improve Neck Yes: <3 Disability Index Score Decrease Subjective Yes: 2-3/10 with above assessment C/O Pain Patient to be Ind w/ Yes Advanced HEP Outpatient Therapy Plan of Care Treatment Plan May Include Therapeutic Exercise Yes Including Home Exercise Program Manual Therapy Yes Techniques Neuromuscular Re- Yes education Therapeutic Yes Activities to Return to Previous Functional/Work Level Gait Training Yes ADL/Self Care Yes Education Thermal Modalities Yes Electrical Yes Stimulation Ultrasound/ Yes Phonophoresis Iontophoresis Yes Manual Lymphatic Yes Drainage Eval/Re-Eval Yes Frequency Times per week 2 Duration Number of Weeks 8 Addendums This patient is a No candidate for social or vocational rehab ? Patient/Guardian Yes verbally acknowledges understanding of treatment program and consents to further treatment? Patient/Guardian Yes verbally acknowledges understanding of diagnosis, prognosis and goals for treatment? Eval Complexity PT Charges 14947 - High Complexity Shoulder/Elbow Eval Shoulder Objective Measurements Elbow Objective Measurements PHYSICIAN CERTIFICATION: I certify the specified therapy services for Malgorzata Anderson are required, authorized, and reviewed every 30 days.
== END 2025-03-08 23:59 | disposition home or self-care (01) ==
LOC: PT 09:00
PROVIDERS: Visit Provider Nurse Practitioner Family
DX: M54.50 Low back pain, unspecified (principal); M75.102 Unspecified rotator cuff tear or rupture of left shoulder, not specified as traumatic
CPT/HCPCS: 97014; 97032; 97110; 97163; 97530; G0283

== ENCOUNTER 2025-03-08 11:05 | Outpatient (CLI) | payer MEDICARE, MEDICAID, SELFPAY ==
--- OUTSIDE RECORDS SUMMARY | 2025-03-08 11:07 | XMS_ITS | Encounter Summary ---
Author Organization [facility] Address [address] [place] [address] Care Team Providers Care Colliery Clerk Name Role Phone Tomasz Potts MD Primary Care Provider [phone] Encounter Details Date Type Department Care Team (Late st Contact Info) Description 09/24/2022 Orders Only External Location [address] [place] [address] Provider, External Social History Tobacco [...] EDT Appointment [facility] [address] [place] [address] 03/21/2025 1:40 PM EDT Office Visit [facility] [place] [address] [facility] [place] [phone] Criselda Murphy MD [address] [place] [address] documented as of this encounter [...] on filedocumented in this encounter Care Teams Colliery Clerk Relationship Specialty Start Date End Date Tomasz Potts MD [address] [place] [address] PCP - General 10/21/22 documented as of this encounter
--- OUTSIDE RECORDS SUMMARY | 2025-03-08 11:08 | XMS_ITS | Encounter Summary ---
Author Organization [facility] Address [address] [place] [address] Care Team Providers Care Manager System Name Role Phone Tomasz Potts MD Primary Care Provider [phone] Encounter Details Date Type Department Care Team (Late st Contact Info) Description 09/24/2022 Orders Only External Location [address] [place] [address] Provider, External Social History Tobacco [...] EDT Appointment [facility] [address] [place] [address] 03/21/2025 1:40 PM EDT Office Visit [facility] [place] [address] [facility] [place] [address] Criselda Murphy MD [address] [place] [address] documented as of this encounter [...] on filedocumented in this encounter Care Teams Manager System Relationship Specialty Start Date End Date Tomsaz Potts MD [address] [place] [address] PCP - General 10/21/22 documented as of this encounter
--- OUTSIDE RECORDS SUMMARY | 2025-03-08 11:08 | XMS_ITS | Clinical Summary ---
Author Organization [facility] Address [address] [place] [address] Care Team Providers Care Roofer Gypsum Name Role Phone Ariadna Edward APRN Primary Care Provider [phone] Allergies Active Allergy Reactions Criticality Noted Date Comments Atropine Rash Low 05/12/2018 Ciprofloxacin Rash Low 05/12/2018 Gentamicin Other (See Comments) 05/12/2018 Seizure Latex Other (See Comments) 05/12/2018 blisters Methenamine Unknown (See Comments) 05/12/2018 Patient does not know Neomycin Unknown (See Comments) 05/12/2018 Patient unable to report Nitrofuran Derivatives Unknown (See Comments) 05/12/2018 Patient unable to report Penicillins Rash Low 05/12/2018 Polymyxin B Unknown (See Comments) 05/12/2018 Patient unable to report Salicylates Unknown (See Comments) 05/12/2018 Patient unable to report Sulfamethoxazole Unknown (See Comments) 05/12/2018 Patient unable to report Trimethoprim Unknown (See Comments) 05/12/2018 Patient unable to report Medications lisinopril (PRINIVIL,ZESTRI L) 20 MG tablet 04/27/2018 Act binu famotidine (PEPCID) 20 MG tablet 04/27/2018 Active levothyroxine (SYNTHROID, LEVOTHROID) 50 MCG tablet 04/27/2018 Active pravastatin (PRAVACHOL) 40 MG tablet 04/27/2018 Active EQ ASPIRIN ADULT LOW DOSE 81 MG EC tablet 02/20/2018 Active Cyanocobalamin (VITAMIN B 12 PO) Take by mouth. Active Cholecalciferol (VITAMIN D3) 3000 units tablet Take by mouth. Active amLODIPine (NORVASC) 5 MG tablet Take 5 mg by mouth Daily. Active Encounters Date Type Department Care Team Description 12/29/2024 Telephone [facility] [address] [address] Provider, No Known from Last 3 Months Family History Medical History Relation Name Comments Cerebral aneurysm Father Hypertension Father Atrial fibrillation Mother Diabetes Mother Relation Name Status Comments Father Mother Social History Tobacco Use Types Packs/Day Years Used Date Smoking Tobacco: Never Smokeless Tobacco: Never Alcohol Use Standard Drinks/Week Comments No 0 (1 standard drink = 0.6 oz pur e alcohol) Abuse Screen Answer Date Recorded Unsafe at Home or Work/School Not on file Feels Threatened by Someone? Not on file 04/2023 Does Anyone Keep You from Co ntacting Others or Doint Things Outside the Home? Not on file 05/26/2023 Physical Sign of Abuse Present Not on file 1 Housing Stability Answer Date Recorded Current Living Arrangements Not on file 04/2023 Potentially Unsafe Housing Conditions Not on kang e 05/26/2023 Family and Community Support Answer Ankur e Recorded Help with Day-to-Day Activities Not on file 05/26/2023 Lonely or Isolated Not on file 05/26/2023 Employment Answer Date Recorded Do you want help finding or keeping work or a claudia b? Not on file 05/26/2023 Disabilities Answer Date Recorded Concentrating, Remembering, or Making Decisions Difficulty Not on file 05/26/2023 Doing Errands Independently Difficulty Not on fi le 05/26/2023 Education Answer Date Recorded Help with school or training? Not on file Preferred Language Not on file 05/26/2023 Comments Unknown Sex and Gender Information Value Date Recorded Sex Assigned at Not on file Legal Sex Female 10:47 AM EDT Gender Identity Not on file Sexual Orientation Not on file Last Filed Vital Signs Vital Sign Reading Time Taken Comments Blood Pressure 165/100 11/10/2018 10:28 AM EDT Pulse 77 05/12/2018 9:37 AM EDT Temperature - - Respiratory Rate - - Oxygen Saturation - - Inhaled Oxygen Concentration - - Weight 83.9 kg (185 lb) 11/10/2018 10:28 AM EDT Height 156.2 cm (5' 1.5 ) 05/12/2018 9:37 AM EDT Body Mass Index 34.39 05/12/2018 9:37 AM EDT Plan of Treatment Health Maintenance Due Date Last Done Comments DXA SCAN 1955 TDAP/TD VACCINES (1 - Tdap) 10/26/1974 MAMMOGRAM 1995 COLOGUARD 10/26/2000 COLON CANCER SCREENING 5 YEAR SIGMOIDOSCOPY 10/26/2000 COLONOSCOPY 10/26/2000 COLORECTAL CANCER SCREENING 10/26/2000 CT COLONOGRAPHY 10/26/2000 FECAL OCCULT BLOOD TEST 10/26/2000 FIT Testing (1 year) 10/26/2000 Pneumococcal Vaccine 50+ (1 of 1 - PCV) 10/26/2005 ZOSTER VACCINE (1 of 2) 10/26/2005 ANNUAL PHYSICAL 05/11/2018 HEPATITIS C SCREENING 05/11/2018 COVID-19 Vaccine ( - 2023- season) 2024 INFLUENZA VACCINE 05/18/2025 Insurance [place] [id number] [facility] Care Teams Roofer Gypsum Relationship Specialty Start Date End Date Ariadna Edward APRN [address] [place] [address] [place] [address] PCP - General Family Medicine 02/17/18
--- OUTSIDE RECORDS SUMMARY | 2025-03-08 11:08 | XMS_ITS | Clinical Summary ---
Author Organization [facility] Address [address] [place] [address] Care Team Providers Care Laborer Rags Name Role Phone Tomasz Potts MD Primary Care Provider [phone] Allergies Active Allergy Reactions Criticality Noted Date [...] EDT Appointment [facility] [address] [place] [address] 03/21/2025 1:40 PM EDT Office Visit [facility] [place] [address] [facility] [place] [address] Criselda Murphy MD [address] [place] [address] Health Maintenance Due Date Last Done Comments [...] - Risk 60-74 years 1-dose series) 2015 [id number] Vaccine (2 - Luis E risk series) 11/22/2020 10/25/2020 UKY-Influenza Vaccine (#1) 2025 UKY-Depression Screening 10/18/2025 025, 10/18/2024 UKY-DTaP,Tdap,and [...] to complete this topic Insurance [place] [id number] [employer] MED[employer]ARE Care Teams Laborer Rags Relationship Specialty Start Date End Date Tomasz Potts MD [address] [facility] [place] [address] PCP - General 10/21/22
--- OUTSIDE RECORDS SUMMARY | 2025-03-08 11:08 | XMS_ITS | Encounter Summary ---
Author Organization [facility] Address [address] [place] [address] Care Team Providers Care Making Line Worker Name Role Phone Tomasz Potts MD Primary Care Provider [phone] Encounter Details Date Type Department Care Team (Late st Contact Info) Description 10/07/2022 Orders Only External Location [address] [place] [address] Provider, External Social History Tobacco [...] EDT Appointment [facility] [address] [place] [phone] 03/21/2025 1:40 PM EDT Office Visit [facility] [place] Blane [address] [facility]. [address] [place] [phone] Criselda Murphy MD [address] [place] [address] documented as of this encounter [...] on filedocumented in this encounter Care Teams Making Line Worker Relationship Specialty Start Date End Date Tomasz Potts MD [address] [place] [address] PCP - General 10/21/22 documented as of this encounter
--- OUTSIDE RECORDS SUMMARY | 2025-03-08 11:08 | XMS_ITS | Encounter Summary ---
Author Organization [facility] Address [address] [place] [address] Care Team Providers Care Tankage Grinder Name Role Phone Tomasz Potts MD Primary Care Provider [phone] Encounter Details Date Type Department Care Team (Late st Contact Info) Description 09/24/2022 Orders Only External Location [address] [place] [address] Johnny Queen MD [address] [address] Social History Tobacco Use Types Packs/Day Years [...] EDT Appointment [facility] Radiology [address] [place] [address] 03/21/2025 1:40 PM EDT Office Visit [facility] [place]ane [address] [facility]. [address] [place] [address] Criselda Murphy MD [address] [place] [address] documented as of this encounter [...] on filedocumented in this encounter Care Teams Tankage Grinder Relationship Specialty Start Date End Date Tomasz Potts MD [address] [place] [address] PCP - General 10/21/22 documented as of this encounter
--- NOTE | 2025-03-08 11:35 | XR_ITS ---
FINAL REPORT CLINICAL HISTORY: abd pain COMPARISON: None FINDINGS: Two views of the abdomen demonstrate a normal bowel gas pattern. The patient is status post cholecystectomy. Pelvic calcifications are likely phleboliths. IMPRESSION: No acute findings. Reviewed, Interpreted and Dictated by Sulaiman Sanchez MD Transcribed by Meliza Meyer Authenticated and [facility]
[2025-03-08 11:42] LABS: Hematocrit 41.8 % (37.0-47.0); Hemoglobin 13.7 g/dL (12.2-16.2); Immature Granulocytes % 0.5 %; Mean Corpuscular HGB Conc 32.8 g/dL (31.8-35.4); Mean Corpuscular Hemoglobin 29.4 pg (27.0-31.2); Mean Corpuscular Volume 89.7 fl (81-99); Nucleated Red Blood Cells % 0 %; Platelet Count 225 K/mm3 (142-424); Red Blood Count 4.66 M/mm3 (4.20-5.40); Red Cell Distribution Width-SD 44.1 fL; White Blood Count 11.1 K/mm3 (4.8-10.8)
[2025-03-08 12:04] LABS: Alanine Aminotransferase 22 U/L (12-78); Albumin Level 4.5 g/dl (3.5-5.0); Albumin/Globulin Ratio 1.5 (1.1-1.8); Alkaline Phosphatase 69 U/L (38-126); Amylase 55 U/L (30-110); Anion Gap 12.6 mEq/L (5-15); Aspartate Amino Transferase 31 U/L (14-36); Bilirubin,Total 0.7 mg/dl (0.2-1.3); Blood Urea Nitrogen 22 mg/dl (7-17); Calcium 10.4 mg/dl (8.4-10.2); Carbon Dioxide 27 mmol/L (22.0-30.0); Chloride 102 mmol/L (98-107); Creatinine,Serum 1.20 mg/dl (0.52-1.04); Estimated Glomerular Filt Rate 45 ml/min (>60); GFR (African American) 54 ML/MIN (>60); Globulin 3.0 g/dL (1.3-3.2); Glucose 129 mg/dl (74-100); Lipase 177 U/L (23-300); Potassium 4.6 mmoL/L (3.5-5.1); Sodium 137 mmol/L (136-145); Total Protein,Serum 7.5 g/dl (6.3-8.2)
== END 2025-03-08 23:59 | disposition home or self-care (01) ==
LOC: LAB 11:05
PROVIDERS: PCP Nurse Practitioner Family; Visit Provider Nurse Practitioner Family
DX: R10.30 Lower abdominal pain, unspecified (principal); R11.0 Nausea
CPT/HCPCS: 74019; 80053; 82150; 83013; 83690; 85025; 87086

== ENCOUNTER 2025-04-04 09:32 | Outpatient (CLI) | payer MEDICARE, MEDICAID, SELFPAY ==
--- OUTSIDE RECORDS SUMMARY | 2025-04-04 09:35 | XMS_ITS | Clinical Summary ---
Author Organization [facility] Address [address] [place] [address] Care Team Providers Care Log Scaler Name Role Phone Ariadna Edward APRN Primary Care Provider [phone] Allergies Active Allergy Reactions Criticality Noted Date [...] Take 5 mg by mouth Daily. Active Family History Medical History Relation Name Comments [...] 05/11/2018 HEPATITIS C SCREENING 05/11/2018 COVID-19 Vaccine (1 - 2023- season) 2024 INFLUENZA VACCINE 05/18/2025 Insurance K[place] OLSON [id number] [facility] [employer] OR Care Teams Log Scaler Relationship Specialty Start Date End Date Ariadna Edward APRN [address] [place] [address] [place] [address] [place] [address] PCP - General Family Medicine 02/17/18
--- OUTSIDE RECORDS SUMMARY | 2025-04-04 09:35 | XMS_ITS | Encounter Summary ---
Author Organization [facility] Address [address] [place] [address] Care Team Providers Care Cycle Specialist Name Role Phone Tomasz Potts MD Primary Care Provider [phone] Encounter Details Date Type Department Care Team (Late st Contact Info) Description 03/14/2025 Telephone [facility] [address] [place] [address] Mary Estes, RN [facility]-DIAGNOSTIC RADIOLOGY Social History Tobacco Use Types Packs/Day Years Used Date Smoking Tobacco: Never Smokeless Tobacco: Never Alcohol Use Standard Drinks/Week Comments Never 0 [...] as of this encounter Plan of Treatment Not on file documented as of this encounter Visit Diagnoses Not on filedocumented in this encounter Additional Health Concerns Assessment Noted Time PHQ-9 Depression Total Score: 0 10/19/19 25 10:02 AM EST A fall risk assessment has been complete d for the patient 10/18/2024 10:01 AM EST A Body Mass Index follow-up plan has been documented for the patient 10/18/2024 11:46 AM EST documented as of this encounter Care Teams Cycle Specialist Relationship Specialty Start Date End Date Tomasz Potts MD [address] [place] [address] PCP - General 10/21/22 documented as of this encounter
--- OUTSIDE RECORDS SUMMARY | 2025-04-04 09:35 | XMS_ITS | Encounter Summary ---
Author Organization [facility] Address [address] [place] [address] Care Team Providers Care Electroless Plater Name Role Phone Tomasz Potts MD Primary Care Provider [phone] Encounter Details Date Type Department Care Team ([facility] st Contact Info) Description 09/24/2022 Orders Only External Location [address] [place] [phone] Provider, External Social History Tobacco Use Types Packs/Day Years Used Date Smoking Tobacco: Never Assessed Comments Unknown Sex and Gender Information Value Date Recorded Sex Assigned at Not on file Legal Sex Female 8:50 PM EDT Gender Identity Not on file Sexual Orientation Not on file documented as of this encounter Plan of Treatment Not on file documented as of this encounter Procedures Procedure [...] on filedocumented in this encounter Care Teams Electroless Plater Relationship Specialty Start Date End Date Tomasz Potts MD [address] [facility] [place] [address] PCP - General 10/21/22 documented as of this encounter
--- OUTSIDE RECORDS SUMMARY | 2025-04-04 09:35 | XMS_ITS | Clinical Summary ---
Author Organization [facility] Address [address] [place] [address] Care Team Providers Care Scrap Preparer Name Role Phone Tomasz Potts MD Primary Care Provider [phone] Allergies Active Allergy Reactions Criticality Noted Date [...] times a day. 60 tablet 11 10/18/2024 6 Active Active Problems Problem Noted Date Diagnosed Date Lung nodule 11/07/2022 Second hand smoke exposure 10/21/2022 Encounters Date Type Department Care Team Description 03/15/2025 Telephone [facility] [place] Blane [address] [place] [address] Madeleine May 03/14/2025 Telephone [facility] [address] [place] [address] Mary Estes, RN from Last 3 Months Family History Medical [...] 10/18/2024 9:56 AM EST Plan of Treatment Health Maintenance Due Date [...] - Risk 60-74 years 1-dose series) 2015 [id number] Vaccine (2 - Luis E risk series) [...] to complete this topic Insurance K[place] Grullon [id number] [employer] MEDICARE Care Teams Scrap Preparer Relationship Specialty Start Date End Date Tomasz Potts MD [address] [place] [address] [place] [address] PCP - General 10/21/22
--- OUTSIDE RECORDS SUMMARY | 2025-04-04 09:35 | XMS_ITS | Encounter Summary ---
Author Organization [facility] Address [address] [place] [address] Care Team Providers Care Wood Boat Builder Supervisor Name Role Phone Tomasz Potts MD Primary Care Provider [phone] Encounter Details Date Type Department Care Team ([facility] Contact Info) Description 10/07/2022 Orders Only External Location [address] [place] [phone] Provider, External Social History Tobacco Use Types [...] Nuclear Medicine 10/07/2022 12:1 2 PM EST External Provider IMG NM PROCEDURES Final Result documented in this encounter Visit Diagnoses Not on filedocumented in this encounter Care Teams Wood Boat Builder Supervisor Relationship Specialty Start Date End Date Tomasz Potts MD [address] [facility] [place] [address] PCP - General 10/21/22 documented as of this encounter
--- OUTSIDE RECORDS SUMMARY | 2025-04-04 09:35 | XMS_ITS | Encounter Summary ---
Author Organization [facility] Address [address] [place] [address] Care Team Providers Care Cotton Feeder Name Role Phone Tomasz Potts MD Primary Care Provider [phone] Encounter Details Date Type Department Care Team ([facility] st Contact Info) Description 09/24/2022 Orders Only External Location [address] [place] [phone] Provider, External Social History Tobacco Use Types [...] on filedocumented in this encounter Care Teams Cotton Feeder Relationship Specialty Start Date End Date Tomasz Potts MD [address] [facility] [place] [address] PCP - General 10/21/22 documented as of this encounter
--- OUTSIDE RECORDS SUMMARY | 2025-04-04 09:35 | XMS_ITS | Encounter Summary ---
Author Organization [facility] Address [address] [place] [address] Care Team Providers Care Plant Tour Guide Name Role Phone Tomasz Potts MD Primary Care Provider [phone] Encounter Details Date Type Department Care Team (Late st Contact Info) Description 03/15/2025 Telephone [facility] [place] Blane [address] [place] [address] [place] [address] Social History Tobacco Use Types Packs/Day Years [...] on file documented as of this encounter Miscellaneous Notes * Telephone Encounter - Madeleine [place] - 03/15/2025 1:54 PM EDT Patient Name: Malgorzata Anderson :1955 Date:03/15/2025 Affiliate site: [facility] [place] Referring Physician: Dr. Daaboul Education/ Information provided: This Nurse Liaison left voicemail for Malgorzata Anderson prior to an appointment on 03/21/2025. Provided patient with liaison contact information and encouraged patient to call re whether EP appt is also supposed to be cancelled. MRI appt was previously cancelled by radiology staff. Will follow up and inform referral source. Madeleine May [facility] Nurse Liaison [phone] documented in this encounter Plan of Treatment Not on [...] documented as of this encounter Care Teams Plant Tour Guide Relationship Specialty Start Date End Date Tomasz Potts MD [address] [place] [address] PCP - General 10/21/22 documented as of this encounter
--- OUTSIDE RECORDS SUMMARY | 2025-04-04 09:35 | XMS_ITS | Encounter Summary ---
Author Organization [facility] Address [address] [place] [address] Care Team Providers Care Supervisor Hospitality House Name Role Phone Tomasz Potts MD Primary Care Provider [phone] Encounter Details Date Type Department Care Team (Late st Contact Info) Description 09/24/2022 Orders Only External Location [address] [place] [address] Johnny Queen MD [address] [place] [phone] Social History Tobacco Use Types Packs/Day Years [...] Digital Radiogra phy 09/24/2022 6:18 PM EST us Johnny Queen MD IMG XR PROCEDURES Final Resu lt documented in this encounter Visit Diagnoses Not on filedocumented in this encounter Care Teams Supervisor Hospitality House Relationship Specialty Start Date End Date Tomasz Potts MD [address] [place] [phone] PCP - General 10/21/22 documented as of this encounter
--- NOTE | 2025-04-04 09:59 | US_ITS ---
FINAL REPORT TECHNIQUE: Ultrasound images of the kidneys and bladder were obtained. CLINICAL HISTORY: cyst COMPARISON: None FINDINGS: The right kidney measures 10.4 cm in length. It is normal in echogenicity. There is no hydronephrosis. The left kidney measures 9.7 cm in length. There is a 2.9 x 2.0 cm anechoic partially exophytic structure projecting from the left kidney, most compatible in appearance with a renal cyst. There is no hydronephrosis. The urinary bladder is unremarkable. IMPRESSION: No hydronephrosis. Reviewed, Interpreted and Dictated by Bashir Cosme MD Transcribed by Maribeth Fischer Authenticated and [facility]
== END 2025-04-04 23:59 ==
LOC: RAD 09:33
PROVIDERS: PCP Nurse Practitioner Family; Visit Provider Urology
DX: N28.1 Cyst of kidney, acquired (principal)
CPT/HCPCS: 76770

== ENCOUNTER 2025-05-02 14:33 | Outpatient (CLI) | payer MEDICARE, MEDICAID, SELFPAY ==
[2025-05-02 18:22] LABS: Anion Gap 11.0 mEq/L (5-15); Blood Urea Nitrogen 13 mg/dl (7-17); Calcium 9.3 mg/dl (8.4-10.2); Carbon Dioxide 29 mmol/L (22.0-30.0); Chloride 104 mmol/L (98-107); Creatinine,Serum 0.90 mg/dl (0.52-1.04); Estimated Glomerular Filt Rate 62 ml/min (>60); GFR (African American) 75 ML/MIN (>60); Glucose 93 mg/dl (74-100); Potassium 5.0 mmoL/L (3.5-5.1); Sodium 139 mmol/L (136-145); Uric Acid 5.9 mg/dl (2.5-6.2)
[2025-05-02 18:38] LABS: Free T4 (Free Thyroxine) 1.25 ng/dl (0.78-2.19)
[2025-05-02 18:52] LABS: Thyroid Stimulating Hormone 1.49 uIU/mL (0.465-4.68)
== END 2025-05-02 23:59 ==
LOC: LAB.DROPOF 05-03 08:43
PROVIDERS: PCP Nurse Practitioner Family; Visit Provider Nurse Practitioner Family
DX: G47.33 Obstructive sleep apnea (adult) (pediatric) (principal); M10.9 Gout, unspecified; E87.5 Hyperkalemia; I10 Essential (primary) hypertension; E03.9 Hypothyroidism, unspecified
CPT/HCPCS: 80048; 84439; 84443; 84550

== ENCOUNTER 2025-05-05 10:37 | Outpatient (CLI) | payer MEDICARE, MEDICAID, SELFPAY ==
--- OUTSIDE RECORDS SUMMARY | 2025-05-05 10:39 | XMS_ITS | Encounter Summary ---
Author Organization [facility] Address [address] [place] [address] Care Team Providers Care Mechanical Systems Designer Name Role Phone Tomasz Potts MD Primary Care Provider [phone] Encounter Details Date Type Department Care Team (Late st Contact Info) Description 03/14/2025 Telephone [facility] [address] [place] [address] Mary Estes, RN [facility]-DIAGNOSTIC RADIOLOGY Social History [...] documented as of this encounter Care Teams Mechanical Systems Designer Relationship Specialty Start Date End Date Tomasz Potts MD [address] [place] [address] PCP - General 10/21/22 documented as of this encounter
--- OUTSIDE RECORDS SUMMARY | 2025-05-05 10:40 | XMS_ITS | Clinical Summary ---
Author Organization [facility] Address [address] [place] [address] Care Team Providers Care Egg Producer Name Role Phone Tomasz Potts MD Primary Care Provider [phone] Allergies Active Allergy Reactions Criticality Noted Date [...] Type Department Care Team Description 03/15/2025 Telephone [facility] [place] Blane [address] [place] [address] Madeleine May 03/14/2025 Telephone [facility] [address] [place] [address] Mary Estes, RN from Last [...] Screening 1955 [facility]-Medicare Annual Wellness (AWV) 1955 [facility]-/Child/Adol SDOH Screenings 1955 [facility]- SDOH Screenings 10/26/1973 [facility]-Adult SDOH Screenings 10/26/1973 [facility]-Pneumococcal Vaccine: 50 + Years (1 of 2 - PCV) 10/26/1974 CT Colonography 10/26/2000 Colonoscopy 10/26/2000 FIT-DNA 10/26/2000 FIT 10/26/2000 FOBT 10/26/2000 Sigmoidoscopy 10/26/2000 [facility]-Colorectal Cancer Screening 10/26/2000 [facility]-Breast Cancer Screening 10/26/2005 [facility]-Zoster Vaccines (1 of 2) 10/26/2005 [facility]-RSV Vaccine: 60+ Years o r (1 - Risk 60-74 years 1-dose series) 2015 AOE-IJVFP-00 Vaccine (2 - Luis E risk series) [...] to complete this topic Insurance K[place] Grullon [id number] [employer] MEDICARE Care Teams Egg Producer Relationship Specialty Start Date End Date Tomasz Potts MD [address] [place] [address] [place] [address] PCP - General 10/21/22
--- OUTSIDE RECORDS SUMMARY | 2025-05-05 10:40 | XMS_ITS | Clinical Summary ---
Author Organization [facility] Address [address] [place] [address] Care Team Providers Care Marketing Coordinator Name Role Phone Ariadna Edward APRN Primary Care Provider [phone] Allergies Active Allergy Reactions Criticality Noted Date [...] ANNUAL PHYSICAL 05/11/2018 HEPATITIS C SCREENING 05/11/2018 INFLUENZA VACCINE 03/18/2025 COVID-19 Vaccine ( - season) 2025 Insurance KATE OLSON [id number] [facility] [email or web address] [place] Care Teams Marketing Coordinator Relationship Specialty Start Date End Date Ariadna Edward APRN [address] [place] [address] [place] [address] [place] [address] PCP - General Family Medicine 02/17/18
--- OUTSIDE RECORDS SUMMARY | 2025-05-05 10:40 | XMS_ITS | Encounter Summary ---
Author Organization [facility] Address [address] [place] [address] Care Team Providers Care Digital Marketing Program Manager Name Role Phone Tomasz Potts MD Primary Care Provider [phone] Encounter Details Date Type Department Care Team ([facility] st Contact Info) Description 09/24/2022 Orders Only External Location [address] [place] [phone] Provider, External Social History Tobacco Use Types [...] on filedocumented in this encounter Care Teams Digital Marketing Program Manager Relationship Specialty Start Date End Date Tomasz Potts MD [address] [facility] [place] [address] PCP - General 10/21/22 documented as of this encounter
--- OUTSIDE RECORDS SUMMARY | 2025-05-05 10:40 | XMS_ITS | Encounter Summary ---
Author Organization [facility] Address [address] [place] [address] Care Team Providers Care Tube Drawer Name Role Phone Tomasz Potts MD Primary Care Provider [phone] Encounter Details Date Type Department Care Team ([facility] Contact Info) Description 10/07/2022 Orders Only External Location [address] [place] [phone] Provider, External Social History Tobacco Use Types [...] on filedocumented in this encounter Care Teams Tube Drawer Relationship Specialty Start Date End Date Tomasz Potts MD [address] [facility] [place] [address] PCP - General 10/21/22 documented as of this encounter
--- OUTSIDE RECORDS SUMMARY | 2025-05-05 10:40 | XMS_ITS | Encounter Summary ---
Author Organization [facility] Address [address] [place] [address] Care Team Providers Care Band And Cuff Cutter Name Role Phone Tomasz Potts MD Primary Care Provider [phone] Encounter Details Date Type Department Care Team ([facility] st Contact Info) Description 09/24/2022 Orders Only External Location [address] [place] [phone] Provider, External Social History Tobacco Use Types [...] on filedocumented in this encounter Care Teams Band And Cuff Cutter Relationship Specialty Start Date End Date Tomasz Potts MD [address] [facility] [place] [address] PCP - General 10/21/22 documented as of this encounter
--- OUTSIDE RECORDS SUMMARY | 2025-05-05 10:40 | XMS_ITS | Encounter Summary ---
Author Organization [facility] Address [address] [place] [address] Care Team Providers Care Needle Felt Making Machine Operator Name Role Phone Tomasz Potts MD Primary Care Provider [phone] Encounter Details Date Type Department Care Team (Late st Contact Info) Description 09/24/2022 Orders Only External Location [address] [place] [address] Johnny Queen MD [address] [place] [phone] Social History Tobacco Use Types Packs/Day Years [...] on filedocumented in this encounter Care Teams Needle Felt Making Machine Operator Relationship Specialty Start Date End Date Tomasz Potts MD [address] [place] [phone] PCP - General 10/21/22 documented as of this encounter
--- OUTSIDE RECORDS SUMMARY | 2025-05-05 10:40 | XMS_ITS | Encounter Summary ---
Author Organization [facility] Address [address] [place] [address] Care Team Providers Care What Job Titles Mean Name Role Phone Tomasz Potts MD Primary Care Provider [phone] Encounter Details Date Type Department Care Team (Late st Contact Info) Description 03/15/2025 Telephone [facility] [place] Blane [address] [place] [address] [place] [address] Social History Tobacco Use Types Packs/Day Years [...] Name: Malgorzata Anderson :1955 Date:03/15/2025 Affiliate site: [place] Referring Physician: Dr. Daaboul Education/ Information provided: This Nurse Liaison left voicemail for Malgorzata Anderson prior to an appointment on 03/21/2025. Provided patient with liaison contact information and encouraged patient to call re whether EP appt is also supposed to be cancelled. MRI appt was previously cancelled by radiology staff. Will follow up and inform referral source. Madeleine May [facility] Nurse Liaison [phone] documented in this encounter Plan of Treatment [...] documented as of this encounter Care Teams What Job Titles Mean Relationship Specialty Start Date End Date Tomasz Potts MD [address] [place] [address] PCP - General 10/21/22 documented as of this encounter
--- NOTE | 2025-05-05 11:00 | CT_ITS ---
FINAL REPORT CLINICAL HISTORY: 15 month f/u COMPARISON: CTA of the chest 08/09/2024, CT of the chest 12/22/2023 FINDINGS: CT CHEST without contrast TECHNIQUE: Axial CT without contrast. Images were obtained from the thoracic inlet through the hemidiaphragms. Multiplanar reconstructions in the sagittal and coronal planes were performed. This study was performed with techniques to keep radiation doses as low as reasonably achievable, (ALARA). Individualized dose reduction techniques using automated exposure control or adjustment of mA and/or kV according to the patient's size were employed. FINDINGS: There is a linear density in the right lower lobe diaphragmatic dome, which is stable and consistent with scar. There is a nodular component associated with a linear density measuring up to 8 mm x 3 mm in size, was previously 8 x 5 mm. This is best seen on image #55 of series 2. There is a 4 mm nodule in the lateral right lung near the fissure, best seen on image #52 of series 2, that may represent an intrafissural node. There is a 3 mm left upper lobe nodule present as well. A small hiatal hernia is present as well. No pleural or pericardial effusion is seen . No adenopathy is present . IMPRESSION: 1. 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 2. No acute findings or evidence of neoplasm. This study was performed using automated techniques to achieve radiation exposure as low as reasonably achievable Reviewed, Interpreted and Dictated by Sulaiman Sanchez MD Transcribed by Maribeth Fischer Authenticated and [facility]
== END 2025-05-05 23:59 | disposition home or self-care (01) ==
LOC: RAD 10:38
PROVIDERS: PCP Nurse Practitioner Family; Visit Provider Internal Medicine Pulmonary Disease
DX: R91.8 Other nonspecific abnormal finding of lung field (principal)
CPT/HCPCS: 71250

== ENCOUNTER 2025-06-29 11:08 | Outpatient (CLI) | payer MEDICARE, MEDICAID, SELFPAY ==
--- OUTSIDE RECORDS SUMMARY | 2025-06-30 10:38 | XMS_ITS | Encounter Summary ---
Author Organization [facility] Address [address] [place] [address] Care Team Providers Care Car Shagger Name Role Phone Tomasz Potts MD Primary Care Provider [phone] Encounter Details Date Type Department Care Team ([facility] st Contact Info) Description 09/24/2022 Orders Only External Location [address] [place] [phone] Provider, External Social History Tobacco Use Types [...] on filedocumented in this encounter Care Teams Car Shagger Relationship Specialty Start Date End Date Tomasz Potts MD [address] [facility] [place] [address] PCP - General 10/21/22 documented as of this encounter
--- OUTSIDE RECORDS SUMMARY | 2025-06-30 10:39 | XMS_ITS | Clinical Summary ---
Author Organization [facility] Address [address] [place] [address] Care Team Providers Care Collaborative Teacher Name Role Phone Tomasz Potts MD Primary Care Provider [phone] Allergies Active Allergy Reactions Criticality Noted Date [...] Noted Date Diagnosed Date Lung nodule 11/07/2022 Resolved Problems Problem Noted Date Diagnosed Date Resolved Date Second hand smoke exposure 10/21/2022 0 05/08/2025 Family History Medical History Relation Name Comments [...] - Risk 60-74 years 1-dose series) 2015 [id number] Vaccine (2 - Luis E risk series) [...] to complete this topic Insurance KATE Grullon [id number] [employer] MEDICARE Care Teams Collaborative Teacher Relationship Specialty Start Date End Date Tomasz Potts MD [address] [place] [address] [place] [address] PCP - General 10/21/22
--- OUTSIDE RECORDS SUMMARY | 2025-06-30 10:39 | XMS_ITS | Encounter Summary ---
Author Organization [facility] Address [address] [place] [address] Care Team Providers Care Vehicle Monitor Technician Name Role Phone Tomasz Potts MD Primary Care Provider [phone] Encounter Details Date Type Department Care Team ([facility] Contact Info) Description 10/07/2022 Orders Only External Location [address] [place] [phone] Provider, External Social History Tobacco Use Types [...] on filedocumented in this encounter Care Teams Vehicle Monitor Technician Relationship Specialty Start Date End Date Tomasz Potts MD [address] [facility] [place] [address] PCP - General 10/21/22 documented as of this encounter
--- OUTSIDE RECORDS SUMMARY | 2025-06-30 10:39 | XMS_ITS | Clinical Summary ---
Author Organization [facility] Address [address] [place] [address] Care Team Providers Care Area Captain Name Role Phone Ariadna Edward APRN Primary Care Provider [phone] Allergies Active Allergy Reactions Criticality Noted Date [...] Date Last Done Comments DXA SCAN 1955 COVID-19 Vaccine (#1) 10/26/1960 TDAP/TD VACCINES (1 - Tdap) 10/26/1974 MAMMOGRAM 1995 COLOGUARD 10/26/2000 COLON CANCER SCREENING 5 YEAR SIGMOIDOSCOPY 10/26/2000 COLONOSCOPY 10/26/2000 COLORECTAL CANCER SCREENING 10/26/2000 CT COLONOGRAPHY 10/26/2000 FECAL OCCULT BLOOD TEST 10/26/2000 FIT Testing (1 year) 10/26/2000 Pneumococcal Vaccine 50+ (1 of 1 - PCV) 10/26/2005 ZOSTER VACCINE (1 of 2) 10/26/2005 ANNUAL PHYSICAL 05/11/2018 HEPATITIS C SCREENING 05/11/2018 INFLUENZA VACCINE 03/18/2025 Insurance KATE OLSON [id number] [facility] [employer] Care Teams Area Captain Relationship Specialty Start Date End Date Ariadna Edward APRN [address] [place] [address] [place] [address] [place] [address] PCP - General Family Medicine 02/17/18
--- OUTSIDE RECORDS SUMMARY | 2025-06-30 10:39 | XMS_ITS | Encounter Summary ---
Author Organization [facility] Address [address] [place] [address] Care Team Providers Care Chief Operating Officer Name Role Phone Tomasz Potts MD Primary Care Provider [phone] Encounter Details Date Type Department Care Team ([facility] st Contact Info) Description 09/24/2022 Orders Only External Location [address] [place] [phone] Provider, External Social History Tobacco Use Types [...] on filedocumented in this encounter Care Teams Chief Operating Officer Relationship Specialty Start Date End Date Tomasz Potts MD [address] [facility] [place] [address] PCP - General 10/21/22 documented as of this encounter
--- OUTSIDE RECORDS SUMMARY | 2025-06-30 10:39 | XMS_ITS | Encounter Summary ---
Author Organization [facility] Address [address] [place] [address] Care Team Providers Care Print Traffic Manager Name Role Phone Tomasz Potts MD Primary Care Provider [phone] Encounter Details Date Type Department Care Team (Late st Contact Info) Description 09/24/2022 Orders Only External Location [address] [place] [address] Johnny Queen MD [address] [phone] Social History Tobacco Use Types Packs/Day Years [...] on filedocumented in this encounter Care Teams Print Traffic Manager Relationship Specialty Start Date End Date Tomasz Potts MD [address] [id number] PCP - General 10/21/22 documented as of this encounter
== END 2025-06-29 23:59 | disposition home or self-care (01) ==
LOC: LAB.DROPOF 06-30 10:15
PROVIDERS: PCP Nurse Practitioner Family; Visit Provider Nurse Practitioner
DX: R35.0 Frequency of micturition (principal)
CPT/HCPCS: 87086

== ENCOUNTER 2025-07-06 15:00 | Outpatient (CLI) | payer MEDICARE, MEDICAID, SELFPAY ==
--- NOTE | 2025-07-06 15:02 | XR_ITS ---
FINAL REPORT CLINICAL HISTORY: abd pain COMPARISON: 03/08/2025 FINDINGS: Two views of the abdomen demonstrate a nonobstructive bowel gas pattern. There is a moderate amount of stool in the colon. There are no abnormally dilated loops of small bowel. There is no free air. There are no abnormal calcifications. IMPRESSION: Moderate stool burden. Reviewed, Interpreted and Dictated by Bashir Cosme MD Transcribed by Meliza Meyer Authenticated and [facility]
== END 2025-07-06 23:59 | disposition home or self-care (01) ==
LOC: RAD 15:01
PROVIDERS: PCP Nurse Practitioner Family; Visit Provider Nurse Practitioner Family
DX: K59.09 Other constipation (principal); R10.20 Pelvic and perineal pain unspecified side
CPT/HCPCS: 74019; 87086

== ENCOUNTER 2025-07-25 12:48 | Outpatient (CLI) | payer MEDICARE, MEDICAID, SELFPAY ==
[2025-07-25 13:40] LABS: Hematocrit 38.3 % (37.0-47.0); Hemoglobin 12.6 g/dL (12.2-16.2); Immature Granulocytes % 0.4 %; Mean Corpuscular HGB Conc 32.9 g/dL (31.8-35.4); Mean Corpuscular Hemoglobin 29.2 pg (27.0-31.2); Mean Corpuscular Volume 88.9 fl (81-99); Nucleated Red Blood Cells % 0 %; Platelet Count 239 K/mm3 (142-424); Red Blood Count 4.31 M/mm3 (4.20-5.40); Red Cell Distribution Width-SD 44.9 fL; White Blood Count 9.8 K/mm3 (4.8-10.8)
[2025-07-25 14:06] LABS: Alanine Aminotransferase 20 U/L (12-78); Albumin Level 4.0 g/dl (3.5-5.0); Alkaline Phosphatase 61 U/L (38-126); Anion Gap 14.8 mEq/L (5-15); Aspartate Amino Transferase 25 U/L (14-36); Bilirubin,Direct 0.2 mg/dl (0.0-0.4); Bilirubin,Indirect 0.5 mg/dL (0.0-0.9); Bilirubin,Total 0.7 mg/dl (0.2-1.3); Bilirubin,Unconjugated 0.6 mg/dL (0.0-1.1); Blood Urea Nitrogen 17 mg/dl (7-17); Calcium 9.4 mg/dl (8.4-10.2); Carbon Dioxide 27 mmol/L (22.0-30.0); Chloride 103 mmol/L (98-107); Cholesterol 159 mg/dl (140-200); Creatinine,Serum 1.00 mg/dl (0.52-1.04); Estimated Glomerular Filt Rate 55 ml/min (>60); GFR (African American) 67 ML/MIN (>60); Glucose 94 mg/dl (74-100); HDL Cholesterol 46 mg/dl (40-60); Magnesium 2.2 mg/dl (1.6-2.3); Potassium 4.8 mmoL/L (3.5-5.1); Sodium 140 mmol/L (136-145); Total Protein,Serum 7.1 g/dl (6.3-8.2); Triglycerides 131 mg/dl (30-150)
[2025-07-25 14:22] LABS: Free T4 (Free Thyroxine) 1.20 ng/dl (0.78-2.19)
[2025-07-25 14:37] LABS: Thyroid Stimulating Hormone 3.44 uIU/mL (0.465-4.68)
== END 2025-07-25 23:59 | disposition home or self-care (01) ==
LOC: LAB 12:48
PROVIDERS: PCP Nurse Practitioner Family; Visit Provider Physician Assistant
DX: E87.5 Hyperkalemia (principal); I10 Essential (primary) hypertension; D64.9 Anemia, unspecified; E53.8 Deficiency of other specified B group vitamins; E55.9 Vitamin D deficiency, unspecified; E78.2 Mixed hyperlipidemia; E03.9 Hypothyroidism, unspecified
CPT/HCPCS: 36415; 80048; 80061; 80076; 83735; 84439; 84443; 85025

== ENCOUNTER 2025-07-28 06:44 | Emergency (ER) | payer MEDICARE, MEDICAID, SELFPAY ==
[2025-07-28] VITALS (40 sets, daily range): BP systolic 98–201; BP diastolic 46–131; PULSE 33–95; RESP 11–23; TEMP 36.7; O2SAT 86–100; BMI 38.1
--- OUTSIDE RECORDS SUMMARY | 2025-07-28 06:52 | XMS_ITS | Encounter Summary ---
Author Organization [facility] Address [address] [place] [address] Care Team Providers Care Rn Transfer Name Role Phone Tomasz Potts MD Primary Care Provider [phone] Encounter Details Date Type Department Care Team ([facility] st Contact Info) Description 09/24/2022 Orders Only External Location [address] [place] [phone] Provider, External Social History Tobacco Use Types [...] on filedocumented in this encounter Care Teams Rn Transfer Relationship Specialty Start Date End Date Tomasz Potts MD [address] [facility] [place] [address] PCP - General 10/21/22 documented as of this encounter
--- OUTSIDE RECORDS SUMMARY | 2025-07-28 06:52 | XMS_ITS | Clinical Summary ---
Author Organization [facility] Address [address] [place] [address] Care Team Providers Care Airline Pilot/First Officer Name Role Phone Ariadna Edward APRN Primary Care Provider [phone] Allergies Active Allergy Reactions Criticality Noted Date [...] 05/11/2018 INFLUENZA VACCINE 03/18/2025 Insurance [place] [id number] [facility] Care Teams Airline Pilot/First Officer Relationship Specialty Start Date End Date Ariadna Edward APRN [address] [place] [address] PCP - General Family Medicine 02/17/18
--- OUTSIDE RECORDS SUMMARY | 2025-07-28 06:52 | XMS_ITS | Encounter Summary ---
Author Organization [facility] Address [address] [place] [address] Care Team Providers Care Clinical Outcomes Manager Name Role Phone Tomasz Potts MD Primary Care Provider [phone] Encounter Details Date Type Department Care Team (Late st Contact Info) Description 09/24/2022 Orders Only External Location [address] [place] [address] Johnny Queen MD [address] [phone] Social History Tobacco Use Types Packs/Day Years [...] on filedocumented in this encounter Care Teams Clinical Outcomes Manager Relationship Specialty Start Date End Date Tomasz Potts MD [address] [phone] PCP - General 10/21/22 documented as of this encounter
--- OUTSIDE RECORDS SUMMARY | 2025-07-28 06:52 | XMS_ITS | Encounter Summary ---
Author Organization [facility] Address [address] [place] [address] Care Team Providers Care Wafer Polishing Lead Worker Name Role Phone Tomasz Potts MD Primary Care Provider [phone] Encounter Details Date Type Department Care Team ([facility] st Contact Info) Description 09/24/2022 Orders Only External Location [address] [place] [phone] Provider, External Social History Tobacco Use Types [...] on filedocumented in this encounter Care Teams Wafer Polishing Lead Worker Relationship Specialty Start Date End Date Tomasz Potts MD [address] [facility] [place] [address] PCP - General 10/21/22 documented as of this encounter
--- OUTSIDE RECORDS SUMMARY | 2025-07-28 06:52 | XMS_ITS | Encounter Summary ---
Author Organization [facility] Address [address] [place] [address] Care Team Providers Care Floor Assembler Name Role Phone Tomasz Potts MD Primary Care Provider [phone] Encounter Details Date Type Department Care Team ([facility] Contact Info) Description 10/07/2022 Orders Only External Location [address] [place] [phone] Provider, External Social History Tobacco Use Types [...] on filedocumented in this encounter Care Teams Floor Assembler Relationship Specialty Start Date End Date Tomasz Potts MD [address] [facility] [place] [address] PCP - General 10/21/22 documented as of this encounter
--- OUTSIDE RECORDS SUMMARY | 2025-07-28 06:52 | XMS_ITS | Clinical Summary ---
Author Organization [facility] Address [address] [place] [address] Care Team Providers Care Carpet Finishing Supervisor Name Role Phone Tomasz Potts MD Primary Care Provider [phone] Allergies Active Allergy Reactions Criticality Noted Date [...] - Risk 60-74 years 1-dose series) 2015 [id number] Vaccine (2 - Luis E risk series) [...] to complete this topic Insurance [place] [id number] [employer] MED[employer] Care Teams Carpet Finishing Supervisor Relationship Specialty Start Date End Date Tomasz Potts MD [address] [place] [address] [place] [address] PCP - General 10/21/22
[2025-07-28 07:06] LABS: Microscopic, Urine URINE MICROSCOPIC (MICROSCOPIC)
[2025-07-28 07:28] LABS: Bilirubin,Urine Negative (Negative); Color,Urine YELLOW (Yellow); Glucose,Urine (UA) Negative (Negative); Ketones,Urine Negative (Negative); Leukocyte Esterase,Urine Negative (Negative); PH,Urine 6.0 (5.0-8.5); Protein,Urine Negative (Negative); Specific Gravity, Urine 1.010 (1.005-1.030); Urobilinogen,Urine 0.2 EU/dl (0.2)
--- NOTE | 2025-07-28 07:35 | CT_ITS ---
FINAL REPORT TECHNIQUE: After the administration of oral and intravenous contrast, axial images were obtained through the abdomen and pelvis by computed tomography. The study was performed with techniques to keep radiation dose as low as reasonably achievable, (ALARA). Individual dose reduction techniques using automated exposure control or adjustment of mA and/or kV according to the patient's size were employed. CLINICAL HISTORY: Upper abdominal pain, bloating, nausea COMPARISON: 08/09/2024 FINDINGS: Abdomen: A calcified granulomas present in the left lung base. There is mild to moderate fatty infiltration of the liver. The gallbladder is surgically absent. The spleen, pancreas, and adrenals appear unremarkable. There is a benign-appearing 1.7 cm left renal cyst, slightly smaller than seen on the prior CT of 2023. The aorta is normal in caliber. There is no free fluid or adenopathy. Pelvis: The appendix is normal in appearance. The urinary bladder is unremarkable. There are small cysts or follicles noted in the right ovary measuring up to 1.6 cm in size, which appear unchanged since the prior exam of 2023. There is no free fluid or adenopathy. IMPRESSION: Mild to moderate fatty infiltration of the liver is present. There is evidence of a prior cholecystectomy. Small cysts or follicles are present on the right ovary, seen on the prior exam. Gynecologic follow-up is recommended. Reviewed, Interpreted and Dictated by Bashir Cosme MD Transcribed by Maribeth Fischer Authenticated and [facility]
--- NOTE | 2025-07-28 07:36 | HMH.EDGENADL ---
Discharge Plan Disposition Patient Disposition: Admitted Clinical Impressions Clinical Impression: Bigeminal rhythm, Abdominal pain Discharge ED Provider: Glendy Parada General Adult HPI General Chief complaint: Abdominal Pain Stated complaint: nausea, abd pain Time Seen by Provider: 07/28/25 07:23 Mode of Arrival: Ambulatory Source of Information: Patient Description of Symptoms (Recalled from ER Triage Doc. by RN): Pt presents with a sick feeling in her upper abdomen that has been intermittent over the past couple months. Pt saw her PCP (Bethany Leon) last week and was told she has stool in her colon . Pt states her LBM was yesterday x 3. Pt denies any pain, nausea or vomiting. She states she has an appointment to see (Raheel) today at 11. History of Present Illness HPI narrative: Malgorzata Anderson is a-year-old female with past medical history of heart murmur, extra heartbeats , hypertension, HFpEF, chronic shoulder pain, GERD on famotidine, s/p cholecystectomy, Who presents to the emergency department for complaints of upper abdominal pain and bloating for the past month. Patient states that intermittently she will have pain and nausea in the upper part of her abdomen and feel bloated. She has not had any vomiting. She denies any diarrhea or constipation. She states that she will have a bowel movement approximately every 2 to 3 days. She states that she has been seen by her glue bone drier, PCP and urgent treatment care over the past month for these issues. She has been taking famotidine without relief. She is also taking Gas-X without relief. She has had a colonoscopy in the past but has not seen GI for these issues. She reports that she is scheduled to see her glue bone drier later this morning. Related Data Home Medications ?Medication ?Instructions ?Recorded ?Confirmed cetirizine 10 mg tablet 10 mg PO DAILY 03/29/24 07/28/25 fluticasone propionate 50 1 spray intranasal DAILY 05/02/25 07/28/25 mcg/actuation nasal spray,suspension furosemide 20 mg tablet 20 mg PO MOWEFR 07/28/25 07/28/25 levothyroxine 50 mcg tablet 50 mcg PO DAILY 07/28/25 07/28/25 pravastatin 40 mg tablet 40 mg PO HS 07/28/25 07/28/25 Previous Rx's ?Medication ?Instructions ?Recorded spironolactone 25 mg tablet 25 mg PO DAILY #90 tabs 10/22/24 lisinopril 40 mg tablet 40 mg PO DAILY #90 tabs 11/22/24 allopurinol 100 mg tablet 100 mg PO DAILY #90 tabs 02/02/25 Allergies Allergy/AdvReac Type Severity Reaction Status Date / Time sacubitril (From Entresto) Allergy Intermediate Unknown Verified 07/06/25 14:06 allergy reaction amlodipine Allergy Mild Other Verified 07/06/25 14:06 carvedilol Allergy Mild Other Verified 07/06/25 14:06 atropine (From URISED) Allergy Unknown Unknown Verified 07/06/25 14:06 allergy reaction ciprofloxacin (From Cipro) Allergy Unknown Unknown Verified 07/06/25 14:06 allergy reaction gentamicin (Gentamicin) Allergy Unknown Unknown Verified 07/06/25 14:06 allergy reaction methenamine (From URISED) Allergy Unknown Unknown Verified 07/06/25 14:06 allergy reaction neomycin Allergy Unknown Unknown Verified 07/06/25 14:06 allergy reaction nitrofurantoin (From Allergy Unknown Unknown Verified 07/06/25 14:06 Macrobid) allergy reaction Penicillins Allergy Unknown Unknown Verified 07/06/25 14:06 allergy reaction polymyxin B Allergy Unknown Unknown Verified 07/06/25 14:06 allergy reaction salicylates (From Urised) Allergy Unknown Unknown Verified 07/06/25 14:06 allergy reaction sulfamethoxazole (From Allergy Unknown Unknown Verified 07/06/25 14:06 Septra) allergy reaction trimethoprim (From Septra) Allergy Unknown Unknown Verified 07/06/25 14:06 allergy reaction valsartan AdvReac Intermediate Unknown Verified 07/06/25 14:06 allergy reaction latex AdvReac Rash Verified 07/06/25 14:06 PFSH PFSH Disclaimer: The information contained in this section may have been updated after the patient was seen, as this information can be updated by other users. Medical History Nasal congestion Itching Suprapubic pain Epigastric pain Infection due to Citrobacter UTI Nausea Breast cancer screening by mammogram Left shoulder pain Ventricular tachycardia PVCs (premature ventricular contractions) Tachycardia Sinusitis Dysphagia Screening for colon cancer Routine lab draw Family history of renal cell carcinoma Hypertrophic lichen planus of vulva Erosive lichen planus of vulva Vulvar itching ASCUS with positive high risk HPV cervical Cataract Atrophic vaginitis Urinary tract infection Sleep apnea History of gastroesophageal reflux (GERD) History of cataract Heart murmur History of anemia History of seizure Urinary tract infection symptoms Facial neuropathy Left sided after dental work 10/2023 Epigastric pain Blood glucose elevated Yeast dermatitis Edema UTI (urinary tract infection) Vaginal yeast infection Viral illness Encounter for monitoring diuretic therapy Sore throat Elevated blood pressure reading in office with diagnosis of hypertension Wheezing Patient left before triage assessment Acute dyspnea Allergic rhinitis Lung nodule seen on imaging study Sinusitis Diastolic dysfunction Established with Dr. Sharpe Sinus bradycardia Ventricular bigeminy Essential hypertension Hyperlipemia Hypothyroid Surgical History History of colonoscopy 10/2023, polypectomy, repeat in 5 years S/P lymph node biopsy Hx of cholecystectomy Family History Unknown Cancer Other Diabetes Heart attack Hypertension Social History Smoking Status: Never smoker second hand exposure: No alcohol intake: never substance use type: denies use current occupational status: retired Travel in the last 8 weeks?: None adopted: No caregiver/support person: No foster care: No household members: none housing: house lives independently: Yes marital status: number of children: 2 number of grandchildren: 5 education level: high school service: No current occupation: she is retired; 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 current occupational exposures/hazards: No Hx Recent Travel: No sexually active: No caffeine: Yes physical activity: none working smoke detector in home: Yes fire extinguisher in home: Yes carbon monox detector in home: No firearms in home: No do you feel safe at home: Yes victim of physical abuse: No victim of emotional abuse: No victim of sexual abuse: No would you like helpful sources: No Have you lived/traveled outside [place] in past 30 days?: No Contact w/someone who lives/traveled outside US past 30 days?: No Exposure to someone with infectious disease in past 14 days?: No Do you have a fever (greater than 100.4 F or 38 C)?: No Have you tested positive for COVID-19?: No Exposed to someone with COVID-19 in past 14 days?: No Do you have a sore throat?: No Do you have a cough?: No Do you have any weakness?: No Do you have any diarrhea?: No Are you experiencing any unusual bleeding?: No Do you have any muscle aches/pain?: No Do you have any abdominal pain?: Yes Are you experiencing loss of taste or smell?: No Other Medical History Have you received the Flu Vaccine for this season: No Have you received the Pneumonia Vaccine: No ROS Obtained: Yes Systems reviewed as appropriate & no additional complaints except as documented Physical Exam General General appearance: alert and in no apparent distress Head Head exam: atraumatic Eye Eye exam: Present normal appearance ENT ENT exam: Present normal external ear exam Neck Neck exam: Present full ROM Chest Chest inspection: Present symmetric chest wall rise Respiratory Respiratory exam: Present normal lung sounds bilaterally; Absent respiratory distress, wheezes or stridor Cardiovascular Cardiovascular exam: Present regular rate and normal rhythm Abdominal Exam Abdominal exam: Present soft and tenderness (epigastric and LUQ); Absent guarding or rigidity Extremities Exam Extremities exam: Present normal inspection Back Exam Back exam: Present normal inspection Neurological Exam Neurological exam: Present alert and oriented X3 Psychiatric Psychiatric exam: Present normal affect Skin Skin exam: Present warm and dry Medical Decision Making Medical Records Screening: Per USPSTF and CDC recommendations, given the prevalence of disease in our region, it is our hospital?s policy to screen for HIV and viral Hepatitis for all patients aged 18 and over and those with ongoing risk factors. Patrick Inquiry Pt receiving controlled substance: No Vital Signs: 07/28/25 06:58 07/28/25 07:21 07/28/25 07:41 Temperature 98.1 F Temperature Source Oral Pulse Rate 39 L 37 L Pulse Rate [Left] 95 H Respiratory Rate 17 Blood Pressure 186/72 H 197/73 H Blood Pressure [Right Arm] 190/77 H Blood Pressure Mean [Right Arm] 114 Blood Pressure Source [Right Arm] Manual Cuff/ Doppler Blood Pressure Position [Right Arm] Sitting 02 Sat by Pulse Oximetry 97 96 97 Oxygen Delivery Method Room Air Room Air 07/28/25 07:58 07/28/25 08:07 07/28/25 08:41 Temperature Temperature Source Pulse Rate 83 42 L 74 Pulse Rate [Left] Respiratory Rate 16 15 22 Blood Pressure 177/61 H 185/89 H 166/123 H Blood Pressure [Right Arm] Blood Pressure Mean [Right Arm] Blood Pressure Source [Right Arm] Blood Pressure Position [Right Arm] 02 Sat by Pulse Oximetry 96 96 98 Oxygen Delivery Method Room Air Room Air 07/28/25 09:01 07/28/25 09:41 07/28/25 10:03 Temperature Temperature Source Pulse Rate 81 38 L 36 L Pulse Rate [Left] Respiratory Rate 17 13 19 Blood Pressure 165/53 H 187/70 H 201/73 H Blood Pressure [Right Arm] Blood Pressure Mean [Right Arm] Blood Pressure Source [Right Arm] Blood Pressure Position [Right Arm] 02 Sat by Pulse Oximetry 96 97 97 Oxygen Delivery Method Room Air 07/28/25 10:21 07/28/25 10:40 07/28/25 13:18 Temperature Temperature Source Pulse Rate 59 L 79 38 L Pulse Rate [Left] Respiratory Rate 20 19 19 Blood Pressure 188/90 H 184/87 H 146/65 H Blood Pressure [Right Arm] Blood Pressure Mean [Right Arm] Blood Pressure Source [Right Arm] Blood Pressure Position [Right Arm] 02 Sat by Pulse Oximetry 96 98 97 Oxygen Delivery Method 07/28/25 13:21 07/28/25 13:30 07/28/25 13:38 Temperature Temperature Source Pulse Rate 38 L 83 79 Pulse Rate [Left] Respiratory Rate 17 14 14 Blood Pressure 153/69 H 133/82 130/90 Blood Pressure [Right Arm] Blood Pressure Mean [Right Arm] Blood Pressure Source [Right Arm] Blood Pressure Position [Right Arm] 02 Sat by Pulse Oximetry 98 97 96 Oxygen Delivery Method 07/28/25 13:40 Temperature Temperature Source Pulse Rate 68 Pulse Rate [Left] Respiratory Rate 14 Blood Pressure 124/72 Blood Pressure [Right Arm] Blood Pressure Mean [Right Arm] Blood Pressure Source [Right Arm] Blood Pressure Position [Right Arm] 02 Sat by Pulse Oximetry 98 Oxygen Delivery Method Lab Data Lab Results 07/28/25 06:47: Urine Color Yellow, Urine Appearance Clear, Urine pH 6.0, Ur Specific [place] 1.010, Urine Protein Negative, Urine Glucose (UA) Negative, Urine Ketones Negative, Urine Blood Negative, Urine Nitrate Negative, Urine Bilirubin Negative, Urine Urobilinogen 0.2, Ur Leukocyte Esterase Negative, Urine RBC None, Urine WBC Occasional, Ur Squamous Epith Cells None, Urine Bacteria Trace 07/28/25 08:06: WBC 11.2 H, RBC 4.53, Hgb 13.1, Hct 40.4, MCV 89.2, MCH 28.9, MCHC 32.4, RDW 13.8, Plt Count 244, MPV 10.3, Neut % (Auto) 74.7, Lymph % (Auto) 15.5, Hale % (Auto) 6.5, Eos % (Auto) 2.2, Baso % (Auto) 0.7, Neut # (Auto) 8.4 H, Lymph # (Auto) 1.7, Hale # (Auto) 0.7, Eos # (Auto) 0.3, Baso # (Auto) 0.1, Sodium 143, Potassium 4.8, Chloride 103, Carbon Dioxide 29, Anion Gap 15.8 H, BUN 17, Creatinine 1.20 H, Estimated Creat Clear 64, Estimated GFR 45 L, Est GFR ( Amer) 54 L, Glucose 128 H, Calcium 9.7, Total Bilirubin 0.6, AST 27, ALT 23, Alkaline Phosphatase 59, Troponin I < 0.01, Total Protein 8.3 H, Albumin 4.5, Globulin 3.8 H, Albumin/Globulin Ratio 1.2, Lipase 180 07/28/25 10:56: Magnesium 2.0, Troponin I < 0.01 07/28/25 08:06 07/28/25 08:06 Orders (Tests/Meds): ED MEDICATIONS Generic Name Dose Route Start Last Admin Trade Name Freq PRN Reason Stop Dose Admin Acetaminophen 650 mg 07/28/25 12:31 Acetaminophen 325mg Tab PO 08/27/25 12:30 Q4HP PRN Fever or Mild Pain (1-3) Hydrocodone Bitart/Acetaminophen 1 tab 07/28/25 12:31 Hydrocodone/Apap 5/325 Mg Tablet PO 08/27/25 12:30 Q4HP PRN Mild to Moderate Pain (1-6) Amiodarone HCl 400 mg 07/29/25 13:00 Amiodarone 200mg Tablet PO 08/28/25 12:59 TID FOZIA Enoxaparin Sodium 40 mg 07/28/25 12:45 Enoxaparin 40mg/0.4ml Syringe SUBCUT 08/27/25 12:44 DAILY FOZIA Furosemide 20 mg 07/29/25 09:00 Furosemide 20mg Tablet PO 08/28/25 08:59 MOWEFR FOZIA Amiodarone HCl 900 mg/ 518 mls @ 34.533 mls/hr 07/28/25 12:30 07/28/25 13:44 Dextrose IV 07/29/25 03:30 1 mg/min .Q15H1M FOZIA 34.53 mls/hr Protocol Administration 1 MG/MIN Lisinopril 40 mg 07/28/25 14:00 Lisinopril 20mg Tablet PO 08/27/25 13:59 DAILY FOZIA Pantoprazole Sodium 40 mg 07/28/25 21:00 Pantoprazole 40mg Tablet PO 08/27/25 20:59 HS FOZIA Pravastatin Sodium 40 mg 07/28/25 21:00 Pravastatin 40mg Tab PO 08/27/25 20:59 HS FOZIA Sodium Chloride 10 ml 07/28/25 12:44 Sodium Chloride 0.9% 10ml Flush Syringe IV 08/27/25 12:43 NEEDED PRN Maintain IV Site Spironolactone 25 mg 07/28/25 14:00 Spironolactone 25mg Tablet PO 08/27/25 13:59 DAILY FOZIA Discontinued Medications Generic Name Dose Route Start Last Admin Trade Name Freq PRN Reason Stop Dose Admin Amiodarone HCl 150 mg/ 103 mls @ 618 mls/hr 07/28/25 12:16 07/28/25 13:43 Dextrose IV 07/28/25 12:25 Infused ONCE ONE Infusion Protocol Iopamidol 75 ml 07/28/25 08:22 07/28/25 08:23 Iopamidol-370 (76%);100ml Bottle IV 07/28/25 08:23 75 ml ONCE ONE Administration Pantoprazole Sodium 40 mg 07/28/25 07:35 07/28/25 08:11 Pantoprazole 40mg Tablet PO 07/28/25 07:36 40 mg ONCE ONE Administration Sodium Chloride 10 ml 07/28/25 08:22 07/28/25 08:23 Sodium Chloride 0.9% 10ml Syr (Rad Only) IV 07/28/25 08:23 10 ml ONCE ONE Administration ORDERS Category Date Time Status CT abdomen pelvis w con Stat Cat Scan 07/28/25 07:35 Completed Cardiology Consult [Consult to Cardiology] [CONS] Cons 07/28/25 12:31 Active Routine CBC w/Auto Diff [Complete Blood Count Auto Diff] Stat Lab 07/28/25 08:06 Completed CMP [Comprehensive Metabolic Panel] Stat Lab 07/28/25 08:06 Completed Complete Blood Count Auto Diff AMLAB Lab 07/29/25 06:00 Ordered Comprehensive Metabolic Panel AMLAB Lab 07/29/25 06:00 Ordered Lipase Stat Lab 07/28/25 08:06 Completed Magnesium AMLAB Lab 07/29/25 06:00 Ordered Magnesium Routine Lab 07/28/25 10:56 Completed Troponin I Q3H Lab 07/28/25 10:56 Completed Troponin I Q3H Lab 07/28/25 13:50 Received Troponin I Stat Lab 07/28/25 08:06 Completed Urinalysis and Microscopic Stat Lab 07/28/25 06:47 Completed ECG Data Tracing #1: I reviewed this ECG and interpreted as documented below: Normal sinus rhythm. No ST elevation or depression. QTc normal at 410 Tracing #2: I reviewed this ECG and interpreted as documented below: Normal sinus rhythm with frequent PVCs consistent with bigeminy. STEMI Medical Decision Narrative: Malgorzata Anderson is a-year-old female with past medical history of heart murmur, extra heartbeats , hypertension, HFpEF, chronic shoulder pain, GERD on famotidine, s/p cholecystectomy, Who presents to the emergency department for complaints of upper abdominal pain and bloating for the past month. Patient states that intermittently she will have pain and nausea in the upper part of her abdomen and feel bloated. She has not had any vomiting. She denies any diarrhea or constipation. She states that she will have a bowel movement approximately every 2 to 3 days. She states that she has been seen by her glue bone drier, PCP and urgent treatment care over the past month for these issues. She has been taking famotidine without relief. She is also taking Gas-X without relief. She has had a colonoscopy in the past but has not seen GI for these issues. She reports that she is scheduled to see her glue bone drier later this morning. She denies any alcohol use or tobacco use. On arrival, patient is hypertensive, heart rate in the 80s at the time of my evaluation. Afebrile. Oxygen saturation 96% on room air. Physical exam, stated above, revealed overall well-appearing female in no distress. Cardiopulmonary exam without murmur, rub. Abdomen is overall soft and nondistended. She has some tenderness in the epigastric and left upper quadrant. No guarding or peritonitis. Differential diagnosis includes, but is not limited to: Gastroesophageal reflux disease, peptic ulcer disease, ACS, GERD, indigestion, acute pancreatitis, gastroparesis, among others. The most morbid conditions were considered and workup was based on these. Workup in the emergency department included: Hematologic labs, urinalysis, CT abdomen pelvis with IV contrast, EKG and troponin Per cardiology note from 06/27: 2 week event monitor-(2024) NSR/PAC/atrial couplets/atrial runs/PSVT/PVC/Ventricular couplets/ventricular runs/AIVR/Ventricular tachycardia (up to 6 beats, 154 bpm) -EP evaluation in [place], [place]. Intolerant of Flecainide (back pain) and metoprolol (bradycardia) Stable from a CV standpoint. Plan: Start Lasix MWF for elevated right heart pressure/diastolic dysfunction which may help her palpitations. She is apprehensive to try additional meds for palpitations. We discussed referring her back to EP for ablation if symptoms continue. Routine labs, BMP, and Mag in 2 weeks Initial EKG showed normal sinus rhythm with no ischemic changes. Shortly after, patient noted to have a rhythm change on the monitor that was concerning for bigeminy. Repeat EKG was obtained and was consistent with bigeminy. Patient noted to be flipping in and out of normal sinus rhythm and bigeminy here in the emergency department. Workup shows mild leukocytosis with white cell count of 11.2, no neutrophilia, electrolytes within normal limits. Mild ALVARO with creatinine of 1.2 but BUN normal at 17. Magnesium normal at 2. Initial troponin less than 0.01 and repeat also negative. Liver enzymes and bilirubin within normal limits. Lipase normal at 180. Urinalysis without blood or evidence of infection. CT abdomen pelvis was interpreted by me personally. No acute findings. Per radiology, noted to have mild to moderate fatty infiltration of the liver, status post cholecystectomy. Small cysts or follicles are present on the right ovary seen on the prior exam. No other acute findings are noted. On reassessment, patient has remained in and out of bigeminy. I do feel that some of her symptoms could be explained by palpitations that she is experiencing given her bigeminy. I discussed patient's case with Dr. Layne of cardiology for further recommendations. He recommended starting patient on IV amiodarone and admitting her for monitoring and likely discharge tomorrow on p.o. amiodarone. I discussed this with patient and she is in agreement with this plan. I then discussed patient's case with Dr. Ng of the hospital medicine service who was in agreement to admit the patient for further management. Patient was started on IV amiodarone bolus and drip at this time. Critical Care Critical Care Time Critical Care Time: Yes Attestation: On 07/28/25, the high probability of a clinically significant, sudden or life threatening deterioration of the following system(s) required my full and direct attention, intervention and personal management. The time I documented below is in addition to time spent performing reported procedures but includes the following listed in this critical care notation. Total Time Total Critical Care Time: 35
--- NOTE | 2025-07-28 07:49 | ECG_ITS ---
APPROVED REPORT Exam: Resting ECG HR:72 bpm ECG Measurements Heart Rate 72 AXES GA 151 P 50 QRSd 85 QRS 41 QT 386 T 69 QTc 410 Conclusion SINUS RHYTHM LOW QRS VOLTAGE IN PRECORDIAL LEADS [QRS DEFLECTION < 1.0 mV IN CHEST LEADS] No STEMI Electronically signed by : KARSON HAZEL, 07/29/2025 06:41:43
[2025-07-28] MEDS: PANTOPRAZOLE 40MG TABLET 40 MG PO (08:11)
[2025-07-28 08:14] LABS: Hematocrit 40.4 % (37.0-47.0); Hemoglobin 13.1 g/dL (12.2-16.2); Immature Granulocytes % 0.4 %; Mean Corpuscular HGB Conc 32.4 g/dL (31.8-35.4); Mean Corpuscular Hemoglobin 28.9 pg (27.0-31.2); Mean Corpuscular Volume 89.2 fl (81-99); Nucleated Red Blood Cells % 0 %; Platelet Count 244 K/mm3 (142-424); Red Blood Count 4.53 M/mm3 (4.20-5.40); Red Cell Distribution Width-SD 44.6 fL; White Blood Count 11.2 K/mm3 (4.8-10.8)
--- NOTE | 2025-07-28 08:14 | ECG_ITS ---
APPROVED REPORT Exam: Resting ECG HR:72 bpm ECG Measurements Heart Rate 72 AXES [place] 166 P 57 QRSd 77 QRS 46 QT 409 T 72 QTc 434 Conclusion SINUS RHYTHM WITH FREQUENT VENTRICULAR PREMATURE COMPLEXES IN A BIGEMINAL PATTERN MODERATE ST DEPRESSION [0.05+ mV ST DEPRESSION] No STEMI Electronically signed by : KARSON HAZEL, 07/29/2025 06:42:08
[2025-07-28 08:23] LABS: Bacteria,Urine Trace /lpf; WBC,Urine Occasional #/hpf (0-3)
[2025-07-28 08:23] LABS: Albumin Level 4.5 g/dl (3.5-5.0); Chloride 103 mmol/L (98-107); Potassium 4.8 mmoL/L (3.5-5.1); Sodium 143 mmol/L (136-145)
[2025-07-28] MEDS: IOPAMIDOL-370 (76%);100ML BOTTLE 75 ML IV (08:23)
[2025-07-28] MEDS: SODIUM CHLORIDE 0.9% 10ML SYR (RAD ONLY) 10 ML IV (08:23)
[2025-07-28 08:26] LABS: Alanine Aminotransferase 23 U/L (12-78); Albumin/Globulin Ratio 1.2 (1.1-1.8); Alkaline Phosphatase 59 U/L (38-126); Anion Gap 15.8 mEq/L (5-15); Aspartate Amino Transferase 27 U/L (14-36); Bilirubin,Total 0.6 mg/dl (0.2-1.3); Blood Urea Nitrogen 17 mg/dl (7-17); Calcium 9.7 mg/dl (8.4-10.2); Carbon Dioxide 29 mmol/L (22.0-30.0); Creatinine Clearance Estimated 64 mL/min (50-200); Creatinine,Serum 1.20 mg/dl (0.52-1.04); Estimated Glomerular Filt Rate 45 ml/min (>60); GFR (African American) 54 ML/MIN (>60); Globulin 3.8 g/dL (1.3-3.2); Glucose 128 mg/dl (74-100); Lipase 180 U/L (23-300); Total Protein,Serum 8.3 g/dl (6.3-8.2)
[2025-07-28 08:39] LABS: Troponin I < 0.01 ng/ml (0.00-0.034)
--- NOTE | 2025-07-28 11:16 | PC.NURSE ---
Sunil GARCIA is speaking with the cardiology clinic requesting a consult per .
[2025-07-28 11:45] LABS: Troponin I < 0.01 ng/ml (0.00-0.034)
--- NOTE | 2025-07-28 12:34 | EXP.HP ---
[facility] Disclaimer: The information contained in this section may have been updated after the patient was seen, as this information can be updated by other users. Medical History Nasal congestion Itching Suprapubic pain Epigastric pain Infection due to Citrobacter UTI Nausea Breast cancer screening by mammogram Left shoulder pain Ventricular tachycardia PVCs (premature ventricular contractions) Tachycardia Sinusitis Dysphagia Screening for colon cancer Routine lab draw Family history of renal cell carcinoma Hypertrophic lichen planus of vulva Erosive lichen planus of vulva Vulvar itching ASCUS with positive high risk HPV cervical Cataract Atrophic vaginitis Urinary tract infection Sleep apnea History of gastroesophageal reflux (GERD) History of cataract Heart murmur History of anemia History of seizure Urinary tract infection symptoms Facial neuropathy Left sided after dental work 10/2023 Epigastric pain Blood glucose elevated Yeast dermatitis Edema UTI (urinary tract infection) Vaginal yeast infection Viral illness Encounter for monitoring diuretic therapy Sore throat Elevated blood pressure reading in office with diagnosis of hypertension Wheezing Patient left before triage assessment Acute dyspnea Allergic rhinitis Lung nodule seen on imaging study Sinusitis Diastolic dysfunction Established with Dr. Sharpe Sinus bradycardia Ventricular bigeminy Essential hypertension Hyperlipemia Hypothyroid Surgical History History of colonoscopy 10/2023, polypectomy, repeat in 5 years S/P lymph node biopsy Hx of cholecystectomy Family History Unknown Cancer Other Diabetes Heart attack Hypertension Social History Smoking Status: Never smoker second hand exposure: No alcohol intake: never substance use type: denies use current occupational status: retired Travel in the last 8 weeks?: None adopted: No caregiver/support person: No foster care: No household members: none housing: house lives independently: Yes marital status: number of children: 2 number of grandchildren: 5 education level: high school service: No current occupation: she is retired; 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 current occupational exposures/hazards: No Hx Recent Travel: No sexually active: No caffeine: Yes physical activity: none working smoke detector in home: Yes fire extinguisher in home: Yes carbon monox detector in home: No firearms in home: No do you feel safe at home: Yes victim of physical abuse: No victim of emotional abuse: No victim of sexual abuse: No would you like helpful sources: No Have you lived/traveled outside [place] in past 30 days?: No Contact w/someone who lives/traveled outside US past 30 days?: No Exposure to someone with infectious disease in past 14 days?: No Do you have a fever (greater than 100.4 F or 38 C)?: No Have you tested positive for COVID-19?: No Exposed to someone with COVID-19 in past 14 days?: No Do you have a sore throat?: No Do you have a cough?: No Do you have any weakness?: No Do you have any diarrhea?: No Are you experiencing any unusual bleeding?: No Do you have any muscle aches/pain?: No Do you have any abdominal pain?: Yes Are you experiencing loss of taste or smell?: No Other Medical History Have you received the Flu Vaccine for this season: No Have you received the Pneumonia Vaccine: No Meds Home Medications and Allergies Home Medications ?Medication ?Instructions ?Recorded ?Confirmed ?Type famotidine 20 mg tablet 20 mg PO BID 03/20/24 07/06/25 History pravastatin 40 mg tablet 40 mg PO HS 03/20/24 07/06/25 History cetirizine 10 mg tablet 10 mg PO DAILY 03/29/24 07/06/25 History magnesium 200 mg tablet 400 mg PO HS 08/09/24 07/06/25 History spironolactone 25 mg tablet 25 mg PO DAILY #90 tabs 10/22/24 07/06/25 Rx lisinopril 40 mg tablet 40 mg PO DAILY #90 tabs 11/22/24 07/06/25 Rx allopurinol 100 mg tablet 100 mg PO DAILY #90 tabs 02/02/25 07/06/25 Rx fluticasone propionate 50 intranasal 05/02/25 07/06/25 History mcg/actuation nasal spray,suspension furosemide 20 mg tablet 20 mg PO .MWF edema 90 days #90 06/27/25 07/06/25 Rx tabs levothyroxine 50 mcg tablet 50 mcg PO QAM #90 tabs 07/04/25 07/06/25 Rx azithromycin 250 mg tablet See Rx Instructions PO .COMPLEX #6 07/06/25 07/06/25 Rx tabs levofloxacin 750 mg tablet 750 mg PO DAILY 5 days #5 tabs 07/10/25 Rx fluconazole 150 mg tablet 150 mg PO Q3D 2 doses #2 tabs 07/12/25 Rx nystatin 100,000 unit/gram topical 1 applic topical TID #15 grams 07/12/25 Rx cream New Prescriptions to Start Prescriptions: Allergies Allergy/AdvReac Type Severity Reaction Status Date / Time sacubitril (From Entresto) Allergy Intermediate Unknown Verified 07/06/25 14:06 allergy reaction amlodipine Allergy Mild Other Verified 07/06/25 14:06 carvedilol Allergy Mild Other Verified 07/06/25 14:06 atropine (From URISED) Allergy Unknown Unknown Verified 07/06/25 14:06 allergy reaction ciprofloxacin (From Cipro) Allergy Unknown Unknown Verified 07/06/25 14:06 allergy reaction gentamicin (Gentamicin) Allergy Unknown Unknown Verified 07/06/25 14:06 allergy reaction methenamine (From URISED) Allergy Unknown Unknown Verified 07/06/25 14:06 allergy reaction neomycin Allergy Unknown Unknown Verified 07/06/25 14:06 allergy reaction nitrofurantoin (From Allergy Unknown Unknown Verified 07/06/25 14:06 Macrobid) allergy reaction Penicillins Allergy Unknown Unknown Verified 07/06/25 14:06 allergy reaction polymyxin B Allergy Unknown Unknown Verified 07/06/25 14:06 allergy reaction salicylates (From Urised) Allergy Unknown Unknown Verified 07/06/25 14:06 allergy reaction sulfamethoxazole (From Allergy Unknown Unknown Verified 07/06/25 14:06 Septra) allergy reaction trimethoprim (From Septra) Allergy Unknown Unknown Verified 07/06/25 14:06 allergy reaction valsartan AdvReac Intermediate Unknown Verified 07/06/25 14:06 allergy reaction latex AdvReac Rash Verified 07/06/25 14:06 Exam Data for Last 24 hours Vital signs and Labs for Last 24 Hours: Temp Pulse Resp BP Pulse Ox O2 Del Method 98.1 F 79 19 184/87 H 98 Room Air 07/28/25 06:58 07/28/25 10:40 07/28/25 10:40 07/28/25 10:40 07/28/25 10:40 07/28/25 09:01 Laboratory Results - last 24 hr 07/28/25 06:47: Urine Color Yellow, Urine Appearance Clear, Urine pH 6.0, Ur Specific [place] 1.010, Urine Protein Negative, Urine Glucose (UA) Negative, Urine Ketones Negative, Urine Blood Negative, Urine Nitrate Negative, Urine Bilirubin Negative, Urine Urobilinogen 0.2, Ur Leukocyte Esterase Negative, Urine RBC None, Urine WBC Occasional, Ur Squamous Epith Cells None, Urine Bacteria Trace 07/28/25 08:06: WBC 11.2 H, RBC 4.53, Hgb 13.1, Hct 40.4, MCV 89.2, MCH 28.9, MCHC 32.4, RDW 13.8, Plt Count 244, MPV 10.3, Neut % (Auto) 74.7, Lymph % (Auto) 15.5, Bee % (Auto) 6.5, Eos % (Auto) 2.2, Baso % (Auto) 0.7, Neut # (Auto) 8.4 H, Lymph # (Auto) 1.7, Bee # (Auto) 0.7, Eos # (Auto) 0.3, Baso # (Auto) 0.1, Sodium 143, Potassium 4.8, Chloride 103, Carbon Dioxide 29, Anion Gap 15.8 H, BUN 17, Creatinine 1.20 H, Estimated Creat Clear 64, Estimated GFR 45 L, Est GFR ( Amer) 54 L, Glucose 128 H, Calcium 9.7, Total Bilirubin 0.6, AST 27, ALT 23, Alkaline Phosphatase 59, Troponin I < 0.01, Total Protein 8.3 H, Albumin 4.5, Globulin 3.8 H, Albumin/Globulin Ratio 1.2, Lipase 180 07/28/25 10:56: Troponin I < 0.01 I & O for Last 24 hours: Intake & Output 07/25/25 07/26/25 07/27/25 07/28/25 23:59 23:59 23:59 23:59 Weight 91.626 kg
--- NOTE | 2025-07-28 12:43 | HMH.PHAINT1 ---
Pharmacy Intervention Comments: MEDICATION RECONCILIATION COMPLETED ON PATIENT USING EXTERNAL FILL HISTORY FROM PHARMACY AND LIST FROM CARDIOLOGY OFFICE. -MALENA AZUL, TAYD
[2025-07-28 12:48] LABS: Magnesium 2.0 mg/dl (1.6-2.3)
[2025-07-28] MEDS: AMIODARONE HCL 150 MG in DEXTROSE 5 % IN WATER 100 ML 618 MG IV (13:23)
--- NOTE | 2025-07-28 13:25 | PC.NURSE ---
attempted to call report to ICU at this time, unable to d/t room not clean. reports they will call me back when ready
[2025-07-28] MEDS: AMIODARONE HCL 900 MG in DEXTROSE 5 % IN WATER 500 ML 34.53 MG IV (13:44)
--- NOTE | 2025-07-28 14:10 | PC.NURSE ---
Called the ICU to see if the room was clean, they said that it was still dirty.
[2025-07-28 14:38] LABS: Troponin I < 0.01 ng/ml (0.00-0.034)
--- NOTE | 2025-07-28 15:14 | PC.NURSE ---
call made to respiratory for 2 week event monitor to be placed
--- NOTE | 2025-07-28 15:18 | EXP.CARD.CON ---
History of Present Illness History of Present Illness Consult date: 07/28/25 Requesting physician: Raheel Abraham Chief complaint: Abdominal pain History of present illness: This is a 69-year-old white female who presented to the emergency department with abdominal pain and feeling sick. She states that the pain is in her right upper quadrant and makes her nauseous. She states that she saw her PCP last week who told her that she had stool and her colon. Her last bowel movement was 3 days ago. She states that she has been taking medications to help her have bowel movements but she feels like really are not helping her. She denies any chest pain or pressure. She denies any shortness of breath or edema. She denies any fever, chills, vomiting or diarrhea. While in the emergency department the patient was found to have ventricular bigeminy so cardiology was consulted. The patient has a history of having PVCs and has been intolerant to beta-blockers and flecainide in the past. Beta-blockers caused significant bradycardia and flecainide caused back pain. [facility] Disclaimer: The information contained in this section may have been updated after the patient was seen, as this information can be updated by other users. Medical History (Updated 07/28/25 @ 15:22 by Lianne Reyes APRN) Bigeminal rhythm Nasal congestion Itching Suprapubic pain Epigastric pain Infection due to Citrobacter Nausea Breast cancer screening by mammogram Left shoulder pain Ventricular tachycardia PVCs (premature ventricular contractions) Tachycardia Sinusitis Dysphagia Screening for colon cancer Routine lab draw Family history of renal cell carcinoma Hypertrophic lichen planus of vulva Erosive lichen planus of vulva Vulvar itching ASCUS with positive high risk HPV cervical Cataract Atrophic vaginitis Urinary tract infection Sleep apnea History of gastroesophageal reflux (GERD) History of cataract Heart murmur History of anemia History of seizure Urinary tract infection symptoms Facial neuropathy Epigastric pain Blood glucose elevated Yeast dermatitis Edema UTI (urinary tract infection) Vaginal yeast infection Viral illness Encounter for monitoring diuretic therapy Sore throat Elevated blood pressure reading in office with diagnosis of hypertension Wheezing Patient left before triage assessment Acute dyspnea Allergic rhinitis Lung nodule seen on imaging study Sinusitis Diastolic dysfunction Sinus bradycardia Ventricular bigeminy Essential hypertension Hyperlipemia Hypothyroid Surgical History History of colonoscopy S/P lymph node biopsy Hx of cholecystectomy Family History Unknown Cancer Other Diabetes Heart attack Hypertension Social History Smoking Status: Never smoker second hand exposure: No alcohol intake: never substance use type: denies use current occupational status: retired Travel in the last 8 weeks?: None adopted: No caregiver/support person: No foster care: No household members: none housing: house lives independently: Yes marital status: number of children: 2 number of grandchildren: 5 education level: high school service: No current occupation: 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 retired; 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 current occupational exposures/hazards: No Hx Recent Travel: No sexually active: No caffeine: Yes physical activity: none working smoke detector in home: Yes fire extinguisher in home: Yes carbon monox detector in home: No firearms in home: No do you feel safe at home: Yes victim of physical abuse: No victim of emotional abuse: No victim of sexual abuse: No would you like helpful sources: No Review of Systems Review of Systems Review of systems:: pertinent systems reviewed and negative unless documented below Constitutional Constitutional: Reports system reviewed and no additional complaints, except as documented Eyes Eyes: Reports system reviewed and no additional complaints, except as documented ENT Ears, Nose, Mouth, and Throat: Reports system reviewed and no additional complaints, except as documented *Cardiovascular Cardiovascular: Reports system reviewed and no additional complaints, except as documented, Denies chest pain and Denies dyspnea *Respiratory Respiratory: Reports system reviewed and no additional complaints, except as documented and Denies dyspnea *Gastrointestinal Gastrointestinal: Reports system reviewed and no additional complaints, except as documented, Reports abdominal pain and Reports nausea *Genitourinary Genitourinary: Reports system reviewed and no additional complaints, except as documented *Musculoskeletal Musculoskeletal: Reports system reviewed and no additional complaints, except as documented Integumentary/Breasts Skin/Breast: Reports system reviewed and no additional complaints, except as documented *Neurologic Neurologic: Reports system reviewed and no additional complaints, except as documented Psychiatric Psychiatric: Reports system reviewed and no additional complaints, except as documented Endocrine Endocrine: Reports system reviewed and no additional complaints, except as documented Hematologic/Lymphatic Hematologic/Lymphatic: Reports system reviewed and no additional complaints, except as documented Allergic/Immunologic Allergic/Immunologic: Reports system reviewed and no additional complaints, except as documented Exam Data for Last 24 hours Vital signs and Labs for Last 24 Hours: Temp Pulse Resp BP Pulse Ox O2 Del Method 98.1 F 61 12 146/94 H 96 Room Air 07/28/25 06:58 07/28/25 14:41 07/28/25 14:41 07/28/25 14:41 07/28/25 14:41 07/28/25 09:01 Laboratory Results - last 24 hr 07/28/25 06:47: Urine Color Yellow, Urine Appearance Clear, Urine pH 6.0, Ur Specific [place] 1.010, Urine Protein Negative, Urine Glucose (UA) Negative, Urine Ketones Negative, Urine Blood Negative, Urine Nitrate Negative, Urine Bilirubin Negative, Urine Urobilinogen 0.2, Ur Leukocyte Esterase Negative, Urine RBC None, Urine WBC Occasional, Ur Squamous Epith Cells None, Urine Bacteria Trace 07/28/25 08:06: WBC 11.2 H, RBC 4.53, Hgb 13.1, Hct 40.4, MCV 89.2, MCH 28.9, MCHC 32.4, RDW 13.8, Plt Count 244, MPV 10.3, Neut % (Auto) 74.7, Lymph % (Auto) 15.5, [place] % (Auto) 6.5, Eos % (Auto) 2.2, Baso % (Auto) 0.7, Neut # (Auto) 8.4 H, Lymph # (Auto) 1.7, [place] # (Auto) 0.7, Eos # (Auto) 0.3, Baso # (Auto) 0.1, Sodium 143, Potassium 4.8, Chloride 103, Carbon Dioxide 29, Anion Gap 15.8 H, BUN 17, Creatinine 1.20 H, Estimated Creat Clear 64, Estimated GFR 45 L, Est GFR ( Amer) 54 L, Glucose 128 H, Calcium 9.7, Total Bilirubin 0.6, AST 27, ALT 23, Alkaline Phosphatase 59, Troponin I < 0.01, Total Protein 8.3 H, Albumin 4.5, Globulin 3.8 H, Albumin/Globulin Ratio 1.2, Lipase 180 07/28/25 10:56: Magnesium 2.0, Troponin I < 0.01 07/28/25 13:50: Troponin I < 0.01 I & O for Last 24 hours: Intake & Output 07/25/25 07/26/25 07/27/25 07/28/25 23:59 23:59 23:59 23:59 Intake Total 152.493 / 152.493 Balance 152.493 / 152.493 Weight 202 lb Constitutional Constitutional: no acute distress and average body habitus *Routine HEENT Exam Head: Present normocephalic and atraumatic ENT: Present mucous membranes moist *Routine Neck Exam Neck: Present supple, full ROM and normal carotid upstroke; Absent JVD, carotid bruit or lymphadenopathy *Routine Respiratory Exam Respiratory: Present CTA bilaterally, normal respiratory effort, able to speak in complete sentences and symmetric chest movement *Routine Cardiovascular Exam Cardiovascular: Present RRR, Normal S1 and Normal S2; Absent murmur or gallop *Routine Abdominal Exam Abdominal: Present soft and normoactive bowel sounds; Absent tenderness, distended or organomegaly *Routine Extremities Exam Extremities: Present full ROM, pulses intact and normal capillary refill; Absent cyanosis, clubbing or edema *Routine Skin Exam Skin: Present intact and warm; Absent erythema *Routine Neurological Exam Neurological: Present alert, oriented X3 and CN II-XII intact; Absent sensory deficit or motor deficit Routine Psychiatric Exam Psychiatric: Present normal affect Meds Home Medications and Allergies Home Medications ?Medication ?Instructions ?Recorded ?Confirmed ?Type cetirizine 10 mg tablet 10 mg PO DAILY 03/29/24 07/28/25 History spironolactone 25 mg tablet 25 mg PO DAILY #90 tabs 10/22/24 07/28/25 Rx lisinopril 40 mg tablet 40 mg PO DAILY #90 tabs 11/22/24 07/28/25 Rx allopurinol 100 mg tablet 100 mg PO DAILY #90 tabs 02/02/25 07/28/25 Rx fluticasone propionate 50 1 spray intranasal DAILY 05/02/25 07/28/25 History mcg/actuation nasal spray,suspension amiodarone 400 mg tablet 400 mg PO TID 14 days #42 tabs 07/28/25 Rx furosemide 20 mg tablet 20 mg PO MOWEFR 07/28/25 07/28/25 History levothyroxine 50 mcg tablet 50 mcg PO DAILY 07/28/25 07/28/25 History pravastatin 40 mg tablet 40 mg PO HS 07/28/25 07/28/25 History New Prescriptions to Start Prescriptions: amiodarone Raheel Abraham Allergies Allergy/AdvReac Type Severity Reaction Status Date / Time sacubitril (From Entresto) Allergy Intermediate Unknown Verified 07/06/25 14:06 allergy reaction amlodipine Allergy Mild Other Verified 07/06/25 14:06 carvedilol Allergy Mild Other Verified 07/06/25 14:06 atropine (From URISED) Allergy Unknown Unknown Verified 07/06/25 14:06 allergy reaction ciprofloxacin (From Cipro) Allergy Unknown Unknown Verified 07/06/25 14:06 allergy reaction gentamicin (Gentamicin) Allergy Unknown Unknown Verified 07/06/25 14:06 allergy reaction methenamine (From URISED) Allergy Unknown Unknown Verified 07/06/25 14:06 allergy reaction neomycin Allergy Unknown Unknown Verified 07/06/25 14:06 allergy reaction nitrofurantoin (From Allergy Unknown Unknown Verified 07/06/25 14:06 Macrobid) allergy reaction Penicillins Allergy Unknown Unknown Verified 07/06/25 14:06 allergy reaction polymyxin B Allergy Unknown Unknown Verified 07/06/25 14:06 allergy reaction salicylates (From Urised) Allergy Unknown Unknown Verified 07/06/25 14:06 allergy reaction sulfamethoxazole (From Allergy Unknown Unknown Verified 07/06/25 14:06 Septra) allergy reaction trimethoprim (From Septra) Allergy Unknown Unknown Verified 07/06/25 14:06 allergy reaction valsartan AdvReac Intermediate Unknown Verified 07/06/25 14:06 allergy reaction latex AdvReac Rash Verified 07/06/25 14:06 Assessment and Plan *Assessment and plan (1) Bigeminal rhythm: Status: Acute Category: Medical Code(s): I49.8 - Other specified cardiac arrhythmias (2) Abdominal pain: Status: Acute Qualifiers: Abdominal location: right upper quadrant Qualified Code(s): R10.11 - Right upper quadrant pain Category: Medical Code(s): R10.9 - Unspecified abdominal pain (3) Ovarian cyst: Status: Acute Qualifiers: Laterality: right Qualified Code(s): N83.201 - Unspecified ovarian cyst, right side Category: Medical Code(s): N83.209 - Unspecified ovarian cyst, unspecified side (4) (HFpEF) heart failure with preserved ejection fraction: Status: Acute Qualifiers: Heart failure chronicity: unspecified Qualified Code(s): I50.30 - Unspecified diastolic (congestive) heart failure Category: Medical Code(s): I50.30 - Unspecified diastolic (congestive) heart failure (5) HTN (hypertension): Status: Acute Qualifiers: Hypertension type: primary hypertension Qualified Code(s): I10 - Essential (primary) hypertension Category: Medical Code(s): I10 - Essential (primary) hypertension (6) Hyperlipemia: Status: Chronic Qualifiers: Hyperlipidemia type: mixed hyperlipidemia Qualified Code(s): E78.2 - Mixed hyperlipidemia Category: Medical Code(s): E78.5 - Hyperlipidemia, unspecified Plan Plan: 1. The patient presented to the emergency department for abdominal pain. She does have a CT showing cysts and/or follicles to the right ovary. She will need to follow-up with gynecology. 2. The patient was found to be in ventricular bigeminy. She was initially started on an amiodarone drip and going to start oral amiodarone as well. However, the patient does not need to be on an amiodarone drip so this will be stopped. Start oral amiodarone 400 mg 3 times daily for 2 weeks then 400 mg twice daily for 2 weeks then 200 mg twice daily for 2 weeks then 200 mg daily thereafter for suppression of ventricular bigeminy. 3. Her blood pressure is elevated but she states she feels very anxious today. Continue lisinopril and spironolactone and Lasix for hypertension. 4. Her LDL goal is less than 100. Her LDL is 102. She is on a statin. 5. Thyroid panel was normal last week. 6. She can be discharged from the emergency department with a 2-week event monitor in place after starting the amiodarone. 7. No further recommendations at this time from a cardiac standpoint. She can be discharged home today from the emergency department from a cardiac standpoint with a 2-week event monitor in place and initiation of amiodarone. Thank you for the opportunity to help participate in the care of this patient. All recommendations and orders are per Dr. Nevarez.
[2025-07-28] MEDS: AMIODARONE 200MG TABLET 400 MG PO (15:24)
== END 2025-07-28 15:53 | disposition home or self-care (01) ==
LOC: ER 07:07 → ICU 14:37 → ER 15:16
PROVIDERS: Emergency Medicine; Internal Medicine Adolescent Medicine; Emergency Provider Student in an Organized Health Care Education/Training Program; PCP Nurse Practitioner Family
DX: R10.13 Epigastric pain (principal); R10.12 Left upper quadrant pain; I49.3 Ventricular premature depolarization; I49.8 Other specified cardiac arrhythmias; I11.0 Hypertensive heart disease with heart failure; I50.30 Unspecified diastolic (congestive) heart failure
CPT/HCPCS: 74177; 80053; 81001; 83690; 83735; 84484; 85025; 93005; 93270; 96365; 96366; 99285; J0282; J7060; Q9967